=== PATIENT | female | born 1960 | race Caucasian/White ===

== ENCOUNTER 2024-05-26 03:35 | Inpatient (IN) | payer OTHER, SELFPAY ==
[2024-05-26] VITALS (16 sets, daily range): BP systolic 97–157; BP diastolic 46–105; BMI 35.6; BMI 34.3
--- NOTE | 2024-05-26 00:53 | ED.GENMED ---
History of Present Illness
General
Chief Complaint: Wound Check/Suture Removal
Source: patient
Exam Limitations: none
Time Seen by Provider: 05/26/24 00:44
History of Present Illness
History of Present Illness:
See MDM
Past History
Past History
ED Past Medical History: Hypercholesterolemia, IDDM and Hypothyroidism
ED Past Surgical History: Other
Social History
Tobacco: Smoker
Personal: Single
Living: with family
Employment: Employed
Phy Exam
Physical Exam
Physical Exam:
See MDM
Course
Orders/Labs/Results
Orders:
Orders
05/26/24 00:50
0.9% Sodium Chloride 1000 ml [Nss] 1,000 ml IV BOLUS
Morphine Sulfate 4 mg IV NOW STA
CR Foot - Left Min 3 Views Urgent
Comment:
Reason For Exam: 1st and 4th toe pain and swelling
05/26/24 00:57
Complete Blood Count/With Diff Urgent
Comprehensive Metabolic Panel Urgent
Lactic Acid Q4H
Comment: CANCEL 2nd LACTIC ACID IF 1st LACTIC ACID IS LESS THAN 2
PTT Urgent
Prothrombin Time Urgent
Blood Culture Urgent
JAMISON Source: Blood/Venous
Specimen Description:
05/26/24 01:37
Vancomycin [Vancocin] 2,000 mg 0.9% Sodium Chloride 500 ml [Nss] 500 ml IV NOW
05/26/24 01:38
Aztreonam [Azactam] 1,000 mg IV NOW STA
05/26/24 05:00
Lactic Acid Q4H
Comment: CANCEL 2nd LACTIC ACID IF 1st LACTIC ACID IS LESS THAN 2
Abnormal Lab Results
05/26/24
00:57
WBC 11.4 H 10^3/uL
(4.8-10.8)
Hgb 11.8 L g/dL
(12.0-16.0)
Hct 36.8 L %
(37.0-47.0)
MCH 26.6 L pg
(27.0-31.0)
MCHC 32.1 L g/dL
(33.0-37.0)
MPV 11.2 H fL
(7.4-10.4)
Absolute Neuts (auto) 8.8 H 10^3/uL
(1.4-6.5)
Absolute Monos (auto) 0.7 H 10^3/uL
(0.1-0.6)
Neutrophils % 77.8 H %
(42.2-75.2)
Lymphocytes % 15.2 L %
(20.5-51.1)
Potassium 5.2 H mmol/L
(3.5-5.1)
BUN 38 H mg/dl
(7-17)
Creatinine 1.3 H mg/dL
(0.6-1.0)
Glucose 144 H mg/dl
(70-99)
Lactic Acid 5.7 H* mmol/L
(0.7-2.0)
Total Bilirubin < 0.1 L mg/dl
(0.2-1.3)
05/26/24 00:57
05/26/24 00:57
Vital Signs
Initial and Last Documented VS:
Initial Vital Signs
Temp Resp
98.9 F 20
05/26/24 00:43 05/26/24 00:43
Last Documented Vital Signs
Temp Pulse Resp BP Pulse Ox
98.9 F 98 12 147/72 99
05/26/24 00:43 05/26/24 02:02 05/26/24 02:02 05/26/24 02:02 05/26/24 02:02
MDM/Problems Addressed
Differential Diagnosis Includes:
HPI and MDM Narrative:
This 63-year-old female presenting with worsening left foot pain and swelling. Patient states she has been dealing with wounds to her left great toe and left fourth toe for approximately 8 weeks. Symptoms have progressed and she is now noticing
redness and swelling of her foot. She has been unable to walk due to the pain. Patient states no one is doing anything about it. On exam, she has a gangrenous appearing left great toe and left fourth toe. There is mild erythema to the dorsum of
the foot. The foot is warm.
Given concern for gangrenous infection, will start antibiotics. Due to the penicillin allergy, will do vancomycin and aztreonam. Will ultimately admit
Physical exam
General: Uncomfortable
HEENT: protecting airway
Neck: appears supple
CV: No evidence of cyanosis
Resp: No accessory muscle use
Abd: Non-distended
Extremities: Erythema to dorsum of left foot. The foot is warm. Gangrenous skin changes to left great toe and left fourth toe. Foot is hypersensitive
Neuro: alert
Psych: Normal affect
Skin: Cellulitis to left foot
Problems Addressed including Acute and Chronic Conditions affecting care:
1. Left foot and toe infection
Acuity: acute
Prognosis: unstable
Details: Will obtain x-ray to rule out any evidence of osteomyelitis. Will start antibiotics and ultimately
Updates
Patient found to have elevated lactic acid. Will continue IV fluids.
Differential Diagnosis (but not limited to): Dry gangrene, cellulitis, osteomyelitis
Testing considered: ESR and CRP
Drug therapy (if applicable): OTC meds, please see d/c instruction regarding Rx drugs
Amount and/or Complexity of Data Reviewed
Clinical info obtained from: Patient
External data reviewed: N/A
Labs I independently reviewed (but not limited to): Elevated lactic acid
Radiology: X-ray independently reviewed: Possible osteomyelitis of great toe
Pulse Ox: not hypoxic
EKG independently reviewed: N/A
Architecture Analyst: N/A
Critical Care: N/A
Risk of Complication:
Social Determinants of health: Good social support
Discussed with other providers: Hospitalist
Escalation of Care includes Admit/Obs: Given the toe and foot infection, will start antibiotics and admit
Occasional wrong word or 'sound a like' substitutions may have occurred due to the inherent limitations of voice recognition software. Read the chart carefully and recognize, using context, where substitutions have occurred.
*Critical Care Note
Total Time (30-74mins, 75-104mins- exclusive of procedures): Not Applicable
ED Attending Note
-
Portions of this chart may have been created with voice recognition software.� Occasional wrong word or��sound alike� substitutions may have occurred due to the inherent limitations of voice recognition software.
Discharge Plan
Departure
Patient Disposition: Admit
Date of Disposition: 05/26/24
Time of Disposition: 02:20
Admit to: Med/Surg
Presentation/result/management discussed w/ accepting MD/DO: Hospitalist
Discharge Problem:
Wound of left foot
Prescriptions:
No Action
atorvastatin 80 MG tablet
80 mg PO QPM 0RF
acetaminophen 325 MG tablet
650 mg PO Q4HPRN PRN (Reason: HENDRICKS, mild pain, or temp >100.4F) 0RF
insulin glargine [Lantus U-100 Insulin] 1,000 UNITS/10 ML solution
30 units SC HS 0RF
sucralfate 1 GM/10 ML suspension
1 gm PO ACHS 0RF
clopidogrel 75 MG tablet
75 mg PO DAILY 0RF
aspirin 81 MG tablet,delayed release (DR/EC)
81 mg PO DAILY 0RF
pantoprazole 40 MG tablet,delayed release (DR/EC)
40 mg PO BID 0RF
metformin 1,000 MG tablet
1,000 mg PO BID@0800,1700 0RF
labetalol 100 MG tablet
50 mg PO BID 0RF
insulin aspart U-100 [Novolog FlexPen U-100 Insulin] 300 UNITS/3 ML insulin pen
10 units SC AC 0RF
ondansetron HCl (PF) 4 MG/2 ML solution
4 mg IV Q6HPRN PRN (Reason: NAUSEA/VOMITING) 0RF
Referrals:
Levar Subramanian MD [Family Provider] -
Interventions
Interventions:
*Risk Screen - Suicide Last Done: 05/26/24 00:43
*General Assessment Last Done: 05/26/24 00:43
*Neglect/Abuse Screening Last Done: 05/26/24 00:43
ED- Fall Risk Assessment Last Done: 05/26/24 00:43
ED-Skin Assessment Last Done: 05/26/24 00:43
Discharge Date and Time
Print Language: WELSH
[2024-05-26] MEDS: MORPHINE SULFATE 4 MG IV (01:06)
[2024-05-26] MEDS: NSS 1000 IV ×4 (01:07→20:35)
[2024-05-26 01:19] LABS: % Basophils 0.3 % (0-2); % Eosinophils 0.4 % (0-6); % Immature Granulocytes 0.3 % (0-0.5); % Lymphocytes 15.2 % (20.5-51.1); % Neutrophils 77.8 % (42.2-75.2); Absolute Eosinophils 0.1 10^3/uL (0-0.7); Absolute Lymphocytes 1.7 10^3/uL (1.2-3.4); Absolute Monocytes 0.7 10^3/uL (0.1-0.6); Absolute Neutrophils 8.8 10^3/uL (1.4-6.5); Hematocrit 36.8 % (37.0-47.0); Hemoglobin 11.8 g/dL (12.0-16.0); Mean Corp Hgb Conc. 32.1 g/dL (33.0-37.0); Mean Corpuscular Hgb 26.6 pg (27.0-31.0); Mean Corpuscular Volume 82.9 fL (81.0-99.0); Mean Platelet Volume 11.2 fL (7.4-10.4); Nucleated Red Blood Cells % 0 %; Platelet Count 368 10^3/uL (130-400); Red Blood Cell Count 4.44 10^6/uL (4.20-5.40); White Blood Cell Count 11.4 10^3/uL (4.8-10.8)
[2024-05-26 01:21] LABS: ALT (SGPT) 15 U/L (0-35); AST (SGOT) 20 U/L (14-36); Albumin 3.7 g/dl (3.5-5.0); Alkaline Phosphatase 80 U/L (38-126); Blood Urea Nitrogen 38 mg/dl (7-17); Calcium 8.9 mg/dl (8.4-10.2); Carbon Dioxide 23 mmol/L (22-30); Chloride 101 mmol/L (98-107); Estimated Creatinine Clearance 47 ml/min; Glucose 144 mg/dl (70-99); Potassium 5.2 mmol/L (3.5-5.1); Sodium 141 mmol/L (135-145); Total Bilirubin < 0.1 mg/dl (0.2-1.3); Total Protein 6.5 g/dl (6.3-8.2); eGFR 46.21
[2024-05-26 01:23] LABS: INR 0.98
[2024-05-26 01:24] LABS: APTT 32.6 Sec (23.4-35.0)
[2024-05-26 01:43] LABS: Lactic Acid 5.7 mmol/L (0.7-2.0)
[2024-05-26] MEDS: AZACTAM 1000 MG IV (01:56)
[2024-05-26] MEDS: VANCOCIN 540 MG IV (01:57)
[2024-05-26 05:43] LABS: Hemoglobin 10.6 g/dL (12.0-16.0); Mean Corp Hgb Conc. 32.1 g/dL (33.0-37.0); Mean Corpuscular Hgb 27.6 pg (27.0-31.0); Mean Corpuscular Volume 85.9 fL (81.0-99.0); Mean Platelet Volume 10.8 fL (7.4-10.4); Platelet Count 320 10^3/uL (130-400); Red Blood Cell Count 3.84 10^6/uL (4.20-5.40); Red Cell Dist. Width 13.8 % (11.5-14.5); White Blood Cell Count 10.4 10^3/uL (4.8-10.8)
[2024-05-26 06:23] LABS: Blood Urea Nitrogen 34 mg/dl (7-17); Calcium 8.3 mg/dl (8.4-10.2); Carbon Dioxide 25 mmol/L (22-30); Chloride 104 mmol/L (98-107); Estimated Creatinine Clearance 51 ml/min; Glucose 129 mg/dl (70-99); Potassium 5.1 mmol/L (3.5-5.1); Sodium 142 mmol/L (135-145); eGFR 50.86
--- NOTE | 2024-05-26 07:12 | HPS.HSE ---
Family Physician
-
Family Physician: Levar Subramanian
Chief Complaint
-
Left foot infection
History of Present Illness
This is a 60-year-old female with past medical history of insulin-dependent diabetes, hypertension, schizoaffective disorder, prior CVA who presents to the emergency department from group home with infection of the left great toe and fourth toe.
Patient reported that she has had discoloration of both these 2 areas for around 8 weeks. She had been managing with wound care at her nursing facility. However she was evaluated today by a physician there who recommended that she go to the
emergency department for further studies. Patient report that she has not been on any antibiotics. She denies any prior vascular studies. She does appear to have some peripheral neuropathy description. She also reports she felt some pulsatile
sensation in left leg. In addition to the 2 areas previously indicated the patient also reports some slight darkening of 4 left heel. She denies any prior foot infections. She denies any prior vascular studies or interventions. She has not had
any fevers or chills. She denies any nausea vomiting or diaphoresis. Glucose control has been well-managed without hyperglycemia or DKA.
In the emergency department patient was afebrile, blood pressure was 134/86, oxygen saturation was 94% on room air. CBC was mostly unremarkable with a white count of 11.4 hemoglobin of 11.8 and platelet of 368. Chemistries also essentially
unchanged from baseline with a BUN of 31 and creatinine of 1.3.
Medical History
Past Medical History
Past Medical History: Reports CVA, IDDM and Psychiatric
Past Surgical History: Reports Other
Social History
Tobacco: Non-smoker
Alcohol: None
Drug: None
Personal: Single
Living: Detention
Employment: Disabled
Family History
Family History: Not pertinent
Allergies / Home Medications
Allergies reflects when Allergies were last updated in [employer].
Home Medications with original date entered in [employer]
Allergy/Medication List:
Allergies
Allergy/AdvReac Type Severity Reaction Status Date / Time
Barbiturates Allergy Hives Verified 05/26/24 01:37
cefaclor [From Ceclor] Allergy Hives Verified 05/26/24 01:37
Penicillins Allergy Unknown Verified 05/26/24 01:37
Sulfa (Sulfonamide Allergy Hives Verified 05/26/24 01:37
Antibiotics)
Home Medications
acetaminophen 325 mg tablet 650 mg (2 x 325 mg) PO Q4HPRN PRN HENDRICKS, mild pain, or temp >100.4F 06/06/20
aspirin 81 mg tablet,delayed release 81 mg PO DAILY 06/06/20
atorvastatin 80 mg tablet 80 mg PO QPM 06/06/20
clopidogrel 75 mg tablet 75 mg PO DAILY 06/06/20
insulin aspart U-100 100 unit/mL (3 mL) subcutaneous pen (Novolog FlexPen U-100 Insulin aspart) 10 units SC AC 06/06/20
insulin glargine 100 unit/mL subcutaneous solution (Lantus U-100 Insulin) 30 units SC HS 06/06/20
labetalol 100 mg tablet 50 mg (1/2 x 100 mg) PO BID 06/06/20
metformin 1,000 mg tablet 1,000 mg PO BID@0800,1700 06/06/20
ondansetron HCl (PF) 4 mg/2 mL injection solution 4 mg (2 mL) IV Q6HPRN PRN NAUSEA/VOMITING 06/06/20
pantoprazole 40 mg tablet,delayed release 40 mg PO BID 06/06/20
sucralfate 100 mg/mL oral suspension 1 gm PO ACHS 06/06/20
Review of Systems
-
History Source: Patient
Constitutional: Reports No Symptoms
EENT: Reports No Symptoms
Respiratory: Reports No Symptoms
Cardiac: Reports No Symptoms
Abdomen/GI: Reports No Symptoms
: Reports No Symptoms
Musculoskeletal: Reports No Symptoms
Skin: Reports Rash
Neurological: Reports No Symptoms
Endocrine: Reports No Symptoms
Psych: Reports No Symptoms
Physical Exam
Vital Signs
Vital Signs
Temp Pulse Resp BP Pulse Ox
98.9 F 100 16 134/105 94
05/26/24 00:43 05/26/24 02:30 05/26/24 02:30 05/26/24 02:30 05/26/24 02:30
Physical Exam
General: No Apparent Distress
HEENT: NormoCephalic, Anicteric, Moist mucous membranes and Atraumatic
Respiratory: Clear
Cardiac: S1/S2 and Regular Rhythm
Breast: Deferred by me
GI: Soft, Non Tender, Non Distended and Normal Bowel Sounds
Rectal: Deferred by Provider
Genito-urinary: Deferred by me
Musculoskeletal: No Clubbing, No Cyanosis and Edema, Left Lower Extremity
Skin: Warm and Other (Currently has eschar without exudate in the left fourth toe and left great toe. There is surrounding erythema and minimal edema. Slight tenderness to palpation.)
Neuro: AO x 3
Hematologic/Lymphatic: No Lymphadenopathy
Psych: Calm
Laboratory Results
-
05/26/24 05:28
05/26/24 05:28
Laboratory Results
PT 13.0 Sec (11.4-14.6) 05/26/24 00:57
INR 0.98 05/26/24 00:57
APTT 32.6 Sec (23.4-35.0) 05/26/24 00:57
Lactic Acid Cancelled 05/26/24 05:00
Total Bilirubin < 0.1 mg/dl (0.2-1.3) L 05/26/24 00:57
AST 20 U/L (14-36) 05/26/24 00:57
ALT 15 U/L (0-35) 05/26/24 00:57
Alkaline Phosphatase 80 U/L (38-126) 05/26/24 00:57
Data Reviewed
-
Diagnostic Radiology: Image Personally Visualized and interpreted
Lab Data: Labs Reviewed by me
Old Records: Reviewed
Impression/Plan
-
IMPRESSION:
60-year-old female with history of insulin-dependent diabetes who presents to the emergency department with approximately 8 weeks of ongoing left great toe and fourth toe infection concerning for possible gangrene and vascular insufficiency versus
diabetic foot infection.
PLAN:
1. Toe Infection - Gangrene vs diabetic foot infection
- admit to med surg
- blood cultures
- check crp
- f/u on xray final read to determine if mri needed
- Continue vancomycin for non-exudative foot infection
- arterial doppler u/s for vascular evaluation, then possible vascular consult
- ID consultation
2. DM II
- Placed patient on slightly reduced insulin regimen compared to home with glargin, aspart tidac and sliding scale
- holding metformin
3. Hypothyroidism
- continue levothyroxine
DVT PPX - lovenox sq
Code Status - Full Code
[2024-05-26 07:24] LABS: Erythrocyte Sed Rate 74 mm/hour (0-20)
[2024-05-26] MEDS: TYLENOL 650 MG PO ×2 (07:36→23:35)
--- NOTE | 2024-05-26 07:55 | W.PN.HOSP.TC ---
Today's Communication/Plan
-
Appreciate vascular surgery consult. Infectious diseases consulted. Will further assess with a CTA or arteriogram. Possible CKD stage IIIa -we will further trend EGFR and creatinine to further assess. MRI of the foot ordered.
Assessment / Plan
Assessment / Plan
HPI: Patient is a 63-year-old woman with a past medical history of insulin-dependent diabetes, hypertension, schizoaffective disorder, and prior CVA who presented to the emergency department with worsening left foot pain and swelling. She came to
the emergency department from the halfway [facility]. The patient stated that she had been dealing with wounds to her left great toe and left fourth toe for approximately 8 weeks. She had been managing with wound care at her nursing
facility. However, she was evaluated the day of her presentation to the emergency department by a physician at the halfway who recommended that she go to the emergency department for further evaluation. The patient reported that she had not
been on any antibiotics. She denied any prior vascular studies. Symptoms had progressed and she was noticing redness and swelling of her foot. She was unable to walk due to the pain. The patient stated that no one is doing anything about it. On
exam she had a gangrenous appearing left great toe and left fourth toe. There was mild erythema to the dorsum of the foot and the foot was warm. She also was assessed to have peripheral neuropathy. She reported some pulsatile sensation felt in
the left leg. In addition to the 2 areas previously indicated the patient also reported some slight darkening of her left heel. Antibiotics were started immediately due to concern for gangrenous infection. Patient was given vancomycin and
aztreonam due to a penicillin allergy. In the emergency department the patient was afebrile, blood pressure was 134/86, oxygen saturation was 94% on room air. CBC was mostly unremarkable with a white blood cell count of 11.4, hemoglobin of 11.8,
and a platelet count of 368. The patient's chemistry were also unchanged from baseline with a BUN of 31 and a creatinine of 1.3.
Assessment/Plan:
-Dry gangrene of the first and fourth toe of the left foot:
Admitted to [facility]
blood cultures sent
CRP elevated at 74.7 on 05/26/2024
Foot x-ray showed no acute fracture or dislocation. No osseous destructive changes. Large calcaneal enthesophyte formation. Vascular calcifications. Mild soft tissue swelling about the foot, nonspecific.
Follow-up MRI of the foot ordered
Continue vancomycin for non-exudative foot infection
arterial doppler u/s for vascular evaluation
Appreciate vascular surgery consult- will further assess with a CTA or arteriogram
Appreciate infectious diseases consult
Wound care team consulted
Lactic acid trending downwards. Lactic acid was 5.7 on 05/26/2024 at 1AM �currently 2.1 on 05/26/2024 at 10:43AM
-Possible chronic kidney disease stage IIIa:
eGFR ranges between 46-50
Creatinine elevated at 1.2 on 05/26/2024
Will continue to monitor
-Type 2 diabetes mellitus:
Placed patient on slightly reduced insulin regimen compared to home with glargine, aspart tidac and moderate sliding scale
holding metformin
-Hypothyroidism:
continue levothyroxine
Anticipated Discharge: 24 - 48 hours
Subjective/Interval History
-
Date of Service: May 26, 2024
Met with patient at the bedside. She was seen laying in bed and uncomfortable with pain in her left foot. She particularly focused on the pain in her first and fourth digit. Patient experienced anxiety during blood draw as it was difficult for
staff to gain vascular access. Reassurance provided at the bedside.
Objective Data
-
Labs:
Laboratory Results
05/26/24 05/26/24
00:57 05:28
WBC 11.4 H 10.4
Hgb 11.8 L 10.6 L
Hct 36.8 L 33.0 L
Plt Count 368 320
PT 13.0
INR 0.98
APTT 32.6
Sodium 141 142
Potassium 5.2 H 5.1
Chloride 101 104
Carbon Dioxide 23 25
BUN 38 H 34 H
Creatinine 1.3 H 1.2 H
Glucose 144 H 129 H
Calcium 8.9 8.3 L
Total Bilirubin < 0.1 L
AST 20
ALT 15
Alkaline Phosphatase 80
Vital Signs:
Vital Signs
Temp Pulse Resp BP Pulse Ox
98.9 F 97 19 97/46 97
05/26/24 00:43 05/26/24 07:15 05/26/24 07:15 05/26/24 04:00 05/26/24 04:15
I&O
05/25/24 05/26/24 05/27/24
06:59 06:59 06:59
Intake Total 540 / 540
Output Total 100 / 100
Balance 440 / 440
Review of Systems
-
History Source: Patient
Constitutional: Reports Other (Left foot pain)
EENT: Reports No Symptoms Reported
Respiratory: Reports No Symptoms
Cardiac: Reports No Symptoms
Abdomen/GI: Reports No Symptoms
Breast: Reports No Symptoms
Genitourinary: Reports No Symptoms
Musculoskeletal: Reports Other (Left foot pain -particularly in the great toe and fourth toe)
Skin: Reports No Symptoms
Neuro: Reports No Symptoms
Endocrine: Reports No Symptoms
Psych: Reports Anxious
Physical Exam
-
General: Well Developed, Well Nourished and Pain (Left foot pain-particularly in the greater toe and fourth toe)
HEENT: Normocephalic, Atraumatic and Moist Mucous Membranes
Respiratory: Clear to Auscultation
Cardiac: Regular Rhythm and S1/S2
Breast: Deferred by me
GI: Soft, Nontender, Nondistended and Normal Bowel Sounds
Rectal: Deferred by Provider
Genito-urinary: Deferred by me
Musculoskeletal: No Clubbing and No Cyanosis
Skin: Warm, Dry and Other (Gangrenous skin lesions of the left great toe and fourth digit of her foot)
Neuro: Awake, Alert, Oriented and AO x 3
Psych: Anxious
--- NOTE | 2024-05-26 08:48 | PHA.VAN.IN ---
Assessment
- Assessment
Renal Function: Unknown baseline
Plan
- Plan
Initial / Loading Dose: 2000mg - 05/26 01:57
Maintenance Regimen: dosing by level
Monitoring: random 05/27 0600
Pharmacokinetics Vancomycin I
- -
Patient Age: 63
Patient Sex: Female
Vancomycin Day #: 1
Indication: Skin And Soft Tissue
Requesting Provider: Dr. Corona
Pertinent Antimicrobial Allergies:
cefaclor - hives
penicillins - unknown
sulfonamide antibiotics -hives
Height / Weight:
Height 5 ft 3 in
Actual Weight 91.1 kg
Pertinent Past Medical History: BMI ~36< DM
- Vital Signs / Lab Results
Temp Pulse Resp BP Pulse Ox
98.9 F 97 19 97/46 97
05/26/24 00:43 05/26/24 07:15 05/26/24 07:15 05/26/24 04:00 05/26/24 04:15
Lab Results - Hematology
05/26/24 05/26/24
00:57 05:28
WBC 11.4 H 10.4
Lab Results - Chemistry
05/26/24 05/26/24
00:57 05:28
BUN 38 H 34 H
Creatinine 1.3 H 1.2 H
Estimated Creat Clear 47 51
Albumin 3.7
05/26/24 05/26/24
00:57 05:00
Lactic Acid 5.7 H* Cancelled
[2024-05-26 08:53] LABS: Glucose - Point of Care 118 mg/dl (70-99)
[2024-05-26] MEDS: NOVOLOG FLEXPEN 7 UNITS SC ×3 (09:58→18:35)
[2024-05-26] MEDS: NOVOLOG FLEXPEN-MODERATE RESISTANCE SC (09:58)
[2024-05-26] MEDS: TRILEPTAL 300 MG PO ×2 (09:59→20:28)
[2024-05-26] MEDS: PROTONIX 40 MG PO ×2 (09:59→20:28)
[2024-05-26] MEDS: ASPIR LOW (ENTERIC COATED) 81 MG PO (09:59)
[2024-05-26] MEDS: RISPERDAL 0.5 MG PO ×2 (09:59→20:29)
--- NOTE | 2024-05-26 10:33 | CON.VAS ---
Addendum entered and electronically signed by Hardik Melara MD 05/26/24 12:28:
Seen and evaluated with JULY Easley. Agree with findings as noted below. 63-year-old female with schizoaffective disorder with left foot gangrenous and ischemic changes over the course of 8 weeks. Patient unclear how this develop. She notes that
she used to walk before she developed this. She denied any claudication prior. Denies any history of coronary disease or prior peripheral vascular interventions. On exam she is awake and alert. Head is normocephalic and atraumatic. Eyes are
anicteric. Neck is soft without jugular venous distention. Abdomen is soft. Groins left 1+ weak femoral pulse palpable at best. On the right side had real difficulty palpating a femoral pulse. We even laid her flat. Nonpalpable distally
bilaterally. Left foot with first and fourth toe dry gangrene. Varying degrees of ischemic changes to the other feet. There is rubor in the foot. No tim wet gangrene. No purulence.
Plan/ Likely has significant arterial sufficiency with difficult to palpate femoral pulses and distal pulses. Chronic limb threatening ischemia therefore. Discussed with her without intervention she runs a risk of limb loss. Discussed we need to
obtain better imaging. Prior to proceeding with any angiography, would favor CT angiogram given weak femoral pulses. Will obtain today CTA of the aorta runoff and then I discussed with her I can discuss revascularization strategies or plans if
feasible.
Original Note:
Consultation
Consultation Request
Performing Provider: Ketlon
Reason for Consultation: Nonhealing wounds left foot
Medical History
-
Chief Complaint: Left foot pain/wounds
History of Present Illness:
63 yo female presenting to the ER today from [place] for nonhealing left foot wounds. Pt is a poor historian. She states she has had the wounds for about 8 weeks but no one has done anything for them. 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
but has not seen him for 'a long time.' Denies history of PAD, CAD, vascular interventions, wound healing issues. 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 Pt
denies claudication symptoms, denies rest pain. States she 'only walks when she has to' but has not anytime recently d/t the left foot wounds. Pt is not sure if anything makes her foot feel better. She states 'no one has done anything to make it
better.' She states it doesn't hurt very much when no one is touching it. Her right foot is not painful though he cried when I checked pulses on that side but later said that was because it tickled.
Vascular consult for nonhealing left foot wounds/PAD eval. Pt seen at bedside in the ER this am.
Pt has tenderness to very light palpation of the left foot. Foot is pink with some swelling, dry gangrene to the 1st and 4th toes and a small dry necrotic ulcer to the lateral heel. Images below. Nonpalpable BL PTs, faintly palpable DP on the left
foot. + Doppler signals to the left DP and BL PT. Nonpalpable popliteal pulses, weakly palpable BL femoral pulses. Right foot skin intact.
Left foot
Past Medical History
Past Medical History: NIDDM, Seizures (?) and Psychiatric (schizoaffective )
Social History
Living: [facility]
Allergies / Home Medications
Allergy/AdvReac Type Severity Reaction Status Date / Time
Barbiturates Allergy Hives Verified 05/26/24 01:37
cefaclor [From [facility]] Allergy Hives Verified 05/26/24 01:37
Penicillins Allergy Unknown Verified 05/26/24 01:37
Sulfa (Sulfonamide Allergy Hives Verified 05/26/24 01:37
Antibiotics)
�Medication �Instructions �Recorded �Confirmed �Type
acetaminophen 325 mg tablet 650 mg (2 x 325 mg) PO Q4HPRN PRN 06/06/20 Rx
HENDRICKS, mild pain, or temp >100.4F
aspirin 81 mg tablet,delayed 81 mg PO DAILY 06/06/20 Rx
release
atorvastatin 80 mg tablet 80 mg PO QPM 06/06/20 Rx
clopidogrel 75 mg tablet 75 mg PO DAILY 06/06/20 Rx
insulin aspart U-100 100 unit/mL 10 units SC AC 06/06/20 Rx
(3 mL) subcutaneous pen (Novolog
FlexPen U-100 Insulin aspart)
insulin glargine 100 unit/mL 30 units SC HS 06/06/20 Rx
subcutaneous solution (Lantus
U-100 Insulin)
labetalol 100 mg tablet 50 mg (1/2 x 100 mg) PO BID 06/06/20 Rx
metformin 1,000 mg tablet 1,000 mg PO BID@0800,1700 06/06/20 Rx
ondansetron HCl (PF) 4 mg/2 mL 4 mg (2 mL) IV Q6HPRN PRN 06/06/20 Rx
injection solution NAUSEA/VOMITING
pantoprazole 40 mg tablet,delayed 40 mg PO BID 06/06/20 Rx
release
sucralfate 100 mg/mL oral 1 gm PO ACHS 06/06/20 Rx
suspension
Review of Systems
-
History Source: Patient
All other systems: Negative unless noted
Constitutional: Reports No Symptoms
EENT: Reports No Symptoms
Respiratory: Reports No Symptoms
Cardiac: Reports No Symptoms
Vascular: Denies Leg Pain / Claudication
Abdomen/GI: Reports No Symptoms
Musculoskeletal: Reports Edema and Other (foot pain)
Skin: Reports Other (left foot wounds)
Neurological: Reports No Symptoms
Endocrine: Reports No Symptoms
Physical Exam
Vital Signs
Temp Pulse Resp BP Pulse Ox
98.9 F 97 19 97/46 97
05/26/24 00:43 05/26/24 07:15 05/26/24 07:15 05/26/24 04:00 05/26/24 04:15
Lab Results
05/26/24 05:28
05/26/24 05:28
Physical Exam
General: No Apparent Distress
HEENT: Normocephalic and Atraumatic
Respiratory: Non Labored Respirations
Cardiac: Negative JVD
GI: Soft and Non Tender
Musculoskeletal: No Clubbing, No Cyanosis and Edema (left foot)
Skin: Warm, Dry and Other (See images above)
Neuro: Awake, Alert and Oriented
Psych: Calm
Pulses: Bilateral Femoral: +1 (weak), Left Dorsalis Pedis: Doppler, Right Dorsalis Pedis: +1 (weak) and Bilateral Posterior Tibial: Doppler
Assessment / Plan
-
63 yo female with unclear PMH presetning to ER for nonhealing left foot wounds with dry gangrene
Plan:
-CTA vs arteriogram, will d/w Dr Melara
-Abnormal creatinine, does not know baseline
Data Reviewed
-
Labs: Labs Reviewed by me
[2024-05-26] MEDS: MORPHINE SULFATE 1 MG IV ×2 (10:53→20:35)
[2024-05-26 11:09] LABS: Lactic Acid 2.1 mmol/L (0.7-2.0)
[2024-05-26 11:55] LABS: Glucose - Point of Care 200 mg/dl (70-99)
--- NOTE | 2024-05-26 13:53 | CON.ID ---
Consultation
-
Date/Time Consultation Requested: 05/26/2024 0402
Date/Time Consultation Performed: 05/26/2024 1400
Requesting Provider: Dr. Janette Walton
Performing Provider: Dr. Amy King
Reason for Consultation: Diabetic foot infection
Chief Complaint / Past History
Chief Complaint
Black toes
History of Present Illness
63 year old female from [facility] with hx DM, CVA who came to ED yesterday due to toe gangrene. She reports left first and 4th toes started to turn dark approximately 2 months ago. Toes are now black. Toes are painful. No fevers or chills. CTA no
significant LLE stenosis, extensive atherosclerotic plaques.
Past History
Additional Past Medical History:
DM
HTN
CVA
Hypothyroidism
Schizoaffective disorder
Lap rashid
[facility] resident
Allergy History:
Barbiturates Allergy (Verified 05/26/24 01:37)
Hives
cefaclor [From Ceclor] Allergy (Verified 05/26/24 01:37)
Hives
Penicillins Allergy (Verified 05/26/24 01:37)
Pt unaware she has PCN allergy
Sulfa (Sulfonamide Antibiotics) Allergy (Verified 05/26/24 01:37)
Hives
Medications Reviewed: Yes
Current Antibiotics:
Vancomycin
s/p aztreonam x 1
Social History
Tobacco: Non-Smoker
Alcohol: None
Drug: None
Living: [facility]
Family History
Family History: Not Pertinent
Review of Systems
Review of Systems
General: Negative Fever or Chills
HEENT: Negative Sinus Problems or Headache
Cardiovascular: Negative Chest Pain
Respiratory: Negative Dyspnea or Cough
Gasteroenterology: Negative Nausea, Vomiting or Diarrhea
Genital / Urological: Negative Dysuria or Flank Pain
Endocrine: Negative Weakness or Fatigue
Neurological: Negative Dizziness
All systems: All other systems were reviewed and were negative
Vital Signs
Temp Pulse Resp BP Pulse Ox
98.9 F 97 19 97/46 95
05/26/24 00:43 05/26/24 07:15 05/26/24 07:15 05/26/24 04:00 05/26/24 10:39
Physical Exam
Physical Exam
Constitutional: No Acute Distress and Obese
Eyes: No Conjunctival Hemorrhage and Sclera Anicteric
Cardiovascular: Regular Rate and S1/S2
Pulmonary: Clear
Gastrointestinal: Soft, Non Tender and Non Distended
Genito-Urinary: Negative CVA Tenderness
Extremities: Other (left foot 2+ edema, hyperemia, warm, gangrene hallux and 4th toe, ischemic wound lateral heel)
Neurological: Awake and Alert
Lab / Diagnostic Study Results
05/26/24 05:28
05/26/24 05:28
Abs Immat Gran (auto) 0.0 10^3/uL (0-0.05) 05/26/24 00:57
Absolute Neuts (auto) 8.8 10^3/uL (1.4-6.5) H 05/26/24 00:57
Absolute Lymphs (auto) 1.7 10^3/uL (1.2-3.4) 05/26/24 00:57
Absolute Monos (auto) 0.7 10^3/uL (0.1-0.6) H 05/26/24 00:57
Absolute Basos (auto) 0.0 10^3/uL (0-0.2) 05/26/24 00:57
Immature Gran % 0.3 % (0-0.5) 05/26/24 00:57
Neutrophils % 77.8 % (42.2-75.2) H 05/26/24 00:57
Lymphocytes % 15.2 % (20.5-51.1) L 05/26/24 00:57
Monocytes % 6.0 % (1.7-9.3) 05/26/24 00:57
Eosinophils % 0.4 % (0-6) 05/26/24 00:57
Basophils % 0.3 % (0-2) 05/26/24 00:57
ESR 74 mm/hour (0-20) H 05/26/24 05:28
PT 13.0 Sec (11.4-14.6) 05/26/24 00:57
INR 0.98 05/26/24 00:57
Lactic Acid 2.1 mmol/L (0.7-2.0) H 05/26/24 10:43
C-Reactive Protein 74.70 mg/L (0.0-10.00) H 05/26/24 05:28
Microbiology Results
Micro:
05/26/24 04:34 MRSA Screen - Pending
Nose
05/26/24 00:57 Blood Culture - Pending
Blood/Venous
05/26/24 Foot XRAY: No radiographic evidence for an acute osseous abnormality of the left foot.
05/26/24 CTA:
1. Heavily calcified, nonaneurysmal abdominal aorta. Celiac axis, SMA, and inferior mesenteric arteries are patent. Both renal arteries are patent with likely mild ostial narrowing secondary to calcified plaque.
2. Right leg: Mild calcified iliac arteries without significant stenosis. Mild mixed plaque within the common femoral artery without significant stenosis. Extensively diseased SFA with multifocal areas of narrowing identified proximally and
distally. Popliteal artery is heavily calcified but appears patent with patent trifurcation. The peroneal artery appears to occlude distally. Anterior tibial and posterior tibial arteries are heavily calcified which limits evaluation but appear
patent distally.
3. Left leg: Mild calcified plaque without significant stenosis within the iliac arteries. No significant stenosis identified within the common femoral artery. Extensive atherosclerotic plaque throughout the SFA with likely focal area of narrowing
identified proximally (image 160, series 501). There may also be an area of narrowing distally with several collateral vessels appreciated (image 219). Extensively calcified popliteal artery, limiting evaluation, but which appears patent.
Infrapopliteal vessels are heavily calcified, limiting evaluation. The distal aspects of the posterior tibial and dorsalis pedis arteries appear patent.
Assessment / Plan
# Dry gangrene of left 1st and 4th toes, ischemic wound on heel
- CTA no significant stenosis
- For Arteriography Wednesday.
- DC abx as gangrene is dry, not wet.
- Follow blood cx for possible embolic disease, although pt without systemic signs/sxs
- Follow for progression of gangrene.
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
DM
HTN
CVA
Hypothyroidism
Schizoaffective disorder
Lap rashid
SNF resident
[2024-05-26] MEDS: NOVOLOG FLEXPEN-MODERATE RESISTANCE 3 UNITS SC (14:08)
--- NOTE | 2024-05-26 15:25 | WOUNDNOTE ---
[facility] RN NOTE: Reviewed chart and met with patient and RN Raudel in ER. Patient agitated, calling out. Raudel preparing patient for angiogram. Patient agreed to have this RN take pictures of toes but declined any dressing to dry toes. Raudel made
aware that this advertising copywriter called for hospital bed for patient. Vascular following for chronic limb ischemia. Will follow peripherally.
--- NOTE | 2024-05-26 16:34 | W.PN.UPDATE ---
Addendum entered and electronically signed by Hardik Melara MD 05/26/24 17:18:
Discussed with patient CT scan findings. Discussed underwhelming inflow concerns. Discussed diffuse atherosclerosis. Discussed likely left SFA and popliteal areas of stenoses in tandem. Discussed limited visualization of below the knee vessels,
and possibility of small vessel disease not amenable to revascularization. Discussed my recommendation for left lower extremity arteriogram with possible angioplasty/stenting. Discussed procedure, anticipated outcomes, anticipated recovery.
Discussed risks of procedure including not limited to bleeding, arterial injury/worsened or acute limb ischemia, renal failure, need for staged surgical procedures, not reconstructable distal disease with amputation rest persistent. She understands
all wishes to proceed. Plan OR 05/29/2024.
Original Note:
Update Note
Progress Note Update
Plan for arteriogram Wednesday with Dr Melara. Pt agreeable.
[2024-05-26 17:58] LABS: Glucose - Point of Care 252 mg/dl (70-99)
[2024-05-26] MEDS: LIPITOR 40 MG PO (18:34)
[2024-05-26] MEDS: LOVENOX 40 MG SC (18:34)
[2024-05-26] MEDS: NOVOLOG FLEXPEN-MODERATE RESISTANCE 5 UNITS SC (18:35)
[2024-05-26] MEDS: DEPAKOTE (12 HR RELEASE) 125 MG PO (20:29)
[2024-05-26 21:28] LABS: Glucose - Point of Care 97 mg/dl (70-99)
--- NOTE | 2024-05-26 22:02 | W.PN.UPDATE ---
Update Note
Progress Note Update
BS is 97 tonight, will give half of lantus dose.
[2024-05-26] MEDS: LANTUS 0.075 UNITS SC (22:20)
--- NOTE | 2024-05-26 22:54 | PTCARENOTE ---
Patient arrived to unit from ED via stretcher. Pt. pulled over from stretcher to bed in room 321 on . Patient AAOx3 and able to make needs known. Patient yelling out frequently. Encouraged patient to use call villarreal. Oriented to unit. Call villarreal
within reach. Plan of care ongoing.
[2024-05-27 00:55] VITALS: BP 140/86
[2024-05-27] MEDS: SYNTHROID 50 MCG PO (05:29)
[2024-05-27] MEDS: NSS 1000 IV ×2 (06:18→18:35)
[2024-05-27 07:00] VITALS: BP 158/100
[2024-05-27] MEDS: MORPHINE SULFATE 1 MG IV ×2 (07:48→12:47)
--- NOTE | 2024-05-27 07:48 | PTCARENOTE ---
patient screaming/yelling c/o of left foot. c/o feeling cold. saturated in urine, gown, linens and diaper soaked. resistant with turning and requiring max assist x2, administered PRN Morphine, will continue to monitor.
--- NOTE | 2024-05-27 08:36 | W.PN.HOSP.TC ---
Addendum entered and electronically signed by Yo Walton MD 05/27/24 13:57:
Presenting with dry gangrene of first and fourth left foot in the setting of diabetes and PAD.
Additionally, she is a difficult blood draw
Xray:
Note calcification throughout arterial system.
Dry ggangrene
-ELLIOT's
-CTAngio on Wednesday
-Vascular Following
-Off Atb at this time
-F/u bcx
Original Note:
Today's Communication/Plan
-
We were unable to get labs today as the patient felt uncomfortable during lab draw. The patient is scheduled for an arteriogram of the lower limbs on Wednesday with Dr. Melara. We will continue to treat her pain and manage her until further evaluation
by vascular surgery.
Assessment / Plan
Assessment / Plan
Assessment/Plan:
-Dry gangrene of the first and fourth toe of the left foot:
Admitted to [facility]
blood cultures sent
CRP elevated at 74.7 on 05/26/2024
Foot x-ray showed no acute fracture or dislocation. No osseous destructive changes. Large calcaneal enthesophyte formation. Vascular calcifications. Mild soft tissue swelling about the foot, nonspecific.
Follow-up MRI of the foot ordered
Continue vancomycin for non-exudative foot infection
arterial doppler u/s for vascular evaluation
Appreciate vascular surgery consult- will further assess with a CTA or arteriogram
Appreciate infectious diseases consult
Wound care team consulted
Lactic acid trending downwards. Lactic acid was 5.7 on 05/26/2024 at 1AM �currently 2.1 on 05/26/2024 at 10:43AM
Patient is scheduled for an arteriogram with Dr. Melara on Wednesday
-Possible chronic kidney disease stage IIIa:
eGFR ranges between 46-50
Creatinine elevated at 1.2 on 05/26/2024
Will continue to monitor
-Type 2 diabetes mellitus:
Placed patient on slightly reduced insulin regimen compared to home with glargine, aspart tidac and moderate sliding scale
holding metformin
-Hypothyroidism:
continue levothyroxine
DVT prophylaxis: Enoxaparin subcu
FULL CODE STATUS
Anticipated Discharge: > 48 hours
Subjective/Interval History
-
Date of Service: May 27, 2024
Met with the patient at the bedside. She continues to feel foot pain but her pain medications help alleviate the extremes of it. She did not feel comfortable with allowing staff to draw blood for labs today.
Objective Data
-
Labs:
Laboratory Results
05/27/24
06:00
WBC Pending
Hgb Pending
Hct Pending
Plt Count Pending
Sodium Pending
Potassium Pending
Chloride Pending
Carbon Dioxide Pending
BUN Pending
Creatinine Pending
Glucose Pending
Calcium Pending
Total Bilirubin Pending
AST Pending
ALT Pending
Alkaline Phosphatase Pending
Vital Signs:
Vital Signs
Temp Pulse Resp BP Pulse Ox
98.8 F 98 20 158/100 99
05/27/24 00:45 05/27/24 07:00 05/27/24 07:00 05/27/24 07:00 05/27/24 07:00
I&O
05/26/24 05/27/24 05/28/24
06:59 06:59 06:59
Intake Total 540 / 540 1600 / 1600
Output Total 100 / 100
Balance 440 / 440 1600 / 1600
Review of Systems
-
History Source: Patient
All other systems: Reviewed and negative
Constitutional: Reports No Symptoms and Other (Left foot pain)
EENT: Reports No Symptoms Reported
Respiratory: Reports No Symptoms
Cardiac: Reports No Symptoms
Abdomen/GI: Reports No Symptoms
Breast: Reports No Symptoms
Genitourinary: Reports No Symptoms
Musculoskeletal: Reports Other (Left foot pain particularly in the great toe and the fourth toe)
Skin: Reports No Symptoms
Neuro: Reports No Symptoms
Endocrine: Reports No Symptoms
Psych: Reports Other (Calm)
Physical Exam
-
General: Well Developed, Well Nourished and Pain (Left foot pain)
HEENT: Normocephalic, Atraumatic and Moist Mucous Membranes
Respiratory: Clear to Auscultation
Cardiac: Regular Rhythm and S1/S2
Breast: Deferred by me
GI: Soft, Nontender, Nondistended and Normal Bowel Sounds
Musculoskeletal: No Clubbing, No Cyanosis and No Edema
Skin: Warm and Dry
Neuro: Awake, Alert, Oriented and AO x 3
Psych: Calm
[2024-05-27 09:00] LABS: Glucose - Point of Care 85 mg/dl (70-99)
[2024-05-27] MEDS: NOVOLOG FLEXPEN-MODERATE RESISTANCE SC (09:29)
[2024-05-27] MEDS: NOVOLOG FLEXPEN SC (09:30)
[2024-05-27] MEDS: TRILEPTAL 300 MG PO ×2 (09:35→19:54)
[2024-05-27] MEDS: ASPIR LOW (ENTERIC COATED) 81 MG PO (09:35)
[2024-05-27] MEDS: PROTONIX 40 MG PO ×2 (09:35→19:54)
[2024-05-27] MEDS: DEPAKOTE (12 HR RELEASE) 125 MG PO ×2 (09:36→19:54)
[2024-05-27] MEDS: RISPERDAL 0.5 MG PO ×2 (09:36→19:54)
[2024-05-27 12:21] LABS: Glucose - Point of Care 151 mg/dl (70-99)
[2024-05-27] MEDS: NOVOLOG FLEXPEN-MODERATE RESISTANCE 1 UNITS SC ×2 (12:48→18:39)
[2024-05-27] MEDS: NOVOLOG FLEXPEN 7 UNITS SC ×2 (12:48→18:38)
[2024-05-27 15:00] VITALS: BP 96/65
--- NOTE | 2024-05-27 15:01 | W.PN.ID1 ---
Date of Service
Date of Service: May 27, 2024
Today's Communication
Observe off abx.
Assessment / Plan
# Dry gangrene of left 1st and 4th toes, ischemic wound on heel
# Chronic ischemic left 1st and 4th toes (since 08/2023, per sister)
-blood cx negative
- CTA no significant stenosis
- For Arteriography Wednesday.
- Observe off abx
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
DM
HTN
CVA
Hypothyroidism
Schizoaffective disorder
Lap rashid
[facility] resident
Chief Complaint
-: Other (Toe gangrene)
Subjective / Review of Systems
Pt's sister at bedside.
She reports left foot issues chronic since August 2023 and progressively worse. This has been the worse she has ever seen of the toes.
Vital Signs / Physical Exam
Vital Signs
Vital Signs
Temp Pulse Resp BP Pulse Ox
98.8 F 98 20 158/100 99
05/27/24 00:45 05/27/24 07:00 05/27/24 07:00 05/27/24 07:00 05/27/24 07:00
Physical Exam
Constitutional: No Acute Distress and Comfortable
Gastrointestinal: Soft, Non Tender and Non Distended
Wound: Other (Left first toe stokes, 4th toe black, lateral heel ischemic wound. Minimal erythema dorsum of foot. )
Neurological: Awake and Alert
Objective Data
Lab Data
ESR 74 mm/hour (0-20) H 05/26/24 05:28
PT 13.0 Sec (11.4-14.6) 05/26/24 00:57
INR 0.98 05/26/24 00:57
APTT 32.6 Sec (23.4-35.0) 05/26/24 00:57
Estimated Creat Clear 51 ml/min 10/11/24 05:28
Lactic Acid 2.1 mmol/L (0.7-2.0) H 05/26/24 10:43
Total Bilirubin < 0.1 mg/dl (0.2-1.3) L 05/26/24 00:57
AST 20 U/L (14-36) 05/26/24 00:57
ALT 15 U/L (0-35) 05/26/24 00:57
Alkaline Phosphatase 80 U/L (38-126) 05/26/24 00:57
C-Reactive Protein 74.70 mg/L (0.0-10.00) H 05/26/24 05:28
Most recent labs reviewed.
Micro Results:
05/26/24 04:34 MRSA Screen - Final
Nose No Methicillin Resistant Staphylococcus aureus isolated.
05/26/24 00:57 Blood Culture - Preliminary
Blood/Venous No Growth in 24 hours- Final report to follow
05/26/24 Foot XRAY: No radiographic evidence for an acute osseous abnormality of the left foot.
05/26/24 CTA:
1. Heavily calcified, nonaneurysmal abdominal aorta. Celiac axis, SMA, and inferior mesenteric arteries are patent. Both renal arteries are patent with likely mild ostial narrowing secondary to calcified plaque.
2. Right leg: Mild calcified iliac arteries without significant stenosis. Mild mixed plaque within the common femoral artery without significant stenosis. Extensively diseased SFA with multifocal areas of narrowing identified proximally and
distally. Popliteal artery is heavily calcified but appears patent with patent trifurcation. The peroneal artery appears to occlude distally. Anterior tibial and posterior tibial arteries are heavily calcified which limits evaluation but appear
patent distally.
3. Left leg: Mild calcified plaque without significant stenosis within the iliac arteries. No significant stenosis identified within the common femoral artery. Extensive atherosclerotic plaque throughout the SFA with likely focal area of narrowing
identified proximally (image 160, series 501). There may also be an area of narrowing distally with several collateral vessels appreciated (image 219). Extensively calcified popliteal artery, limiting evaluation, but which appears patent.
Infrapopliteal vessels are heavily calcified, limiting evaluation. The distal aspects of the posterior tibial and dorsalis pedis arteries appear patent.
[2024-05-27] MEDS: NSS (PRESERVATIVE FREE) 0.25 ML IV (15:41)
[2024-05-27] MEDS: ATIVAN 0.5 MG IV (15:42)
--- NOTE | 2024-05-27 16:33 | PTCARENOTE ---
Not sure of how much pain patient has experienced today, as she can yell/scream at times without being touched or the slightest touch. at 12:15, patient screaming/yelling, using profanity, c/o left foot pain. notified Davey Perdomo as PRN Morphine
not due until 1347 I requested one time dose of Morphine and for frequency to be increased. he agreed (see new orders), one time dose of Morphine effective. Also, patient not allowing nursing staff to draw blood work. IV team placed midline for
blood draws and patient was pre-medicated with Ativan. sister at bedside, will continue to monitor.
[2024-05-27 16:47] LABS: Hematocrit 30.2 % (37.0-47.0); Mean Corp Hgb Conc. 33.1 g/dL (33.0-37.0); Mean Corpuscular Volume 81.6 fL (81.0-99.0); Mean Platelet Volume 10.5 fL (7.4-10.4); Platelet Count 307 10^3/uL (130-400); Red Cell Dist. Width 13.6 % (11.5-14.5); White Blood Cell Count 9.1 10^3/uL (4.8-10.8)
[2024-05-27 17:02] LABS: Vancomycin Random 6.1 ug/ml
[2024-05-27 17:18] LABS: Glucose - Point of Care 159 mg/dl (70-99)
[2024-05-27 17:18] LABS: ALT (SGPT) 13 U/L (0-35); AST (SGOT) 17 U/L (14-36); Albumin 2.9 g/dl (3.5-5.0); Alkaline Phosphatase 71 U/L (38-126); Blood Urea Nitrogen 19 mg/dl (7-17); Calcium 8.3 mg/dl (8.4-10.2); Carbon Dioxide 28 mmol/L (22-30); Chloride 101 mmol/L (98-107); Estimated Creatinine Clearance 70 ml/min; Glucose 206 mg/dl (70-99); Potassium 4.5 mmol/L (3.5-5.1); Sodium 137 mmol/L (135-145); Total Bilirubin < 0.1 mg/dl (0.2-1.3); Total Protein 5.5 g/dl (6.3-8.2); eGFR > 60.00
[2024-05-27] MEDS: LIPITOR 40 MG PO (18:39)
[2024-05-27] MEDS: LOVENOX SC (18:39)
--- NOTE | 2024-05-27 18:42 | PTCARENOTE ---
patient has refused am insulin, Lovenox and dressing to be applied to left foot, heels to be elevated on pillows, despite being informed of benefits and risks. will continue to encourage patient to allow nursing to administer/apply these
medications/treatments.
[2024-05-27 21:25] LABS: Glucose - Point of Care 118 mg/dl (70-99)
[2024-05-27] MEDS: LANTUS 0.15 UNITS SC (21:34)
[2024-05-27 23:26] VITALS: BP 121/68
[2024-05-28] MEDS: SYNTHROID 50 MCG PO (05:13)
[2024-05-28 07:00] VITALS: BP 138/78
--- NOTE | 2024-05-28 07:32 | W.PN.HOSP.TC ---
Addendum entered and electronically signed by Sandor Walton MD 05/28/24 16:15:
I saw and evaluated the patient. I reviewed the resident�s note and agree with findings and plan as documented in the resident�s note.
1. Left foot first and fourth toe dry gangrene, peripheral arterial disease -foot x-ray did not show any osteomyelitic changes. MRI of the foot is pending. Vascular surgery involved in care and patient underwent CTA lower extremities/arterial
Doppler showing diffuse PAD. Patient is planned to undergo lower extremity angioplasty tomorrow by vascular surgeon. ID is following and no signs of systemic infection, patient has been taken off antibiotics at this point.
2. Presumed CHRISTIAN - cr has normalized at this point, monitor.
Original Note:
Today's Communication/Plan
-
Added tramadol 25 mg p.o. every 6 hours as needed for ongoing foot pain. Patient is scheduled for a arteriogram with Dr. Melara on Wednesday.
Assessment / Plan
Assessment / Plan
Assessment/Plan:
-Dry gangrene of the first and fourth toe of the left foot:
Admitted to [facility]
blood cultures sent
CRP elevated at 74.7 on 05/26/2024
Foot x-ray showed no acute fracture or dislocation. No osseous destructive changes. Large calcaneal enthesophyte formation. Vascular calcifications. Mild soft tissue swelling about the foot, nonspecific.
Follow-up MRI of the foot ordered
Continue vancomycin for non-exudative foot infection
arterial doppler u/s for vascular evaluation -showed noncompressible arteries bilaterally, suggestive of medial calcinosis and arterial noncompliance, which made measuring ankle-brachial indices unreliable. Toe brachial indices were also not
obtainable due to the phasic great toe PPG waveforms. Heavily calcified plaque is seen throughout the arteries in each lower extremity. Patency of each SFA is difficult to ascertain on ultrasound due to the heavily calcified plaque with associated
posterior acoustic shadowing. The left popliteal artery is occluded along its length, with reconstitution of the posterior tibial and dorsalis pedis arteries.
Abdominal CT conducted shows a heavily calcified, nonaneurysmal abdominal aorta. On the right leg mild calcified iliac arteries without significant stenosis seen. On the right leg mixed plaque within the common femoral artery without significant
stenosis. On the right leg extensively diseased SFA with multifocal areas of narrowing identified proximally and distally. On the right leg popliteal artery is heavily calcified but appears patent with patent trifurcation - peroneal artery appears
to occlude distally. Left leg: Mild calcified plaque without significant stenosis within the iliac arteries. No significant stenosis identified within the common femoral artery. Extensive atherosclerotic plaque throughout the SFA with likely focal
area of narrowing identified proximally (image 160, series 501). There may also be an area of narrowing distally with several collateral vessels appreciated (image 219). Extensively calcified popliteal artery, limiting evaluation, but which appears
patent. Infrapopliteal vessels are heavily calcified, limiting evaluation. The distal aspects of the posterior tibial and dorsalis pedis arteries appear patent.
Appreciate infectious diseases consult -they recommend monitoring off of antibiotics for the time being
Wound care team consulted
Lactic acid trending downwards. Lactic acid was 5.7 on 05/26/2024 at 1AM �currently 2.1 on 05/26/2024 at 10:43AM
Patient is scheduled for an arteriogram with Dr. Melara on Wednesday
-Possible chronic kidney disease stage IIIa or CHRISTIAN:
Unknown baseline renal function
eGFR ranges between 46-50
Creatinine elevated at 1.2 on 05/26/2024
Recommend outpatient nephrology follow-up for further workup
-Type 2 diabetes mellitus:
Placed patient on slightly reduced insulin regimen compared to home with glargine, aspart tidac and moderate sliding scale
holding metformin
Hemoglobin A1c measured at 8.0 on 05/27/2024
-Hypothyroidism:
continue levothyroxine
DVT prophylaxis: Enoxaparin subcu
FULL CODE STATUS
Anticipated Discharge: > 48 hours
Subjective/Interval History
-
Date of Service: May 28, 2024
Met with the patient at the bedside. She continues to complain of pain in her left foot predominantly over her great toe and fourth toe. She calls out in pain for assistance. She asked for tramadol as she believes that it helped her pain in the
past.
Objective Data
-
Labs:
Labs
05/28/24 07:53
05/28/24 07:53
Vital Signs:
Vital Signs
Temp Pulse Resp BP Pulse Ox
98.5 F 100 18 121/68 99
05/27/24 23:26 05/27/24 23:26 05/27/24 23:26 05/27/24 23:26 05/27/24 23:26
I&O
05/27/24 05/28/24 05/29/24
06:59 06:59 06:59
Intake Total 1600 / 1600 1919
Balance 1600 / 1600 1919
Review of Systems
-
History Source: Patient
Constitutional: Reports No Symptoms
EENT: Reports No Symptoms Reported
Respiratory: Reports No Symptoms
Cardiac: Reports No Symptoms
Abdomen/GI: Reports No Symptoms
Breast: Reports No Symptoms
Genitourinary: Reports No Symptoms
Musculoskeletal: Reports Other (Left foot pain predominantly over her Great toe and fourth toe.)
Skin: Reports No Symptoms
Neuro: Reports No Symptoms
Endocrine: Reports No Symptoms
Hematologic / Lymphatic: Reports No Symptoms
Psych: Reports Anxious
Physical Exam
-
General: Well Developed, Well Nourished and Pain (Pain predominantly over her great toe and fourth toe of her left foot)
HEENT: Normocephalic, Atraumatic and Moist Mucous Membranes
Respiratory: Clear to Auscultation
Cardiac: Regular Rhythm and S1/S2
Breast: Deferred by me
GI: Soft, Nontender, Nondistended and Normal Bowel Sounds
Rectal: Deferred by Provider
Genito-urinary: Deferred by me
Musculoskeletal: No Clubbing, No Cyanosis and No Edema
Skin: Warm and Dry
Neuro: Awake, Alert, Oriented and AO x 3
Psych: Anxious (Screams out at times, easily redirectable with reassurance and encouragement)
[2024-05-28 08:06] LABS: Glucose - Point of Care 180 mg/dl (70-99)
[2024-05-28 08:06] LABS: Hematocrit 33.6 % (37.0-47.0); Hemoglobin 10.8 g/dL (12.0-16.0); Mean Corp Hgb Conc. 32.1 g/dL (33.0-37.0); Mean Corpuscular Hgb 26.1 pg (27.0-31.0); Mean Corpuscular Volume 81.2 fL (81.0-99.0); Mean Platelet Volume 10.9 fL (7.4-10.4); Platelet Count 310 10^3/uL (130-400); Red Blood Cell Count 4.14 10^6/uL (4.20-5.40); Red Cell Dist. Width 13.6 % (11.5-14.5); White Blood Cell Count 10.3 10^3/uL (4.8-10.8)
[2024-05-28] MEDS: ASPIR LOW (ENTERIC COATED) 81 MG PO (08:38)
[2024-05-28] MEDS: RISPERDAL 0.5 MG PO ×2 (08:38→20:02)
[2024-05-28] MEDS: PROTONIX 40 MG PO ×2 (08:38→20:01)
[2024-05-28] MEDS: TRILEPTAL 300 MG PO ×2 (08:38→20:07)
[2024-05-28] MEDS: DEPAKOTE (12 HR RELEASE) 125 MG PO ×2 (08:38→20:01)
[2024-05-28] MEDS: NOVOLOG FLEXPEN-MODERATE RESISTANCE 1 UNITS SC (08:39)
[2024-05-28] MEDS: NOVOLOG FLEXPEN 7 UNITS SC ×3 (08:39→16:56)
[2024-05-28 08:57] LABS: ALT (SGPT) 12 U/L (0-35); AST (SGOT) 22 U/L (14-36); Albumin 3.3 g/dl (3.5-5.0); Alkaline Phosphatase 75 U/L (38-126); Blood Urea Nitrogen 20 mg/dl (7-17); Calcium 8.7 mg/dl (8.4-10.2); Carbon Dioxide 27 mmol/L (22-30); Chloride 101 mmol/L (98-107); Estimated Creatinine Clearance 70 ml/min; Glucose 188 mg/dl (70-99); Potassium 4.8 mmol/L (3.5-5.1); Sodium 139 mmol/L (135-145); Total Bilirubin 0.2 mg/dl (0.2-1.3); eGFR > 60.00
[2024-05-28] MEDS: MORPHINE SULFATE 1 MG IV ×2 (09:25→20:02)
[2024-05-28 12:51] LABS: Glucose - Point of Care 250 mg/dl (70-99)
[2024-05-28] MEDS: NOVOLOG FLEXPEN-MODERATE RESISTANCE 5 UNITS SC (12:53)
[2024-05-28 15:00] VITALS: BP 139/78
--- NOTE | 2024-05-28 15:39 | CM ---
Attempted to see patient twice but she was sound asleep. CM called and spoke to Kat, patient's nurse who reports patient was total care. Patient is able to feed herself and could propel her w/c but she would not do so. She does have residual
right sided weakness from past stroke. Patient's sister Tessy keeps in touch with her at the SNF. Patient is LTC at [facility].
CM added Pharmacy for [facility].
PLAN: return to [facility] L[facility].
[2024-05-28] MEDS: ULTRAM 25 MG PO (16:47)
[2024-05-28 16:55] LABS: Glucose - Point of Care 205 mg/dl (70-99)
[2024-05-28] MEDS: NOVOLOG FLEXPEN-MODERATE RESISTANCE 3 UNITS SC (16:56)
[2024-05-28] MEDS: LOVENOX SC (17:01)
[2024-05-28] MEDS: LIPITOR 40 MG PO (17:01)
[2024-05-28 21:47] LABS: Glucose - Point of Care 173 mg/dl (70-99)
[2024-05-28] MEDS: LANTUS 0.15 UNITS SC (21:54)
[2024-05-28 23:26] VITALS: BP 116/54
[2024-05-29] VITALS (11 sets, daily range): BP systolic 94–138; BP diastolic 45–85
[2024-05-29] MEDS: MORPHINE SULFATE 1 MG IV ×2 (04:42→09:09)
[2024-05-29] MEDS: SYNTHROID 50 MCG PO (05:19)
[2024-05-29 06:07] LABS: Glucose - Point of Care 242 mg/dl (70-99)
--- NOTE | 2024-05-29 07:44 | W.PN.HOSP.TC ---
Addendum entered and electronically signed by Sandor Walton MD 05/29/24 16:52:
Discussed care plan with vascular surgeon, patient apparently have poor vasculature and likely will require above-knee amputation for better chance of healing the wound.
Will cancel podiatry consult for now.
Addendum entered and electronically signed by Sandor Walton MD 05/29/24 15:05:
I saw and evaluated the patient. I reviewed the resident�s note and agree with findings and plan as documented in the resident�s note.
I saw and evaluated the patient. I reviewed the resident�s note and agree with findings and plan as documented in the resident�s note.
1. Left foot first and fourth toe dry gangrene, peripheral arterial disease -foot x-ray did not show any osteomyelitic changes. MRI of the foot is pending. Vascular surgery involved in care and patient underwent CTA lower extremities/arterial
Doppler showing diffuse PAD. Patient is planned to undergo lower extremity angioplasty tomorrow by vascular surgeon. ID is following and no signs of systemic infection, patient has been taken off antibiotics at this point.
Podiatry consulted for evaluation for possible amputation
2. Presumed CHRISTIAN - cr has normalized at this point, monitor post LE angioplasty
3. Pulm nodule - 5mm pleural based, noted on CT, will need pulm nodule clinic/pulmo f/u at discharge
Original Note:
Today's Communication/Plan
-
Patient is scheduled for an arteriogram with Dr. Melara today. Will wait for further details following the arteriogram and vascular surgery's assessment. Appreciate infectious diseases consult.
Assessment / Plan
Assessment / Plan
Assessment/Plan:
-Dry gangrene of the first and fourth toe of the left foot:
Admitted to [facility]
blood cultures sent
CRP elevated at 74.7 on 05/26/2024
Foot x-ray showed no acute fracture or dislocation. No osseous destructive changes. Large calcaneal enthesophyte formation. Vascular calcifications. Mild soft tissue swelling about the foot, nonspecific.
Follow-up MRI of the foot ordered
Continue vancomycin for non-exudative foot infection
arterial doppler u/s for vascular evaluation -showed noncompressible arteries bilaterally, suggestive of medial calcinosis and arterial noncompliance, which made measuring ankle-brachial indices unreliable. Toe brachial indices were also not
obtainable due to the phasic great toe PPG waveforms. Heavily calcified plaque is seen throughout the arteries in each lower extremity. Patency of each SFA is difficult to ascertain on ultrasound due to the heavily calcified plaque with associated
posterior acoustic shadowing. The left popliteal artery is occluded along its length, with reconstitution of the posterior tibial and dorsalis pedis arteries.
Abdominal CT conducted shows a heavily calcified, nonaneurysmal abdominal aorta. On the right leg mild calcified iliac arteries without significant stenosis seen. On the right leg mixed plaque within the common femoral artery without significant
stenosis. On the right leg extensively diseased SFA with multifocal areas of narrowing identified proximally and distally. On the right leg popliteal artery is heavily calcified but appears patent with patent trifurcation - peroneal artery appears
to occlude distally. Left leg: Mild calcified plaque without significant stenosis within the iliac arteries. No significant stenosis identified within the common femoral artery. Extensive atherosclerotic plaque throughout the SFA with likely focal
area of narrowing identified proximally (image 160, series 501). There may also be an area of narrowing distally with several collateral vessels appreciated (image 219). Extensively calcified popliteal artery, limiting evaluation, but which appears
patent. Infrapopliteal vessels are heavily calcified, limiting evaluation. The distal aspects of the posterior tibial and dorsalis pedis arteries appear patent.
Appreciate infectious diseases consult -they recommend monitoring off of antibiotics for the time being
Wound care team consulted
Lactic acid trending downwards. Lactic acid was 5.7 on 05/26/2024 at 1AM �currently 2.1 on 05/26/2024 at 10:43AM
Patient is scheduled for an arteriogram with Dr. Melara today
-Possible chronic kidney disease stage IIIa or CHRISTIAN:
Unknown baseline renal function
eGFR ranges between 46-50
Creatinine elevated at 1.2 on 05/26/2024 -stable at 1 on 05/29/2024
Recommend outpatient nephrology follow-up for further workup
-Type 2 diabetes mellitus:
Placed patient on slightly reduced insulin regimen compared to home with glargine, aspart tidac and moderate sliding scale
holding metformin
Hemoglobin A1c measured at 8.0 on 05/27/2024
-Hypothyroidism:
continue levothyroxine
DVT prophylaxis: Enoxaparin subcu
FULL CODE STATUS
Anticipated Discharge: > 48 hours
Subjective/Interval History
-
Date of Service: May 29, 2024
Met with patient at the bedside. Patient was agitated during her blood draw today and cried out in fear. Reassurance provided at the bedside. The patient is scheduled to undergo an arteriogram at the OR with Dr. Melara today.
Objective Data
-
Labs:
Labs
05/29/24 09:39
05/29/24 09:39
Vital Signs:
Vital Signs
Temp Pulse Resp BP Pulse Ox
99.6 F 103 18 116/54 96
05/28/24 23:26 05/28/24 23:26 05/28/24 23:26 05/28/24 23:26 05/28/24 23:26
I&O
05/28/24 05/29/24 05/30/24
06:59 06:59 06:59
Intake Total 1919 240 / 240
Balance 1919 240 / 240
Review of Systems
-
History Source: Patient
Constitutional: Reports No Symptoms
EENT: Reports No Symptoms Reported
Respiratory: Reports No Symptoms
Cardiac: Reports No Symptoms
Abdomen/GI: Reports No Symptoms
Breast: Reports No Symptoms
Genitourinary: Reports No Symptoms
Musculoskeletal: Reports Other (Pain over her left great toe and fourth toe)
Skin: Reports No Symptoms
Neuro: Reports No Symptoms
Endocrine: Reports No Symptoms
Psych: Reports Anxious
Physical Exam
-
General: Well Developed, Well Nourished and Obese
HEENT: Normocephalic, Atraumatic and Moist Mucous Membranes
Respiratory: Clear to Auscultation
Cardiac: Regular Rhythm and S1/S2
Breast: Deferred by me
GI: Soft, Nontender and Nondistended
Rectal: Deferred by Provider
Genito-urinary: Deferred by me
Musculoskeletal: No Clubbing, No Cyanosis and No Edema
Skin: Warm, Dry and Other (Skin over her left great toe and fourth toe are black and present with dry gangrene)
Neuro: Awake, Alert, Oriented and AO x 3
Psych: Anxious
[2024-05-29] MEDS: DEPAKOTE (12 HR RELEASE) 125 MG PO ×2 (07:59→19:43)
[2024-05-29] MEDS: PROTONIX 40 MG PO ×2 (07:59→19:42)
[2024-05-29] MEDS: ASPIR LOW (ENTERIC COATED) 81 MG PO (07:59)
[2024-05-29] MEDS: RISPERDAL 0.5 MG PO ×2 (07:59→19:43)
[2024-05-29] MEDS: NOVOLOG FLEXPEN SC ×2 (08:20→12:37)
[2024-05-29] MEDS: TRILEPTAL 300 MG PO ×2 (09:09→19:43)
[2024-05-29 09:44] LABS: Glucose - Point of Care 195 mg/dl (70-99)
[2024-05-29] MEDS: NOVOLOG FLEXPEN-MODERATE RESISTANCE SC ×2 (09:45→17:27)
[2024-05-29 09:58] LABS: Hematocrit 33.6 % (37.0-47.0); Hemoglobin 10.8 g/dL (12.0-16.0); Mean Corp Hgb Conc. 32.1 g/dL (33.0-37.0); Mean Corpuscular Hgb 27.1 pg (27.0-31.0); Mean Corpuscular Volume 84.2 fL (81.0-99.0); Mean Platelet Volume 11.1 fL (7.4-10.4); Platelet Count 321 10^3/uL (130-400); Red Blood Cell Count 3.99 10^6/uL (4.20-5.40); Red Cell Dist. Width 13.5 % (11.5-14.5); White Blood Cell Count 10.9 10^3/uL (4.8-10.8)
[2024-05-29 10:53] LABS: Blood Urea Nitrogen 25 mg/dl (7-17); Calcium 8.4 mg/dl (8.4-10.2); Carbon Dioxide 27 mmol/L (22-30); Chloride 97 mmol/L (98-107); Estimated Creatinine Clearance 63 ml/min; Glucose 220 mg/dl (70-99); Potassium 4.7 mmol/L (3.5-5.1); Sodium 138 mmol/L (135-145); eGFR > 60.00
[2024-05-29 12:23] LABS: Glucose - Point of Care 182 mg/dl (70-99)
[2024-05-29] MEDS: NOVOLOG FLEXPEN-MODERATE RESISTANCE 1 UNITS SC (12:37)
--- NOTE | 2024-05-29 12:44 | WOUNDNOTE ---
L HEEL AND PLANTAR FOOT
--- NOTE | 2024-05-29 12:45 | WOUNDNOTE ---
L GREAT AND 4TH TOE
--- NOTE | 2024-05-29 12:52 | WOUNDNOTE ---
WON RN NOTE: Followed up today for wounds. L foot less red and swollen, intact gangrene great and 4th toe, skin warm and dry. Reviewed vascular note. L plantar lateral foot near heel with brown blake eschar, heel intact. R foot and heel intact.
Patient turned to R side, sacrum intact. On [place] air bed, patient able to move self in bed, nurse Jose R reports she keeps turning to R side. Patient still refusing dressing on L foot, too painful she reports. OR today for Arteriogram with
possible angioplasty and stenting. Will follow peripherally and assist as needed.
--- NOTE | 2024-05-29 13:25 | PTCARENOTE ---
Addendum entered by Tanya Tran RN 05/29/24 14:17:
Dr Melara also made aware of pt's temp 99.1 po. No further treatment ordered at this time. Will continue to monitor.
Original Note:
Pt's temperature is 99.[address] Doll made aware. No further treatment ordered at this time. Will continue to monitor.
--- NOTE | 2024-05-29 13:45 | PTCARENOTE ---
Pt turning herself on her right side without difficulty. No breakdown noted on her sacrum at this time.
--- NOTE | 2024-05-29 14:31 | W.SUR.PREOP ---
Pre-Operative Surgical Note
-
I have examined this patient prior to the performance of the scheduled procedure.
The patient's condition is unchanged from the time of the current History and
Physical and the patient is able to undergo the scheduled procedure.
Discussed with patient's Sister Rina via the phone my findings and recommendations. Discussed recommendation for left lower extremity arteriogram due to concern for limb threatening ischemia. Discussed potential of persistent limb threat and/or
loss of toes regardless of success of intervention. (At least first and fourth toe likely require amputation). Discussed potential scenarios/outcomes of angiography to be: #1 successful endovascular revascularization, #2 need for staged surgical
intervention, #3 nonreconstructable small vessel or distal disease. In that case would run persistent limb threat. Discussed also that she is bedbound/nonambulatory. Therefore discussed if needed something surgical, we have to consider risks and
benefits of surgical intervention versus primary amputation in that setting. Discussed risks of the procedure including not limited to bleeding, arterial injury/worsened or acute limb ischemia, renal failure. Patient cyst understands all and
wishes for us to proceed.
[2024-05-29 15:10] LABS: Glucose - Point of Care 196 mg/dl (70-99)
--- NOTE | 2024-05-29 15:53 | W.PN.ID1 ---
Date of Service
Date of Service: May 29, 2024
Today's Communication
Observing off abx.
Assessment / Plan
# Dry gangrene of left 1st and 4th toes, ischemic wound on heel
# Chronic ischemic left 1st and 4th toes (since 08/2023, per sister)
-blood cx negative
- CTA no significant stenosis
- For Arteriography today
- Observe off abx
- Can consult podiatry regarding toe amps evaluation
# Conditions INCIDENT ANALYST
DM
HTN
CVA
Hypothyroidism
Schizoaffective disorder
Lap rashid
SNF resident
Chief Complaint
-: Other (Toe gangrene)
Vital Signs / Physical Exam
Vital Signs
Vital Signs
Temp Pulse Resp BP Pulse Ox
99.1 F 94 18 114/47 98
05/29/24 13:07 05/29/24 13:07 05/29/24 13:07 05/29/24 13:07 05/29/24 13:07
Physical Exam
Constitutional: No Acute Distress and Obese
Gastrointestinal: Soft, Non Tender and Non Distended
Wound: Other (Reviewd today's wound photos of Left foot; entire 4th toe black, proximal third toe dusky. Hallux: dark perez )
Objective Data
Lab Data
Lab Results
05/29/24 09:39
05/29/24 09:39
ESR 74 mm/hour (0-20) H 05/26/24 05:28
PT 13.0 Sec (11.4-14.6) 05/26/24 00:57
INR 0.98 05/26/24 00:57
APTT 32.6 Sec (23.4-35.0) 05/26/24 00:57
Estimated Creat Clear 63 ml/min 05/29/24 09:39
Lactic Acid 2.1 mmol/L (0.7-2.0) H 05/26/24 10:43
Total Bilirubin 0.2 mg/dl (0.2-1.3) 05/28/24 07:53
AST 22 U/L (14-36) 05/28/24 07:53
ALT 12 U/L (0-35) 05/28/24 07:53
Alkaline Phosphatase 75 U/L (38-126) 05/28/24 07:53
C-Reactive Protein 74.70 mg/L (0.0-10.00) H 05/26/24 05:28
Most recent labs reviewed.
Micro Results:
05/26/24 00:57 Blood Culture - Preliminary
Blood/Venous No Growth in 72 hours- Final report to follow
05/26/24 04:34 MRSA Screen - Final
Nose No Methicillin Resistant Staphylococcus aureus isolated.
05/26/24 Foot XRAY: No radiographic evidence for an acute osseous abnormality of the left foot.
05/26/24 CTA:
1. Heavily calcified, nonaneurysmal abdominal aorta. Celiac axis, SMA, and inferior mesenteric arteries are patent. Both renal arteries are patent with likely mild ostial narrowing secondary to calcified plaque.
2. Right leg: Mild calcified iliac arteries without significant stenosis. Mild mixed plaque within the common femoral artery without significant stenosis. Extensively diseased SFA with multifocal areas of narrowing identified proximally and
distally. Popliteal artery is heavily calcified but appears patent with patent trifurcation. The peroneal artery appears to occlude distally. Anterior tibial and posterior tibial arteries are heavily calcified which limits evaluation but appear
patent distally.
3. Left leg: Mild calcified plaque without significant stenosis within the iliac arteries. No significant stenosis identified within the common femoral artery. Extensive atherosclerotic plaque throughout the SFA with likely focal area of narrowing
identified proximally (image 160, series 501). There may also be an area of narrowing distally with several collateral vessels appreciated (image 219). Extensively calcified popliteal artery, limiting evaluation, but which appears patent.
Infrapopliteal vessels are heavily calcified, limiting evaluation. The distal aspects of the posterior tibial and dorsalis pedis arteries appear patent.
Care Review
Plan reviewed with: Physician (Dr. Bernarda Walton)
--- NOTE | 2024-05-29 16:28 | W.SUR.POST ---
Surgical Immediate Post Op
Note
Pre Op Diagnosis: Peripheral arterial disease, nonhealing wound
Post Op Diagnosis: Arterial disease, nonhealing wound
Procedure Performed: Left lower extremity arteriogram, balloon angioplasty and shockwave to peroneal artery, and balloon angioplasty to popliteal artery
Primary Surgeon: Hardik Melara MD
Secondary Surgeons: N/A
Anesthesia: MAC
Estimated Blood Loss: 2 mL
Fluids: Anesthesia flowsheet
Drains/Shunts: N/A
Specimens/Cultures: N/A
Doppler/Duplex/Angio (Y/N): Y
Complications: None
Operative Findings: Diffuse and severe infrapopliteal occlusive disease
[2024-05-29 17:04] LABS: Glucose - Point of Care 186 mg/dl (70-99)
[2024-05-29] MEDS: NOVOLOG vial 2 UNITS SC (17:06)
[2024-05-29] MEDS: NOVOLOG FLEXPEN 7 UNITS SC (17:54)
[2024-05-29] MEDS: LIPITOR 40 MG PO (17:54)
[2024-05-29] MEDS: LOVENOX SC (17:54)
[2024-05-29] MEDS: NSS 500 IV (17:55)
--- NOTE | 2024-05-29 21:52 | PTCARENOTE ---
Pt has hourly vitals s/p angiograft. 21:45 vitals temp was 101.0. Pt screaming and refusing all medications. ORGAN GRINDER made aware of situation, PO tylenol refused, rectal tylenol considered but order obtained for IV acetaminophen. Will continue to
monitor, call villarreal in reach.
[2024-05-29 21:53] LABS: Glucose - Point of Care 195 mg/dl (70-99)
[2024-05-29] MEDS: LANTUS 0.15 UNITS SC (21:57)
[2024-05-29] MEDS: OFIRMEV 100 IV (22:17)
[2024-05-30 04:12] VITALS: BP 130/73
[2024-05-30] MEDS: SYNTHROID PO (05:07)
[2024-05-30 07:24] LABS: Blood Urea Nitrogen 27 mg/dl (7-17); Calcium 8.4 mg/dl (8.4-10.2); Carbon Dioxide 22 mmol/L (22-30); Chloride 103 mmol/L (98-107); Estimated Creatinine Clearance 63 ml/min; Glucose 189 mg/dl (70-99); Potassium 4.7 mmol/L (3.5-5.1); Sodium 139 mmol/L (135-145); eGFR > 60.00
[2024-05-30 07:25] LABS: Glucose - Point of Care 184 mg/dl (70-99)
--- NOTE | 2024-05-30 07:35 | W.PN.HOSP.TC ---
Today's Communication/Plan
-
Patient underwent arteriogram with Dr. Melara. At the OR the following procedures were conducted: Duplex assisted right common femoral artery cannulation, aortogram and pelvic angiogram, left lower extremity arteriogram, standard balloon angioplasty
of left peroneal artery, left shockwave intravascular lithotripsy angioplasty of the left peroneal artery with a 2.5 mm shockwave angioplasty balloon, left popliteal artery angioplasty with a 4 mm angioplasty balloon, and right femoral angiogram.
-Following these procedures vascular surgery concluded that there are likely not great options for the patient due to the small diminutive caliber of all of her tibial vessels and poor flow. Details of the operation are included on the operative
report signed by Dr. Melara on 05/30/2024. Vascular surgery will have a discussion with the patient regarding amputation and treatment plans.
Assessment / Plan
Assessment / Plan
Assessment/Plan:
-Dry gangrene of the first and fourth toe of the left foot:
Admitted to [facility]
blood cultures sent
CRP elevated at 74.7 on 05/26/2024
Foot x-ray showed no acute fracture or dislocation. No osseous destructive changes. Large calcaneal enthesophyte formation. Vascular calcifications. Mild soft tissue swelling about the foot, nonspecific.
Follow-up MRI of the foot ordered
Continue vancomycin for non-exudative foot infection
arterial doppler u/s for vascular evaluation -showed noncompressible arteries bilaterally, suggestive of medial calcinosis and arterial noncompliance, which made measuring ankle-brachial indices unreliable. Toe brachial indices were also not
obtainable due to the phasic great toe PPG waveforms. Heavily calcified plaque is seen throughout the arteries in each lower extremity. Patency of each SFA is difficult to ascertain on ultrasound due to the heavily calcified plaque with associated
posterior acoustic shadowing. The left popliteal artery is occluded along its length, with reconstitution of the posterior tibial and dorsalis pedis arteries.
Abdominal CT conducted shows a heavily calcified, nonaneurysmal abdominal aorta. On the right leg mild calcified iliac arteries without significant stenosis seen. On the right leg mixed plaque within the common femoral artery without significant
stenosis. On the right leg extensively diseased SFA with multifocal areas of narrowing identified proximally and distally. On the right leg popliteal artery is heavily calcified but appears patent with patent trifurcation - peroneal artery appears
to occlude distally. Left leg: Mild calcified plaque without significant stenosis within the iliac arteries. No significant stenosis identified within the common femoral artery. Extensive atherosclerotic plaque throughout the SFA with likely focal
area of narrowing identified proximally (image 160, series 501). There may also be an area of narrowing distally with several collateral vessels appreciated (image 219). Extensively calcified popliteal artery, limiting evaluation, but which appears
patent. Infrapopliteal vessels are heavily calcified, limiting evaluation. The distal aspects of the posterior tibial and dorsalis pedis arteries appear patent.
Appreciate infectious diseases consult -they recommend monitoring off of antibiotics for the time being
Wound care team consulted
Lactic acid trending downwards. Lactic acid was 5.7 on 05/26/2024 at 1AM �currently 2.1 on 05/26/2024 at 10:43AM
Patient underwent arteriogram with Dr. Melara. At the OR the following procedures were conducted: Duplex assisted right common femoral artery cannulation, aortogram and pelvic angiogram, left lower extremity arteriogram, standard balloon angioplasty
of left peroneal artery, left shockwave intravascular lithotripsy angioplasty of the left peroneal artery with a 2.5 mm shockwave angioplasty balloon, left popliteal artery angioplasty with a 4 mm angioplasty balloon, and right femoral angiogram.
-Following these procedures vascular surgery concluded that there are likely not great options for the patient due to the small diminutive caliber of all of her tibial vessels and poor flow. Details of the operation are included on the operative
report signed by Dr. Melara on 05/30/2024. Vascular surgery will have a discussion with the patient regarding amputation.
-Possible chronic kidney disease stage IIIa or CHRISTIAN:
Unknown baseline renal function
eGFR ranges between 46-50
Creatinine elevated at 1.2 on 05/26/2024 -stable at 1 on 05/29/2024
Recommend outpatient nephrology follow-up for further workup
-Type 2 diabetes mellitus:
Placed patient on slightly reduced insulin regimen compared to home with glargine, aspart tidac and moderate sliding scale
holding metformin
Hemoglobin A1c measured at 8.0 on 05/27/2024
Premeal insulin aspart increased to 9 units and insulin glargine increased to 18 units due to persistent elevated blood glucose in the range of 184-247
-Hypothyroidism:
continue levothyroxine
DVT prophylaxis: Enoxaparin subcu
FULL CODE STATUS
Anticipated Discharge: > 48 hours
Subjective/Interval History
-
Date of Service: May 30, 2024
Met with patient at the bedside. Her status remains unchanged from yesterday. She complains of breakthrough pain in her left foot which is being treated with pain medication. After administration of pain medication the patient relaxes and does
not call out. Patient stated that she feels sad and wishes she could go home.
Objective Data
-
Labs:
Labs
05/30/24 06:41
05/30/24 06:41
Vital Signs:
Vital Signs
Temp Pulse Resp BP Pulse Ox
98.8 F 95 19 130/73 96
05/30/24 04:12 05/30/24 04:12 05/30/24 04:12 05/30/24 04:12 05/30/24 04:12
I&O
05/29/24 05/30/24 05/31/24
06:59 06:59 06:59
Intake Total 240 / 240 790 / 790
Balance 240 / 240 790 / 790
Review of Systems
-
History Source: Patient
Constitutional: Reports Other (Left foot pain)
EENT: Reports No Symptoms Reported
Respiratory: Reports No Symptoms
Cardiac: Reports No Symptoms
Abdomen/GI: Reports No Symptoms
Breast: Reports No Symptoms
Genitourinary: Reports No Symptoms
Musculoskeletal: Reports Other (Left foot pain)
Skin: Reports No Symptoms
Neuro: Reports No Symptoms
Endocrine: Reports No Symptoms
Hematologic / Lymphatic: Reports No Symptoms
Physical Exam
-
General: Well Developed, Well Nourished and Pain (Left foot pain)
HEENT: Normocephalic and Atraumatic
Respiratory: Clear to Auscultation
Cardiac: Regular Rhythm
Breast: Deferred by me
GI: Soft, Nontender, Nondistended and Normal Bowel Sounds
Rectal: Deferred by Provider
Musculoskeletal: No Clubbing, No Cyanosis and No Edema
Skin: Warm, Dry and Other (Dry gangrene of the left great toe and fourth toe)
Neuro: Awake, Alert, Oriented and AO x 3
Psych: Anxious
[2024-05-30 07:41] VITALS: BP 121/73
[2024-05-30 08:01] LABS: INR 1.05; PT 13.6 Sec (11.4-14.6)
[2024-05-30 08:02] LABS: APTT 33.4 Sec (23.4-35.0)
[2024-05-30 08:18] LABS: Hematocrit 29.8 % (37.0-47.0); Hemoglobin 9.9 g/dL (12.0-16.0); Mean Corp Hgb Conc. 33.2 g/dL (33.0-37.0); Mean Corpuscular Hgb 26.4 pg (27.0-31.0); Mean Corpuscular Volume 79.5 fL (81.0-99.0); Platelet Count 256 10^3/uL (130-400); Red Blood Cell Count 3.75 10^6/uL (4.20-5.40); Red Cell Dist. Width 13.6 % (11.5-14.5); White Blood Cell Count 10.6 10^3/uL (4.8-10.8)
--- NOTE | 2024-05-30 08:58 | W.PN.VS ---
Today's Communication / Plan
-
Discussed with Dr. Melara/Dr. Min
Assessment/Plan
-
POD 1 Left lower extremity arteriogram, balloon angioplasty and shockwave to peroneal artery, and balloon angioplasty to popliteal artery
Plan:
-Groin site clean, dry, intact, may remove dressing tonight
-Dr. Melara spoke with patient's sister yesterday, she is to have discussion with the patient today regarding amputation. We will follow-up with the patient/family later today regarding possible amputation .
Subjective Data
-
Date of Service: May 30, 2024
Patient seen at bedside this morning. Patient overall doing well. No events overnight. No complaints at this time. Wounds are unchanged.
Objective Data
-
Vital Signs
Temp Pulse Resp BP Pulse Ox
98.9 F 97 18 121/73 97
05/30/24 07:41 05/30/24 07:41 05/30/24 07:41 05/30/24 07:41 05/30/24 07:41
Intake and Output
05/29/24 05/30/24 05/31/24
06:59 06:59 06:59
Intake Total 240 / 240 790 / 790
Balance 240 / 240 790 / 790
Intake:
Oral fluids 240 / 240 230 / 230
IV fluids (Total) 560 / 560
normal saline 60 / 60
IV piggybacks 0 / 0
Other:
How many times incontinent 1 3
SATURATED amount urine
Lab Results
05/30/24 06:41
05/30/24 06:41
Calcium 8.4 mg/dl (8.4-10.2) 05/30/24 06:41
Total Bilirubin 0.2 mg/dl (0.2-1.3) 05/28/24 07:53
Direct Bilirubin 0.0 mg/dl (0.0-0.4) 05/28/24 07:53
AST 22 U/L (14-36) 05/28/24 07:53
ALT 12 U/L (0-35) 05/28/24 07:53
Alkaline Phosphatase 75 U/L (38-126) 05/28/24 07:53
Total Protein 6.0 g/dl (6.3-8.2) L 05/28/24 07:53
Albumin 3.3 g/dl (3.5-5.0) L 05/28/24 07:53
Physical Exam
-
AAOx3
No tachypnea on room air
No tachycardia
Abdomen soft
Right groin site clean, dry, intact, soft
Wounds unchanged
Foot warm
[2024-05-30] MEDS: ASPIR LOW (ENTERIC COATED) 81 MG PO (09:12)
[2024-05-30] MEDS: RISPERDAL 0.5 MG PO ×2 (09:12→20:13)
[2024-05-30] MEDS: TRILEPTAL 300 MG PO ×2 (09:12→20:13)
[2024-05-30] MEDS: PROTONIX 40 MG PO ×2 (09:13→20:13)
[2024-05-30] MEDS: DEPAKOTE (12 HR RELEASE) 125 MG PO ×2 (09:13→20:13)
[2024-05-30] MEDS: NOVOLOG FLEXPEN-MODERATE RESISTANCE 1 UNITS SC ×2 (09:13→18:23)
[2024-05-30] MEDS: NOVOLOG FLEXPEN 7 UNITS SC ×2 (09:13→12:40)
[2024-05-30 11:28] LABS: Glucose - Point of Care 247 mg/dl (70-99)
[2024-05-30] MEDS: NOVOLOG FLEXPEN-MODERATE RESISTANCE 3 UNITS SC (12:40)
--- NOTE | 2024-05-30 13:08 | OR.RPT ---
Operative Report
Operative Report
PROCEDURE DATE: 05/29/2024
Preoperative diagnosis: Chronic limb threatening ischemia left lower extremity
Postoperative diagnosis: Same
Procedure:
1. Duplex assisted right common femoral artery cannulation.
2. Aortogram and pelvic angiogram.
3. Left lower extremity arteriogram.
4. Standard balloon angioplasty left peroneal artery (extensive angioplasty) with 2 mm and 2.5 mm angioplasty balloon.
5. Shockwave intravascular lithotripsy angioplasty left peroneal artery with 2.5 mm shockwave angioplasty balloon.
6. Left popliteal artery angioplasty with 4 mm angioplasty balloon.
7. Right femoral angiogram.
8. Supervision and interpretation.
Surgeon: Kelton
Poultry Pinner: None
Complications: None
Anesthesia: Local, sedation
Indications for procedure:
Chronic limb threatening ischemia left lower extremity with gangrene first and fourth toe and ischemic changes to the remainder of the foot. Risk/benefit/alternatives also discussed. Patient's POA understood all wished for us to proceed.
Description of procedure:
Patient was identified, brought to the operating room. Placed on the table in the supine position. After the adequate administration of anesthesia, the patient was prepped and draped in the standard surgical fashion. A standard preoperative
timeout was undertaken and everybody was in agreement with the plan.
The right common femoral artery was accessed with a micropuncture kit under direct duplex ultrasound guidance. A 5 Azeri sheath was then advanced over a 0.035 inch wire, and a ibarra's hook catheter was advanced into the abdominal aorta.
Aortogram and pelvic angiogram was obtained. Findings as follows:
Infrarenal aorta: Patent visualized distal infrarenal abdominal aorta. Somewhat small stature but no significant stenosis.
Right common iliac artery: Patent with no significant stenosis.
Right external iliac artery: Poorly visualized in this projection.
Left common iliac artery: Patent with no significant stenosis.
Left external iliac artery: Patent with no significant stenosis.
Using a floppy angled hydrophilic wire, the left common femoral artery was cannulated and the catheter was advanced. Left lower extremity arteriogram was obtained. Findings as follows:
Common femoral artery: Patent with no significant stenosis.
Profunda femoris artery: Patent with no significant stenosis.
Superficial femoral artery: Patent with some plaque near the origin but did not result in significant stenosis on oblique imaging. Diffuse eccentric calcification throughout the entirety of the SFA, lead polyp-like. No definitive or severe
stenosis noted.
Popliteal artery: Luminal irregularities with areas of moderate stenosis in the below the knee segment.
Anterior tibial artery: Patent proximally with a heavy shelf of plaque just beyond the origin. Beyond here there was diffuse areas of occlusions and then some reconstituted flow but diffusely very poor flow throughout its course and was a very
diminutive vessel. Did cross the ankle however to become the dorsalis pedis. The mid dorsalis pedis on the midfoot had a severe stenosis as well. All of these were very small diminutive arteries in size.
Tibial peroneal trunk: Patent with occlusion in its mid segment.
Peroneal artery: Occluded at the origin and then reconstituted immediately beyond the origin. Also a diminutive/small vessel. Focal areas of occlusion in the middle third. Small collaterals to reconstitute posterior tibial artery distally.
Posterior tibial artery: Occluded for several centimeters at its origin and beyond. Reconstituted intermittent flow in the mid section and then again distally. However it is very diminutive small vessel throughout.
At this point I felt that likely there was not great options here due to the small diminutive caliber of all her tibial vessels and poor flow. However, I felt that it may be worth an effort in terms of limb salvage. I therefore then selectively
cannulated the distal superficial femoral artery and then exchanged for a Storq wire and an up and over 5 Azeri sheath. The patient was given an appropriate dose of heparin. Next under roadmap assisted guidance I tried to cannulate the anterior
tibial artery but despite multiple attempts could not get past that shelf of plaque. In addition I tried to cannulate the posterior tibial artery but unable to do so. I was able to cannulate the peroneal and I guidewire access to the distal
peroneal artery. I then performed angioplasty with long segment 2 mm angioplasty balloon with overlapping inflations. Completion angiogram demonstrated good result with some improved flow but again this was a relatively small vessel. In addition
there was an area in the proximal peroneal artery just about 1 cm or 1/2 cm beyond the origin where there was recalcitrant stenosis. I tried with a 2.5 mm angioplasty balloon to iron out that area but it did not resolve and actually recoiled more
so. In addition at this point I had ballooned the popliteal artery behind and below the knee with a 4 mm angioplasty balloon. Completion angiogram demonstrated excellent result with that. At this point, I elected to use a shockwave lithotripsy
angioplasty balloon due to the severe plaque stenosis residually in the peroneal artery to try to get some enhance flow. After completing delivery of 320 J spanned out over repeated inflations at low atmospheres with deployment of the lithotripsy,
angiogram demonstrated improvement of that recalcitrant area of stenosis with better flow down the peroneal. However distally there was still very poor flow and potentially even worsen flow due to vasospasm or otherwise. At this point I felt that
there is really no other options here. This is all very distal small vessel disease with really not great options. Therefore I then withdrew my sheath to the left external iliac artery. Left femoral angiogram demonstrated good puncture in the
left common femoral artery. Therefore at this point the sheaths were withdrawn and manual pressure was applied to the puncture site. The patient was given protamine to reverse the heparin. Hemostasis was fully achieved. The patient tolerated the
procedure well.
--- NOTE | 2024-05-30 13:15 | W.PN.ID1 ---
Date of Service
Date of Service: May 30, 2024
Today's Communication
ID will sign off. Call prn.
Assessment / Plan
# Dry gangrene of left 1st and 4th toes, ischemic wound on heel
# Chronic ischemic left 1st and 4th toes (since 08/2023, per sister)
# PAD
- 05/29/24 s/p LLE endovascular procedure
- MRI foot no osteo
- Observe off abx
- Podiatry to eval for toe amputations.
ID will sign off.
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
DM
HTN
CVA
Hypothyroidism
Schizoaffective disorder
Lap rashid
SNF resident
Chief Complaint
-: Other (Toe gangrene)
Subjective / Review of Systems
Pt yelling in bed 'I don't want to get up!'
Vital Signs / Physical Exam
Vital Signs
Vital Signs
Temp Pulse Resp BP Pulse Ox
98.9 F 97 18 121/73 97
05/30/24 07:41 05/30/24 07:41 05/30/24 07:41 05/30/24 07:41 05/30/24 07:41
Physical Exam
Cardiovascular: Regular Rate and S1/S2
Pulmonary: Clear
Gastrointestinal: Soft and Non Tender
Wound: Other (Right first and 4th toes dry gangrene progressed)
Objective Data
Lab Data
Lab Results
05/30/24 06:41
05/30/24 06:41
ESR 74 mm/hour (0-20) H 05/26/24 05:28
PT 13.6 Sec (11.4-14.6) 05/30/24 07:39
INR 1.05 05/30/24 07:39
APTT 33.4 Sec (23.4-35.0) 05/30/24 07:39
Estimated Creat Clear 63 ml/min 05/30/24 06:41
Lactic Acid 2.1 mmol/L (0.7-2.0) H 05/26/24 10:43
Total Bilirubin 0.2 mg/dl (0.2-1.3) 05/28/24 07:53
AST 22 U/L (14-36) 05/28/24 07:53
ALT 12 U/L (0-35) 05/28/24 07:53
Alkaline Phosphatase 75 U/L (38-126) 05/28/24 07:53
C-Reactive Protein 74.70 mg/L (0.0-10.00) H 05/26/24 05:28
Most recent labs reviewed.
Micro Results:
05/26/24 00:57 Blood Culture - Preliminary
Blood/Venous No Growth in 4 days- Final report to follow
05/26/24 04:34 MRSA Screen - Final
Nose No Methicillin Resistant Staphylococcus aureus isolated.
05/26/24 Foot XRAY: No radiographic evidence for an acute osseous abnormality of the left foot.
05/29/24 MRI Left foot wo: No MRI evidence for acute osteomyelitis in the left forefoot. Suggestion of soft tissue necrosis around the tuft of the distal phalanx of the 4th toe. Suspected avascular necrosis in the 1st and 5th metatarsal heads.
Mild intermetatarsal bursitis in the 3rd interspace.
--- NOTE | 2024-05-30 14:21 | W.PN.UPDATE ---
Update Note
Progress Note Update
I saw and evaluated the patient. I reviewed the resident�s note and agree with findings and plan as documented in the resident�s note.
No reported acute issues overnight and patient resting comfortably in bed
1. Left foot first and fourth toe dry gangrene, peripheral arterial disease -foot x-ray did not show any osteomyelitic changes. MRI of the foot is pending. Vascular surgery involved in care and patient underwent CTA lower extremities/arterial
Doppler showing diffuse PAD. Patient is planned to undergo lower extremity angioplasty tomorrow by vascular surgeon. ID is following and no signs of systemic infection, patient has been taken off antibiotics at this point.
Vascular surgery post angiography recommending left AKA and planning to discuss this with POA
2. Presumed CHRISTIAN
- cr has normalized at this point, monitor post LE angioplasty
3. Pulm nodule
- 5mm pleural based, noted on CT, will need pulm nodule clinic/pulmo f/u at discharge
--- NOTE | 2024-05-30 15:02 | W.PN.UPDATE ---
Update Note
Progress Note Update
Spoke to patient's Sister Rina on the phone again today. We again reviewed findings of angiography that I discussed with her yesterday. Discussed with her my recommendation for amputation again. We discussed the level. I discussed based on
her nonambulatory status and to maximize wound healing would recommend left [id number] amputation. Procedure discussed. Anticipated recovery discussed. Risk/benefit/alternatives discussed. Patient's sister/POA understands all wishes for us
to proceed. Plan OR tomorrow.
[2024-05-30 15:41] VITALS: BP 126/81
--- NOTE | 2024-05-30 16:06 | PTCARENOTE ---
patient's mood waxes and wanes, one minute she's calm and cooperative, then the next minute she's yelling/screaming when changing her attends, but can yell/scream without care being done. c/o intermittent left foot pain, had few bites for lunch,
only, refused to have left foot dressed, elevated off bed with pillows despite being told benefits/risks. vss, will continue to monitor.
[2024-05-30 16:36] LABS: Glucose - Point of Care 171 mg/dl (70-99)
[2024-05-30] MEDS: LIPITOR 40 MG PO (17:39)
[2024-05-30] MEDS: LOVENOX 40 MG SC (17:40)
[2024-05-30] MEDS: NOVOLOG FLEXPEN 9 UNITS SC (18:24)
[2024-05-30] MEDS: MORPHINE SULFATE 1 MG IV (18:39)
--- NOTE | 2024-05-30 18:42 | PTCARENOTE ---
patient screaming loudly during changing attends. verbalized severe pain in left foot. stated, 'I'm going to scream all night, if I want to!'. Also, yelling, 'My heads not all the way flat!', HOB completely flat and informed patient of that.
administered PRN Morphine, will continue to monitor.
[2024-05-30 19:55] VITALS: BP 122/70
[2024-05-30] MEDS: TYLENOL 650 MG PO (20:22)
[2024-05-30 21:56] LABS: Glucose - Point of Care 191 mg/dl (70-99)
[2024-05-30] MEDS: LANTUS 0.18 UNITS SC (21:57)
[2024-05-30] MEDS: ROXICODONE 10 MG PO (21:57)
[2024-05-30 22:10] VITALS: BP 133/73
[2024-05-31] VITALS (16 sets, daily range): BP systolic 99–149; BP diastolic 52–90
[2024-05-31] MEDS: SYNTHROID 50 MCG PO (04:33)
[2024-05-31] MEDS: ROXICODONE 5 MG PO (04:35)
--- NOTE | 2024-05-31 05:49 | DOWNTIME ---
There was a [employer] Client Learning Technologist Downtime on 05/31/2024 from 0100 to 05/31/2024 at 0355. Downtime documentation of patient's care, including medication administrations, has been reconciled in the electronic record per guidelines. Refer to the
patient's paper chart under the miscellaneous tab to see printed paper medication records and downtime forms.
[2024-05-31] MEDS: PERIDEX 0.12% ORAL RINSE 15 ML PO (06:36)
[2024-05-31] MEDS: BACTROBAN 2% OINTMENT 1 APPLIC NASAL (06:36)
[2024-05-31 06:41] LABS: Glucose - Point of Care 115 mg/dl (70-99)
[2024-05-31 07:02] LABS: Hematocrit 33.5 % (37.0-47.0); Hemoglobin 10.9 g/dL (12.0-16.0); Mean Corp Hgb Conc. 32.5 g/dL (33.0-37.0); Mean Corpuscular Volume 82.9 fL (81.0-99.0); Mean Platelet Volume 11.5 fL (7.4-10.4); Platelet Count 299 10^3/uL (130-400); Red Blood Cell Count 4.04 10^6/uL (4.20-5.40); Red Cell Dist. Width 13.6 % (11.5-14.5); White Blood Cell Count 9.2 10^3/uL (4.8-10.8)
--- NOTE | 2024-05-31 07:23 | W.PN.HOSP.TC ---
Today's Communication/Plan
-
Patient's sister Rina has been in contact and discussing the treatment plan of the patient. Vascular surgery reviewed the findings of the angiography and discussed the recommendations for amputation. The patient's sister/POA understood and
wished for vascular surgery to proceed with amputation procedure. The patient is slated to undergo her procedure today in the OR.
Assessment / Plan
Assessment / Plan
Assessment/Plan:
-Dry gangrene of the first and fourth toe of the left foot:
Admitted to [facility]
blood cultures sent
CRP elevated at 74.7 on 05/26/2024
Foot x-ray showed no acute fracture or dislocation. No osseous destructive changes. Large calcaneal enthesophyte formation. Vascular calcifications. Mild soft tissue swelling about the foot, nonspecific.
Follow-up MRI of the foot ordered
Continue vancomycin for non-exudative foot infection
arterial doppler u/s for vascular evaluation -showed noncompressible arteries bilaterally, suggestive of medial calcinosis and arterial noncompliance, which made measuring ankle-brachial indices unreliable. Toe brachial indices were also not
obtainable due to the phasic great toe PPG waveforms. Heavily calcified plaque is seen throughout the arteries in each lower extremity. Patency of each SFA is difficult to ascertain on ultrasound due to the heavily calcified plaque with associated
posterior acoustic shadowing. The left popliteal artery is occluded along its length, with reconstitution of the posterior tibial and dorsalis pedis arteries.
Abdominal CT conducted shows a heavily calcified, nonaneurysmal abdominal aorta. On the right leg mild calcified iliac arteries without significant stenosis seen. On the right leg mixed plaque within the common femoral artery without significant
stenosis. On the right leg extensively diseased SFA with multifocal areas of narrowing identified proximally and distally. On the right leg popliteal artery is heavily calcified but appears patent with patent trifurcation - peroneal artery appears
to occlude distally. Left leg: Mild calcified plaque without significant stenosis within the iliac arteries. No significant stenosis identified within the common femoral artery. Extensive atherosclerotic plaque throughout the SFA with likely focal
area of narrowing identified proximally (image 160, series 501). There may also be an area of narrowing distally with several collateral vessels appreciated (image 219). Extensively calcified popliteal artery, limiting evaluation, but which appears
patent. Infrapopliteal vessels are heavily calcified, limiting evaluation. The distal aspects of the posterior tibial and dorsalis pedis arteries appear patent.
Appreciate infectious diseases consult -they recommend monitoring off of antibiotics for the time being
Wound care team consulted
Lactic acid trending downwards. Lactic acid was 5.7 on 05/26/2024 at 1AM �currently 2.1 on 05/26/2024 at 10:43AM
Patient underwent arteriogram with Dr. Melara. -Patient's sister Rina has been in contact and discussing the treatment plan of the patient. Vascular surgery reviewed the findings of the angiography and discussed the recommendations for
amputation. Based on the patient's nonambulatory status and to maximize wound healing vascular surgery recommends left [id number] amputation. The procedure was discussed and anticipated recovery duration was discussed as well. The patient's
sister/POA understood and wished for vascular surgery to proceed with amputation procedure. The patient is slated to undergo her procedure today in the OR.
-Possible chronic kidney disease stage IIIa or CHRISTIAN:
Unknown baseline renal function
eGFR ranges between 46-50
Creatinine elevated at 1.2 on 05/26/2024 -stable at 1 on 05/29/2024
Recommend outpatient nephrology follow-up for further workup
-Type 2 diabetes mellitus:
Placed patient on slightly reduced insulin regimen compared to home with glargine, aspart tidac and moderate sliding scale
holding metformin
Hemoglobin A1c measured at 8.0 on 05/27/2024
Premeal insulin aspart increased to 9 units and insulin glargine increased to 18 units due to persistent elevated blood glucose in the range of 184-247
-Hypothyroidism:
continue levothyroxine
DVT prophylaxis: Enoxaparin subcu
FULL CODE STATUS
Anticipated Discharge: > 48 hours
Subjective/Interval History
-
Date of Service: May 31, 2024
Met with the patient at the bedside. She is aware of her upcoming procedure in the operating room and understands that this will be the resolution of her ongoing foot pain. She stated that she is ready and made a joke to lift up her spirits.
Objective Data
-
Vital Signs:
Vital Signs
Temp Pulse Resp BP Pulse Ox
99.2 F 101 20 133/73 96
05/30/24 22:10 05/30/24 22:10 05/30/24 22:10 05/30/24 22:10 05/30/24 23:52
I&O
05/30/24 05/31/24 06/01/24
06:59 06:59 06:59
Intake Total 790 / 790 360 / 360
Balance 790 / 790 360 / 360
Review of Systems
-
History Source: Patient
Constitutional: Reports Other (Left foot pain)
EENT: Reports No Symptoms Reported
Respiratory: Reports No Symptoms
Cardiac: Reports No Symptoms
Abdomen/GI: Reports No Symptoms
Breast: Reports No Symptoms
Genitourinary: Reports No Symptoms
Musculoskeletal: Reports No Symptoms
Skin: Reports Other (Pain throughout the left foot)
Neuro: Reports No Symptoms
Endocrine: Reports No Symptoms
Hematologic / Lymphatic: Reports No Symptoms
Allergy / Immunology: Reports No Symptoms
[2024-05-31 07:28] LABS: Blood Urea Nitrogen 28 mg/dl (7-17); Calcium 8.7 mg/dl (8.4-10.2); Carbon Dioxide 23 mmol/L (22-30); Chloride 103 mmol/L (98-107); Estimated Creatinine Clearance 63 ml/min; Glucose 113 mg/dl (70-99); Potassium 4.6 mmol/L (3.5-5.1); Sodium 139 mmol/L (135-145); eGFR > 60.00
[2024-05-31] MEDS: NOVOLOG FLEXPEN SC ×2 (07:48→10:04)
[2024-05-31] MEDS: DEPAKOTE (12 HR RELEASE) 125 MG PO ×2 (07:50→20:32)
[2024-05-31] MEDS: TRILEPTAL 300 MG PO ×2 (07:50→20:32)
[2024-05-31] MEDS: ASPIR LOW (ENTERIC COATED) 81 MG PO (07:50)
[2024-05-31] MEDS: PROTONIX 40 MG PO ×2 (07:50→20:32)
[2024-05-31] MEDS: RISPERDAL 0.5 MG PO ×2 (07:50→20:32)
[2024-05-31] MEDS: ROXICODONE 10 MG PO (09:36)
[2024-05-31 11:16] LABS: Glucose - Point of Care 136 mg/dl (70-99)
[2024-05-31] MEDS: VANCOCIN 200 IV (12:00)
--- NOTE | 2024-05-31 12:01 | PTCARENOTE ---
Pt was brought to labor and delivery registered nurse recovery via bed transport. She was placed on monitor: HR 92/SR, BP 138/92, sats 95-98%RA, temporal temp 98.2. She screams with BP checks, legs both tender to couch, pale/cool skin, known anemia. Pulses present by doppler
bilaterally. Midline patent, Vanco 1 gm started infusing at 1200. She was seen by Dr Doll shortly after arrival.
--- NOTE | 2024-05-31 12:42 | W.SUR.PREOP ---
Pre-Operative Surgical Note
-
I have examined this patient prior to the performance of the scheduled procedure.
The patient's condition is unchanged from the time of the current History and
Physical and the patient is able to undergo the scheduled procedure.
Risks/benefits/alternatives discussed with sister/POA Tessy. She undertands all and wishes to proceed with L AKA.
--- NOTE | 2024-05-31 13:07 | PTCARENOTE ---
Pt moved to the [facility] lab at 1250. Vanco infusion completed.
[2024-05-31 14:27] LABS: Glucose - Point of Care 169 mg/dl (70-99)
--- NOTE | 2024-05-31 14:42 | W.SUR.POST ---
Surgical Immediate Post Op
Note
Pre Op Diagnosis: Left leg wound
Post Op Diagnosis: Left leg wound
Procedure Performed: left above knee amputation
Primary Surgeon: Hardik Melara MD
Regional Airline Pilot: DANIEL Walker
Anesthesia: GETA
Estimated Blood Loss: 15ml
Fluids: See anesthesia flowsheet
Drains/Shunts:N/A
Specimens/Cultures: Left leg
Doppler/Duplex/Angio (Y/N): N
Complications: None
Operative Findings: successful amputation
--- NOTE | 2024-05-31 14:45 | CM ---
Patient is s/p AKA this afternoon. patient will go back to LTC when medically stable.
Plan: Case management will continue to follow and assist with discharge planning. Back to [facility] when stable.
[2024-05-31 14:51] LABS: Glucose - Point of Care 183 mg/dl (70-99)
[2024-05-31] MEDS: NOVOLOG vial 1 UNITS SC (15:29)
[2024-05-31] MEDS: NEURONTIN 100 MG PO ×2 (16:37→22:29)
[2024-05-31] MEDS: TYLENOL 650 MG PO ×2 (16:37→20:31)
--- NOTE | 2024-05-31 16:51 | OR.RPT ---
Operative Report
Operative Report
PROCEDURE DATE: 05/31/2024
Preoperative diagnosis: Left foot gangrene
Postoperative diagnosis: Same
Procedure: Left above the knee amputation
Surgeon: Kelton
Disposal Operator: JULY Easley, required for all aspects of procedure including assistance with traction/countertraction, assistance with closure.
Complications: None
Anesthesia: General
Indications for procedure:
Left foot gangrene. Foot not salvageable. Nonambulatory patient. Discussed extensively with patient's POA risk/benefit/alternatives given these issues. We discussed left [id number] amputation. Patient's POA understood all wish to proceed.
Description of procedure:
Patient was identified brought to the operating room placed on the table in supine position. After the adequate administration of anesthesia she was prepped and draped in the standard surgical fashion. A standard preoperative timeout was
undertaken and everybody was in agreement the plan. Standard anterior-posterior fishmouth type incisions were made just above the knee and the right lower extremity. Incisions were carried through the skin subcutaneous tissue and then down through
the fascial layer. She had a significant burden of subcutaneous fatty tissue. We carried the incision through the fascial layer with the electrocautery circumferentially. Initially on the anterior aspect we carried it through the ligamentous
suprapatellar tissues down to the level of the femur. The muscles surrounding the femur were then sequentially divided with the electrocautery. (Prior to this the saphenous vein in the medial aspect of the incision was clipped and divided between
clips). Next, I identified the popliteal artery and vein in the medial posterior aspect of the surgical site. I carefully circumferentially dissected the artery ligated proximally with 2 heavy silk ties and distally with a heavy silk ties and then
divided in between. I tried to place a suture ligature, but the plaque burden was so severe in the artery that it did not allow this. Just to be sure I placed an additional heavy silk tie proximally. I then transected the artery between the ties.
I then ligated the vein proximally distally and in addition proximally placed a 2-0 silk suture ligature. I then divided the vein sharply. Now I completed circumferential dissection of the muscles and tendinous tissues around the femur with the
electrocautery. Lastly, the sciatic nerve was ligated high in the field with a silk tie and then divided and allowed to retract cephalad. Next, I elevated the periosteum off the femur. I then used an oscillating saw to transect the femur. The
leg specimen was then removed and sent off the field. Next, I used the oscillating saw to transect the femur slightly more proximally. The depth of the femur was fairly significant, and therefore I did not feel I needed to bevel the anterior
aspect as there is no sharp edge and no prominence, and there was a significantly abundant muscle and subcutaneous fatty overlying layers. Next the muscles surrounding the popliteal artery/vein bundle were approximated to bury the stumps of the
vessels by using a pfsodk-[id number] 2-0 silk suture to close the muscles over it. (Somewhat of an anterior myopexy). Next, I confirmed full hemostasis and irrigated and began closure. We closed using interrupted 0 Vicryl fascial layer sutures
followed by running 3-0 deep dermal layer. Finally, skin clips were applied. Next, dressings were applied. The patient tolerated the procedure well.
[2024-05-31] MEDS: LIPITOR 40 MG PO (17:23)
[2024-05-31] MEDS: DILAUDID 1 MG IV (17:30)
[2024-05-31] MEDS: NOVOLOG FLEXPEN 9 UNITS SC (17:31)
[2024-05-31] MEDS: LOVENOX 40 MG SC (17:31)
[2024-05-31 17:35] LABS: Glucose - Point of Care 204 mg/dl (70-99)
[2024-05-31] MEDS: NOVOLOG FLEXPEN-MODERATE RESISTANCE 3 UNITS SC (17:42)
[2024-05-31] MEDS: DILAUDID 0.5 MG IV (20:31)
[2024-05-31] MEDS: FLUSH (NSS) 2 FLUSH IV (20:33)
[2024-05-31 21:42] LABS: Glucose - Point of Care 205 mg/dl (70-99)
--- NOTE | 2024-05-31 21:42 | VATNOTE ---
4FR L MIDLINE REMOVED D/T GROSS LEAKING FROM INSERTION SITE AND INFILTRATION WELL. NEW PERIPHERAL IV SITE ESTABLISHED DOCUMENTED. PCN AWARE OF INTERVENTION AND OUTCOME.
[2024-05-31 21:56] LABS: Hemoglobin 9.9 g/dL (12.0-16.0); Mean Corpuscular Hgb 26.3 pg (27.0-31.0); Mean Corpuscular Volume 79.8 fL (81.0-99.0); Mean Platelet Volume 10.4 fL (7.4-10.4); Platelet Count 321 10^3/uL (130-400); Red Blood Cell Count 3.76 10^6/uL (4.20-5.40); Red Cell Dist. Width 13.7 % (11.5-14.5); White Blood Cell Count 13.5 10^3/uL (4.8-10.8)
[2024-05-31] MEDS: LANTUS 0.18 UNITS SC (22:30)
[2024-05-31 23:14] LABS: Blood Urea Nitrogen 28 mg/dl (7-17); Calcium 8.6 mg/dl (8.4-10.2); Carbon Dioxide 22 mmol/L (22-30); Chloride 102 mmol/L (98-107); Estimated Creatinine Clearance 63 ml/min; Glucose 197 mg/dl (70-99); Potassium 4.9 mmol/L (3.5-5.1); Sodium 135 mmol/L (135-145); eGFR > 60.00
[2024-06-01] VITALS (7 sets, daily range): BP systolic 126–184; BP diastolic 59–81; PULSE 101; O2SAT 100
[2024-06-01] MEDS: TYLENOL PO ×3 (01:19→12:37)
[2024-06-01] MEDS: SYNTHROID 50 MCG PO (05:58)
[2024-06-01] MEDS: DEPAKOTE (12 HR RELEASE) 125 MG PO ×2 (08:11→20:25)
[2024-06-01] MEDS: PROTONIX 40 MG PO ×2 (08:11→20:25)
[2024-06-01] MEDS: RISPERDAL 0.5 MG PO ×2 (08:11→20:25)
[2024-06-01] MEDS: TRILEPTAL 300 MG PO ×2 (08:11→20:25)
[2024-06-01] MEDS: NEURONTIN 100 MG PO ×3 (08:11→20:25)
[2024-06-01] MEDS: TYLENOL 650 MG PO ×3 (08:11→20:25)
[2024-06-01] MEDS: ASPIR LOW (ENTERIC COATED) 81 MG PO (08:11)
[2024-06-01 08:22] LABS: Hematocrit 28.7 % (37.0-47.0); Hemoglobin 9.4 g/dL (12.0-16.0); Mean Corp Hgb Conc. 32.8 g/dL (33.0-37.0); Mean Corpuscular Hgb 27.2 pg (27.0-31.0); Mean Corpuscular Volume 83.2 fL (81.0-99.0); Mean Platelet Volume 11.1 fL (7.4-10.4); Platelet Count 315 10^3/uL (130-400); Red Blood Cell Count 3.45 10^6/uL (4.20-5.40); Red Cell Dist. Width 13.4 % (11.5-14.5); White Blood Cell Count 12.9 10^3/uL (4.8-10.8)
[2024-06-01 08:58] LABS: Glucose - Point of Care 235 mg/dl (70-99)
[2024-06-01] MEDS: NOVOLOG FLEXPEN 9 UNITS SC ×3 (09:01→18:11)
[2024-06-01] MEDS: NOVOLOG FLEXPEN-MODERATE RESISTANCE 3 UNITS SC ×3 (09:01→18:11)
[2024-06-01 09:19] LABS: Blood Urea Nitrogen 27 mg/dl (7-17); Calcium 8.4 mg/dl (8.4-10.2); Carbon Dioxide 25 mmol/L (22-30); Chloride 100 mmol/L (98-107); Estimated Creatinine Clearance 63 ml/min; Glucose 278 mg/dl (70-99); Potassium 4.7 mmol/L (3.5-5.1); Sodium 135 mmol/L (135-145); eGFR > 60.00
--- NOTE | 2024-06-01 11:53 | W.PN.VS ---
Addendum entered and electronically signed by Hardik Melara MD 06/01/24 11:59:
Seen and examined with DELIVERY RN's. Agree with findings as noted below. No events overnight. Left above-knee amputation site clean dry and intact. Dressing is all clean. No blood staining. Plan/as discussed and noted below.
Original Note:
Today's Communication / Plan
-
Patient seen and examined at bedside with Dr. Hardik Melara, below plan reviewed with attending.
Assessment/Plan
-
POD 2 Left lower extremity arteriogram, balloon angioplasty and shockwave to peroneal artery, and balloon angioplasty to popliteal artery. POD #1 Left AKA
Plan:
- Continue pain management
- DC Min
- Vascular team will change dressing tomorrow
- Again asked nursing staff to obtain overhead trapeze
- PT/OT
Subjective Data
-
Date of Service: June 01, 2024
Patient seen and examined at bedside, offers no complaints. Reports adequate post operative pain management.
Objective Data
-
Vital Signs
Temp Pulse Resp BP Pulse Ox
98.5 F 107 18 155/59 98
06/01/24 07:36 06/01/24 07:36 06/01/24 07:36 06/01/24 07:36 06/01/24 07:36
Intake and Output
05/31/24 06/01/24 06/02/24
06:59 06:59 06:59
Intake Total 360 / 360 680 / 680
Output Total 500 / 500
Balance 360 / 360 180 / 180
Intake:
Oral fluids 360 / 360 480 / 480
IV piggybacks 200 / 200
Output:
Urine, Min 200 / 200
Urine, Voided 300 / 300
Other:
How many times incontinent 3 2
SATURATED amount urine
Lab Results
06/01/24 08:11
06/01/24 08:11
Calcium 8.4 mg/dl (8.4-10.2) 06/01/24 08:11
Total Bilirubin 0.2 mg/dl (0.2-1.3) 05/28/24 07:53
Direct Bilirubin 0.0 mg/dl (0.0-0.4) 05/28/24 07:53
AST 22 U/L (14-36) 05/28/24 07:53
ALT 12 U/L (0-35) 05/28/24 07:53
Alkaline Phosphatase 75 U/L (38-126) 05/28/24 07:53
Total Protein 6.0 g/dl (6.3-8.2) L 05/28/24 07:53
Albumin 3.3 g/dl (3.5-5.0) L 05/28/24 07:53
Physical Exam
-
AAOx3
No tachypnea on room air
No tachycardia
Abdomen soft
Left AKA site CDI
--- NOTE | 2024-06-01 12:58 | W.PN.HOSP.TC ---
Today's Communication/Plan
-
post op care per vasc sx
Assessment / Plan
Assessment / Plan
1. Left foot first and fourth toe dry gangrene, peripheral arterial disease
-foot x-ray did not show any osteomyelitic changes. MRI of the foot did not show osteomyelitis.
-Vascular surgery involved in care and patient underwent CTA lower extremities/arterial Doppler showing diffuse PAD.
-Patient is planned to undergo lower extremity angioplasty tomorrow by vascular surgeon.
-ID is following and no signs of systemic infection, patient has been taken off antibiotics at this point.
-s/p Left AKA on 05/31, no reported pain issues.
-Vasc sx following and help appreciated.
2. Presumed CHRISTIAN
- cr has normalized at this point, monitor post LE angioplasty
3. Pulm nodule
- 5mm pleural based, noted on CT, will need pulm nodule clinic/pulmo f/u at discharge
4. NIDDM
- A1c of 8
- maintain on ISS/premeal NovoLog/Lantus
Hypothyroidism
GERD
DVT PPX - Lovenox
Full code
Anticipated Discharge: 24 - 48 hours
Subjective/Interval History
-
Date of Service: June 01, 2024
no complains overnight
patient resting comfortable in bed
Objective Data
-
Labs:
Laboratory Results
06/01/24
08:11
WBC 12.9 H
Hgb 9.4 L
Hct 28.7 L
Plt Count 315
Sodium 135
Potassium 4.7
Chloride 100
Carbon Dioxide 25
BUN 27 H
Creatinine 1.0
Glucose 278 H
Calcium 8.4
Vital Signs:
Vital Signs
Temp Pulse Resp BP Pulse Ox
98.5 F 107 18 155/59 98
06/01/24 07:36 06/01/24 07:36 06/01/24 07:36 06/01/24 07:36 06/01/24 07:36
I&O
05/31/24 06/01/24 06/02/24
06:59 06:59 06:59
Intake Total 360 / 360 680 / 680
Output Total 500 / 500
Balance 360 / 360 180 / 180
Review of Systems
-
Unable to obtain full review of systems at this time due to: Other (somnolent)
Physical Exam
-
General: Comfortable
HEENT: Negative Oxygen
Musculoskeletal: Other (Left AKA)
[2024-06-01 13:56] LABS: Glucose - Point of Care 224 mg/dl (70-99)
[2024-06-01] MEDS: LIPITOR 40 MG PO (17:23)
[2024-06-01] MEDS: LOVENOX 40 MG SC (17:24)
[2024-06-01 18:11] LABS: Glucose - Point of Care 242 mg/dl (70-99)
[2024-06-01] MEDS: DILAUDID 1 MG IV (20:25)
[2024-06-01] MEDS: FLUSH (NSS) 2 FLUSH IV (20:26)
[2024-06-01 21:37] LABS: Glucose - Point of Care 118 mg/dl (70-99)
[2024-06-01] MEDS: LANTUS 0.18 UNITS SC (22:05)
[2024-06-02] MEDS: TYLENOL PO ×3 (00:15→12:49)
[2024-06-02] MEDS: SYNTHROID PO ×2 (06:06→06:27)
--- NOTE | 2024-06-02 07:16 | W.PN.HOSP.TC ---
Today's Communication/Plan
-
S/p left [id number] amputation on 05/31 with no reported pain issues. The patient has been cleared for discharge from a vascular surgery perspective. Patient had an episode of diarrhea. If diarrhea persists we will consider checking C.
difficile due to antibiotic exposure early in hospital course. If patient remains medically stable we will begin to move forward with discharge planning
Assessment / Plan
Assessment / Plan
Assessment/Plan:
-Dry gangrene of the first and fourth toe of the left foot:
Admitted to [facility]
blood cultures sent
CRP elevated at 74.7 on 05/26/2024
Foot x-ray showed no acute fracture or dislocation. No osseous destructive changes. Large calcaneal enthesophyte formation. Vascular calcifications. Mild soft tissue swelling about the foot, nonspecific.
Follow-up MRI of the foot ordered
Continue vancomycin for non-exudative foot infection
arterial doppler u/s for vascular evaluation -showed noncompressible arteries bilaterally, suggestive of medial calcinosis and arterial noncompliance, which made measuring ankle-brachial indices unreliable. Toe brachial indices were also not
obtainable due to the phasic great toe PPG waveforms. Heavily calcified plaque is seen throughout the arteries in each lower extremity. Patency of each SFA is difficult to ascertain on ultrasound due to the heavily calcified plaque with associated
posterior acoustic shadowing. The left popliteal artery is occluded along its length, with reconstitution of the posterior tibial and dorsalis pedis arteries.
Abdominal CT conducted shows a heavily calcified, nonaneurysmal abdominal aorta. On the right leg mild calcified iliac arteries without significant stenosis seen. On the right leg mixed plaque within the common femoral artery without significant
stenosis. On the right leg extensively diseased SFA with multifocal areas of narrowing identified proximally and distally. On the right leg popliteal artery is heavily calcified but appears patent with patent trifurcation - peroneal artery appears
to occlude distally. Left leg: Mild calcified plaque without significant stenosis within the iliac arteries. No significant stenosis identified within the common femoral artery. Extensive atherosclerotic plaque throughout the SFA with likely focal
area of narrowing identified proximally (image 160, series 501). There may also be an area of narrowing distally with several collateral vessels appreciated (image 219). Extensively calcified popliteal artery, limiting evaluation, but which appears
patent. Infrapopliteal vessels are heavily calcified, limiting evaluation. The distal aspects of the posterior tibial and dorsalis pedis arteries appear patent.
Appreciate infectious diseases consult -they recommend monitoring off of antibiotics for the time being
Wound care team consulted
Lactic acid trending downwards. Lactic acid was 5.7 on 05/26/2024 at 1AM �currently 2.1 on 05/26/2024 at 10:43AM
S/p left [id number] amputation on 05/31 with no reported pain issues
Vascular surgery continues to follow and the recommendations are appreciated. -The patient has been cleared for discharge from a vascular surgery perspective
-Presumed CHRISTIAN:
Unknown baseline renal function
eGFR ranges between 46-50
Creatinine elevated at 1.2 on 05/26/2024 -stable at 1 on 05/29/2024
Recommend outpatient nephrology follow-up for further workup
Continue to monitor creatinine following amputation procedure
-Pulmonary nodule:
There is a 5 mm pleural-based pulmonary nodule noted on CT exam. It is recommended that the patient follow-up with pulmonology in the outpatient setting for monitoring of the pulmonary nodule
-Type 2 diabetes mellitus:
Placed patient on slightly reduced insulin regimen compared to home with glargine, aspart tidac and moderate sliding scale
holding metformin
Hemoglobin A1c measured at 8.0 on 05/27/2024
Premeal insulin aspart increased to 9 units and insulin glargine increased to 18 units due to persistent elevated blood glucose in the range of 184-247
-Hypothyroidism:
continue levothyroxine
-GERD:
Pantoprazole sodium 40 mg p.o. twice daily
-Diarrhea:
Patient had an episode of diarrhea on the morning of 06/02/2024
No associated abdominal pain nausea vomiting or fever
If symptoms persist we will consider checking C. difficile due to antibiotic exposure early in the hospital course
DVT prophylaxis: Enoxaparin subcu
FULL CODE STATUS
Anticipated Discharge: > 48 hours
Subjective/Interval History
-
Date of Service: June 02, 2024
Met with patient at the bedside. She was resting in bed and not complaining of any pain. Has no complaints about her amputation wound and believes that it is healing well.
Objective Data
-
Labs:
Labs
06/02/24 09:32
06/02/24 09:32
Vital Signs:
Vital Signs
Temp Pulse Resp BP Pulse Ox
97.8 F 73 16 126/64 97
06/01/24 23:30 06/01/24 23:30 06/01/24 23:30 06/01/24 23:30 06/01/24 23:30
I&O
06/01/24 06/02/24 06/03/24
06:59 06:59 06:59
Intake Total 680 / 680 480 / 480
Output Total 500 / 500 550 / 550
Balance 180 / 180 -70 / -70
Review of Systems
-
History Source: Patient
All other systems: Reviewed and negative
Constitutional: Reports No Symptoms
EENT: Reports No Symptoms Reported
Respiratory: Reports No Symptoms
Cardiac: Reports No Symptoms
Abdomen/GI: Reports No Symptoms
Breast: Reports No Symptoms
Genitourinary: Reports No Symptoms
Musculoskeletal: Reports No Symptoms
Skin: Reports No Symptoms
Neuro: Reports No Symptoms
Endocrine: Reports No Symptoms
Hematologic / Lymphatic: Reports No Symptoms
Allergy / Immunology: Reports No Symptoms
Psych: Reports Depressed
Physical Exam
-
General: Well Developed, Well Nourished, No Apparent Distress and Comfortable
HEENT: Normocephalic, Atraumatic and Moist Mucous Membranes
Respiratory: Clear to Auscultation
Cardiac: Regular Rhythm and S1/S2
Breast: Deferred by me
GI: Soft, Nontender, Nondistended and Normal Bowel Sounds
Rectal: Deferred by Provider
Genito-urinary: Deferred by me
Musculoskeletal: No Clubbing, No Cyanosis, No Edema and Other (S/p [id number]-[id number] amputation of the left lower limb)
Skin: Warm, Dry and Other (Left limb amputation site appears to be healing well with no obvious irritation or infection.)
Neuro: Awake, Alert, Oriented and AO x 3
Psych: Calm
[2024-06-02 07:24] VITALS: BP 157/86
[2024-06-02 08:47] LABS: Glucose - Point of Care 234 mg/dl (70-99)
[2024-06-02] MEDS: NOVOLOG FLEXPEN 9 UNITS SC ×3 (08:48→17:17)
[2024-06-02] MEDS: NOVOLOG FLEXPEN-MODERATE RESISTANCE 3 UNITS SC (08:48)
[2024-06-02] MEDS: PROTONIX 40 MG PO ×2 (08:49→21:41)
[2024-06-02] MEDS: RISPERDAL 0.5 MG PO ×2 (08:49→21:41)
[2024-06-02] MEDS: DEPAKOTE (12 HR RELEASE) 125 MG PO ×2 (08:49→21:41)
[2024-06-02] MEDS: TYLENOL 650 MG PO ×3 (08:49→21:42)
[2024-06-02] MEDS: NEURONTIN 100 MG PO ×3 (08:49→21:43)
[2024-06-02] MEDS: TRILEPTAL 300 MG PO ×2 (08:49→21:43)
[2024-06-02] MEDS: ASPIR LOW (ENTERIC COATED) 81 MG PO (08:49)
[2024-06-02 09:40] LABS: Hematocrit 31.4 % (37.0-47.0); Hemoglobin 10.7 g/dL (12.0-16.0); Mean Corp Hgb Conc. 34.1 g/dL (33.0-37.0); Mean Corpuscular Volume 79.1 fL (81.0-99.0); Mean Platelet Volume 10.9 fL (7.4-10.4); Platelet Count 367 10^3/uL (130-400); Red Blood Cell Count 3.97 10^6/uL (4.20-5.40); Red Cell Dist. Width 13.7 % (11.5-14.5); White Blood Cell Count 11.9 10^3/uL (4.8-10.8)
--- NOTE | 2024-06-02 10:23 | PTCARENOTE ---
pt wakes to name states pain in left leg. pain med given as ordered. left leg dressing intact. pt inc of liquid blake stool.
--- NOTE | 2024-06-02 11:02 | W.PN.VS ---
Today's Communication / Plan
-
See below.
Assessment/Plan
-
POD 3 Left lower extremity arteriogram, balloon angioplasty and shockwave to peroneal artery, and balloon angioplasty to popliteal artery. POD #2 Left AKA
Plan:
- Continue pain management
- Can consider leaving stable sites open to air, however per nursing reports patient is experience copious amounts of loose stool which is currently being contained with adult diapers, can cover staple sites with gauze or ABD pad and secure with
paper tape to decrease risk of exposure to surgical incision to loose stools. Change dressing daily or if soiled. If stools continue to be adequate continued or decrease in amount can leave staple sites open to air.
- PT/OT
-Vascular surgical follow-up placed in discharge instructions
Subjective Data
-
Date of Service: June 02, 2024
Patient seen and examined at bedside, with minimal complaints. In no apparent distress. Reviewed patient's status with bedside nurse dad who informed me that she is experiencing copious amounts of loose stool.
Objective Data
-
Vital Signs
Temp Pulse Resp BP Pulse Ox
98.2 F 96 17 157/86 97
06/02/24 07:24 06/02/24 07:24 06/02/24 07:24 06/02/24 07:24 06/02/24 07:24
Intake and Output
06/01/24 06/02/24 06/03/24
06:59 06:59 06:59
Intake Total 680 / 680 480 / 480
Output Total 500 / 500 550 / 550
Balance 180 / 180 -70 / -70
Intake:
Oral fluids 480 / 480 480 / 480
IV piggybacks 200 / 200
Output:
Urine, Min 200 / 200 550 / 550
Urine, Voided 300 / 300
Other:
How many times incontinent 1
MODERATE amount urine
How many times incontinent 2 1
SATURATED amount urine
Lab Results
06/02/24 09:32
Calcium 8.4 mg/dl (8.4-10.2) 06/01/24 08:11
Total Bilirubin 0.2 mg/dl (0.2-1.3) 05/28/24 07:53
Direct Bilirubin 0.0 mg/dl (0.0-0.4) 05/28/24 07:53
AST 22 U/L (14-36) 05/28/24 07:53
ALT 12 U/L (0-35) 05/28/24 07:53
Alkaline Phosphatase 75 U/L (38-126) 05/28/24 07:53
Total Protein 6.0 g/dl (6.3-8.2) L 05/28/24 07:53
Albumin 3.3 g/dl (3.5-5.0) L 05/28/24 07:53
Physical Exam
-
No apparent distress
No tachypnea on room air
No tachycardia
Abdomen soft
Left AKA site CDI, dressing removed, staple sites CDI and well-approximated, dressing replaced with gauze pad to cover gloria, patient did not tolerate Edgard wrap
[2024-06-02 11:13] LABS: ALT (SGPT) 16 U/L (0-35); AST (SGOT) 26 U/L (14-36); Albumin 3.3 g/dl (3.5-5.0); Alkaline Phosphatase 98 U/L (38-126); Blood Urea Nitrogen 26 mg/dl (7-17); Calcium 8.5 mg/dl (8.4-10.2); Carbon Dioxide 24 mmol/L (22-30); Chloride 99 mmol/L (98-107); Estimated Creatinine Clearance 63 ml/min; Glucose 234 mg/dl (70-99); Potassium 4.4 mmol/L (3.5-5.1); Sodium 137 mmol/L (135-145); Total Bilirubin 0.3 mg/dl (0.2-1.3); Total Protein 6.2 g/dl (6.3-8.2); eGFR > 60.00
[2024-06-02 12:40] LABS: Glucose - Point of Care 166 mg/dl (70-99)
[2024-06-02] MEDS: NOVOLOG FLEXPEN-MODERATE RESISTANCE 1 UNITS SC (12:51)
--- NOTE | 2024-06-02 13:41 | CM ---
Reviewed chart, patient s/p day 2. Therapy is indicating SNF, will call [facility] to determine if they can have her do a SNF stay prior to returning back to [facility]. Will also discuss with family if there are alternative options for SNF that they
want to consider.
Plan: Case management will continue to follow and assist with discharge planning. LTC versus SNF
--- NOTE | 2024-06-02 14:36 | W.PN.UPDATE ---
Update Note
Progress Note Update
I saw and evaluated the patient. I reviewed the resident�s note and agree with findings and plan as documented in the resident�s note.
1. Left foot first and fourth toe dry gangrene, peripheral arterial disease
-foot x-ray did not show any osteomyelitic changes. MRI of the foot did not show osteomyelitis.
-Vascular surgery involved in care and patient underwent CTA lower extremities/arterial Doppler showing diffuse PAD.
-Patient is planned to undergo lower extremity angioplasty tomorrow by vascular surgeon.
-ID is following and no signs of systemic infection, patient has been taken off antibiotics at this point.
-s/p Left AKA on 05/31, no reported pain issues.
-Vasc sx cleared for discharge
2. Diarrhea
-no associated abd pain/n/v/f
-if persists will consider checking cdiff with abx exposure early in the hospital course
3. Presumed CHRISTIAN
- cr has normalized at this point, monitor post LE angioplasty
4. Pulm nodule
- 5mm pleural based, noted on CT, will need pulm nodule clinic/pulmo f/u at discharge
5. NIDDM
- A1c of 8
- maintain on ISS/premeal NovoLog/Lantus
Hypothyroidism
GERD
DVT PPX - Lovenox
Full code
[2024-06-02 15:22] VITALS: BP 98/62
--- NOTE | 2024-06-02 16:37 | W.DCSUMMARY ---
Documented by User: Davey Perdomo MD, Resident 06/02/24 16:54
Discharge Summary
Discharge Data
Date of Admission: 05/26/24
Date of Discharge: 06/02/24
-
Pending Results: No
Hospital Course
Discharging Physician : Sandor Walton
Disposition : assisted facility
Primary care physician : Levar Subramanian
Principal Discharge diagnosis : Dry gangrene of the first and fourth toe of the left foot
Chronic Discharge diagnosis : Insulin-dependent diabetes, hypertension, schizoaffective disorder, and prior CVA
Hospital Course : Patient is a 63-year-old woman with a past medical history of insulin-dependent diabetes, hypertension, schizoaffective disorder, and prior CVA who presented to the emergency department with worsening left foot pain and swelling.
She [facility] the [facility] department from [facility]. The patient stated that she had been dealing with wounds to her left great toe and left fourth toe for approximately 8 weeks. She had been managing with wound care at her
nursing facility. However, she was evaluated the day of her presentation to the emergency department by a physician at the correction who recommended that she go to the emergency department for further evaluation. The patient reported that she
had not been on any antibiotics. She denied any prior vascular studies. Symptoms had progressed and she was noticing redness and swelling of her foot. She was unable to walk due to the pain. The patient stated that no one is doing anything about
it. On exam she had a gangrenous appearing left great toe and left fourth toe. There was mild erythema to the dorsum of the foot and the foot was warm. She also was assessed to have peripheral neuropathy. She reported some pulsatile sensation
felt in the left leg. In addition to the 2 areas previously indicated the patient also reported some slight darkening of her left heel. Antibiotics were started immediately due to concern for gangrenous infection. Patient was given vancomycin and
aztreonam due to a penicillin allergy. In the emergency department the patient was afebrile, blood pressure was 134/86, oxygen saturation was 94% on room air. CBC was mostly unremarkable with a white blood cell count of 11.4, hemoglobin of 11.8,
and a platelet count of 368. The patient's chemistry were also unchanged from baseline with a BUN of 31 and a creatinine of 1.3. The patient was admitted to [facility] for assessment and treatment of dry gangrene of her left foot.
Vascular surgery was consulted and an arteriogram was scheduled. The arteriogram unfortunately discovered that the foot was not salvageable. The patient was nonambulatory status prior to admission. Vascular surgery discussed extensively the
risks, benefits, and alternatives of treatment with the patient's POA. After extensive discussion about the risks and benefits it was decided that it would be best for the patient to undergo an [id number] amputation. The patient underwent the
above the knee amputation and tolerated the procedure well. Following the amputation the patient's acute pain has improved. The surgical dressing is intact and the wound is healing without any obvious irritation or infection. The patient has been
advised to keep the surgical wound dressing clean and to change the dressing when soiled. The patient was cleared for discharge from a vascular surgery perspective and is considered appropriate for follow-up in the outpatient setting. The patient
believes she is ready to go home and would like to be discharged.
The patient has reached maximal benefit from this hospital stay and is appropriate for discharge at the present time. There are no barriers that would impede the patient from being safely discharged at the present time. The patient has been
recommended to follow-up with vascular surgery at the end of the month. The patient has been recommended to follow-up with her primary care provider in the outpatient setting 1 to 2 weeks after being discharged from the hospital.
Important imaging findings :
-Left foot x-ray obtained on 05/26/2024:
No radiographic evidence for an acute osseous abnormality of the left foot.
-Ultrasound of peripheral arteries of the lower extremity with ankle-brachial index conducted on 05/26/2024:
1. Noncompressible arteries bilaterally, suggestive of medial calcinosis and/or arterial noncompliance, which makes measured ankle-brachial indices unreliable. Toe brachial indices were also not obtainable due to aphasic great toe PPG waveforms.
2. Abnormal common femoral waveforms on each side, suggestive of aortoiliac inflow disease.
3. Heavily calcified plaque is seen throughout the arteries of each lower extremity. Patency of each SFA is difficult to ascertain on ultrasound due to heavily calcified plaque with associated posterior acoustic shadowing.
4. Left popliteal artery is occluded along its length, with reconstitution of the posterior tibial and dorsalis pedis arteries.
-Abdominal CT conducted on 05/26/2024:
Vascular:
1. Heavily calcified, nonaneurysmal abdominal aorta. Celiac axis, SMA, and inferior mesenteric arteries are patent. Both renal arteries are patent with likely mild ostial narrowing secondary to calcified plaque.
2. Right leg: Mild calcified iliac arteries without significant stenosis. Mild mixed plaque within the common femoral artery without significant stenosis. Extensively diseased SFA with multifocal areas of narrowing identified proximally and
distally. Popliteal artery is heavily calcified but appears patent with patent trifurcation. The peroneal artery appears to occlude distally. Anterior tibial and posterior tibial arteries are heavily calcified which limits evaluation but appear
patent distally.
3. Left leg: Mild calcified plaque without significant stenosis within the iliac arteries. No significant stenosis identified within the common femoral artery. Extensive atherosclerotic plaque throughout the SFA with likely focal area of narrowing
identified proximally (image 160, series 501). There may also be an area of narrowing distally with several collateral vessels appreciated (image 219). Extensively calcified popliteal artery, limiting evaluation, but which appears patent.
Infrapopliteal vessels are heavily calcified, limiting evaluation. The distal aspects of the posterior tibial and dorsalis pedis arteries appear patent.
Other:
1. Severe hepatic steatosis.
2. 5 mm subpleural nodule within the lingula.
3. Multifocal renal cortical scarring bilaterally. No hydronephrosis.
Lower extremity MRI conducted on 05/29/2024:
There appears to be soft tissue necrosis around the tuft of the distal phalanx of the fourth toe. There is no MRI evidence for low T1 bone marrow signal abnormality in the forefoot to suggest acute osteomyelitis.
There are tiny first metatarsophalangeal joint osteophytes. The tibial sesamoid bone plantar to the first metatarsal head is bipartite. There are thin curvilinear bands of low T1 and hyperintense T2 signal in the subchondral bone of the first and
fifth metatarsal heads surrounding regions of fat signal intensity suggesting avascular necrosis. There is no evidence for articular surface collapse. There is mild intermetatarsal bursitis in the third interspace between the third and fourth
metatarsal heads.
There is mild diffusely increased T1 and T2/STIR signal throughout the muscles of the left foot consistent with acute on chronic denervation muscle atrophy. There is no MRI evidence for loculated fluid collection to suggest an abscess. There is a
mild amount of edema throughout the dorsal subcutaneous fat of the forefoot suggesting cellulitis.
The flexor and extensor tendons appear intact without evidence for tear or rupture. There is no evidence for septic tenosynovitis.
Procedure findings :
-Aortogram and arteriogram obtained on 05/30/[address] Melara:
Infrarenal aorta: Patent visualized distal infrarenal abdominal aorta. Somewhat small stature but no significant stenosis.
Right common iliac artery: Patent with no significant stenosis.Right external iliac artery:
Poorly visualized in this projection.
Left common iliac artery: Patent with no significant stenosis.
Left external iliac artery: Patent with no significant stenosis.
Using a floppy angled hydrophilic wire, the left common femoral artery was cannulated and the catheter was advanced. Left lower extremity arteriogram was obtained. Findings as follows:
Common femoral artery: Patent with no significant stenosis.
Profunda femoris artery: Patent with no significant stenosis.
Superficial femoral artery: Patent with some plaque near the origin but did not result in significant stenosis on oblique imaging. Diffuse eccentric calcification throughout the entirety of the SFA, lead polyp-like. No definitive or severe
stenosis noted.
Popliteal artery: Luminal irregularities with areas of moderate stenosis in the below the knee segment.
Anterior tibial artery: Patent proximally with a heavy shelf of plaque just beyond the origin. Beyond here there was diffuse areas of occlusions and then some reconstituted flow but diffusely very poor flow throughout its course and was a very
diminutive vessel. Did cross the ankle however to become the dorsalis pedis. The mid dorsalis pedis on the midfoot had a severe stenosis as well. All of these were very small diminutive arteries in size.
Tibial peroneal trunk: Patent with occlusion in its mid segment.
Peroneal artery: Occluded at the origin and then reconstituted immediately beyond the origin. Also a diminutive/small vessel. Focal areas of occlusion in the middle third. Small collaterals to reconstitute posterior tibial artery distally.
Posterior tibial artery: Occluded for several centimeters at its origin and beyond. Reconstituted intermittent flow in the mid section and then again distally. However it is very diminutive small vessel throughout.
Discharge Plan
-
Patient Disposition: [facility]/SNF
Discharge Diagnosis/Procedures: Dry gangrene of the first and fourth toe of the left foot
Condition: Good
Diet: Diabetic, Carb Controlled
Activity: With assistance, As tolerated and With Walker
Driving Restrictions: No driving
Bathing Restrictions: OK to Shower
Stand Alone Forms: DC Instr - Vascular OR
Referrals:
Levar Subramanian MD [Family Provider] - in one to two weeks
Maylin El CRNP [Specified Professional Personl] - 06/15/24 8:45 am (Vascular surgery follow-up)
Prescriptions:
New
aspirin 81 mg Tablet,Delayed Release (Dr/Ec)
81 mg PO DAILY Qty: 0 0RF
pantoprazole 40 mg Tablet,Delayed Release (Dr/Ec)
40 mg PO BID Qty: 0 0RF
Rx Instructions:
Take one tablet by mouth twice daily
levothyroxine 50 mcg Tablet
50 mcg PO DAILY @ 0600 Qty: 30 0RF
gabapentin 100 mg Capsule
100 mg PO TID Qty: 0 0RF
loperamide 2 mg tablet
2 mg PO Q4H PRN (Reason: loose stool) Qty: 30 0RF
Rx Instructions:
Take 1 tablet every 4 hours as needed
oxycodone 10 mg Tablet
10 mg PO Q4HPRN PRN (Reason: moderate pain) Qty: 10 0RF
Continued
atorvastatin 40 mg Tablet
40 mg PO HS
acetaminophen [Tylenol] 325 mg Tablet
650 mg PO Q6H PRN (Reason: mild/mod pain, temp 100.4)
insulin glargine [Lantus U-100 Insulin] 100 unit/mL solution
20 unit SC HS
ammonium lactate 12 % Lotion
1 applic TOPICAL QPM
polyethylene glycol 3350 [Miralax] 17 gram Powder In Packet
17 g PO DAILY PRN (Reason: if no BM)
dextrose [Glucose Gel] 40 % Gel
15 g PO Q10M PRN (Reason: BS<60)
Rx Instructions:
entire package per dose
oxcarbazepine 300 mg tablet
300 mg PO BID
melatonin 3 mg Tablet
3 mg PO HS PRN (Reason: sleeplessness)
tramadol 50 mg tablet
50 mg PO Q6H PRN (Reason: moderate pain)
magnesium hydroxide [Milk of Magnesia] 400 mg/5 mL Suspension
30 ml PO DAILY PRN (Reason: constipation)
calcium carbonate 500 mg calcium (1,250 mg) Tablet
500 mg PO BID
levothyroxine 50 mcg tablet
50 mcg PO DAILY
bisacodyl 10 mg Suppository
10 mg UT DAILY PRN (Reason: constipation not rel by MOM)
pantoprazole 40 mg tablet,delayed release (DR/EC)
40 mg PO Q12
metformin 1,000 mg tablet
1,000 mg PO BID
divalproex 125 mg tablet,delayed release (DR/EC)
125 mg PO BID
sodium phosphates 19-7 gram/118 mL Enema
118 ml UT DAILY PRN (Reason: if no result after bisacodyl supp)
insulin lispro 100 unit/mL solution
10 unit SC AC
insulin lispro 100 unit/mL solution
0 sliding scale dose SC AC
Rx Instructions:
BS 0-199-no insulin, 200-250-3 units, 251-300-6 units, 301-350-9 units, 351-400-12 units. BS >400 contact provider
Glucagon Emergency Kit (human) 1 mg Recon Soln
1 mg IM Q20M PRN (Reason: BS<60 unresponsive)
risperidone 0.5 mg tablet
0.5 mg PO BID
cholecalciferol (vitamin D3) 125 mcg (5,000 unit) Tablet
125 mcg PO DAILY
Discharge Orders:
Discharge Patient (As Directed); Ordered 06/06/24
Ordered By: Alfredo East
Discharge Date and Time
Discharge Date/Time: 06/06/24 18:20
Print Language: LUXEMBOURGER

Documented by User: Alfredo East MD, Resident 06/06/24 17:39
Discharge Summary
Discharge Data
Date of Admission: 05/26/24
Date of Discharge: 06/06/24
Hospital Course
Discharging Physician : Alfredo East MD: Toro Burgos MD
Disposition : assisted facility ([facility])
Primary care physician : Levar Subramanian
Principal Discharge diagnosis : Dry gangrene of the first and fourth toe of the left foot
Chronic Discharge diagnosis : Insulin-dependent diabetes, hypertension, schizoaffective disorder, and prior CVA
Hospital Course : Patient is a 63-year-old woman with a past medical history of insulin-dependent diabetes, hypertension, schizoaffective disorder, and prior CVA who presented to the emergency department with worsening left foot pain and swelling.
She came to the emergency department from the [facility]. The patient stated that she had been dealing with wounds to her left great toe and left fourth toe for approximately 8 weeks. She had been managing with wound care at her
nursing facility. However, she was evaluated the day of her presentation to the emergency department by a physician at the correction who recommended that she go to the emergency department for further evaluation. The patient reported that she
had not been on any antibiotics. She denied any prior vascular studies. Symptoms had progressed and she was noticing redness and swelling of her foot. She was unable to walk due to the pain. The patient stated that no one is doing anything about
it. On exam she had a gangrenous appearing left great toe and left fourth toe. There was mild erythema to the dorsum of the foot and the foot was warm. She also was assessed to have peripheral neuropathy. She reported some pulsatile sensation
felt in the left leg. In addition to the 2 areas previously indicated the patient also reported some slight darkening of her left heel. Antibiotics were started immediately due to concern for gangrenous infection. Patient was given vancomycin and
aztreonam due to a penicillin allergy. In the emergency department the patient was afebrile, blood pressure was 134/86, oxygen saturation was 94% on room air. CBC was mostly unremarkable with a white blood cell count of 11.4, hemoglobin of 11.8,
and a platelet count of 368. The patient's chemistry were also unchanged from baseline with a BUN of 31 and a creatinine of 1.3. The patient was admitted to [facility] for assessment and treatment of dry gangrene of her left foot.
Vascular surgery was consulted and an arteriogram was scheduled. The arteriogram unfortunately discovered that the foot was not salvageable. The patient was nonambulatory status prior to admission. Vascular surgery discussed extensively the
risks, benefits, and alternatives of treatment with the patient's POA. After extensive discussion about the risks and benefits it was decided that it would be best for the patient to undergo an [id number] amputation. The patient underwent the
above the knee amputation and tolerated the procedure well. Following the amputation the patient's acute pain has improved. The surgical dressing is intact and the wound is healing without any obvious irritation or infection. The patient has been
advised to keep the surgical wound dressing clean and to change the dressing when soiled. The patient was cleared for discharge from a vascular surgery perspective and is considered appropriate for follow-up in the outpatient setting. The patient
believes she is ready to go home and would like to be discharged.
The patient has reached maximal benefit from this hospital stay and is appropriate for discharge at the present time. There are no barriers that would impede the patient from being safely discharged at the present time. The patient has been
recommended to follow-up with vascular surgery at the end of the month. The patient has been recommended to follow-up with her primary care provider , and pulmonary clinic in the outpatient setting 1 to 2 weeks after being discharged from the
hospital.
Important imaging findings :
LLE MRI 05/29/2024:
1. No MRI evidence for acute osteomyelitis in the left forefoot.
2. Suggestion of soft tissue necrosis around the tuft of the distal phalanx of the 4th toe.
3. Suspected avascular necrosis in the 1st and 5th metatarsal heads.
4. Mild intermetatarsal bursitis in the 3rd interspace.
5. Mild acute on chronic muscle denervation secondary to diabetes mellitus.
Abdominal CT 05/26/2024:
Vascular:
1. Heavily calcified, nonaneurysmal abdominal aorta. Celiac axis, SMA, and inferior mesenteric arteries are patent. Both renal arteries are patent with likely mild ostial narrowing secondary to calcified plaque.
2. Right leg: Mild calcified iliac arteries without significant stenosis. Mild mixed plaque within the common femoral artery without significant stenosis. Extensively diseased SFA with multifocal areas of narrowing identified proximally and
distally. Popliteal artery is heavily calcified but appears patent with patent trifurcation. The peroneal artery appears to occlude distally. Anterior tibial and posterior tibial arteries are heavily calcified which limits evaluation but appear
patent distally.
3. Left leg: Mild calcified plaque without significant stenosis within the iliac arteries. No significant stenosis identified within the common femoral artery. Extensive atherosclerotic plaque throughout the SFA with likely focal area of narrowing
identified proximally (image 160, series 501). There may also be an area of narrowing distally with several collateral vessels appreciated (image 219). Extensively calcified popliteal artery, limiting evaluation, but which appears patent.
Infrapopliteal vessels are heavily calcified, limiting evaluation. The distal aspects of the posterior tibial and dorsalis pedis arteries appear patent.
Other:
1. Severe hepatic steatosis.
2. 5 mm subpleural nodule within the lingula.
3. Multifocal renal cortical scarring bilaterally. No hydronephrosis.
Bilateral lower extremity arterial ultrasound examination 05/26/2024:
1. Noncompressible arteries bilaterally, suggestive of medial calcinosis and/or arterial noncompliance, which makes measured ankle-brachial indices unreliable. Toe brachial indices were also not obtainable due to aphasic great toe PPG waveforms.
2. Abnormal common femoral waveforms on each side, suggestive of aortoiliac inflow disease.
3. Heavily calcified plaque is seen throughout the arteries of each lower extremity. Patency of each SFA is difficult to ascertain on ultrasound due to heavily calcified plaque with associated posterior acoustic shadowing.
4. Left popliteal artery is occluded along its length, with reconstitution of the posterior tibial and dorsalis pedis arteries.
-Left foot x-ray obtained on 05/26/2024:
No radiographic evidence for an acute osseous abnormality of the left foot.
Discharge Plan
-
Patient Disposition: [facility]
Discharge Diagnosis/Procedures: Dry gangrene of the first and fourth toe of the left foot
Condition: Good
Diet: Diabetic, Carb Controlled
Activity: With assistance, As tolerated and With Walker
Driving Restrictions: No driving
Bathing Restrictions: OK to Shower
Stand Alone Forms: DC Instr - Vascular OR
Referrals:
Levar Subramanian MD [Family Provider] - in one to two weeks
Maylin El CRNP [Specified Professional Personl] - 06/15/24 8:45 am (Vascular surgery follow-up)
Prescriptions:
New
aspirin 81 mg Tablet,Delayed Release (Dr/Ec)
81 mg PO DAILY Qty: 0 0RF
pantoprazole 40 mg Tablet,Delayed Release (Dr/Ec)
40 mg PO BID Qty: 0 0RF
Rx Instructions:
Take one tablet by mouth twice daily
levothyroxine 50 mcg Tablet
50 mcg PO DAILY @ 0600 Qty: 30 0RF
gabapentin 100 mg Capsule
100 mg PO TID Qty: 0 0RF
loperamide 2 mg tablet
2 mg PO Q4H PRN (Reason: loose stool) Qty: 30 0RF
Rx Instructions:
Take 1 tablet every 4 hours as needed
oxycodone 10 mg Tablet
10 mg PO Q4HPRN PRN (Reason: moderate pain) Qty: 10 0RF
Continued
atorvastatin 40 mg Tablet
40 mg PO HS
acetaminophen [Tylenol] 325 mg Tablet
650 mg PO Q6H PRN (Reason: mild/mod pain, temp 100.4)
insulin glargine [Lantus U-100 Insulin] 100 unit/mL solution
20 unit SC HS
ammonium lactate 12 % Lotion
1 applic TOPICAL QPM
polyethylene glycol 3350 [Miralax] 17 gram Powder In Packet
17 g PO DAILY PRN (Reason: if no BM)
dextrose [Glucose Gel] 40 % Gel
15 g PO Q10M PRN (Reason: BS<60)
Rx Instructions:
entire package per dose
oxcarbazepine 300 mg tablet
300 mg PO BID
melatonin 3 mg Tablet
3 mg PO HS PRN (Reason: sleeplessness)
tramadol 50 mg tablet
50 mg PO Q6H PRN (Reason: moderate pain)
magnesium hydroxide [Milk of Magnesia] 400 mg/5 mL Suspension
30 ml PO DAILY PRN (Reason: constipation)
calcium carbonate 500 mg calcium (1,250 mg) Tablet
500 mg PO BID
levothyroxine 50 mcg tablet
50 mcg PO DAILY
bisacodyl 10 mg Suppository
10 mg UT DAILY PRN (Reason: constipation not rel by MOM)
pantoprazole 40 mg tablet,delayed release (/EC)
40 mg PO Q12
metformin 1,000 mg tablet
1,000 mg PO BID
divalproex 125 mg tablet,delayed release (DR/EC)
125 mg PO BID
sodium phosphates 19-7 gram/118 mL Enema
118 ml UT DAILY PRN (Reason: if no result after bisacodyl supp)
insulin lispro 100 unit/mL solution
10 unit SC AC
insulin lispro 100 unit/mL solution
0 sliding scale dose SC AC
Rx Instructions:
BS 0-199-no insulin, 200-250-3 units, 251-300-6 units, 301-350-9 units, 351-400-12 units. BS >400 contact provider
Glucagon Emergency Kit (human) 1 mg Recon Soln
1 mg IM Q20M PRN (Reason: BS<60 unresponsive)
risperidone 0.5 mg tablet
0.5 mg PO BID
cholecalciferol (vitamin D3) 125 mcg (5,000 unit) Tablet
125 mcg PO DAILY
Discharge Orders:
Discharge Patient (As Directed); Ordered 06/06/24
Ordered By: Alfredo East
Discharge Date and Time
Discharge Date/Time: 06/06/24 18:20
Print Language: LUXEMBOURGER

Documented by User: Toro Burgos MD 06/06/24 22:54
Discharge Summary
Discharge Data
Date of Admission: 05/26/24
Date of Discharge: 06/06/24
Discharge Plan
-
Patient Disposition: [facility]
Discharge Diagnosis/Procedures: Dry gangrene of the first and fourth toe of the left foot
Condition: Good
Diet: Diabetic, Carb Controlled
Activity: With assistance, As tolerated and With Walker
Driving Restrictions: No driving
Bathing Restrictions: OK to Shower
Stand Alone Forms: DC Instr - Vascular OR
Referrals:
Levar Subramanian MD [Family Provider] - in one to two weeks
Maylin El CRNP [Specified Professional Personl] - 06/15/24 8:45 am (Vascular surgery follow-up)
Prescriptions:
New
aspirin 81 mg Tablet,Delayed Release (Dr/Ec)
81 mg PO DAILY Qty: 0 0RF
pantoprazole 40 mg Tablet,Delayed Release (Dr/Ec)
40 mg PO BID Qty: 0 0RF
Rx Instructions:
Take one tablet by mouth twice daily
levothyroxine 50 mcg Tablet
50 mcg PO DAILY @ 0600 Qty: 30 0RF
gabapentin 100 mg Capsule
100 mg PO TID Qty: 0 0RF
loperamide 2 mg tablet
2 mg PO Q4H PRN (Reason: loose stool) Qty: 30 0RF
Rx Instructions:
Take 1 tablet every 4 hours as needed
oxycodone 10 mg Tablet
10 mg PO Q4HPRN PRN (Reason: moderate pain) Qty: 10 0RF
Continued
atorvastatin 40 mg Tablet
40 mg PO HS
acetaminophen [Tylenol] 325 mg Tablet
650 mg PO Q6H PRN (Reason: mild/mod pain, temp 100.4)
insulin glargine [Lantus U-100 Insulin] 100 unit/mL solution
20 unit SC HS
ammonium lactate 12 % Lotion
1 applic TOPICAL QPM
polyethylene glycol 3350 [Miralax] 17 gram Powder In Packet
17 g PO DAILY PRN (Reason: if no BM)
dextrose [Glucose Gel] 40 % Gel
15 g PO Q10M PRN (Reason: BS<60)
Rx Instructions:
entire package per dose
oxcarbazepine 300 mg tablet
300 mg PO BID
melatonin 3 mg Tablet
3 mg PO HS PRN (Reason: sleeplessness)
tramadol 50 mg tablet
50 mg PO Q6H PRN (Reason: moderate pain)
magnesium hydroxide [Milk of Magnesia] 400 mg/5 mL Suspension
30 ml PO DAILY PRN (Reason: constipation)
calcium carbonate 500 mg calcium (1,250 mg) Tablet
500 mg PO BID
levothyroxine 50 mcg tablet
50 mcg PO DAILY
bisacodyl 10 mg Suppository
10 mg UT DAILY PRN (Reason: constipation not rel by MOM)
pantoprazole 40 mg tablet,delayed release (DR/EC)
40 mg PO Q12
metformin 1,000 mg tablet
1,000 mg PO BID
divalproex 125 mg tablet,delayed release (DR/EC)
125 mg PO BID
sodium phosphates 19-7 gram/118 mL Enema
118 ml UT DAILY PRN (Reason: if no result after bisacodyl supp)
insulin lispro 100 unit/mL solution
10 unit SC AC
insulin lispro 100 unit/mL solution
0 sliding scale dose SC AC
Rx Instructions:
BS 0-199-no insulin, 200-250-3 units, 251-300-6 units, 301-350-9 units, 351-400-12 units. BS >400 contact provider
Glucagon Emergency Kit (human) 1 mg Recon Soln
1 mg IM Q20M PRN (Reason: BS<60 unresponsive)
risperidone 0.5 mg tablet
0.5 mg PO BID
cholecalciferol (vitamin D3) 125 mcg (5,000 unit) Tablet
125 mcg PO DAILY
Discharge Orders:
Discharge Patient (As Directed); Ordered 06/06/24
Ordered By: Alfredo Jerardo Arinze
Discharge Date and Time
Discharge Date/Time: 06/06/24 18:20
Print Language: LUXEMBOURGER
[2024-06-02 16:48] LABS: Glucose - Point of Care 112 mg/dl (70-99)
[2024-06-02] MEDS: LIPITOR 40 MG PO (17:16)
[2024-06-02] MEDS: LOVENOX 40 MG SC (17:17)
[2024-06-02] MEDS: NOVOLOG FLEXPEN-MODERATE RESISTANCE SC (17:18)
[2024-06-02] MEDS: DILAUDID 1 MG IV (18:27)
[2024-06-02] MEDS: LANTUS 0.18 UNITS SC (21:50)
[2024-06-02 21:52] LABS: Glucose - Point of Care 192 mg/dl (70-99)
[2024-06-02 23:50] VITALS: BP 100/70
[2024-06-03] MEDS: TYLENOL PO ×3 (00:05→13:44)
[2024-06-03] MEDS: SYNTHROID PO (06:31)
[2024-06-03] MEDS: DILAUDID 0.5 MG IV (06:35)
[2024-06-03] MEDS: FLUSH (NSS) 2 FLUSH IV (06:36)
[2024-06-03 07:00] VITALS: BP 138/63
[2024-06-03 08:30] LABS: Glucose - Point of Care 212 mg/dl (70-99)
[2024-06-03] MEDS: NOVOLOG FLEXPEN 9 UNITS SC ×3 (09:27→17:31)
[2024-06-03] MEDS: NOVOLOG FLEXPEN-MODERATE RESISTANCE 3 UNITS SC (09:28)
[2024-06-03] MEDS: PROTONIX 40 MG PO ×2 (09:29→19:56)
[2024-06-03] MEDS: TRILEPTAL 300 MG PO ×2 (09:29→19:56)
[2024-06-03] MEDS: ASPIR LOW (ENTERIC COATED) 81 MG PO (09:29)
[2024-06-03] MEDS: RISPERDAL 0.5 MG PO ×2 (09:29→19:58)
[2024-06-03] MEDS: DEPAKOTE (12 HR RELEASE) 125 MG PO ×2 (09:29→19:58)
[2024-06-03] MEDS: NEURONTIN 100 MG PO ×3 (09:30→21:28)
[2024-06-03] MEDS: TYLENOL 650 MG PO ×3 (09:30→19:59)
[2024-06-03 11:41] LABS: Glucose - Point of Care 192 mg/dl (70-99)
--- NOTE | 2024-06-03 13:29 | W.PN.HOSP.TC ---
Today's Communication/Plan
-
d/c planning for SNF
Assessment / Plan
Assessment / Plan
1. Left foot first and fourth toe dry gangrene, peripheral arterial disease
-foot x-ray did not show any osteomyelitic changes. MRI of the foot did not show osteomyelitis.
-Vascular surgery involved in care and patient underwent CTA lower extremities/arterial Doppler showing diffuse PAD.
-Patient is planned to undergo lower extremity angioplasty tomorrow by vascular surgeon.
-ID is following and no signs of systemic infection, patient has been taken off antibiotics at this point.
-s/p Left AKA on 05/31, no reported pain issues.
-Vasc sx cleared for discharge
-Adjust pain medication to include oral oxycodone.
2. Diarrhea
-no associated abd pain/n/v/f
-if persists will consider checking c-diff with abx exposure early in the hospital course
3. Presumed CHRISTIAN
- cr has normalized at this point, monitor post LE angioplasty
4. Pulmonary nodule
- 5mm pleural based, noted on CT, will need pulm nodule clinic/pulmo f/u at discharge
5. NIDDM
- A1c of 8
- maintain on ISS/premeal NovoLog/Lantus
Hypothyroidism
GERD
DVT PPX - Lovenox
Full code
More than 30 minutes spent in discharge including
Final examination of the patient
Summarizing hospital stay
Instructions for continuing care to all relevant caregivers
Preparation of discharge records, prescriptions, and referral forms
Total time spent (in minutes): 37 mins
Anticipated Discharge: Today
Subjective/Interval History
-
Date of Service: June 03, 2024
no issues overnight
complaining of some pain at the amputation site
Objective Data
-
Vital Signs:
Vital Signs
Temp Pulse Resp BP Pulse Ox
98.5 F 94 15 138/63 96
06/03/24 07:00 06/03/24 07:00 06/03/24 07:00 06/03/24 07:00 06/03/24 07:00
I&O
06/02/24 06/03/24 06/04/24
06:59 06:59 06:59
Intake Total 480 / 480 610 / 610
Output Total 550 / 550
Balance -70 / -70 610 / 610
Review of Systems
-
Respiratory: Reports No Symptoms
Cardiac: Reports No Symptoms
Abdomen/GI: Reports No Symptoms
Physical Exam
-
General: No Apparent Distress and Comfortable
HEENT: Negative Oxygen
Respiratory: Clear to Auscultation
Cardiac: Regular Rhythm and S1/S2; Negative Murmur or Rub
GI: Soft, Nontender, Nondistended and Normal Bowel Sounds
Musculoskeletal: No Edema
Neuro: Awake, Alert, Oriented, No Motor Deficits and Nonfocal/Grossly Intact
Psych: Calm
[2024-06-03] MEDS: NOVOLOG FLEXPEN-MODERATE RESISTANCE 1 UNITS SC (13:42)
[2024-06-03 15:00] VITALS: BP 132/67
[2024-06-03 16:25] LABS: Glucose - Point of Care 132 mg/dl (70-99)
[2024-06-03] MEDS: NOVOLOG FLEXPEN-MODERATE RESISTANCE SC (16:40)
[2024-06-03] MEDS: LIPITOR 40 MG PO (17:29)
[2024-06-03] MEDS: LOVENOX 40 MG SC (17:31)
[2024-06-03 21:38] LABS: Glucose - Point of Care 143 mg/dl (70-99)
[2024-06-03] MEDS: LANTUS 0.18 UNITS SC (21:48)
[2024-06-03 23:35] VITALS: BP 155/70
[2024-06-04] MEDS: TYLENOL PO ×2 (01:00→05:07)
[2024-06-04] MEDS: SYNTHROID PO (05:07)
[2024-06-04 06:41] VITALS: BMI 30.8
[2024-06-04 07:30] VITALS: BP 111/69
[2024-06-04 08:22] LABS: Glucose - Point of Care 158 mg/dl (70-99)
[2024-06-04] MEDS: PROTONIX 40 MG PO (08:43)
[2024-06-04] MEDS: RISPERDAL 0.5 MG PO (08:44)
[2024-06-04] MEDS: DEPAKOTE (12 HR RELEASE) 125 MG PO (08:44)
[2024-06-04] MEDS: TRILEPTAL 300 MG PO (08:44)
[2024-06-04] MEDS: NEURONTIN 100 MG PO ×2 (08:44→16:44)
[2024-06-04] MEDS: ASPIR LOW (ENTERIC COATED) 81 MG PO (08:44)
[2024-06-04] MEDS: TYLENOL 650 MG PO ×4 (08:44→19:34)
[2024-06-04] MEDS: NOVOLOG FLEXPEN-MODERATE RESISTANCE 1 UNITS SC (10:36)
[2024-06-04] MEDS: NOVOLOG FLEXPEN 9 UNITS SC ×2 (10:36→12:23)
[2024-06-04 12:12] LABS: Glucose - Point of Care 259 mg/dl (70-99)
[2024-06-04] MEDS: NOVOLOG FLEXPEN-MODERATE RESISTANCE 5 UNITS SC (12:22)
--- NOTE | 2024-06-04 13:25 | W.PN.HOSP.TC ---
Today's Communication/Plan
-
d/c planning for SNF rehab
Assessment / Plan
Assessment / Plan
1. Left foot first and fourth toe dry gangrene
peripheral arterial disease
s/p Left AKA 05/31
-foot x-ray did not show any osteomyelitic changes. MRI of the foot did not show osteomyelitis.
-Vascular surgery involved in care and patient underwent CTA lower extremities/arterial Doppler showing diffuse PAD.
-Patient is planned to undergo lower extremity angioplasty tomorrow by vascular surgeon.
-ID is following and no signs of systemic infection, patient has been taken off antibiotics at this point.
-s/p Left AKA on 05/31, no reported pain issues.
-Vasc sx cleared for discharge
-Adjust pain medication to include oral oxycodone.
2. Diarrhea
-Cdiff neg
-no associated abd pain/n/v/f
-prn Imodium ordered.
3. Presumed CHRISTIAN
- cr has normalized at this point, monitor post LE angioplasty
4. Pulmonary nodule
- 5mm pleural based, noted on CT, will need pulm nodule clinic/pulmo f/u at discharge
5. NIDDM
- A1c of 8
- maintain on ISS/premeal NovoLog/Lantus
Hypothyroidism
GERD
DVT PPX - Lovenox
Full code
Anticipated Discharge: Within 24 hours
Subjective/Interval History
-
Date of Service: June 04, 2024
Complaining some left amputation site discomfort
No new issues overnight
Objective Data
-
Vital Signs:
Vital Signs
Temp Pulse Resp BP Pulse Ox
97.7 F 91 16 111/69 95
06/04/24 07:30 06/04/24 07:30 06/04/24 07:30 06/04/24 07:30 06/04/24 07:30
I&O
06/03/24 06/04/24 06/05/24
06:59 06:59 06:59
Intake Total 610 / 610 1560 / 1560
Balance 610 / 610 1560 / 1560
Review of Systems
-
Respiratory: Reports No Symptoms
Cardiac: Reports No Symptoms
Abdomen/GI: Reports No Symptoms
Physical Exam
-
General: No Apparent Distress and Comfortable
HEENT: Negative Oxygen
Respiratory: Clear to Auscultation
Cardiac: Regular Rhythm and S1/S2; Negative Murmur or Rub
GI: Soft, Nontender and Nondistended
Musculoskeletal: Other (Left AKA amputation site - clean incision with gloria in place)
Neuro: Awake, Alert, Oriented, No Motor Deficits and Nonfocal/Grossly Intact
Psych: Calm
[2024-06-04 15:45] VITALS: BP 135/66
[2024-06-04] MEDS: LIPITOR 40 MG PO (16:43)
[2024-06-04] MEDS: LOVENOX 40 MG SC (16:44)
[2024-06-04 17:04] LABS: Glucose - Point of Care 57 mg/dl (70-99)
[2024-06-04 17:21] LABS: Glucose - Point of Care 72 mg/dl (70-99)
[2024-06-04] MEDS: NOVOLOG FLEXPEN-MODERATE RESISTANCE SC (17:25)
[2024-06-04] MEDS: NOVOLOG FLEXPEN SC (18:04)
[2024-06-04] MEDS: IMODIUM 2 MG PO (18:06)
[2024-06-04] MEDS: ROXICODONE 5 MG PO (18:07)
[2024-06-04 21:58] LABS: Glucose - Point of Care 250 mg/dl (70-99)
--- NOTE | 2024-06-04 22:00 | PTCARENOTE ---
Pt refused all medications. This RN educated pt of the importance of taking medications appropriately, pt screamed 'no'. This RN was able to administer lantus without a problem. ASSISTANT BOYS TRACK COACH made aware, no orders made. Will continue to monitor, call villarreal in
reach.
[2024-06-04] MEDS: LANTUS 0.18 UNITS SC (22:06)
[2024-06-04] MEDS: RISPERDAL PO (22:20)
[2024-06-04] MEDS: DEPAKOTE (12 HR RELEASE) PO (22:20)
[2024-06-04] MEDS: TRILEPTAL PO (22:20)
[2024-06-04] MEDS: PROTONIX PO (22:20)
[2024-06-04] MEDS: NEURONTIN PO (22:21)
[2024-06-04 23:30] VITALS: BP 128/53
[2024-06-05] MEDS: TYLENOL PO (00:16)
[2024-06-05] MEDS: ROXICODONE 5 MG PO ×2 (01:53→07:41)
[2024-06-05] MEDS: TYLENOL 650 MG PO ×5 (03:47→21:44)
[2024-06-05] MEDS: SYNTHROID PO (05:52)
[2024-06-05 07:00] VITALS: BP 143/68
[2024-06-05] MEDS: NEURONTIN 100 MG PO ×3 (07:37→21:58)
[2024-06-05] MEDS: DEPAKOTE (12 HR RELEASE) 125 MG PO ×2 (07:37→21:41)
[2024-06-05] MEDS: RISPERDAL 0.5 MG PO ×2 (07:37→21:42)
[2024-06-05] MEDS: ASPIR LOW (ENTERIC COATED) 81 MG PO (07:37)
[2024-06-05] MEDS: PROTONIX 40 MG PO ×2 (07:37→21:41)
[2024-06-05] MEDS: TRILEPTAL 300 MG PO ×2 (07:40→21:46)
[2024-06-05 07:55] LABS: Hematocrit 29.3 % (37.0-47.0); Hemoglobin 9.7 g/dL (12.0-16.0); Mean Corp Hgb Conc. 33.1 g/dL (33.0-37.0); Mean Corpuscular Hgb 26.8 pg (27.0-31.0); Mean Corpuscular Volume 80.9 fL (81.0-99.0); Mean Platelet Volume 10.8 fL (7.4-10.4); Platelet Count 375 10^3/uL (130-400); Red Blood Cell Count 3.62 10^6/uL (4.20-5.40); Red Cell Dist. Width 13.6 % (11.5-14.5); White Blood Cell Count 7.5 10^3/uL (4.8-10.8)
[2024-06-05 08:05] LABS: Blood Urea Nitrogen 43 mg/dl (7-17); Calcium 8.7 mg/dl (8.4-10.2); Carbon Dioxide 24 mmol/L (22-30); Chloride 102 mmol/L (98-107); Estimated Creatinine Clearance 59 ml/min; Glucose 149 mg/dl (70-99); Potassium 4.4 mmol/L (3.5-5.1); Sodium 138 mmol/L (135-145); eGFR > 60.00
[2024-06-05 08:20] LABS: Glucose - Point of Care 202 mg/dl (70-99)
[2024-06-05 08:28] VITALS: BMI 31.3
[2024-06-05] MEDS: NOVOLOG FLEXPEN 9 UNITS SC ×3 (09:15→17:29)
[2024-06-05] MEDS: NOVOLOG FLEXPEN-MODERATE RESISTANCE 3 UNITS SC (09:15)
[2024-06-05 10:16] VITALS: BP 122/53; PULSE 72; O2SAT 99
[2024-06-05 10:18] VITALS: BP 122/53; PULSE 75; O2SAT 99
--- NOTE | 2024-06-05 10:46 | W.PN.HOSP.TC ---
Addendum entered and electronically signed by Toro Burgos MD 06/05/24 23:14:
Attending Addendum-
I saw and evaluated the patient. I reviewed the resident�s note and agree with findings and plan as documented in the resident�s note. Sub: Patient complains of phantom pain. Appears comfortable. Very weak. Full 12 point ROS reviewed and negative
except as documented Exam: Vitals reviewed in chart GEN-NAD heart RRR lungs clear abd soft LE Left AKA incision CDI gloria in place
Plan:
1. Left foot first and fourth toe dry gangrene/Left Critical Limb ischemia
-s/p Left AKA 05/31 POD # 5
-foot x-ray did not show any osteomyelitic changes. MRI of the foot did not show osteomyelitis.
-Vascular surgery involved in care and patient underwent CTA lower extremities/arterial Doppler showing diffuse PAD.
-no signs of systemic infection, DC abx
-Vasc sx cleared for discharge
-pain not well controlled
- add IV Dilaudid
- cont prn oxy
- wound care
2. Diarrhea
-Cdiff neg
-cont Imodium ordered.
3. CHRISTIAN
- resolved
- repeat BMP in am
4. Pulmonary nodule
- 5mm pleural based, noted on CT, will need pulm nodule clinic/pulmo f/u at discharge
5. NIDDM
- A1c of 8
- maintain on ISS/premeal NovoLog/Lantus
- cont current decreased lantus/novolog
6. Hypothyroidism
- cont levothyroxine
7. GERD
- cont PPI
8. Schizoaffective D/O
- uncontrolled
- cont Trileptal Depakote Risperdal
- psych c/s
DVT PPX - Lovenox
Full code
Dispo DC to [facility] vs LTC based on insurance in am if able
Time spent coordinating care, review of plan of care with resident, personally reviewed records in EMR, med rec, consults, notes, labs, radiology, d/w nursing and CM � 59 mins
Original Note:
Today's Communication/Plan
-
Pain control
SNF placement for rehab
Assessment / Plan
Assessment / Plan
#Left foot first and fourth toe dry gangrene
#Peripheral arterial disease
foot x-ray did not show any osteomyelitic changes. MRI of the foot did not show osteomyelitis.
Vascular surgery involved in care and patient underwent CTA lower extremities/arterial Doppler showing diffuse PAD.
Vascular workup was completed and it was determined that patient required a left [id number]-[id number] amputation
s/p Left AKA 05/31, postop day 5
Healing well but patient reports having pain 'from her amputation site up to her clavicle'
Unsure if pain is true or if symptoms are supratentorial as patient has schizoaffective disorder and reduced mentation/emotional immaturity
Patient is cleared for discharge from vascular surgery standpoint
ID is following and no signs of systemic infection, patient has been taken off antibiotics at this point.
Pain medications were adjusted to include oral oxycodone 10 for moderate pain and Dilaudid 1 mg IV every 4 hours for severe pain
Case management for disposition planning to SNF for rehab
#Schizoaffective disorder
Past medical history of schizoaffective disorder currently on 3 medications, divalproex, oxcarbazepine and risperidone
Patient's affect seems off, unsure of her baseline
Psychiatry consulted to evaluate for any medication dosage adjustments
#Diarrhea
Cdiff neg
no associated abd pain/n/v/f
prn Imodium
Patient reports 1 episode of diarrhea, seems to be improving
#CHRISTIAN
Creatinine is normalized
Monitor, as patient is post lower extremity angioplasty
#Pulmonary nodule
5mm pleural based, noted on CT,
Pulmonary follow-up at discharge
#NIDDM
A1c of 8
maintain on ISS/premeal NovoLog/Lantus
Glucose 149 on check this morning, within acceptable limits
DVT PPX - Lovenox
Diet: 1800-calorie diabetic diet
Full code
Anticipated Discharge: Within 24 hours
Subjective/Interval History
-
Date of Service: June 05, 2024
Patient refusing medications overnight
Nurse reports patient is uncooperative
Objective Data
-
Labs:
Laboratory Results
06/05/24
07:24
WBC 7.5
Hgb 9.7 L
Hct 29.3 L
Plt Count 375
Sodium 138
Potassium 4.4
Chloride 102
Carbon Dioxide 24
BUN 43 H
Creatinine 1.0
Glucose 149 H
Calcium 8.7
Vital Signs:
Vital Signs
Temp Pulse Resp BP Pulse Ox
98.3 F 76 16 143/68 94
06/05/24 07:00 06/05/24 07:00 06/05/24 07:00 06/05/24 07:00 06/05/24 07:30
I&O
06/04/24 06/05/24 06/06/24
06:59 06:59 06:59
Intake Total 1560 / 1560 720 / 720
Balance 1560 / 1560 720 / 720
Review of Systems
-
History Source: Patient
Respiratory: Reports No Symptoms
Cardiac: Reports No Symptoms
Abdomen/GI: Reports Abdominal Pain
Musculoskeletal: Reports Other (Reports diffuse pain from her amputation site up to base of clavicles)
Physical Exam
-
General: Appears Chronically Ill and Obese
Respiratory: Clear to Auscultation
Cardiac: Regular Rhythm and S1/S2
Musculoskeletal: No Edema and Other (Left qilzd-[id number] amputation site healing well, no erythema or discharge)
Skin: Warm and Dry
Data Reviewed
-
CT Scan: Report Reviewed by me and Discussed with Physician
Ultrasound: Report Reviewed by me and Discussed with Physician
MRI: Report Reviewed by me and Discussed with Physician
Labs: Labs Reviewed by me and Discussed with Physician
[2024-06-05 12:08] LABS: Glucose - Point of Care 142 mg/dl (70-99)
[2024-06-05] MEDS: NOVOLOG FLEXPEN-MODERATE RESISTANCE SC ×2 (12:09→17:24)
[2024-06-05 15:08] VITALS: BP 118/57
[2024-06-05] MEDS: ROXICODONE 10 MG PO ×2 (15:34→21:42)
[2024-06-05 17:12] LABS: Glucose - Point of Care 90 mg/dl (70-99)
--- NOTE | 2024-06-05 17:22 | CM ---
Placed a call to John in admissions at [facility]. ([phone]) who confirmed that patient can be accepted back.
NPIs for skilled if auth is obtained is, [id number] and for attending at facility is, [id number]
Will initiate auth in the morning as insurance was closed at time of call today.
Plan: Case management will continue to follow and assist with discharge planning. Back to [facility] either short term rehab or back to LTC depending on insurance.
[2024-06-05] MEDS: LOVENOX 40 MG SC (17:27)
[2024-06-05] MEDS: DILAUDID 1 MG IV ×2 (17:27→21:42)
[2024-06-05] MEDS: LIPITOR 40 MG PO (17:28)
[2024-06-05] MEDS: LANTUS 0.18 UNITS SC (21:46)
[2024-06-05 22:00] LABS: Glucose - Point of Care 93 mg/dl (70-99)
[2024-06-05 23:36] VITALS: BP 109/54
[2024-06-06] MEDS: TYLENOL PO (01:10)
[2024-06-06] MEDS: TYLENOL 650 MG PO ×3 (05:32→14:01)
[2024-06-06] MEDS: DILAUDID 1 MG IV ×3 (05:33→16:42)
[2024-06-06] MEDS: SYNTHROID 50 MCG PO (05:33)
[2024-06-06 06:00] VITALS: BMI 31.4
[2024-06-06 07:36] LABS: Hematocrit 32.3 % (37.0-47.0); Hemoglobin 10.6 g/dL (12.0-16.0); Mean Corp Hgb Conc. 32.8 g/dL (33.0-37.0); Mean Corpuscular Hgb 27.1 pg (27.0-31.0); Mean Corpuscular Volume 82.6 fL (81.0-99.0); Mean Platelet Volume 11.1 fL (7.4-10.4); Platelet Count 434 10^3/uL (130-400); Red Blood Cell Count 3.91 10^6/uL (4.20-5.40); Red Cell Dist. Width 13.8 % (11.5-14.5); White Blood Cell Count 10.4 10^3/uL (4.8-10.8)
[2024-06-06 07:42] VITALS: BP 130/58
[2024-06-06 07:54] LABS: Glucose - Point of Care 159 mg/dl (70-99)
[2024-06-06 08:13] LABS: Blood Urea Nitrogen 44 mg/dl (7-17); Calcium 8.9 mg/dl (8.4-10.2); Carbon Dioxide 21 mmol/L (22-30); Chloride 105 mmol/L (98-107); Estimated Creatinine Clearance 50 ml/min; Glucose 144 mg/dl (70-99); Potassium 4.3 mmol/L (3.5-5.1); Sodium 139 mmol/L (135-145); eGFR 50.86
[2024-06-06] MEDS: TRILEPTAL 300 MG PO (08:56)
[2024-06-06] MEDS: PROTONIX 40 MG PO (08:56)
[2024-06-06] MEDS: NEURONTIN 100 MG PO ×2 (08:56→16:29)
[2024-06-06] MEDS: DEPAKOTE (12 HR RELEASE) 125 MG PO (08:57)
[2024-06-06] MEDS: ASPIR LOW (ENTERIC COATED) 81 MG PO (08:57)
[2024-06-06] MEDS: RISPERDAL 0.5 MG PO (08:57)
--- NOTE | 2024-06-06 09:43 | CM ---
Addendum entered by DUNIA William 06/06/24 10:04:
# For report [phone]
Will complete medical necessity and transfer sheet for [facility].
Original Note:
Placed a call to [facility] and spoke with a retail wireless sales representative named, Asiya, who stated that information should be faxed to [phone]
Patient's Policy # is [id number].
Will await referral.
Plan: Case management will continue to follow and assist with discharge planning. [facility].
[2024-06-06] MEDS: NOVOLOG FLEXPEN 9 UNITS SC ×2 (10:23→14:01)
[2024-06-06] MEDS: NOVOLOG FLEXPEN-MODERATE RESISTANCE 1 UNITS SC (10:24)
--- NOTE | 2024-06-06 10:39 | W.PN.HOSP.TC ---
Addendum entered and electronically signed by Toro Burgos MD 06/06/24 22:57:
Attending Addendum-
I saw and evaluated the patient. I reviewed the resident�s note and agree with findings and plan as documented in the resident�s note. Sub: 'i feel ok. you sending me back to those crazies at [facility]?' Full 12 point ROS reviewed and negative
except as documented Exam: Vitals reviewed in chart GEN-NAD heart RRR lungs clear abd soft LE Left AKA incision CDI gloria in place
Plan:
1. Left foot first and fourth toe dry gangrene/Left LE Critical Limb ischemia
- s/p Left AKA 05/31 POD # 6
- no osteo
- difuse PAD
- no signs of systemic infection
- Vasc sx cleared for discharge
- pain well controlled
- cont prn oxy
- wound care
2. Diarrhea
-Cdiff neg
-cont Imodium ordered.
3. CHRISTIAN
- resolved
- repeat BMP as OP
4. Pulmonary nodule
- 5mm pleural based, noted on CT, will need pulm nodule clinic/pulmo f/u at discharge
5. NIDDM
- A1c of 8
- maintain on ISS/premeal NovoLog/Lantus
- cont current decreased lantus/novolog
6. Hypothyroidism
- cont levothyroxine
7. GERD
- cont PPI
8. Schizoaffective D/O
- back to baseline
- cont Trileptal Depakote Risperdal
- psych c/s appreciated
DVT PPX - Lovenox
Full code
Dispo DC to [facility] today
Time spent coordinating care, DC planning, review of DC plan of care with resident, transition of care, review of records, med rec/scripts sent electronically, consults, notes, d/w consultants, nursing, family, and CM� 35 mins
Original Note:
Today's Communication/Plan
-
Pain management
Continue Imodium
Monitor creatinine
Dispo planning to SNF
Assessment / Plan
Assessment / Plan
Impression: 63-year-old female with history of schizoaffective disorder, prior CVA who presented to ED 05/26/2024 from group home with infection of left great toe and fourth toe.
Assessment/plan:
# Left foot first and fourth toe dry gangrene/Left Critical Limb ischemia
-S/p left AKA 05/31/2022 for, POD #5.
-MRI of foot and foot x-ray negative for osteomyelitis.
-Diffuse PAD on CTA/arterial Doppler of bilateral LEs.
-Phantom pain controlled on Dilaudid and oxycodone.
-No signs of systemic infection, antibiotics discontinued.
-Maintain gloria and change dressings daily.
-PT/OT.
-CM for disposition planning to SNF/rehab
#Presumed schizoaffective disorder
-No clear history of schizoaffective disorder per psychiatry.
-Continue home medications (divalproex, oxcarbazepine and risperidone).
-Psych recommendations appreciated.
#Acute diarrhea
-Cdiff neg.
-Continue Imodium.
#CHRISTIAN
-Creatinine 1.2, patient is post lower extremity angioplasty vs acute dehydration.
-Encouraged to improve oral intake and fluid intake.
#Pulmonary nodule
- 5mm pleural based, noted on CT, will need pulm nodule clinic/pulmo f/u at discharge
#NIDDM
- A1c of 8
- maintain on ISS/premeal NovoLog/Lantus
- cont current decreased lantus/novolog
#Hypothyroidism
- cont levothyroxine
#GERD
- cont PPI
DVT PPX - Lovenox
Full code
Anticipated Discharge: Today
Subjective/Interval History
-
Date of Service: June 06, 2024
Patient seen and examined lying comfortably in bed in no acute distress.She stated that she is feeling better today with moderate phantom pain at the AKA site.She denies chest pain, shortness of breath, chills, abdominal pain, and headaches.
Objective Data
-
Labs:
Laboratory Results
06/06/24
06:56
WBC 10.4
Hgb 10.6 L
Hct 32.3 L
Plt Count 434 H
Sodium 139
Potassium 4.3
Chloride 105
Carbon Dioxide 21 L
BUN 44 H
Creatinine 1.2 H
Glucose 144 H
Calcium 8.9
Vital Signs:
Vital Signs
Temp Pulse Resp BP Pulse Ox
98.4 F 88 17 130/58 97
06/06/24 07:42 06/06/24 07:42 06/06/24 07:42 06/06/24 07:42 06/06/24 07:42
I&O
06/05/24 06/06/24 06/07/24
06:59 06:59 06:59
Intake Total 720 / 720 360 / 360
Balance 720 / 720 360 / 360
Review of Systems
-
History Source: Patient
Constitutional: Reports No Symptoms; Denies Fever or Chills
Respiratory: Reports No Symptoms
Cardiac: Reports No Symptoms
Abdomen/GI: Reports Diarrhea; Denies Abdominal Pain, Nausea, Vomiting, Bloody Stools or Black Stools
Genitourinary: Reports No Symptoms
Musculoskeletal: Reports Other (Moderate phantom pain from AKA site)
Skin: Denies Itching or Rash
Physical Exam
-
General: Appears Chronically Ill and Obese
Respiratory: Clear to Auscultation
Cardiac: Regular Rhythm and S1/S2
GI: Soft, Nontender and Other (Obese abdomen)
Musculoskeletal: No Edema and Other (Left eszns-mfo-ipbo amputation site healing well, no erythema or discharge)
Skin: Warm and Dry
Neuro: Awake, Oriented and AO x 3
Psych: Agitated (Intermittently) and Other
Data Reviewed
-
CT Scan: Report Reviewed by me and Discussed with Physician
Ultrasound: Report Reviewed by me and Discussed with Physician
MRI: Report Reviewed by me and Discussed with Physician
Labs: Labs Reviewed by me and Discussed with Physician
Old Records: Reviewed
[2024-06-06 12:26] LABS: Glucose - Point of Care 179 mg/dl (70-99)
[2024-06-06 13:59] LABS: Glucose - Point of Care 110 mg/dl (70-99)
[2024-06-06] MEDS: IMODIUM 2 MG PO (14:01)
[2024-06-06] MEDS: NOVOLOG FLEXPEN-MODERATE RESISTANCE SC (14:02)
--- NOTE | 2024-06-06 14:15 | CS.PSYCHR ---
Consult Summary - Psychiatry
-
Pt is 63 yo female with noted history of Schizoaffective d/o, prior CVA, disabled, who presented to ED 05/26/24 from longterm with infection of the left great toe and fourth toe. Pt has been maintained on existing psychotropic med regimen
during her stay. Psychiatry asked to see pt preparing for discharge to [facility], reportedly mental state seems 'off.' Pt noted refusing medications the night of 06/04, but has complied with taking them since then. Pt underwent above the knee
amputation of left leg on 05/31/24. No complications noted; pt noted c/o some pain at surgical site, managed with prn opioids. Upon approach, pt lying in bed, resting in no acute distress. Pt is slow to answer, withdrawn, but speech is coherent.
Affect is dysphoric, but pt denies any significant depression, denies SI. No overt signs of psychosis, no apparent agitation.
Psych Hx: reported dx of Schizoaffective d/o, although this is not noted in previous records from 2010, 2019 or 2021, unclear what symptoms this is based on other than depression
SH: resided with mother in the past and worked in [employer]. Resides in [facility] LTC, is total care per record
MSE: lying in bed, calm, withdrawn, slowed, makes eye contact and gives limited answers. Speech coherent. No signs of psychosis. Affect/mood dysphoric/ appropriate to situation. Denies SI.
Imp/Rec: Unspecified mood d/o, with mild depression. No clear history of Schizoaffective d/o; overall appears stable to return to SNF
Would continue existing psychotropic medications without changes. Psychiatry will sign off
[2024-06-06 15:31] VITALS: BP 112/67
[2024-06-06 16:49] LABS: Glucose - Point of Care 113 mg/dl (70-99)
[2024-06-06] MEDS: LOVENOX 40 MG SC (17:07)
[2024-06-06] MEDS: LIPITOR 40 MG PO (17:07)
--- NOTE | 2024-06-08 14:38 | CM ---
Received a call from John at [facility] in [place] who stated that he still has not as of yet received auth and when he called the insurance company denied that request for auth had been sent.
Placed a call to [facility], and spoke to a jewelry sales representative named, Paula, who confirmed receipt of fax for auth but stated that there were parts that did not come through. She stated that a new request has to be sent to [phone].
Placed a call to John at [facility], who emailed patient's latest PT/OT. Faxed that over with H&P, demographic information and NPIs for facility.
Pending auth for initial fax that was created-[id number].
Will update John as soon as update has been received.
Plan: Case management will continue to follow and assist with discharge planning-patient at LTC at [facility]. Will continue attempts to get skilled time.
--- NOTE | 2024-06-09 09:41 | CM ---
Addendum entered by Radha Serna 06/09/24 09:57:
Clinicals faxed and fax verification sheet received.
Sreekanth from [facility] updated via .
Original Note:
TC to [address] [phone]
no request for skilled rehab could be found despite multiple requests.
Dena from [address] initiated a new pending auth- Auth#[id number]
clinicals to be faxed to [phone].
== END 2024-06-06 18:20 | DRG 240 ==
LOC: 3 WEST ACU 03:35
PROVIDERS: Hospitalist; Nurse Practitioner; Nurse Practitioner Acute Care; Student in an Organized Health Care Education/Training Program; ADMITTING PHYSICIAN Internal Medicine; ATTENDING PHYSICIAN Family Medicine; CONSULT PHYSICIAN Internal Medicine Infectious Disease; CONSULT PHYSICIAN Surgery Vascular Surgery; EMERGENCY PHYSICIAN Student in an Organized Health Care Education/Training Program; FAMILY PHYSICIAN Internal Medicine; OTHER PHYSICIAN Psychiatry & Neurology Psychiatry
PROC: 047U3ZZ Dilation of Left Peroneal Artery, Percutaneous Approach (ICD-10-PCS; 2024-05-29)
PROC: 047N3ZZ Dilation of Left Popliteal Artery, Percutaneous Approach (ICD-10-PCS; 2024-05-29)
PROC: 04FU3ZZ Fragmentation of Left Peroneal Artery, Percutaneous Approach (ICD-10-PCS; 2024-05-29)
PROC: 0Y6D0Z3 Detachment at Left Upper Leg, Low, Open Approach (ICD-10-PCS; 2024-05-31)
DX: E11.52 Type 2 diabetes mellitus with diabetic peripheral angiopathy with gangrene (principal); I70.262 Atherosclerosis of native arteries of extremities with gangrene, left leg; N17.9 Acute kidney failure, unspecified; F25.9 Schizoaffective disorder, unspecified; E03.9 Hypothyroidism, unspecified; N18.31 Chronic kidney disease, stage 3a; E11.22 Type 2 diabetes mellitus with diabetic chronic kidney disease; I12.9 Hypertensive chronic kidney disease with stage 1 through stage 4 chronic kidney disease, or unspecified chronic kidney disease; E11.42 Type 2 diabetes mellitus with diabetic polyneuropathy; R19.7 Diarrhea, unspecified; E78.00 Pure hypercholesterolemia, unspecified; F17.200 Nicotine dependence, unspecified, uncomplicated; F32.A Depression, unspecified; K76.0 Fatty (change of) liver, not elsewhere classified; R91.1 Solitary pulmonary nodule; F39 Unspecified mood [affective] disorder; Z88.2 Allergy status to sulfonamides; Z88.1 Allergy status to other antibiotic agents; Z88.0 Allergy status to penicillin; Z86.73 Personal history of transient ischemic attack (TIA), and cerebral infarction without residual deficits; Z79.890 Hormone replacement therapy; Z79.82 Long term (current) use of aspirin; Z79.4 Long term (current) use of insulin; Z79.84 Long term (current) use of oral hypoglycemic drugs; Z79.02 Long term (current) use of antithrombotics/antiplatelets
CPT/HCPCS: 88307; 88311; 27880; 73630; 73718; 75625; 75635; 75716; 80048; 80053; 80076; 80202; 82962; 83036; 83605; 85025; 85027; 85610; 85652; 85730; 86140; 86850; 86900; 86901; 87040; 87070; 87324; 87449; 93005; 93922; 93925; 96361; 96365; 96366; 96375; 97163; 97167; 97530; 97535; 99284; C1725; C1769; C1887; C1894; C9772; Q9967

== ENCOUNTER 2024-07-04 00:41 | Inpatient (IN) | payer OTHER, SELFPAY ==
[2024-07-03 21:30] VITALS: BP 119/86
[2024-07-03 21:36] VITALS: BP 119/86
[2024-07-03 21:59] LABS: % Basophils 0.2 % (0-2); % Eosinophils 0.7 % (0-6); % Immature Granulocytes 0.6 % (0-0.5); % Lymphocytes 12.6 % (20.5-51.1); % Monocytes 6.8 % (1.7-9.3); % Neutrophils 79.1 % (42.2-75.2); Absolute Eosinophils 0.1 10^3/uL (0-0.7); Absolute Immature Granulocytes 0.1 10^3/uL (0-0.05); Absolute Lymphocytes 1.5 10^3/uL (1.2-3.4); Absolute Monocytes 0.8 10^3/uL (0.1-0.6); Absolute Neutrophils 9.7 10^3/uL (1.4-6.5); Hematocrit 31.9 % (37.0-47.0); Hemoglobin 9.7 g/dL (12.0-16.0); Mean Corp Hgb Conc. 30.4 g/dL (33.0-37.0); Mean Corpuscular Hgb 26.1 pg (27.0-31.0); Mean Platelet Volume 10.9 fL (7.4-10.4); Nucleated Red Blood Cells % 0 %; Platelet Count 349 10^3/uL (130-400); Red Blood Cell Count 3.71 10^6/uL (4.20-5.40); Red Cell Dist. Width 14.8 % (11.5-14.5); White Blood Cell Count 12.3 10^3/uL (4.8-10.8)
[2024-07-03 22:00] VITALS: BP 105/34
[2024-07-03 22:14] LABS: ALT (SGPT) 19 U/L (0-35); AST (SGOT) 29 U/L (14-36); Albumin 2.8 g/dl (3.5-5.0); Alkaline Phosphatase 122 U/L (38-126); Blood Urea Nitrogen 30 mg/dl (7-17); Calcium 8.1 mg/dl (8.4-10.2); Carbon Dioxide 27 mmol/L (22-30); Chloride 100 mmol/L (98-107); Glucose 110 mg/dl (70-99); Potassium 5.2 mmol/L (3.5-5.1); Sodium 137 mmol/L (135-145); Total Bilirubin 0.2 mg/dl (0.2-1.3); Total Protein 5.7 g/dl (6.3-8.2); eGFR > 60.00
--- NOTE | 2024-07-03 22:37 | ED.GENMED ---
History of Present Illness
General
Chief Complaint: Skin Problem
Source: patient and family (Sister)
Exam Limitations: dementia
Time Seen by Provider: 07/03/24 22:06
History of Present Illness
History of Present Illness:
This is a 63 year old female that is brought in by ambulance with c/o wound on the right ankle. Sister states that she was here about 4-5 weeks ago and had the left AKA. States that they were told by vascular that if she has any ulcers or open wound
that she would need to come in due to her diabetes and her vascular issues. States that she was told that they just noticed tonight this open would on the right ankle. Denies any fever, chills, chest pain, SOB, abd pain, nausea, vomiting, diarrhea,
headache, dizziness. Patient is incont of urine.
Past History
Past History
ED Past Medical History: CVA (Right sided weakness), Hypercholesterolemia, IDDM, Hypothyroidism, Psychiatric (Schizo) and Other (PNA, IBS, Dementia)
ED Past Surgical History: Orthopedic (Left AKA) and Other
Social History
Tobacco: Former smoker
Alcohol: None
Personal: Single
Living: penitentiary ([facility])
Review of Systems
Review of Systems
Other source history: family
All Other Systems: ROS reviewed and negative except as documented in HPI and ROS
Constitutional: Reports no symptoms; Denies fever or chills
EENT: Reports no symptoms
Respiratory: Reports no symptoms; Denies cough or trouble breathing
Cardiac: Reports no symptoms; Denies chest pain
ABD/GI: Reports no symptoms; Denies abdominal pain, nausea, vomiting or diarrhea
: Reports no symptoms; Denies dysuria, frequency or urgency
Musculoskeletal: Reports no symptoms
Skin: Reports other (Open wound on the right ankle)
Neurological: Reports no symptoms; Denies dizzy or headache
Psychiatric: Reports no symptoms
Phy Exam
General Physical Exam
General Presentation: no apparent distress
General age: appears older than age
General Skin: warm, dry and pale
General Habitus: debilitated
General Mental: usual mental status
General Hydration: appears well hydrated
ENT Exam
ENT Exam: TM's normal, pharynx normal and neck supple
Eye Exam
Eye Exam: EOMI
Cardiovascular Exam
Cardiovascular Exam: regular rate/rhythm and no edema
Pulmonary Exam
Pulmonary Exam: lungs clear, no respiratory distress, no rales, chest non tender, no crackles, no rhonchi, no wheezing and no cough
Gastrointestinal Exam
Gastrointestinal Exam: normal bowel sounds, non tender, soft, no organomegaly, no pulsatile mass, non distended and other (Obese)
Musculoskeletal Exam
Musculoskeletal Exam: AKA (left) and other (Right sided weakness)
Skin Exam
Skin Exam: warm/dry, no rash, no petechia, pallor and other (Open wound on the right lateral ankle about quarter size, Necrotic center with redness around wound. )
Psychiatric Exam
Psychiatric Exam: normal mood/affect
Course
Orders/Labs/Results
Orders:
Orders
07/03/24 21:51
Complete Blood Count/With Diff Urgent
Comprehensive Metabolic Panel Urgent
07/03/24 22:37
Ankle, Right 2 view CR [CR Ankle - Right 2 Views] Urgent
Comment:
Reason For Exam: Open wound
07/03/24 22:45
Lactic Acid Urgent
Wound Culture [Wound/Abscess/Other Culture] Urgent
JAMISON Source: Ankle
Specimen Description: Right
Date Specimen was Collected: 07/03/24
Time Specimen was Collected: 22:41
07/03/24 22:56
Aztreonam [Azactam] 2,000 mg IV NOW STA
07/03/24 22:57
Vancomycin [Vancocin] 2,000 mg 0.9% Sodium Chloride 500 ml [Nss] 500 ml IV NOW
07/03/24 23:05
0.9% Sodium Chloride 1000 ml [Nss] 1,000 ml IV BOLUS
07/03/24 23:26
Sterile Water [Sterile Water For Injection] 10 ml .ROUTE .STK-MED ONE
07/04/24 00:06
Admit/Transfer Patient As Directed
Co-Sign Provider:
Level of Care: Inpatient admission
Assign to:: IMU- Intermediate Care
Physician / Group: Giovani
Diagnosis: R Ankle Ulcer, PAD, Sepsis
Reason for Hospitalization: R Ankle Ulcer, PAD, Sepsis
Expected length of stay greater than two midnights?: Yes
ELOS- Estimated Length of Stay in days: 3
I certify the patient meets the requirements for IP care: Yes
07/04/24 00:07
PRN Pain Medication Management As Directed
May give lesser potent ordered pain med per pt: Yes
preference::
Protocol:: Medication orders for pain may be administered in a
manner that supports deferring to patient preference
when the pt is:
- Requesting an ordered lesser potent pain medication.
Least to most potent pain medications are defined
as: acetaminophen < NSAID < tramadol < opioids
(morphine, oxycodone, hydromorphone).
- Requesting a lesser dose of the same medication IF
ORDERED.
- Requesting a less intrusive route of administration
if both routes are prescribed by the provider (PO <
IV).
07/04/24 00:15
Code Status As Directed
Resuscitation Status: Do not resuscitate
Reached after discussion with pt or family/Healthcare POA: Yes
DNR Bracelet Application ONCE
07/04/24 01:21
0.9% Sodium Chloride 1000 ml [Nss] 1,000 ml IV 100 mls/hr
Acetaminophen [Tylenol] 650 mg PO Q4HPRN PRN
Dextrose 50%-Water [Dextrose 50% Syringe] 12.5 grams IV [id number] PRN
Glucagon [GlucaGen] 1 mg IM PRN PRN
Oxycodone [Roxicodone] 10 mg PO Q4HPRN PRN
Pantoprazole [Protonix] 40 mg PO Q12H
Polyethylene Glycol Powder [Miralax] 17 grams PO DAILYPRN PRN
07/04/24 01:21
Consult Notification Routine
Specialty to Notify: Vascular Surgery
Vascular Surgery Consult Routine
Consulting Provider: Juan Carlos Min III
Was physician already notified: No
Reason for consult: PAD / R Ankle Wound
WOUND/OSTOMY CONSULT Routine
Reason for Consult: R Ankle Wound
Valproic Acid Level [Depakane] Routine
Activity As Directed
Activity Level: Out of Bed- Chair
With Assistance
Bedside Glucose Monitoring As Directed
Frequency: AC&HS
Additional Instructions:: Change to q6h if pt on TPN, tube feeding or not eating
Bladder Scan As Directed
Follow Bladder Retention/Intermittent Cath Algorithm?: Yes
PRN if no void in __ hours: 6
Frequency: Per Retention Algorithm
If Bladder Scan Result >: 400
then:: Straight cath
I/O [Intake/ Output] As Directed
Frequency: Per unit guidelines
Straight Cath As Directed
Frequency: Per Retention Algorithm
Additional Instructions: straight cath as needed per acute urinary retention algorithm for 24 hrs
Additional Instructions: for bladder scan greater than 400 mL
Vital Signs As Directed
Frequency: Per unit guidelines
Oxygen Therapy [O2 Therapy] [RESP] Routine
Titrate/Wean O2 to maintain O2 sat greater than (%): 94
Ot Eval And Treat Routine
DX Deep Vein Thrombosis Video Routine
07/04/24 02:00
VANCOMYCIN Pharmacy to Dose [VANCOCIN Pharmacy to Dose] 1 each Pharmacy To Prepare [Call Pharmacy To Prepare] 0 ml IV PER PROTOCOL
07/04/24 Breakfast
2000 calorie (17 carb) Diabetic
Basic Metabolic Panel IN AM
Complete Blood Count/No Diff IN AM
Glycohemoglobin (HgbA1c) IN AM
Lactic Acid IN AM
07/04/24 07:30
Insulin Aspart Corrective Low [Novolog Flexpen-Low Resistance] See Protocol SC AC
07/04/24 08:00
Aspirin Low Dose EC [Aspir Low (Enteric Coated)] 81 mg PO DAILY
Divalproex Delayed Rel. 12 Hr [Depakote (12 Hr Release)] 125 mg PO BID
Gabapentin [Neurontin] 100 mg PO TID
Heparin 5,000 units SC Q12
Levothyroxine [Synthroid] 50 mcg PO DAILY
Oxcarbazepine [Trileptal] 300 mg PO BID
Risperidone [Risperdal] 0.5 mg PO BID
Thiamine HCl [Vitamin B1] 100 mg PO DAILY
07/04/24 22:00
Atorvastatin [Lipitor] 40 mg PO HS
insulin glargine [Lantus U-100 Insulin] 12 unit SC HS
Abnormal Lab Results
07/03/24
21:51
WBC 12.3 H 10^3/uL
(4.8-10.8)
RBC 3.71 L 10^6/uL
(4.20-5.40)
Hgb 9.7 L g/dL
(12.0-16.0)
Hct 31.9 L %
(37.0-47.0)
MCH 26.1 L pg
(27.0-31.0)
MCHC 30.4 L g/dL
(33.0-37.0)
RDW 14.8 H %
(11.5-14.5)
MPV 10.9 H fL
(7.4-10.4)
Abs Immat Gran (auto) 0.1 H 10^3/uL
(0-0.05)
Absolute Neuts (auto) 9.7 H 10^3/uL
(1.4-6.5)
Absolute Monos (auto) 0.8 H 10^3/uL
(0.1-0.6)
Immature Gran % 0.6 H %
(0-0.5)
Neutrophils % 79.1 H %
(42.2-75.2)
Lymphocytes % 12.6 L %
(20.5-51.1)
Potassium 5.2 H mmol/L
(3.5-5.1)
BUN 30 H mg/dl
(7-17)
Glucose 110 H mg/dl
(70-99)
Calcium 8.1 L mg/dl
(8.4-10.2)
Total Protein 5.7 L g/dl
(6.3-8.2)
Albumin 2.8 L g/dl
(3.5-5.0)
07/03/24 21:51
07/03/24 21:51
Leukocytosis, H/H slightly low. Hyperkalemia, Dehydration. Hyperglycemia. Hypocalcemia, Total protein slightly low. Albumin low. Lactic acid 1.6
Vital Signs
Initial and Last Documented VS:
Initial Vital Signs
Temp Pulse Resp BP Pulse Ox
98.2 F 86 13 119/86 95
07/03/24 21:30 07/03/24 21:30 07/03/24 21:30 07/03/24 21:30 07/03/24 21:30
Last Documented Vital Signs
Temp Pulse Resp BP Pulse Ox
98.2 F 80 13 123/55 94
07/03/24 21:30 07/04/24 01:00 07/04/24 01:00 07/04/24 01:00 07/04/24 01:00
MDM/Problems Addressed
Differential Diagnosis Includes:
OPen wound, PVD, Diabetic
MDM/Problems Addressed:
This is a 63 year old female that comes in with c/o open wound on the right ankle. Patient just had a AKA on the left and her sister states that she was told that with any wound on the right leg she needs to come to the hospital as this will not
heal.
Will get labs, and admit.
Chronic conditions affecting care: DM and PVD
Acute Exacerbation and/or Progression of Chronic Illness: DM and PVD
*Pulse Oximetry
Patient hypoxic: no
*EKG
Interpreted by ED Provider?: NA
Rate: EKG- N/A
*Licensed Professional Counselor Interpretation
Rate: normal
Heart Rate: 82
Rhythm: sinus
*Critical Care Note
Total Time (30-74mins, 75-104mins- exclusive of procedures): Not Applicable
ED Attending Note
-
Portions of this chart may have been created with voice recognition software.� Occasional wrong word or��sound alike� substitutions may have occurred due to the inherent limitations of voice recognition software.
Discharge Plan
Departure
Patient Disposition: Admit
Date of Disposition: 07/03/24
Time of Disposition: 22:57
Admit to: IMU
Presentation/result/management discussed w/ accepting MD/DO: Hospitalist
Patient with high blood pressure during this ER visit?: No
Condition: Good
Covid-19: Not Applicable
Discharge Problem:
Open wound of right ankle
Interventions
Interventions:
*Risk Screen - Suicide Last Done: 07/03/24 21:40
*General Assessment Last Done: 07/03/24 21:40
*Neglect/Abuse Screening Last Done: 07/03/24 21:40
ED- Fall Risk Assessment Last Done: 07/04/24 01:29
*ED COVID-19 Vaccine History Last Done: 07/03/24 21:40
*Nursing Disposition Last Done: 07/04/24 01:29
ED-Skin Assessment Last Done: 07/03/24 21:45
Discharge Date and Time
Discharge Date/Time: 07/04/24 01:30
[2024-07-03 23:00] VITALS: BP 71/46
[2024-07-03 23:03] VITALS: BP 77/47
[2024-07-03 23:05] LABS: Lactic Acid 1.6 mmol/L (0.7-2.0)
[2024-07-03] MEDS: NSS 1000 IV (23:06)
[2024-07-03] MEDS: AZACTAM 2000 MG IV (23:28)
[2024-07-03 23:30] VITALS: BP 89/55
[2024-07-03] MEDS: VANCOCIN 540 MG IV (23:33)
[2024-07-04] VITALS (49 sets, daily range): BP systolic 80–167; BP diastolic 26–117; BMI 31.2
--- NOTE | 2024-07-04 00:20 | HPS.HSE ---
Family Physician
-
Family Physician: Michelle Mascorro,
Chief Complaint
-
R Ankle Wound
History of Present Illness
Patient is a 63y F with PMH significant for HTN, DM-II and PAD s/p recent L AKA who presents to ED complaining of wound on the R ankle. History obtained from patient and sister at the bedside. Patient was recently admitted at from 05/26 -
06/06 for dry gangrene of the L foot / toes. Evaluation during that visit revealed extensive vascular disease without clear targets for re-vascularization. As such, patient underwent L AKA on 05/31/24. She was ultimately discharged to SNF.
Patient states that she has noted pain in the R ankle 'all weekend'. This evening nursing staff noted a wound over the lateral R ankle with black center and surrounding redness. Patient was transported to the ED for further evaluation and
treatment.
In the ED, patient was noted to be hypotensive with pressures in the 70s systolic.
She complained of pain all along her right side - which is chronic / typical. She did complain of tenderness at the ulcer and pain in the R ankle.
Medical History
Past Medical History
Past Medical History: Reports Other
Additional Past Medical History:
ASCVD / PAD
Hypertension
DM-II
Schizoaffective Disorder
Hypothyroidism
GERD
Past Surgical History: Reports Other
Additional Past Surgical History:
L AKA (05/31/24)
LLE Angio (without stent)
Lap Gisela
Social History
Tobacco: Former Smoker
Alcohol: None
Drug: None
Living: Care Home
Family History
Family History: Not pertinent
Allergies / Home Medications
Allergies reflects when Allergies were last updated in [facility].
Home Medications with original date entered in [facility]
Allergy/Medication List:
Allergies
Allergy/AdvReac Type Severity Reaction Status Date / Time
Barbiturates Allergy Hives Verified 05/26/24 01:37
cefaclor [From [facility]] Allergy Hives Verified 05/26/24 01:37
Penicillins Allergy Unknown Verified 05/26/24 01:37
Sulfa (Sulfonamide Allergy Hives Verified 05/26/24 01:37
Antibiotics)
Home Medications
acetaminophen 325 mg tablet (Tylenol) 650 mg PO Q6HPRN PRN mild/mod pain, temp>100.4 05/29/24
ammonium lactate 12 % lotion 1 applic topical QPM b/l feet 05/29/24
atorvastatin 40 mg tablet 40 mg PO HS High Cholesterol 05/29/24
bisacodyl 10 mg rectal suppository 10 mg SC DAILYPRN PRN constipation not rel by MOM 05/29/24
calcium carbonate 500 mg PO BID Supplement 05/29/24
cholecalciferol (vitamin D3) 125 mcg (5,000 unit) tablet 125 mcg PO DAILY Supplement 05/29/24
divalproex 125 mg tablet,delayed release 125 mg PO BID behavior management 05/29/24
insulin glargine 100 unit/mL subcutaneous solution (Lantus U-100 Insulin) 20 unit SC HS Diabetes 05/29/24
insulin lispro 100 unit/mL subcutaneous solution 0 sliding scale dose SC ACHS Diabetes 05/29/24
insulin lispro 100 unit/mL subcutaneous solution 10 unit SC MEALS Diabetes 05/29/24
levothyroxine 50 mcg tablet 50 mcg PO DAILY Thyroid 05/29/24
magnesium hydroxide 400 mg/5 mL oral suspension (Milk of Magnesia) 30 ml PO DAILYPRN PRN constipation 05/29/24
melatonin 3 mg tablet 3 mg PO HS sleeplessness 05/29/24
metformin 1,000 mg tablet 1,000 mg PO BID Diabetes 05/29/24
oxcarbazepine 300 mg tablet 300 mg PO BID mental health 05/29/24
pantoprazole 40 mg tablet,delayed release 40 mg PO Q12H reflux 05/29/24
polyethylene glycol 3350 17 gram oral powder packet (Miralax) 17 g PO DAILYPRN PRN if no BM 05/29/24
risperidone 0.5 mg tablet 0.5 mg PO BID Depression 05/29/24
sodium phosphates 19 gram-7 gram/118 mL enema 118 ml SC DAILYPRN PRN if no result after bisacodyl supp 05/29/24
aspirin 81 mg tablet,delayed release 81 mg PO DAILY Stroke #0 tabs 06/06/24
gabapentin 100 mg capsule 100 mg PO TID Pain #0 caps 06/06/24
oxycodone 10 mg tablet 10 mg PO Q4HPRN PRN moderate pain #10 tabs 06/06/24
cyanocobalamin (vitamin B-12) 1,000 mcg tablet,extended release 1,000 mcg PO DAILY 07/03/24
loperamide 2 mg tablet 2 mg PO Q4HPRN PRN loose stool 07/03/24
pyridoxine (vitamin B6) 1.5 mg PO DAILY 07/03/24
therapeutic multivitamin 1 tab PO DAILY 07/03/24
thiamine HCl (vitamin B1) 100 mg tablet 100 mg PO DAILY 07/03/24
Review of Systems
-
History Source: Patient and Family
A 12 point ROS was completed and negative except as noted: Yes
Constitutional: Reports Fatigue; Denies Fever or Chills
Respiratory: Denies Cough or Trouble Breathing
Cardiac: Denies Chest Pain or Palpitations
Abdomen/GI: Denies Abdominal Pain, Nausea, Vomiting or Diarrhea
: Denies Dysuria or Flank Pain
Musculoskeletal: Reports Joint Pain
Neurological: Denies Dizzy or Headache
Psych: Reports Depression; Denies Anxiety
Physical Exam
Vital Signs
Vital Signs
Temp Pulse Resp BP Pulse Ox
98.2 F 77 17 77/47 96
07/03/24 21:30 07/03/24 23:15 07/03/24 23:15 07/03/24 23:03 07/03/24 23:15
Physical Exam
General: Other (Pale 63y F in no acute distress. )
HEENT: Moist mucous membranes and PERRLA
Respiratory: Other (Decreased at bases - otherwise clear.)
Cardiac: S1/S2 and Regular Rhythm; No Murmur
GI: Non Tender, Non Distended, Normal Bowel Sounds and Other (Obese.)
Musculoskeletal: Other (L AKA site with steristrips in place - no bleeding or discharge. No surrounding redness / induration. R ankle with quarter sized superficial ulcer over the lateral malleolus - black center with surrounding erythema.)
Neuro: Awake and Alert
Laboratory Results
-
07/03/24 21:51
07/03/24 21:51
Laboratory Results
Lactic Acid 1.6 mmol/L (0.7-2.0) 07/03/24 22:45
Total Bilirubin 0.2 mg/dl (0.2-1.3) 07/03/24 21:51
AST 29 U/L (14-36) 07/03/24 21:51
ALT 19 U/L (0-35) 07/03/24 21:51
Alkaline Phosphatase 122 U/L (38-126) 07/03/24 21:51
Impression/Plan
-
A/P: Patient is a 63y F with PMH significant for hypertension, DM-II and ASCVD s/p recent AKA who presents to ED complaining of R ankle pain / wound.
Right Ankle Wound
ASCVD / PAD
- Admit for further evaluation and treatment.
- Suspect that this too is vascular in origin.
- Recent CT Angio showed significant R-sided disease as well (extensive SFA stenoses, distal peroneal occlusion).
- Continue IV Vanco for now (many abx allergies).
- Vascular Surgery evaluation in the AM for additional recommendations.
- Wound Care eval for local care recommendations.
- Continue current CV med regimen including ASA, statin, etc.
Hypotension
- ? sepsis secondary to wound / infection.
- ? med effect.
- IVFs in the ED with positive effect thus far.
- Continue volume support. Follow for continued improvement / stability.
- +/- pressor support if needed to maintain perfusion.
- Holding parameters for BP / sedating meds.
DM-II
- Stable. Continue basal : bolus insulin regimen.
- Follow glucose and cover with SSI as needed.
Anemia of Chronic Disease
- Stable. Hgb is at / near recent baseline.
- Follow for any changes.
- No evidence of bleeding from prior surgical site, etc.
Hypothyroidism
- Stable. Continue T4 supplementation.
Mood Disorder
- Unspecified mood disorder with depression per Psych eval.
- Continue current psychotropic medications.
- Monitor for excess sedation / hypotension as noted above and adjust regimen if needed.
s/p AKA (05/31/24)
- Appears to be healing well. Vane all removed and steri-strips in place.
- Continue local care. Monitor for any bleeding, redness, etc.
DVT Prophylaxis: Subcut Heparin
Code Status: DNR per patient with sister present at the bedside.
Note: Please contact sister with updates / questions / etc after patient encounters. Tessy Ramirez
--- NOTE | 2024-07-04 02:00 | PTCARENOTE ---
received report from ED, transferred pt from stretcher to bed and pt was screaming out in pain, c/o 10/10 R leg pain that only hurts when touched, AOx3, agitated and uncooperative with staff, NSR on the monitor, + radials, weak R pedal pulse, +1
anasarca, lungs diminished throughout SATs 95%, pt does not remember last BM, BSx4 round obese, incontinent of bowel and urine, saturated attends changed and PW in place, L AKA, R outer ankle wound dressing changed, MASB in groin areas, 20 LAC NS
100ml/hr, call villarreal within reach pt able to make needs known, otherwise refer to documentation
[2024-07-04] MEDS: TYLENOL 650 MG PO ×2 (04:35→20:30)
[2024-07-04] MEDS: NSS 1000 IV ×3 (04:35→20:32)
[2024-07-04 05:06] LABS: Hematocrit 31.5 % (37.0-47.0); Hemoglobin 9.5 g/dL (12.0-16.0); Mean Corp Hgb Conc. 30.2 g/dL (33.0-37.0); Mean Corpuscular Volume 86.3 fL (81.0-99.0); Mean Platelet Volume 11.2 fL (7.4-10.4); Platelet Count 316 10^3/uL (130-400); Red Blood Cell Count 3.65 10^6/uL (4.20-5.40); Red Cell Dist. Width 14.8 % (11.5-14.5)
[2024-07-04 05:22] LABS: Depakane < 10.0 ug/ml (50.0-120.0)
[2024-07-04 05:28] LABS: Blood Urea Nitrogen 27 mg/dl (7-17); Calcium 7.8 mg/dl (8.4-10.2); Carbon Dioxide 24 mmol/L (22-30); Chloride 105 mmol/L (98-107); Estimated Creatinine Clearance 75 ml/min; Glucose 122 mg/dl (70-99); Potassium 4.8 mmol/L (3.5-5.1); Sodium 139 mmol/L (135-145); eGFR > 60.00
[2024-07-04] MEDS: SYNTHROID 50 MCG PO (07:20)
[2024-07-04] MEDS: VITAMIN B1 100 MG PO (07:20)
[2024-07-04] MEDS: ROXICODONE 10 MG PO ×3 (07:20→21:05)
[2024-07-04] MEDS: ASPIR LOW (ENTERIC COATED) 81 MG PO (07:20)
[2024-07-04] MEDS: ZOFRAN 4 MG IV (07:20)
[2024-07-04] MEDS: DEPAKOTE (12 HR RELEASE) 125 MG PO ×2 (07:21→20:02)
[2024-07-04] MEDS: TRILEPTAL 300 MG PO ×2 (07:21→20:02)
[2024-07-04] MEDS: HEPARIN 5000 UNITS SC ×2 (07:21→20:01)
[2024-07-04] MEDS: RISPERDAL 0.5 MG PO ×2 (07:21→20:06)
[2024-07-04] MEDS: NEURONTIN 100 MG PO ×3 (07:21→21:05)
[2024-07-04 07:40] LABS: Glucose - Point of Care 133 mg/dl (70-99)
--- NOTE | 2024-07-04 08:32 | PHA.VAN.IN ---
Assessment
- Assessment
Renal Function: Appears similar to baseline
AUC Dosing Plan
- Dosing Variables
Dosing Weight (kg): 82
Dosing CrCl (ml/min): 75
Vd coefficient (L/kg): 0.6 - 0.7
- Empiric Dosing
Initial / Loading Dose: 2000mg - 07/03 23:33
Maintenance Regimen: Vanc 750mg Q12H starting at 1800
Estimated AUC (mcg*h/mL): 405 - 473
Estimated Peak (mcg*h/mL): 23.7 - 27.7
Estimated Trough (mcg/ml): 11.4 - 13.3
Estimated Half Life (H): 10.4
- Monitoring
No levels ordered at this time: consider levels in next few days
Pharmacokinetics Vancomycin I
- -
Patient Age: 63
Patient Sex: Female
Vancomycin Day #: 1
Indication: Skin And Soft Tissue
Requesting Provider: Dr. Matute
Pertinent Antimicrobial Allergies:
penicillins - unknown
sulfonamide antibiotics - hives
cefaclor - hives
Height / Weight:
Height 5 ft 4 in
Actual Weight 82.4 kg
Pertinent Past Medical History: BMI ~31, DM II, L AKA, PAD
- Vital Signs / Lab Results
Temp Pulse Resp BP Pulse Ox
97.8 F 83 16 118/68 97
07/04/24 07:46 07/04/24 06:15 07/04/24 06:15 07/04/24 06:00 07/04/24 06:15
Lab Results - Hematology
07/03/24 07/04/24
21:51 04:44
WBC 12.3 H 11.0 H
Lab Results - Chemistry
07/03/24 07/04/24
21:51 04:44
BUN 30 H 27 H
Creatinine 0.9 0.8
Estimated Creat Clear 75
Albumin 2.8 L
07/03/24 07/04/24
22:45 06:00
Lactic Acid 1.6 Cancelled
[2024-07-04 08:38] LABS: Glycohemoglobin (HgbA1c) 6.3 % (4.0-5.6)
--- NOTE | 2024-07-04 08:47 | PTCARENOTE ---
Addendum entered by Jenifer Lira RN 07/04/24 09:16:
systolic 80's. hospitalist updated by tiger text. orders pending
Original Note:
report received. assessments per work list. patient screaming frequently, oriented but uncooperative at times. able to make needs known by either yelling and screaming or frequently ringing call light. medicated with roxicodone per prn order.
updated with plan of care, npo order. left stump incision with steri strips in place, slight drainage. black areas at lateral end of incision. right ankle dressing in place. vascular team in to assess. patient for possible vascular procedure today
--- NOTE | 2024-07-04 09:00 | CON.VAS ---
Addendum entered and electronically signed by Juan Carlos Min III, MD 07/04/24 11:47:
This patient was seen and examined with DANIEL Walker. I agree with the history and physical exam as well as the assessment and plan. I have the following additions:
Patient is known to the vascular surgery service after left wyusk-mzm-[id number] amputation recently
Now returns with likely pressure ulcer over the right lateral ankle/malleolus
Has known underlying peripheral arterial occlusive disease
Chronic limb threatening ischemia of the right lower extremity manifested by tissue loss
Recommending arteriogram with possible endovascular intervention
Technical aspects of this procedure were discussed with her sister in detail via telephone. The benefits and rationale for this approach were discussed with her in detail. Operative risks were discussed with her including but not limited to
bleeding, arterial access site injury, contrast nephropathy, distal embolization, inability to successfully complete endovascular intervention, the need for additional surgery and limb loss.
Her sister expressed a clear understanding of our conversation and agrees to proceed with surgery as detailed above. We will do the arteriogram today..
Signed:
Juan Carlos Min III, MD
[facility]
[phone] (dttj)
Original Note:
Consultation
Consultation Request
Performing Provider: Pako
Reason for Consultation: Right heel wound
Medical History
-
Chief Complaint: R Heel wound/pain
History of Present Illness:
63 yo female presenting to the ER last night from [place] for nonhealing right foot wound. Pt is a poor historian. PT was here last month for left foot nonhealing wounds. She underwent a RLE arteriogram and left AKA at that time with Dr Melara. She admits
to following with a internal controls consultant in the past but has not seen him for 'a long time.' Pt admits to DM but 'doesn't really follow it', she is unaware of any kidney issues in the past and does not see a treasury consultant. Pt denies claudication symptoms,
denies rest pain. Pt has not walked in a few months. She has been bedbound since her AKA last month.
Vascular consult for nonhealing right foot wounds. Pt seen at bedside in the ICU this am.
Pt right leg slight contracted out to right side. Dry gangrene to the right malleolar ulcer (pressure related d/t positioning). Foot is pink with mild swelling. Left stump with scant drainage, quarter sized eshar. Images below. Nonpalpable pulses.
Pt screams when attempting to straighten right leg.
Right ankle
Left Stump
Past Medical History
Past Medical History: NIDDM, Seizures (?) and Psychiatric (schizoaffective)
Past Surgical History: Other (Left AKA)
Social History
Living: Group Home
Family History
Family History: Reviewed & Not Pertinent
Allergies / Home Medications
Allergy/AdvReac Type Severity Reaction Status Date / Time
Barbiturates Allergy Hives Verified 05/26/24 01:37
cefaclor [From Ceclor] Allergy Hives Verified 05/26/24 01:37
Penicillins Allergy Unknown Verified 05/26/24 01:37
Sulfa (Sulfonamide Allergy Hives Verified 05/26/24 01:37
Antibiotics)
�Medication �Instructions �Recorded �Confirmed �Type
acetaminophen 325 mg tablet 650 mg PO Q6HPRN PRN mild/mod 05/29/24 07/03/24 History
(Tylenol) pain, temp>100.4
ammonium lactate 12 % lotion 1 applic topical QPM b/l feet 05/29/24 07/03/24 History
atorvastatin 40 mg tablet 40 mg PO HS High Cholesterol 05/29/24 07/03/24 History
bisacodyl 10 mg rectal suppository 10 mg MN DAILYPRN PRN constipation 05/29/24 07/03/24 History
not rel by MOM
calcium carbonate 500 mg PO BID Supplement 05/29/24 07/03/24 History
cholecalciferol (vitamin D3) 125 125 mcg PO DAILY Supplement 05/29/24 07/03/24 History
mcg (5,000 unit) tablet
divalproex 125 mg tablet,delayed 125 mg PO BID behavior management 05/29/24 07/03/24 History
release
insulin glargine 100 unit/mL 20 unit SC HS Diabetes 05/29/24 07/03/24 History
subcutaneous solution (Lantus
U-100 Insulin)
insulin lispro 100 unit/mL 0 sliding scale dose SC ACHS 05/29/24 07/03/24 History
subcutaneous solution Diabetes
insulin lispro 100 unit/mL 10 unit SC MEALS Diabetes 05/29/24 07/03/24 History
subcutaneous solution
levothyroxine 50 mcg tablet 50 mcg PO DAILY Thyroid 05/29/24 07/03/24 History
magnesium hydroxide 400 mg/5 mL 30 ml PO DAILYPRN PRN constipation 05/29/24 07/03/24 History
oral suspension (Milk of Magnesia)
melatonin 3 mg tablet 3 mg PO HS sleeplessness 05/29/24 07/03/24 History
metformin 1,000 mg tablet 1,000 mg PO BID Diabetes 05/29/24 07/03/24 History
oxcarbazepine 300 mg tablet 300 mg PO BID mental health 05/29/24 07/03/24 History
pantoprazole 40 mg tablet,delayed 40 mg PO Q12H reflux 05/29/24 07/03/24 History
release
polyethylene glycol 3350 17 gram 17 g PO DAILYPRN PRN if no BM 05/29/24 07/03/24 History
oral powder packet (Miralax)
risperidone 0.5 mg tablet 0.5 mg PO BID Depression 05/29/24 07/03/24 History
sodium phosphates 19 gram-7 118 ml MN DAILYPRN PRN if no 05/29/24 07/03/24 History
gram/118 mL enema result after bisacodyl supp
aspirin 81 mg tablet,delayed 81 mg PO DAILY Stroke #0 tabs 06/06/24 07/03/24 Rx
release
gabapentin 100 mg capsule 100 mg PO TID Pain #0 caps 06/06/24 07/03/24 Rx
oxycodone 10 mg tablet 10 mg PO Q4HPRN PRN moderate pain 06/06/24 07/03/24 Rx
#10 tabs
cyanocobalamin (vitamin B-12) 1,000 mcg PO DAILY 07/03/24 07/03/24 History
1,000 mcg tablet,extended release
loperamide 2 mg tablet 2 mg PO Q4HPRN PRN loose stool 07/03/24 07/03/24 History
pyridoxine (vitamin B6) 1.5 mg PO DAILY 07/03/24 07/03/24 History
therapeutic multivitamin 1 tab PO DAILY 07/03/24 07/03/24 History
thiamine HCl (vitamin B1) 100 mg 100 mg PO DAILY 07/03/24 07/03/24 History
tablet
Review of Systems
-
History Source: Patient
All other systems: Negative unless noted
Constitutional: Reports No Symptoms
EENT: Reports No Symptoms
Respiratory: Reports No Symptoms
Cardiac: Reports No Symptoms
Vascular: Denies Leg Pain / Claudication
Abdomen/GI: Reports No Symptoms
: Reports No Symptoms
Musculoskeletal: Reports No Symptoms
Skin: Reports Other (Right malleolar ulcer)
Neurological: Reports No Symptoms
Endocrine: Reports No Symptoms
Physical Exam
Vital Signs
Temp Pulse Resp BP Pulse Ox
97.8 F 83 16 118/68 97
07/04/24 07:46 07/04/24 06:15 07/04/24 06:15 07/04/24 06:00 07/04/24 06:15
Lab Results
07/04/24 04:44
07/04/24 04:44
Physical Exam
General: No Apparent Distress
HEENT: Normocephalic and Atraumatic
Respiratory: Non Labored Respirations
Cardiac: Negative JVD
GI: Soft and Non Tender
Musculoskeletal: No Clubbing, No Cyanosis and Edema (mild)
Skin: Other (See images)
Neuro: Awake and Alert
Psych: Calm
Assessment / Plan
-
63 yo female with right ankle dry gangrene wound, pain. Left stump with quarter-sized eschar, scant drainage.
Plan:
-Spoke with POA/Sister about treatment plan via phone. Planning for RLE arteriogram, poss IVL/BLOCK LAYER/Stent, possible debridement of left stump site today.
-NPO
Data Reviewed
-
Labs: Labs Reviewed by me
--- NOTE | 2024-07-04 09:34 | W.PN.UPDATE ---
Update Note
Progress Note Update
Non-billable note:
Shock, presumed septic - SBP remains soft in low 80s despite IVF boluses, starting on small dose Byron for pressor support, will titrate SBP > 100, may need to be adjusted if clinical concern of limb threatening arrthymia arises. Not providing
levo/dopamine with ongoing burst of SVT
SVT - have NSR on tele, short burst of SVT in between, K wnl, check mg/phos, cant do BB with low BP, will get cardio involved if issues persists
Right ankle eschar/left AKA site black eschar - knonw PVD and vasv sx evaluating. on IV vancomycin at this point. will adjust abx based on clinical course. will consider adding gram neg coverage.
[2024-07-04] MEDS: NEO-SYNEPHRINE 250 IV (09:50)
--- NOTE | 2024-07-04 11:29 | PTCARENOTE ---
reassessed. neosynephrine per work list. midline inserted by VAT RN. report and transfer of care to vascular team
[2024-07-04 11:36] LABS: Glucose - Point of Care 131 mg/dl (70-99)
[2024-07-04 12:06] LABS: Magnesium 1.3 mg/dl (1.6-2.3)
--- NOTE | 2024-07-04 13:52 | CM ---
CM following re: discharge planning.
Reviewed pt's chart, met with pt, spoke to accounting director at [facility].
Pt is a 63 year old female admitted with primary dx of R Ankle Wound
Per [facility] accounting director, pt is a alf care resident, on Medicaid 15 day bed hold, requires total care. Patient is able to feed herself and could propel her w/c but she would not do so. She does have residual right sided
weakness from past stroke. Patient's sister Rina keeps in touch with her at the SNF.
D/C plan: return back to [facility] for a alf care.
CM will follow with discharge plan updates as hospitalization progresses.
--- NOTE | 2024-07-04 15:56 | OR.RPT ---
Operative Report
Operative Report
Date of Operation: 07/04/2024
Pre Op Diagnosis:
1.) chronic limb threatening ischemia of the right lower extremity manifested by right lateral ankle wound
2.) recent left above-knee amputation with poorly healing wound
Post Op Diagnosis:
1.) chronic limb threatening ischemia of the right lower extremity manifested by right lateral ankle wound
2.) recent left above-knee amputation with poorly healing wound
Procedure:
1.) Intravascular lithotripsy to right peroneal artery stenosis (2.5 mm x 80 mm E8 shockwave balloon)
2.) Balloon angioplasty of distal peroneal artery and posterior ankle branch (2 mm x 80 mm angioplasty balloon)
3.) Balloon angioplasty of distal right anterior tibial artery and dorsalis pedis artery (2 mm x 20 mm; 2 mm x 80 mm angioplasty balloons)
4.) Intravascular lithotripsy to right popliteal artery and distal superficial femoral artery (6 mm x 80 mm E8 shockwave balloon)
5.) Diagnostic aortobiiliac arteriogram
6.) Diagnostic right lower extremity arteriogram
7.) Sharp excisional debridement of left above-knee amputation wound including skin and subcutaneous tissue (wound dimensions 3.5 cm x 2 cm)
Surgeon: Juan Carlos Min III, MD
Motor Vehicles Inspector: David Boyd MD PhD, PGY2
Anesthesia: Sedation with local
Fluoroscopy:
69.4 min
178 mGy
37.95 Gy.cm2
Complications: None
Estimated Blood Loss: Less than 20 cc
History and Indications for Procedure: 63-year-old female with recent left riinv-gwh-yrdw amputation. She developed a pressure ulcer over the lateral aspect of her right ankle and has known underlying peripheral arterial occlusive disease. She was
taken to the operating room for arteriogram and possible revascularization.
Procedure in Detail: Andrews Back was correctly identified and placed supine on the operating table. After adequate induction of anesthesia the bilateral groins as well as the left above-knee amputation were prepped and draped in the usual
sterile fashion. A timeout was performed with the nursing and anesthesia staff confirming the patient's identity as well as the nature and laterality of the procedure.
The left common femoral artery was identified under ultrasound guidance. The artery was patent. The superior and inferior aspects of the femoral head were identified with radiographic guidance and marked at the skin level. The proposed puncture site
was infiltrated with local anesthesia. Under ultrasound guidance we accessed the left common femoral artery with a micropuncture needle and upsized to a 5 Fr sheath over a [employer] wire. The wire and a Shepherds hook flush catheter were advanced into
the distal abdominal aorta and a diagnostic aorto-biiliac arteriogram was performed:
AORTO-ILIAC ARTERIOGRAM:
Aorta: Patent with no stenosis identified
Right common iliac artery: Patent with no stenosis identified
Right external iliac artery: Patent with no stenosis identified
Left common iliac artery: Patent with no stenosis identified
Left external iliac artery: Patent with no stenosis identified
Under roadmap guidance using a Glidewire and the Shepherds hook catheter we selected the right common iliac artery and then the external iliac artery. A catheter was tracked up and over the aortic bifurcation and placed in the distal external iliac
artery. A diagnostic right lower extremity arteriogram was then performed which demonstrated the following:
RIGHT LOWER EXTREMITY:
Common femoral artery: Patent with no stenosis identified
Profunda femoral artery: Patent with no stenosis identified
Superficial femoral artery: Patent. Diffusely calcified throughout the entire length. Areas of moderate to high-grade stenosis seen at the distal aspect
Popliteal artery: Patent. Diffusely calcified throughout. Areas of moderate to high-grade stenosis seen above the knee and behind the knee.
Anterior tibial artery: Patent. Focal high-grade stenosis identified at the distal anterior tibial artery/dorsalis pedis artery transition at the ankle
Tibioperoneal trunk: Patent, heavily calcified
Peroneal artery: Patent but segmentally occluded
Posterior tibial artery: Occluded with no meaningful distal reconstitution identified
ENDOVASCULAR INTERVENTION: Systemic heparin was administered. Selected the superficial femoral artery with the Quickcross and Glidewire. Exchanged out for a 6 Fr 70 cm sheath over a [employer] wire and positioned the radiopaque tip in the superficial
femoral artery. Selected the peroneal artery under roadmap guidance with Quickcross catheter and [address] ST 0.014. The peroneal artery occlusion was crossed with a 0.[address] 0.014 wire. The wire and catheter were advanced into the
distal peroneal artery and subtraction angio confirmed proper position in the true lumen. The artery was predilated with a 2.5 mm angioplasty balloon. Due to the heavily calcified nature of the arterial disease and in an effort to modify the
calcium to achieve maximum luminal gain with endovascular intervention I elected to proceed with intravascular lithotripsy. A 2.5 mm x 80 mm Shockwave balloon was placed across the stenosis under roadmap guidance. Alternating rounds of lithotripsy
pulse delivery at sub-nominal pressure and angioplasty at nominal pressure was performed across the stenosis. In between rounds of pulse delivery and angioplasty the balloon was deflated and repositioned under roadmap guidance. All 400 pulses were
delivered across the peroneal artery. Subsequent arteriogram demonstrated a significantly improved result but there was residual high-grade stenosis at the very distal peroneal artery extending into a posterior branch towards the heel. Under
roadmap guidance I then positioned a 2 mm x 80 mm angioplasty balloon across the distal peroneal artery extending into this posterior branch. The balloon was inflated to nominal pressure and held in place for a prolonged 3-minute inflation.
Subsequent arteriogram demonstrated an excellent technical result with a widely patent peroneal artery and patent anterior and posterior branches at the ankle, that supplied flow to the lateral ankle.
We then focused our attention on the calcified SFA/popliteal artery disease. Due to the heavily calcified nature of the arterial disease and in an effort to modify the calcium to achieve maximum luminal gain with endovascular intervention I elected
to proceed with intravascular lithotripsy. A 6 mm x 80 mm E8 shockwave balloon was placed across the SFA/popliteal artery stenosis under roadmap guidance. Alternating rounds of lithotripsy pulse delivery at sub-nominal pressure and angioplasty at
nominal pressure was performed across the stenosis. In between rounds of pulse delivery and angioplasty the balloon was deflated and repositioned under roadmap guidance. All 400 pulses were delivered across the SFA/popliteal artery disease.
Subsequent arteriogram demonstrated an excellent technical result with a widely patent superficial femoral artery and popliteal artery and no residual stenosis identified.
Sluggish flow was seen through the anterior tibial artery and it appeared that the distal anterior tibial artery/proximal dorsalis pedis artery was flow-limiting. Under roadmap guidance I selected the anterior tibial artery with the 0.[address]
wire. Using the 0.[address] wire was navigated through the anterior tibial artery and crossed the high-grade stenosis distally. The wire was advanced into the dorsalis pedis artery in the midfoot. I was able to track a 2 mm x 20
mm coronary balloon across the distal stenosis and positioned this under roadmap guidance. The stenosis was treated with the 2 mm balloon. Subsequent to this I then brought into position a 2 mm x 80 mm angioplasty balloon and treated the entire
dorsalis pedis and distal anterior tibial artery. Subsequent arteriogram demonstrated an improved result with inline flow through the anterior tibial artery and into the dorsalis pedis artery. There appeared to be delayed outflow due to severe
small vessel disease in the foot. 200 mcg of nitroglycerin was administered through a quick cross catheter in the distal anterior tibial artery into the foot to counteract any spasm that may have been present as a contributing factor.
Satisfied with this result we concluded the procedure. The sheath tip was pulled back into the left external iliac artery. Protamine was administered.
We then focused our attention on debridement of the left above-knee amputation stump.
Using a scalpel, scissors and forceps, sharp excisional debridement was performed on the left bxsbj-rfk-tijk amputation wound. Necrotic eschar, skin and subcutaneous tissue was sharply debrided from the wound. No purulence was identified.
Debridement of the ischemic tissue continued to healthier appearing and bleeding skin and subcutaneous tissue. The wound dimensions debrided were 3.5 cm x 2 cm. The wound was then irrigated with saline. Hemostasis was achieved. The wound was
packed with saline moistened gauze. Sterile dressings were applied.
The sheath was then removed from the left femoral access. Direct manual pressure was held over the puncture site. Hemostasis was achieved. A sterile dressing was applied.
The patient tolerated the procedure well and was taken to the recovery area in stable condition.
Attestation: I was present and responsible for the entire procedure.
Signed:
Juan Carlos Min III, MD
[facility]
[phone] (cell)
[2024-07-04 16:11] LABS: Glucose - Point of Care 133 mg/dl (70-99)
[2024-07-04] MEDS: DILAUDID 0.5 MG IV ×2 (16:18→22:50)
[2024-07-04] MEDS: NOVOLOG FLEXPEN-LOW RESISTANCE SC (16:29)
[2024-07-04] MEDS: NEURONTIN PO (16:29)
[2024-07-04] MEDS: PLAVIX 300 MG PO (16:52)
[2024-07-04] MEDS: MAGNESIUM SULFATE 50 IV (16:52)
[2024-07-04] MEDS: VANCOCIN 150 IV (17:11)
--- NOTE | 2024-07-04 17:15 | W.IMMPOSTOP ---
Surgical Immed Post Op Note
-
Primary Surgeon: Dr. Juan Carlos Min III, MD
Assisting Surgeon: David Boyd MD, PhD (PGY-2)
Pre-op Diagnosis: Critical limb threatening ischemia of right lower extremity with non healing wounds, prior LLE AKA
Post-op Diagnosis: Critical limb threatening ischemia of right lower extremity with non healing wounds, prior LLE AKA
Procedure Performed: Diagnostic arteriogram, balloon angioplasty and intravascular lithotripsy of right SFA and popliteal artery, balloon angioplasty and intravascular lithotripsy of right peroneal artery, balloon angioplasty of right anterior
tibial artery, incision and debridement of LLE AKA stump (3.5x2cm)
Anesthesia Type: Sedation
Specimen / Cultures: None
Estimated Blood Loss: Minimal
Complications: None
Operative Findings: The patient was brought to the OR and placed in the supine position. The patient was prepped and draped in usual sterile fashion. Fluoroscopy was used to identify the inferior and superior borders of the left femoral head.
Ultrasound guidance was used to identify the L LEASE ADMINISTRATION SUPERVISOR. Micropuncture kit was used to access the L LEASE ADMINISTRATION SUPERVISOR. This was upsized to a 5-fr sheath over a Karisma Kidzson wire. A ibarra's hook catheter was advanced into the abdominal aorta over a guidewire. Diagnostic
arteriogram was performed and showed no significant aorto-iliac disease. A quickcross catheter was used to access the contralateral femoral system. Diagnostic arteriogram of the RLE showed occlusive disease in the SFA and popliteal artery segments.
Distally, there was single vessel run off through the AT, with occluded peroneal and PT arteries. There was retrograde filling of the peroneal artery. A glidewire was used to access the right peroneal artery and a sheath was advanced over wire. Drug
coated balloon angioplasty was performed of the peroneal artery. Then intravascular lithotripsy was performed of the peroneal artery. We pulled back into the SFA and popliteal artery and performed a balloon angioplasty and intravascular lithotripsy
of this site as well. Then the right AT artery was accessed with a glidewire and catheter. The distal right AT artery showed distal obstructive disease, so we performed a balloon angioplasty of the right AT artery. Nitroglycerin injections were
performed at the AT and peroneal arteries. At the completion of the case, the SFA and popliteal artery segments appeared more patent with good flow. Distally, the AT and peroneal arteries appeared more patent with good flow, however there continues
to be evidence of distal microvascular disease in the foot. Wires and sheaths were removed and the patient had doppler signals at her right DP and PT sites. The left AKA stump was then evaluated and sharp excision of a 3.5x2cm wound was performed.
The fascial layer below the wound was intact. This site was irrigated and packed with 4x4 gauze, abd pad, and tape. Manual pressure was held for hemostasis at the puncture site and the patient was transferred to the PACU in stable condition.
--- NOTE | 2024-07-04 17:22 | PTCARENOTE ---
patient received back from PACU. dressing to left groin and stump dry and intact, yelling in pain, medicated with oxycodone as per order. neosynephrine titration per work list. patient shivering upon arrival from pacu, scattered mottling of skin
over thighs and trunk, hands. warm blankets applied
--- NOTE | 2024-07-04 19:45 | PTCARENOTE ---
received report from RN, dual RN bedside med rec, pt AAOx3, MUE's wiggles toes on R foot, pt denies pain, vascular checks per worklist, NSR on the monitor, + radials, + R pedal, +2 anasarca, lungs diminished throughout SATs 95% on RA, BSx4
hyperactive round obese, PW collecting yellow output, L AKA dressing dry and intact, L groin site dressing dry and intact, R outer ankle dressing dry and intact, prophylactic foams on elbows and sacrum, R midline, 20 LAC, JESUS 30mcg/9ml, NS 100ml,
sister @ bedside, pt able to make needs known, call villarreal within reach otherwise refer to documentation
[2024-07-04] MEDS: PROTONIX 40 MG PO (20:06)
[2024-07-04] MEDS: LIPITOR 40 MG PO (21:06)
[2024-07-04] MEDS: LANTUS 0.12 UNITS SC (21:06)
[2024-07-04 21:12] LABS: Glucose - Point of Care 127 mg/dl (70-99)
[2024-07-05] VITALS (44 sets, daily range): BP systolic 79–138; BP diastolic 29–103; PULSE 77; O2SAT 99; BMI 32.3
[2024-07-05] MEDS: ROXICODONE 10 MG PO ×3 (04:40→17:42)
[2024-07-05 05:01] LABS: Hematocrit 27.5 % (37.0-47.0); Hemoglobin 8.4 g/dL (12.0-16.0); Mean Corp Hgb Conc. 30.5 g/dL (33.0-37.0); Mean Corpuscular Hgb 26.8 pg (27.0-31.0); Mean Corpuscular Volume 87.9 fL (81.0-99.0); Mean Platelet Volume 11.3 fL (7.4-10.4); Platelet Count 356 10^3/uL (130-400); Red Blood Cell Count 3.13 10^6/uL (4.20-5.40); Red Cell Dist. Width 14.7 % (11.5-14.5); White Blood Cell Count 8.4 10^3/uL (4.8-10.8)
[2024-07-05] MEDS: VANCOCIN 150 IV (05:03)
[2024-07-05 05:25] LABS: Blood Urea Nitrogen 18 mg/dl (7-17); Calcium 7.7 mg/dl (8.4-10.2); Carbon Dioxide 24 mmol/L (22-30); Chloride 108 mmol/L (98-107); Estimated Creatinine Clearance 87 ml/min; Glucose 72 mg/dl (70-99); Magnesium 1.7 mg/dl (1.6-2.3); Potassium 4.5 mmol/L (3.5-5.1); Sodium 141 mmol/L (135-145); eGFR > 60.00
[2024-07-05] MEDS: NSS 1000 IV ×2 (06:12→16:22)
[2024-07-05 08:05] LABS: Glucose - Point of Care 76 mg/dl (70-99)
[2024-07-05] MEDS: NOVOLOG FLEXPEN-LOW RESISTANCE SC ×3 (08:06→17:13)
--- NOTE | 2024-07-05 08:19 | W.PN.VS ---
Today's Communication / Plan
-
See below.
Assessment/Plan
-
Assessment: 63-year-old female with left AKA and right foot heel wound, POD #1 Intravascular lithotripsy, and balloon angioplasty to right peroneal artery stenosis, balloon angioplasty of distal right anterior tibial artery and dorsalis pedis
artery, Intravascular lithotripsy to right popliteal artery and distal superficial femoral artery, Diagnostic right lower extremity arteriogram, sharp excisional debridement of left above-knee amputation wound including skin and subcutaneous tissue
(wound dimensions 3.5 cm x 2 cm)
Plan:
Patient with extensive peripheral arterial disease recommend continuing DAPT therapy of Plavix 75 mg p.o. daily with aspirin 81 mg p.o. daily
Patient should have heel offloaded at all times, patient should be in Prevalon boot at all times, this should be continued in the outpatient setting upon discharge at her [facility] facility
Follow-up appointment placed in discharge instructions
Left groin Tegaderm can be removed later this afternoon and left open to air
Daily wet-to-dry dressing change or as needed if soiled to left AKA site
We will sign off, please call with questions or concerns
Subjective Data
-
Date of Service: July 05, 2024
Patient seen and examined at bedside, oriented to self. Appears comfortable at rest, does indicate by means of loudly yelling noises that any movement of left stump or right lower extremity in any fashion causes discomfort, this appears to be her
baseline per previous reports and interactions.
Objective Data
-
Vital Signs
Temp Pulse Resp BP Pulse Ox
97.9 F 67 6 96/46 99
07/05/24 07:40 07/05/24 05:30 07/05/24 05:30 07/05/24 05:25 07/05/24 05:30
Intake and Output
07/04/24 07/05/24 07/06/24
06:59 06:59 06:59
Intake Total 620 / 720 3086 / 3086
Output Total 250 / 250 1550 / 1550
Balance 370 / 470 1536 / 1536
Intake:
Oral fluids 120 / 120 600 / 600
IV fluids (Total) 500 / 600 2135 / 213
Nss 1,000 ml @ 100 mls/hr IV . 500 / 600 2000 / 1999
Q10H [facility] Rx#:[id number]
neosynephrine 136 / 136
IV piggybacks 350 / 350
Output:
Urine, Voided 250 / 250 1550 / 1550
Other:
How many times incontinent 1
MODERATE amount urine
How many times incontinent 1 1
SATURATED amount urine
Lab Results
07/05/24 04:38
07/05/24 04:38
Calcium 7.7 mg/dl (8.4-10.2) L 07/05/24 04:38
Magnesium 1.7 mg/dl (1.6-2.3) 07/05/24 04:38
Total Bilirubin 0.2 mg/dl (0.2-1.3) 07/03/24 21:51
AST 29 U/L (14-36) 07/03/24 21:51
ALT 19 U/L (0-35) 07/03/24 21:51
Alkaline Phosphatase 122 U/L (38-126) 07/03/24 21:51
Total Protein 5.7 g/dl (6.3-8.2) L 07/03/24 21:51
Albumin 2.8 g/dl (3.5-5.0) L 07/03/24 21:51
Physical Exam
-
No apparent distress, resting in bed comfortably
No tachycardia
No dyspnea on room air
ABD flat, nondistended, nontender
Left groin puncture site CDI, no evidence of hematoma or edema, all surrounding compartments soft. Left AKA site dressing changed, evidence of good granulation tissue, no erythema or edema.
Right foot wounds stable and unchanged, Prevalon off loading heel boot in place, right DP/PT Doppler signal
--- NOTE | 2024-07-05 08:52 | PHA.VAN.FU ---
Vancomycin Assessment / Plan
- Assessment
Renal Function: Stable
WBC's are: WNL
In the past 24 hrs, patient has been: Afebrile
- Dosing Plan
Continue: Vanc 750mg Q12H
- Monitoring Plan
No level(s) ordered at this time: consider levels in next few days
- Follow Up
Pharmacy will continue to follow.
Vancomycin Follow UP
- -
Patient Age: 63
Patient Sex: Female
Vancomycin Day #: 2
Indication: Skin And Soft Tissue
Requesting Provider: Dr. Matute
Pertinent Antimicrobial Allergies:
penicillins - unknown
sulfonamide antibiotics - hives
cefaclor - hives
Height / Weight:
Height 5 ft 4 in
Actual Weight 85.3 kg
Pertinent Past Medical History: BMI ~31, DM II, L AKA, PAD
- Vital Signs / Lab Results
Temp Pulse Resp BP Pulse Ox
97.9 F 67 6 96/46 99
07/05/24 07:40 07/05/24 05:30 07/05/24 05:30 07/05/24 05:25 07/05/24 05:30
Lab Results - Hematology
07/03/24 07/04/24 07/05/24
21:51 04:44 04:38
WBC 12.3 H 11.0 H 8.4
Lab Results - Chemistry
07/03/24 07/04/24 07/05/24
21:51 04:44 04:38
BUN 30 H 27 H 18 H
Creatinine 0.9 0.8 0.7
Estimated Creat Clear 75 87
Albumin 2.8 L
07/03/24 07/04/24
22:45 06:00
Lactic Acid 1.6 Cancelled
Microbiology Results
07/04/24 07:31 MRSA Screen - Final
Nose No Methicillin Resistant Staphylococcus aureus isolated.
07/03/24 22:45 Gram Stain - Preliminary
Ankle - Right
--- NOTE | 2024-07-05 09:00 | PTCARENOTE ---
Rec'd pt at 0730 awake resting in bed. Vascular surgery in and wound care done to Incision along L AKA stump as documented. Intially pt opened her eyes to name but did not interact then with wound care screamed/yelled out and then began conversing.
Pt in general seems to go between appropriately conversing or not talking or interacting. Speech is somewhat slow but clear and direct when talking. Admitted initally to 9/10 R lower leg pain that eased somewhat with repositioning. Did scream out
with the wound care to the L stump but then did not c/o pain there. Skin is pale wm and dry although hands intermittently can get cool and cyanotic. Does have sl hand tremors. Rec'd pt on 2l nc with sats of 98%. BS are slightly decreased throughout.
Denies shortness of breath. Monitor SR. VS as documented. Rec'd pt with IV JESUS infusing at 50 mcg via R arm Midline along with NSS at 100 ml/hr. Site wnl. Capped int intact L arm. + pulses. R PT and DP pulse with the doppler. +1 generalized
anasarca. Abd is round and soft with + BS. Purewick in place and pt voiding yellow urine. Repositioned. Skin and mouth care given. Plan of care reviewed with pt and call villarreal in reach.
--- NOTE | 2024-07-05 09:15 | PTCARENOTE ---
R heel lower leg kept in prevalon boot and elevated. Initally silicone border foam dressing intact. Wound RN in and redressed wound using Betadine swab and silicone border foam over R lateral ankle necrotic area- area with black eschar. See
documentation. VS as documented. Byron weaned at 1000 to 30 mcg. Pts sats have been 98%- changed over to RA with sats of 97-98%.
[2024-07-05] MEDS: NEURONTIN 100 MG PO ×3 (09:25→19:39)
[2024-07-05] MEDS: HEPARIN 5000 UNITS SC ×2 (09:25→19:39)
[2024-07-05] MEDS: ASPIR LOW (ENTERIC COATED) 81 MG PO (09:25)
[2024-07-05] MEDS: SYNTHROID 50 MCG PO (09:25)
[2024-07-05] MEDS: TRILEPTAL 300 MG PO ×2 (09:25→19:39)
[2024-07-05] MEDS: VITAMIN B1 100 MG PO (09:25)
[2024-07-05] MEDS: RISPERDAL 0.5 MG PO ×2 (09:25→19:40)
[2024-07-05] MEDS: DEPAKOTE (12 HR RELEASE) 125 MG PO ×2 (09:25→19:39)
[2024-07-05] MEDS: PROTONIX 40 MG PO ×2 (09:25→19:39)
[2024-07-05] MEDS: PLAVIX 75 MG PO (09:25)
[2024-07-05] MEDS: NEO-SYNEPHRINE 250 IV (09:44)
--- NOTE | 2024-07-05 10:15 | WOUNDNOTE ---
LEFT AKA STUMP
--- NOTE | 2024-07-05 10:17 | WOUNDNOTE ---
RIGHT LATERAL ANKLE
--- NOTE | 2024-07-05 10:20 | WOUNDNOTE ---
[facility] RN note: Patient admitted with wound to R ankle and L AKA surgical site necrotic.
See H&P for complete history.
PMH: Stroke, smoker, IDDM, psyche, PAD, L AKA.
Wound Location and type/assessment: Patient admitted with: L AKA stump necrotic along suture line and R lateral ankle eschar. Patient had Angioplasty yesterday along with I&D of L AKA site. Vascular changed dressing this am, confirmed with MIRANDA Gonzalez
can assess under dressing. R ankle dry brown eschar, edges starting to separate, no drainage. Suspect unstageable PI mixed with PAD. + palpable pedal pulse and skin warm and dry. Patient tends to turn foot to R side and has been bed bound recently.
Heel is intact, using TruVue light offloading heel boot. Nurse Aquino informed this travel writer that Santyl was ordered for R ankle. Will clarify with MIRANDA Gonzalez, applied Betadine and dry dressing today. Sacrum with sacral silicone foam for protection per
nurse. She will assess under foam next turn and notify wound care if needed.
Appetite: Fair.
Pressure redistribution devices in place: On Air mattress, nurse aware to keep on air mattress if transferred.
Plan: Dressing changed on R lateral ankle, Santyl to start tomorrow with adaptic and dry dressing, confirmed with MIRANDA Gonzalez and nurse Kenia aware. Continue offloading heel boot and L AKA dressing per vascular.
Updated care plan and will follow as needed.
Note to case management of equipment requested for discharge: Air mattress
Recommend follow up with vascular.
--- NOTE | 2024-07-05 10:35 | PTCARENOTE ---
Despite repositioning pt c/o / buttock pain and being uncomfortable. Medicated with Roxicodone 10 mg po. No other changes
--- NOTE | 2024-07-05 11:52 | PTCARENOTE ---
Pt sleeping soundly post Roxicodone but with sleeping BP 79/55 on the Byron at 10 mcg- Increased back to 30 mcg. Prior to falling asleep PT/OT in to see pt and pt refused therapy.
[2024-07-05 12:28] LABS: Glucose - Point of Care 64 mg/dl (70-99)
[2024-07-05] MEDS: DEXTROSE 50% SYRINGE 12.5 GRAMS IV (12:46)
--- NOTE | 2024-07-05 12:51 | CM ---
CM following re: discharge planning.
Reviewed pt's chart, met with pt.
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 Patient is able to feed herself and could propel her w/c but she would not do so. She does have residual right sided weakness from past stroke. Patient's sister
Rina keeps in touch with her at the SNF.
D/C plan: return back to [facility] for a intermediate project manager care.
CM will follow with discharge plan updates as hospitalization progresses.
--- NOTE | 2024-07-05 13:15 | PTCARENOTE ---
Pt reassessed. Dozing at intervals but awakens easily. At times converses and at other times does not. Changed position of BP cuff from L forearm to L upper arm as Bp readings inconsistent. On the L upper arm BP's improved and will try to rewean the
Byron since currently BP is 135/70. BS pre lunch was 64-- pt only took two small sips of apple juice then refused to drink the rest after 20 minutes. At 1246 given 12.5 gms D50 with BS recheck in 15 min of 131- pt agreeable to eat lunch and lunch
ordered. Repositioned. No other changes
[2024-07-05 13:22] LABS: Glucose - Point of Care 131 mg/dl (70-99)
--- NOTE | 2024-07-05 15:15 | PTCARENOTE ---
Dozing currently. BP's have been better since cuff is on her L upper arm. Currently 114/65 and Byron turned off. Overall good appetite for lunch and glucose recheck was 144. Tends to call out if she needs something although will also use the call villarreal
but overall has been cooperative. Is sore if R leg is touched but is able to rest when left alone
[2024-07-05 15:22] LABS: Glucose - Point of Care 144 mg/dl (70-99)
--- NOTE | 2024-07-05 15:50 | W.PN.HOSP.TC ---
Today's Communication/Plan
-
change abx to ancef
continue wound care
monitor BP off pressors
Assessment / Plan
Assessment / Plan
Right Ankle Wound
Left AKA site eschar
ASCVD / PAD
- Recent CT Angio showed significant R-sided disease as well (extensive SFA stenoses, distal peroneal occlusion).
- Vascular Surgery evaluated patient underwent angioplasty of RLE and left AKA site debridement
- Wound Care to be continued
- Superficial wound culture growing gram-negative bacilli, change vancomycin to ancef for now
- Continue current CV med regimen including ASA, statin, etc.
Hypotension
- ? sepsis secondary to wound / infection.
- Required phenylephrine support, takne off in afternoon today, continue monitor.
- IVFs in the ED with positive effect thus far.
DM-II
Episode of hypoglycemia
- Hypoglycemia episode due to poor oral intake
- Stable. Continue basal : bolus insulin regimen.
- Follow glucose and cover with SSI as needed.
Anemia of Chronic Disease
- Stable. Hgb is at / near recent baseline.
- Follow for any changes.
- No evidence of bleeding from prior surgical site, etc.
Hypothyroidism
- Stable. Continue T4 supplementation.
Mood Disorder
- Unspecified mood disorder with depression per Psych eval.
- Continue current psychotropic medications.
- Monitor for excess sedation / hypotension as noted above and adjust regimen if needed.
DVT Prophylaxis: Subcut Heparin
Code Status: DNR per patient with sister present at the bedside.
Anticipated Discharge: > 48 hours
Subjective/Interval History
-
Date of Service: July 05, 2024
resting comfortably in bed
post op from sx in morning
Objective Data
-
Labs:
Laboratory Results
07/05/24
04:38
WBC 8.4
Hgb 8.4 L
Hct 27.5 L
Plt Count 356
Sodium 141
Potassium 4.5
Chloride 108 H
Carbon Dioxide 24
BUN 18 H
Creatinine 0.7
Glucose 72
Calcium 7.7 L
Vital Signs:
Vital Signs
Temp Pulse Resp BP Pulse Ox
98.1 F 74 14 130/74 98
07/05/24 15:00 07/05/24 13:30 07/05/24 13:30 07/05/24 13:30 07/05/24 13:00
I&O
07/04/24 07/05/24 07/06/24
06:59 06:59 06:59
Intake Total 620 / 720 3086 / 3201 1651 / 1651
Output Total 250 / 250 1550 / 1550 200 / 200
Balance 370 / 470 1536 / 1651 1451 / 1451
Review of Systems
-
Unable to obtain full review of systems at this time due to: Acuity
Physical Exam
-
General: Appears Chronically Ill and Obese
Respiratory: Clear to Auscultation
Cardiac: Regular Rhythm and S1/S2
GI: Soft, Nontender, Nondistended and Other (Obese abdomen)
Musculoskeletal: No Edema and Other (Left fklgb-dew-icey amputation - eschar, right ankle eschar)
Neuro: No Motor Deficits
Psych: Calm
[2024-07-05] MEDS: ANCEF 10 IV (16:51)
--- NOTE | 2024-07-05 17:15 | PTCARENOTE ---
Repositioned for dinner. No changes in assessment. Byron gtt remains off follow up Blood sugar was 114. Call villarreal in reach. Fed dinner. Overall good appetite
[2024-07-05 17:25] LABS: Glucose - Point of Care 114 mg/dl (70-99)
--- NOTE | 2024-07-05 17:45 | PTCARENOTE ---
Pt calm at times then at other times starts sceaming out if she needs something as well as using her call villarreal. Currently wanted the TV moved and could not comprehend that it was mounted to the wall and could not be moved. Then she wanted Ham but
not the lunchmeat but couldn't tell me who or what HAM was. Did c/o 04/25 bilateral leg pain. Medicated with Roxicodone 10 mg po. Much support and reassurance given. Pt for transfer to IMU.
--- NOTE | 2024-07-05 18:20 | PTCARENOTE ---
More restful post Roxicodone
--- NOTE | 2024-07-05 18:45 | PTCARENOTE ---
Pt resting post Roxicodone. Report called to IMU and will transfer pt via bed. Per wound care-pt is to stay on an air bed or have an air overlay
[2024-07-05] MEDS: LIPITOR 40 MG PO (19:38)
[2024-07-05 21:55] LABS: Glucose - Point of Care 130 mg/dl (70-99)
[2024-07-05] MEDS: LANTUS 0.12 UNITS SC (21:57)
[2024-07-06] VITALS (10 sets, daily range): BP systolic 100–156; BP diastolic 53–91; PULSE 84–100; O2SAT 99–100; BMI 32.3
[2024-07-06] MEDS: ANCEF 10 IV ×3 (00:04→17:31)
[2024-07-06 04:29] LABS: Hematocrit 26.2 % (37.0-47.0); Hemoglobin 7.9 g/dL (12.0-16.0); Mean Corp Hgb Conc. 30.2 g/dL (33.0-37.0); Mean Corpuscular Hgb 26.2 pg (27.0-31.0); Mean Platelet Volume 11.1 fL (7.4-10.4); Platelet Count 291 10^3/uL (130-400); Red Blood Cell Count 3.01 10^6/uL (4.20-5.40); Red Cell Dist. Width 14.8 % (11.5-14.5); White Blood Cell Count 6.4 10^3/uL (4.8-10.8)
[2024-07-06 04:56] LABS: Blood Urea Nitrogen 15 mg/dl (7-17); Calcium 7.6 mg/dl (8.4-10.2); Carbon Dioxide 23 mmol/L (22-30); Chloride 109 mmol/L (98-107); Estimated Creatinine Clearance 101 ml/min; Glucose 144 mg/dl (70-99); Potassium 4.2 mmol/L (3.5-5.1); Sodium 140 mmol/L (135-145); eGFR > 60.00
[2024-07-06] MEDS: ROXICODONE 10 MG PO ×3 (05:35→18:37)
[2024-07-06] MEDS: SANTYL OINTMENT 1 APPLIC TOPICAL (06:02)
--- NOTE | 2024-07-06 06:07 | PTCARENOTE ---
No acute events overnight. Patient yells at times. PRN roxicodone given for RLE pain. Wound care completed as ordered.
[2024-07-06 08:21] LABS: Glucose - Point of Care 92 mg/dl (70-99)
--- NOTE | 2024-07-06 08:53 | PTCARENOTE ---
Patient received from shift stacker. Patient resting comfortably in bed. AAO, VSS. No events noted over night. Patient with continued complaints of B/L leg pain, see OCT. Right foot remains in boot. Left leg amputation. No test scheduled for
today at this time. Call villarreal in reach.
[2024-07-06] MEDS: NOVOLOG FLEXPEN-LOW RESISTANCE SC ×2 (09:10→11:53)
[2024-07-06] MEDS: DEPAKOTE (12 HR RELEASE) 125 MG PO ×2 (09:31→19:26)
[2024-07-06] MEDS: NEURONTIN 100 MG PO ×3 (09:31→19:26)
[2024-07-06] MEDS: SYNTHROID 50 MCG PO (09:31)
[2024-07-06] MEDS: VITAMIN B1 100 MG PO (09:31)
[2024-07-06] MEDS: PROTONIX 40 MG PO ×2 (09:31→19:26)
[2024-07-06] MEDS: TRILEPTAL 300 MG PO ×2 (09:31→19:26)
[2024-07-06] MEDS: ASPIR LOW (ENTERIC COATED) 81 MG PO (09:31)
[2024-07-06] MEDS: PLAVIX 75 MG PO (09:31)
[2024-07-06] MEDS: RISPERDAL 0.5 MG PO ×2 (09:32→19:26)
[2024-07-06] MEDS: HEPARIN 5000 UNITS SC ×2 (09:32→19:27)
--- NOTE | 2024-07-06 10:11 | PN.CDI ---
CDI
- -
CDI:
Physician Documentation Request
Admit Date: 07/04/24 00:41
Dear Doctor Anton,
Please review the following and provide your response in the progress notes.
Clinical Indicators:
- 07/04 IV Magnesium sulfate given
- Lab results as follows:
Laboratory Tests
07/04/24 07/05/24
04:44 04:38
Magnesium 1.3 L 1.7
Please provide a diagnosis for the above lab values that were monitored and treatment rendered:
Hypomagnesemia
Clinically insignificant abnormal lab value
Other (please specify)
Use of terms such as suspected, likely, concern for, or probable (associated with a specific diagnosis that is being evaluated, monitored, or treated as if it exists) are acceptable and can be coded in the inpatient setting, when documented at the
time of discharge.
Thank you,
Gracie Coleman RN
CDI Specialist
Please use your independent medical judgment in providing your response.
[2024-07-06 11:55] LABS: Glucose - Point of Care 147 mg/dl (70-99)
[2024-07-06] MEDS: TYLENOL 650 MG PO ×2 (12:28→19:26)
--- NOTE | 2024-07-06 14:26 | W.PN.HOSP.TC ---
Addendum entered and electronically signed by Sandor Walton MD 07/07/24 08:27:
Add on to diagnosis list:
Hypomagnesemia - PRN replacement
Original Note:
Today's Communication/Plan
-
Continue antibiotic
Transfer MedSurg
Continue wound care
f/u hbg level
Assessment / Plan
Assessment / Plan
Right Ankle Wound
Left AKA site eschar
ASCVD / PAD
- Recent CT Angio showed significant R-sided disease as well (extensive SFA stenoses, distal peroneal occlusion).
- Vascular Surgery evaluated patient underwent angioplasty of RLE and left AKA site debridement
- Wound Care to be continued
- Superficial wound culture growing Klebsiella pneumonia, sensitive to Ancef continue at this point.
- Continue current CV med regimen including ASA, statin, etc.
Postoperative blood loss anemia
Anemia of chronic disease
- Hemoglobin has drifted down to 7.9, continue monitoring
- Will require blood transfusion if hemoglobin less than 7
Hypotension - Resolved
- ? sepsis secondary to wound / infection.
- Required phenylephrine support, takne off in afternoon today, continue monitor.
- IVFs in the ED with positive effect thus far.
DM-II
Episode of hypoglycemia
- Hypoglycemia episode due to poor oral intake
- Stable. Continue basal : bolus insulin regimen.
- Follow glucose and cover with SSI as needed.
Hypothyroidism
- Stable. Continue T4 supplementation.
Mood Disorder
- Unspecified mood disorder with depression per Psych eval.
- Continue current psychotropic medications.
- Monitor for excess sedation / hypotension as noted above and adjust regimen if needed.
DVT Prophylaxis: Subcut Heparin
Code Status: DNR per patient with sister present at the bedside.
Anticipated Discharge: 24 - 48 hours
Subjective/Interval History
-
Date of Service: July 06, 2024
Subjective feeling better
Having some pain in right lower extremity
Afebrile overnight
Objective Data
-
Labs:
Laboratory Results
07/06/24
04:10
WBC 6.4
Hgb 7.9 L
Hct 26.2 L
Plt Count 291
Sodium 140
Potassium 4.2
Chloride 109 H
Carbon Dioxide 23
BUN 15
Creatinine 0.6
Glucose 144 H
Calcium 7.6 L
Vital Signs:
Vital Signs
Temp Pulse Resp BP Pulse Ox
98.6 F 71 11 153/58 100
07/06/24 11:22 07/06/24 06:00 07/06/24 06:00 07/06/24 06:00 07/06/24 05:00
I&O
07/05/24 07/06/24 07/07/24
06:59 06:59 06:59
Intake Total 3086 / 3201 2251 / 2251
Output Total 1550 / 1550 1900 / 1900
Balance 1536 / 1651 351 / 351
Review of Systems
-
Respiratory: Reports No Symptoms
Cardiac: Reports No Symptoms
Abdomen/GI: Reports No Symptoms
Physical Exam
-
General: Appears Chronically Ill and Obese
Respiratory: Clear to Auscultation
Cardiac: Regular Rhythm and S1/S2; Negative Murmur
GI: Soft, Nontender, Nondistended and Other (Obese abdomen)
Musculoskeletal: No Edema and Other (Left qncdn-bpx-hawd amputation - eschar, right ankle eschar)
Neuro: No Motor Deficits
Psych: Calm
[2024-07-06 16:45] LABS: Glucose - Point of Care 156 mg/dl (70-99)
[2024-07-06] MEDS: NOVOLOG FLEXPEN-LOW RESISTANCE 1 UNITS SC (18:05)
[2024-07-06] MEDS: LIPITOR 40 MG PO (19:26)
--- NOTE | 2024-07-06 20:00 | PTCARENOTE ---
pt arrived to unit via stretcher, admission and assessment complete. Pt agitated, screaming, tearful, and inconsolable. RN reached out to COAL CAGER to update on pt emotional condition. RN and PCT helped pt to get comfortable in bed and oriented to unit.
VSS. Care ongoing.
[2024-07-06] MEDS: LANTUS 0.12 UNITS SC (21:49)
[2024-07-06 22:33] LABS: Glucose - Point of Care 204 mg/dl (70-99)
[2024-07-07 00:09] VITALS: BP 160/75
[2024-07-07] MEDS: ANCEF 10 IV ×2 (00:32→08:02)
[2024-07-07 06:00] LABS: Hematocrit 27.2 % (37.0-47.0); Hemoglobin 8.1 g/dL (12.0-16.0); Mean Corp Hgb Conc. 29.8 g/dL (33.0-37.0); Mean Corpuscular Volume 87.2 fL (81.0-99.0); Mean Platelet Volume 11.1 fL (7.4-10.4); Platelet Count 314 10^3/uL (130-400); Red Blood Cell Count 3.12 10^6/uL (4.20-5.40); Red Cell Dist. Width 14.7 % (11.5-14.5); White Blood Cell Count 6.3 10^3/uL (4.8-10.8)
[2024-07-07 06:50] LABS: Blood Urea Nitrogen 19 mg/dl (7-17); Calcium 7.7 mg/dl (8.4-10.2); Carbon Dioxide 25 mmol/L (22-30); Chloride 106 mmol/L (98-107); Estimated Creatinine Clearance 87 ml/min; Glucose 174 mg/dl (70-99); Potassium 4.4 mmol/L (3.5-5.1); Sodium 138 mmol/L (135-145); eGFR > 60.00
[2024-07-07 07:15] VITALS: BP 140/72
[2024-07-07 07:49] LABS: Glucose - Point of Care 178 mg/dl (70-99)
[2024-07-07] MEDS: TRILEPTAL 300 MG PO (08:01)
[2024-07-07] MEDS: SYNTHROID 50 MCG PO (08:01)
[2024-07-07] MEDS: ASPIR LOW (ENTERIC COATED) 81 MG PO (08:01)
[2024-07-07] MEDS: RISPERDAL 0.5 MG PO (08:01)
[2024-07-07] MEDS: DEPAKOTE (12 HR RELEASE) 125 MG PO (08:01)
[2024-07-07] MEDS: PLAVIX 75 MG PO (08:01)
[2024-07-07] MEDS: PROTONIX 40 MG PO (08:01)
[2024-07-07] MEDS: VITAMIN B1 100 MG PO (08:01)
[2024-07-07] MEDS: NEURONTIN 100 MG PO ×2 (08:01→16:28)
[2024-07-07] MEDS: HEPARIN 5000 UNITS SC (08:02)
[2024-07-07] MEDS: SANTYL OINTMENT 1 APPLIC TOPICAL (08:02)
[2024-07-07] MEDS: NOVOLOG FLEXPEN-LOW RESISTANCE 1 UNITS SC ×2 (08:32→12:45)
[2024-07-07 12:42] LABS: Glucose - Point of Care 165 mg/dl (70-99)
[2024-07-07] MEDS: ROXICODONE 10 MG PO (12:45)
--- NOTE | 2024-07-07 12:49 | W.PN.HOSP.TC ---
Today's Communication/Plan
-
d/c planning back to facility
Assessment / Plan
Assessment / Plan
Right Ankle Wound
Left AKA site eschar
ASCVD / PAD
- Recent CT Angio showed significant R-sided disease as well (extensive SFA stenoses, distal peroneal occlusion).
- Vascular Surgery evaluated patient underwent angioplasty of RLE and left AKA site debridement
- Wound Care to be continued
- Superficial wound culture growing Klebsiella pneumonia, sensitive to Ancef continue at this point.
- Vascular surgery recommended dual antiplatelet with aspirin/Plavix at discharge
- Right foot to be maintained on offloading shoe/Prevalon boot all the time
- Left AKA site wound care to be continued with wet-to-dry dressing
Postoperative blood loss anemia
Anemia of chronic disease
- Hemoglobin has drifted down to 7.9, continue monitoring
- Will require blood transfusion if hemoglobin less than 7
Hypotension - Resolved
- ? sepsis secondary to wound / infection.
- Required phenylephrine support, takne off in afternoon today, continue monitor.
- IVFs in the ED with positive effect thus far.
DM-II
Episode of hypoglycemia
- Hypoglycemia episode due to poor oral intake
- Stable. Continue basal : bolus insulin regimen.
- Follow glucose and cover with SSI as needed.
Hypothyroidism
- Stable. Continue T4 supplementation.
Mood Disorder
- Unspecified mood disorder with depression per Psych eval.
- Continue current psychotropic medications.
- Monitor for excess sedation / hypotension as noted above and adjust regimen if needed.
DVT Prophylaxis: Subcut Heparin
Code Status: DNR per patient with sister present at the bedside.
Anticipated Discharge: Today
Subjective/Interval History
-
Date of Service: July 07, 2024
Patient denies of having any issues
no new problems
Objective Data
-
Labs:
Laboratory Results
07/07/24
05:48
WBC 6.3
Hgb 8.1 L
Hct 27.2 L
Plt Count 314
Sodium 138
Potassium 4.4
Chloride 106
Carbon Dioxide 25
BUN 19 H
Creatinine 0.7
Glucose 174 H
Calcium 7.7 L
Vital Signs:
Vital Signs
Temp Pulse Resp BP Pulse Ox
97.5 F 66 18 140/72 99
07/07/24 07:15 07/07/24 07:15 07/07/24 07:15 07/07/24 07:15 07/07/24 12:30
I&O
07/06/24 07/07/24 07/08/24
06:59 06:59 06:59
Intake Total 2251 / 2251 480 / 480
Output Total 1900 / 1900 250 / 250
Balance 351 / 351 230 / 230
Review of Systems
-
Respiratory: Reports No Symptoms
Cardiac: Reports No Symptoms
Abdomen/GI: Reports No Symptoms
Physical Exam
-
General: Appears Chronically Ill and Obese
Respiratory: Clear to Auscultation
Cardiac: Regular Rhythm and S1/S2; Negative Murmur
GI: Soft, Nontender, Nondistended and Other (Obese abdomen)
Musculoskeletal: No Edema and Other (Left cjgqh-jol-datl amputation - eschar, right ankle eschar)
Neuro: No Motor Deficits
Psych: Calm
[2024-07-07 15:15] VITALS: BP 162/79
--- NOTE | 2024-07-07 16:08 | CM ---
Rose is ready for discharge back to [facility] today. CM called [facility] for contact information for report and fax.
Rose is on the [facility] (ask for [facility] to give report).
Call placed to Rose's sister, Tessy, to make her aware of discharge; Tessy was agreeable and will contact [facility].
Report: [phone]
[2024-07-07] MEDS: AFLURIA (36 mos+) 2024-2025 FORMULA 0.5 ML IM (16:25)
[2024-07-07] MEDS: ANCEF IV (16:28)
--- NOTE | 2024-07-07 16:56 | W.DCSUMMARY ---
Discharge Summary
Discharge Data
Date of Admission: 07/04/24
Date of Discharge: 07/07/24
-
Pending Results: No
Hospital Course
Discharging Physician : Dr Sandor Walton
Disposition : SNF
Primary care physician : Dr Michelle Mascorro
Principal Discharge diagnosis :
Right ankle wound
Left above-knee amputation site eschar
Postoperative blood loss related anemia
Hypotension requiring vasopressor support
Chronic Discharge diagnosis :
Peripheral vascular disease
Type 2 diabetes
Hypothyroidism
Mood disorder
Hospital Course :
Patient is a 63-year-old female with a past medical history was sent to ER after noted to having new right lateral malleolar wound. Patient with history of peripheral vascular disease and have undergone revascularization and left above-knee
amputation last month. Left AKA site was also noted to having black eschar on the exam. Ankle x-ray was showing tibial lucency from an old injury likely. Patient was minimally hypotensive and despite provided IV fluid blood pressure did not
improve. Patient required small dose of vasopressor support. Vascular surgery was involved in care and patient was started on empiric antibiotics. Patient was taken to the OR again and underwent an right lower extremity angioplasty and left
amputation site debridement. Postoperative patient was monitored in hospital. Superficial wound culture collected from left amputation site wound was growing Klebsiella pneumonia and was sensitive to cephalosporin. Post clearance by vascular
surgery patient was discharged back to detention facility with a short course of oral Keflex therapy. Patient continued to have wound care in facility. Unfortunately patient at high risk of further nonhealing of wound and related
complications.
Important imaging findings :
None
Procedure findings :
None
Discharge Plan
-
Patient Disposition: Fdc/SNF
Discharge Diagnosis/Procedures: S/p Right sfa/pop/right anterior tibial/right peritoneal artery balloon angioplasty, Debridement for left AKA site
Condition: Fair
Diet: Diabetic, Carb Controlled
Activity: As tolerated
Driving Restrictions: No driving
Activity Restrictions/Additional Instructions:
Wound Care Instructions
left AKA: wet to dry dressing daily&prn, abd. secure with paper tape
Right ankle: clean with soap and water, Santyl archana thick, adaptic and dry dressing change daily
Prevalon boot to right foot at all times
Increase protein in diet
Follow up with Vascular as scheduled
Stand Alone Forms: DC Instr - Vascular OR
Referrals:
Ranjana Flores PA-C [Specified Professional Personl] - 07/18/24 9:30 am
Michelle Mascorro DO [Family Provider] - in one week
Prescriptions:
New
clopidogrel 75 mg Tablet
75 mg PO DAILY Qty: 30 2RF
Insulin Glargine Lantus [Lantus] 12 UNITS
Subcutaneous Insulin Syringe [Syringe-Insulin] 0 UNIT
As Directed mls/hr SC HS
Ordered By: Sandor Walton MD
Last Taken: 07/06/24 21:49 0.12 mls
cephalexin 750 mg capsule
750 mg PO Q8H 5 Days Qty: 15 0RF
Rx Instructions:
Last dose 07/12 Evening
Continued
atorvastatin 40 mg Tablet
40 mg PO HS
acetaminophen [Tylenol] 325 mg Tablet
650 mg PO Q6HPRN MDD 3000 mg PRN (Reason: mild/mod pain, temp>100.4)
ammonium lactate 12 % Lotion
1 applic TOPICAL QPM
polyethylene glycol 3350 [Miralax] 17 gram Powder In Packet
17 g PO DAILYPRN PRN (Reason: if no BM)
oxcarbazepine 300 mg tablet
300 mg PO BID
melatonin 3 mg Tablet
3 mg PO HS
magnesium hydroxide [Milk of Magnesia] 400 mg/5 mL Suspension
30 ml PO DAILYPRN PRN (Reason: constipation)
calcium carbonate 500 mg calcium (1,250 mg) Tablet
500 mg PO BID
levothyroxine 50 mcg tablet
50 mcg PO DAILY
bisacodyl 10 mg Suppository
10 mg VA DAILYPRN PRN (Reason: constipation not rel by MOM)
pantoprazole 40 mg tablet,delayed release (DR/EC)
40 mg PO Q12H
metformin 1,000 mg tablet
1,000 mg PO BID
divalproex 125 mg tablet,delayed release (DR/EC)
125 mg PO BID
sodium phosphates 19-7 gram/118 mL Enema
118 ml VA DAILYPRN PRN (Reason: if no result after bisacodyl supp)
insulin lispro 100 unit/mL solution
0 sliding scale dose SC ACHS
Rx Instructions:
BS 200-250=3 units, 251-300=6 units, 301-350=9 units, 351-400=12 units
risperidone 0.5 mg tablet
0.5 mg PO BID
cholecalciferol (vitamin D3) 125 mcg (5,000 unit) Tablet
125 mcg PO DAILY
aspirin 81 mg Tablet,Delayed Release (Dr/Ec)
81 mg PO DAILY Qty: 0 0RF
gabapentin 100 mg Capsule
100 mg PO TID Qty: 0 0RF
oxycodone 10 mg Tablet
10 mg PO Q4HPRN PRN (Reason: moderate pain) Qty: 10 0RF
cyanocobalamin (vitamin B-12) 1,000 mcg Tablet Extended Release
1,000 mcg PO DAILY
thiamine HCl (vitamin B1) 100 mg Tablet
100 mg PO DAILY
therapeutic multivitamin Tablet
1 tab PO DAILY
pyridoxine (vitamin B6) tablet
1.5 mg PO DAILY
loperamide 2 mg tablet
2 mg PO Q4HPRN MDD 8 mg PRN (Reason: loose stool)
Discontinued
insulin glargine [Lantus U-100 Insulin] 100 unit/mL solution
20 unit SC HS
insulin lispro 100 unit/mL solution
10 unit SC MEALS
Discharge Orders:
Discharge Patient (As Directed); Ordered 07/07/24
Ordered By: Sandor Walton
Discharge Date and Time
Print Language: SOU[place] KORE[place]
[2024-07-07 17:00] LABS: Glucose - Point of Care 135 mg/dl (70-99)
[2024-07-07] MEDS: NOVOLOG FLEXPEN-LOW RESISTANCE SC (17:02)
== END 2024-07-07 18:01 | DRG 853 ==
LOC: 3 WEST ACU 00:41
PROVIDERS: Clinical Nurse Specialist Family Health; ADMITTING PHYSICIAN Hospitalist; ATTENDING PHYSICIAN Hospitalist; EMERGENCY PHYSICIAN Emergency Medicine; FAMILY PHYSICIAN Internal Medicine; OTHER PHYSICIAN Surgery Vascular Surgery
PROC: B41C1ZZ Fluoroscopy of Pelvic Arteries using Low Osmolar Contrast (ICD-10-PCS; 2024-07-04)
PROC: 0JBM0ZZ Excision of Left Upper Leg Subcutaneous Tissue and Fascia, Open Approach (ICD-10-PCS; 2024-07-04)
PROC: 04FK3ZZ Fragmentation of Right Femoral Artery, Percutaneous Approach (ICD-10-PCS; 2024-07-04)
PROC: B41F1ZZ Fluoroscopy of Right Lower Extremity Arteries using Low Osmolar Contrast (ICD-10-PCS; 2024-07-04)
PROC: 047T3ZZ Dilation of Right Peroneal Artery, Percutaneous Approach (ICD-10-PCS; 2024-07-04)
PROC: 04FT3ZZ Fragmentation of Right Peroneal Artery, Percutaneous Approach (ICD-10-PCS; 2024-07-04)
PROC: 04FM3ZZ Fragmentation of Right Popliteal Artery, Percutaneous Approach (ICD-10-PCS; 2024-07-04)
PROC: 047P3ZZ Dilation of Right Anterior Tibial Artery, Percutaneous Approach (ICD-10-PCS; 2024-07-04)
PROC: B4101ZZ Fluoroscopy of Abdominal Aorta using Low Osmolar Contrast (ICD-10-PCS; 2024-07-04)
PROC: 3E02340 Introduction of Influenza Vaccine into Muscle, Percutaneous Approach (ICD-10-PCS; 2024-07-07)
DX: A41.59 Other Gram-negative sepsis (principal); R65.21 Severe sepsis with septic shock; F03.93 Unspecified dementia, unspecified severity, with mood disturbance; I69.351 Hemiplegia and hemiparesis following cerebral infarction affecting right dominant side; I47.10 Supraventricular tachycardia, unspecified; L97.319 Non-pressure chronic ulcer of right ankle with unspecified severity; D62 Acute posthemorrhagic anemia; E11.51 Type 2 diabetes mellitus with diabetic peripheral angiopathy without gangrene; I70.233 Atherosclerosis of native arteries of right leg with ulceration of ankle; D63.8 Anemia in other chronic diseases classified elsewhere; F32.9 Major depressive disorder, single episode, unspecified; I10 Essential (primary) hypertension; I25.10 Atherosclerotic heart disease of native coronary artery without angina pectoris; F25.9 Schizoaffective disorder, unspecified; B96.1 Klebsiella pneumoniae [K. pneumoniae] as the cause of diseases classified elsewhere; K21.9 Gastro-esophageal reflux disease without esophagitis; E03.9 Hypothyroidism, unspecified; E11.649 Type 2 diabetes mellitus with hypoglycemia without coma; E78.00 Pure hypercholesterolemia, unspecified; E83.42 Hypomagnesemia; T87.54 Necrosis of amputation stump, left lower extremity; Y83.5 Amputation of limb(s) as the cause of abnormal reaction of the patient, or of later complication, without mention of misadventure at the time of the procedure; Y92.9 Unspecified place or not applicable; Z66 Do not resuscitate; Z60.2 Problems related to living alone; Z89.612 Acquired absence of left leg above knee; Z87.891 Personal history of nicotine dependence; Z79.4 Long term (current) use of insulin; Z88.1 Allergy status to other antibiotic agents; Z88.0 Allergy status to penicillin; Z88.2 Allergy status to sulfonamides; Z88.8 Allergy status to other drugs, medicaments and biological substances; Z79.890 Hormone replacement therapy; Z79.84 Long term (current) use of oral hypoglycemic drugs; Z79.82 Long term (current) use of aspirin; Z74.01 Bed confinement status; Z23 Encounter for immunization
CPT/HCPCS: 11042; 73600; 75625; 75716; 80048; 80053; 80164; 82962; 83036; 83605; 83735; 85025; 85027; 87070; 87077; 87147; 87186; 87205; 96365; 96366; 96375; 97163; 97167; 97530; 99285; C1725; C1769; C1894; C9764; C9772

== ENCOUNTER 2024-08-30 16:16 | Inpatient (IN) | payer OTHER, SELFPAY ==
[2024-08-30] VITALS (14 sets, daily range): BP systolic 109–167; BP diastolic 61–85; BMI 30.3; BMI 30.7
[2024-08-30 13:33] LABS: % Basophils 0.5 % (0-2); % Eosinophils 0.8 % (0-6); % Immature Granulocytes 0.3 % (0-0.5); % Lymphocytes 24.3 % (20.5-51.1); % Monocytes 5.4 % (1.7-9.3); % Neutrophils 68.7 % (42.2-75.2); Absolute Eosinophils 0.1 10^3/uL (0-0.7); Absolute Lymphocytes 1.9 10^3/uL (1.2-3.4); Absolute Monocytes 0.4 10^3/uL (0.1-0.6); Absolute Neutrophils 5.5 10^3/uL (1.4-6.5); Hematocrit 37.7 % (37.0-47.0); Hemoglobin 11.6 g/dL (12.0-16.0); Mean Corp Hgb Conc. 30.8 g/dL (33.0-37.0); Mean Corpuscular Hgb 25.8 pg (27.0-31.0); Mean Corpuscular Volume 83.8 fL (81.0-99.0); Mean Platelet Volume 10.9 fL (7.4-10.4); Nucleated Red Blood Cells % 0 %; Platelet Count 280 10^3/uL (130-400); Red Cell Dist. Width 16.8 % (11.5-14.5); White Blood Cell Count 7.9 10^3/uL (4.8-10.8)
--- NOTE | 2024-08-30 13:34 | CON.VAS ---
Consultation
Consultation Request
Date/Time Consultation Performed: 08/30/2024 1330
Requesting Provider: Akbar Ordaz MD
Performing Provider: Amy Gonzalez NP-C for Hardik Melara MD
Reason for Consultation: Left lower extremity AKA surgical wound with purulent drainage
Medical History
-
Chief Complaint: Left AKA surgical incision dehiscence
History of Present Illness:
This is a 63-year-old female significant past medical history of stroke, GERD, hypertension, hypothyroidism, diabetes, and schizoaffective disorder who reports to [facility] from her nursing facility with reports of increased malodorous and
purulent drainage from left AKA surgical site. Patient is well-known to our practice, and list of past vascular surgical interventions are below. She is a poor historian and HPI is contributed by chart review. She was last hospitalized from
07/04/24-07/07/[address] [facility] and underwent endovascular mention to right lower extremity for chronic right malleolus wound and left AKA debridement for nonhealing surgical site. She then followed up in our office as scheduled on
07/18/2024 with Ranjana Choudhary PA-C, at that time she was ordered a CT with IV dye of left lower extremity and arterial ultrasound with ELLIOT/TBI for right lower extremity and provided with a close interval follow-up appointment. However,
following this appointment patient's care home facility continued to cancel any additional appointments and did not bring patient in for ordered testing. There are multiple documented attempts at contacting care home facility, [facility], by our office staff including our office machine servicer. Once they were finally able to reach nursing facility staff they were told that all appointments and ordered studies have been canceled due to patient no longer having insurance,
and that the care home facility would be providing wound care. There is documentation in our outpatient charting system [facility] that as of 08/28/2024 per care home facility patient still was uninsured but that wound was recently debrided and
demonstrated ' pink healthy tissue.' Patient cannot further elaborate on whether or not she had a debridement done to left AKA site or if she has been receiving wound care at the care home facility. She denies nausea, vomiting, fever, chills,
chest pain, palpitations, cough, shortness of breath, and/or abdominal pain. Her only complaint is pain at left lower extremity AKA site.
Past vascular surgical history:
05/30/2024- Duplex assisted right common femoral artery cannulation. Aortogram and pelvic angiogram. Left lower extremity arteriogram. Standard balloon angioplasty left peroneal artery (extensive angioplasty) with 2 mm and 2.5 mm angioplasty
balloon. Shockwave intravascular lithotripsy angioplasty left peroneal artery with 2.5 mm shockwave angioplasty balloon. Left popliteal artery angioplasty with 4 mm angioplasty balloon. Right femoral angiogram. - Hardik Melara MD
05/31/2024- Left above the knee amputation- Hardik Melara MD
07/04/2024- Intravascular lithotripsy to right peroneal artery stenosis (2.5 mm x 80 mm E8 shockwave balloon). Balloon angioplasty of distal peroneal artery and posterior ankle branch (2 mm x 80 mm angioplasty balloon). Balloon angioplasty of distal
right anterior tibial artery and dorsalis pedis artery (2 mm x 20 mm; 2 mm x 80 mm angioplasty balloons). Intravascular lithotripsy to right popliteal artery and distal superficial femoral artery (6 mm x 80 mm E8 shockwave balloon). Diagnostic
aortobiiliac arteriogram. Diagnostic right lower extremity arteriogram. Sharp excisional debridement of left above-knee amputation wound including skin and subcutaneous tissue (wound dimensions 3.5 cm x 2 cm)- Juan Carlos Min III, MD
RLE wound
Left AKA site
Past Medical History
Past Medical History: CVA (right hemiplegia 10/03/2022), GERD, HTN, Hypothyroidism, NIDDM, Psychiatric (Schizoaffective) and Other (Seizures, HLD, Iron deficiency anemia, Hypomagnesemia, Class I obesity)
Past Surgical History: Cholecystectomy
Social History
Tobacco: Former Smoker
Alcohol: None
Drug: None
Living: Half-Way ([facility])
Employment: Disabled
Family History
Family History: Reviewed & Not Pertinent
Allergies / Home Medications
Allergy/AdvReac Type Severity Reaction Status Date / Time
Barbiturates Allergy Hives Verified 08/30/24 13:01
cefaclor [From Ceclor] Allergy Hives Verified 08/30/24 13:01
Penicillins Allergy Unknown Verified 08/30/24 13:01
Sulfa (Sulfonamide Allergy Hives Verified 08/30/24 13:01
Antibiotics)
�Medication �Instructions �Recorded �Confirmed �Type
acetaminophen 325 mg tablet 650 mg PO Q6HPRN PRN mild/mod 05/29/24 07/03/24 History
(Tylenol) pain, temp>100.4
ammonium lactate 12 % lotion 1 applic topical QPM b/l feet 05/29/24 07/03/24 History
atorvastatin 40 mg tablet 40 mg PO HS High Cholesterol 05/29/24 07/03/24 History
bisacodyl 10 mg rectal suppository 10 mg SD DAILYPRN PRN constipation 05/29/24 07/03/24 History
not rel by MOM
calcium carbonate 500 mg PO BID Supplement 05/29/24 07/03/24 History
cholecalciferol (vitamin D3) 125 125 mcg PO DAILY Supplement 05/29/24 07/03/24 History
mcg (5,000 unit) tablet
divalproex 125 mg tablet,delayed 125 mg PO BID behavior management 05/29/24 07/03/24 History
release
insulin lispro 100 unit/mL 0 sliding scale dose SC ACHS 05/29/24 07/03/24 History
subcutaneous solution Diabetes
levothyroxine 50 mcg tablet 50 mcg PO DAILY Thyroid 05/29/24 07/03/24 History
magnesium hydroxide 400 mg/5 mL 30 ml PO DAILYPRN PRN constipation 05/29/24 07/03/24 History
oral suspension (Milk of Magnesia)
melatonin 3 mg tablet 3 mg PO HS sleeplessness 05/29/24 07/03/24 History
metformin 1,000 mg tablet 1,000 mg PO BID Diabetes 05/29/24 07/03/24 History
oxcarbazepine 300 mg tablet 300 mg PO BID mental health 05/29/24 07/03/24 History
pantoprazole 40 mg tablet,delayed 40 mg PO Q12H reflux 05/29/24 07/03/24 History
release
polyethylene glycol 3350 17 gram 17 g PO DAILYPRN PRN if no BM 05/29/24 07/03/24 History
oral powder packet (Miralax)
risperidone 0.5 mg tablet 0.5 mg PO BID Depression 05/29/24 07/03/24 History
sodium phosphates 19 gram-7 118 ml SD DAILYPRN PRN if no 05/29/24 07/03/24 History
gram/118 mL enema result after bisacodyl supp
aspirin 81 mg tablet,delayed 81 mg PO DAILY Stroke #0 tabs 06/06/24 07/03/24 Rx
release
gabapentin 100 mg capsule 100 mg PO TID Pain #0 caps 06/06/24 07/03/24 Rx
oxycodone 10 mg tablet 10 mg PO Q4HPRN PRN moderate pain 06/06/24 07/03/24 Rx
#10 tabs
cyanocobalamin (vitamin B-12) 1,000 mcg PO DAILY Supplement 07/03/24 07/03/24 History
1,000 mcg tablet,extended release
loperamide 2 mg tablet 2 mg PO Q4HPRN PRN loose stool 07/03/24 07/03/24 History
pyridoxine (vitamin B6) 1.5 mg PO DAILY Supplement 07/03/24 07/03/24 History
therapeutic multivitamin 1 tab PO DAILY Supplement 07/03/24 07/03/24 History
thiamine HCl (vitamin B1) 100 mg 100 mg PO DAILY Supplement 07/03/24 07/03/24 History
tablet
Insulin Glargine Lantus As Directed mls/hr SC HS 07/07/24 Rx
[Lantus] 12 units
cephalexin 750 mg capsule 750 mg PO Q8H 5 days #15 caps 07/07/24 Rx
clopidogrel 75 mg tablet 75 mg PO DAILY #30 tabs 07/07/24 Rx
Review of Systems
-
History Source: Patient (full review of systems challenging as patient is a poor historian)
Constitutional: Reports No Symptoms
EENT: Reports No Symptoms
Respiratory: Reports No Symptoms
Cardiac: Reports No Symptoms
Abdomen/GI: Reports No Symptoms
: Reports No Symptoms
Musculoskeletal: Reports No Symptoms
Skin: Reports Other (left AKA site pain)
Neurological: Reports No Symptoms
Endocrine: Reports No Symptoms
Physical Exam
Vital Signs
Temp Pulse Resp BP Pulse Ox
99.1 F 74 14 119/62 97
08/30/24 12:59 08/30/24 13:00 08/30/24 13:00 08/30/24 13:00 08/30/24 13:00
Lab Results
08/30/24 13:07
Physical Exam
General: No Apparent Distress
HEENT: Normocephalic, Anicteric and Atraumatic
Respiratory: Non Labored Respirations
Cardiac: Negative JVD
GI: Soft, Non Tender and Non Distended
Musculoskeletal: Edema (generalized lower extremity +1 edema )
Skin: Other (Left lower extremity AKA surgical incision with dehiscence at lateral end with purulent drainage, tenderness with palpation. Chronic right malleolus wound. Patient refused pulse exam at this time.)
Neuro: Awake
Assessment / Plan
-
Assessment: 63-year-old female with significant peripheral arterial disease, status post left AKA with continued nonhealing surgical site
Plan:
Will obtain CTA angio with runoff to assess inflow aortoiliac disease possibly contributing to poor wound healing, tentatively placed on OR schedule for tomorrow 08/31/2024 for incision and drainage and washout of left AKA site possible wound VAC
placement
N.p.o. after midnight
Agree with initiation of antibiotics and consultation to infectious disease
I performed this shared service with the attending. I evaluated the patient [id number] and have entered clinical documentation as shown in the encounter note. I performed the following component(s):�history and physical exam. Note that medical
decision making is not final until attested by vascular attending.
[2024-08-30 13:46] LABS: Lactic Acid 4.6 mmol/L (0.7-2.0)
--- NOTE | 2024-08-30 13:46 | ED.GENMED ---
History of Present Illness
General
Chief Complaint: Wound Check/Suture Removal
Source: records
Time Seen by Provider: 08/30/24 12:45
History of Present Illness
History of Present Illness:
63-year-old female sent in for drainage and malodorous drainage from the left stump. Time course unknown. Patient without acute medical complaints.
Past History
Past History
ED Past Medical History: CVA (Right sided weakness), Hypercholesterolemia, IDDM, Hypothyroidism, Psychiatric (Schizo) and Other (PNA, IBS, Dementia)
ED Past Surgical History: Orthopedic (Left AKA) and Other
Social History
Tobacco: Former smoker
Alcohol: None
Personal: Single
Living: jail ([facility])
Employment: Employed
Phy Exam
Physical Exam
Physical Exam:
GENERAL: Alert. Will answer simple questions. Chronically ill-appearing
EYE: Orbits normal.
NECK: Supple, no significant adenopathy.
ENT: Pharynx without erythema
CARDIAC: Regular rate and rhythm without any obvious murmurs.
LUNGS: Clear breath sounds,normal
ABDOMEN: Soft, without focal tenderness or distention
NEUROLOGICAL: Alert. Weakness to the right arm
SKIN: Warm and dry
MUSCULOSKELETAL: Left AKA with large open wound with purulent malodorous drainage. Right lower leg with reasonable the skin color and capillary refill. Contracture right arm
PSYCH: Normal and appropriate interaction.
Course
Orders/Labs/Results
Orders:
Orders
08/30/24 13:07
Complete Blood Count/With Diff Urgent
Lactic Acid Urgent
Blood Culture Urgent
JAMISON Source: Blood/Venous
Specimen Description:
Date Specimen was Collected: 08/30/24
Time Specimen was Collected: 13:05
Wound Culture [Wound/Abscess/Other Culture] Urgent
JAMISON Source: Leg
Specimen Description: Left
Date Specimen was Collected: 08/30/24
Time Specimen was Collected: 13:05
Comment: Left Stump/Surgical Site
08/30/24 13:09
Blood Culture Urgent
JAMISON Source: Blood/Venous
Specimen Description:
08/30/24 13:29
CT Abd Aorta Angio W/ Run Off Urgent
Comment:
Reason For Exam: LLE AKA wound, r/o inflow arterial disease
08/30/24 13:54
IV Insert/Care/Rem.- Treatment PRN
0.9% Sodium Chloride 1000 ml [Nss] 1,600 ml IV NOW STA
08/30/24 14:04
Piperacillin/Tazo 3.375 Gram [Zosyn] 3.375 gram in 50 ml IV NOW
08/30/24 14:10
Vancomycin [Vancocin] 2,000 mg 0.9% Sodium Chloride 500 ml [Nss] 500 ml IV NOW
08/30/24 14:28
Add On- LAB Urgent
Tests Added?: mag
08/30/24 14:38
Acetaminophen [Tylenol] 650 mg PO Q6HPRN PRN
HYDROmorphone [Dilaudid] 1 mg IV Q4HPRN PRN
Oxycodone/Acetaminophen [Percocet 5/325] 1 tablet PO Q4HPRN PRN
08/30/24 14:39
Admit/Transfer Patient As Directed
Co-Sign Provider:
Level of Care: Inpatient admission
Assign to:: Telemetry
Physician / Group: krish dawkins
Diagnosis: LLE residual Limb infection, r ankle woun, sacral wound
Reason for Telemetry: Arrhythmia
Date to Stop Telemetry: 09/02/24
Time to Stop Telemetry: 11:00
Reason for Hospitalization: LLE residual Limb infection, r ankle woun, sacral wound
Expected length of stay greater than two midnights?: Yes
ELOS- Estimated Length of Stay in days: 5
I certify the patient meets the requirements for IP care: Yes
08/30/24 14:40
Code Status As Directed
Resuscitation Status: Full Code
08/30/24 14:45
PRN Pain Medication Management As Directed
May give lesser potent ordered pain med per pt: Yes
preference::
Protocol:: Medication orders for pain may be administered in a
manner that supports deferring to patient preference
when the pt is:
- Requesting an ordered lesser potent pain medication.
Least to most potent pain medications are defined
as: acetaminophen < NSAID < tramadol < opioids
(morphine, oxycodone, hydromorphone).
- Requesting a lesser dose of the same medication IF
ORDERED.
- Requesting a less intrusive route of administration
if both routes are prescribed by the provider (PO <
IV).
08/30/24 Dinner
1800 calorie (15 carb) Diabetic
At Your Request: Full Participation
Does patient need a safe tray?: No
08/30/24 15:10
Comprehensive Metabolic Panel Urgent
08/30/24 17:52
0.9% Sodium Chloride 1000 ml [Nss] 1,000 ml IV 60 mls/hr
Dextrose 50%-Water [Dextrose 50% Syringe] 12.5 grams IV [id number] PRN
Glucagon [GlucaGen] 1 mg IM PRN PRN
Insulin Aspart Corrective Low [Novolog Flexpen-Low Resistance] See Protocol SC AC
Ondansetron Injectable [Zofran] 4 mg IV Q6HPRN PRN
08/30/24 17:52
Consult Vascular Surgery [Vascular Surgery Consult] Routine
Consulting Provider: Hardik Melara
Was physician already notified: Yes
Reason for consult: left AKA open residual limb with malodorous purulent drainage
Activity As Directed
Activity Level: With Assistance
Comment: pt bedbound
Bedside Glucose Monitoring As Directed
Frequency: AC&HS
Additional Instructions:: Change to q6h if pt on TPN, tube feeding or not eating
Intake/ Output As Directed
Frequency: Per unit guidelines
Vital Signs As Directed
Frequency: Per unit guidelines
DX Deep Vein Thrombosis Video Routine
08/30/24 18:00
MetroNIDAZOLE 500 MG/100 ML [Flagyl 500 mg] 100 ml IV Q8H
08/30/24 20:00
Heparin 5,000 units SC Q12
Piperacillin/Tazo 3.375 Gram [Zosyn] 3.375 gram in 50 ml IV Q6H
08/31/24 Breakfast
NPO
Allow oral meds: Yes
Allow clear liquids: No
NPO with Ice Chips: No
08/31/24 07:43
Complete Blood Count/With Diff IN AM
Comprehensive Metabolic Panel IN AM
Glycohemoglobin (HgbA1c) IN AM
09/01/24 05:34
Comprehensive Metabolic Panel IN AM
09/02/24 07:02
Comprehensive Metabolic Panel IN AM
09/02/24 07:03
Complete Blood Count/With Diff IN AM
09/02/24 11:00
DC Protocol for Telemetry ONCE
09/03/24 05:01
Complete Blood Count/With Diff IN AM
Comprehensive Metabolic Panel IN AM
09/04/24 06:11
Complete Blood Count/With Diff IN AM
Comprehensive Metabolic Panel IN AM
Abnormal Lab Results
08/30/24 08/30/24
13:07 15:10
Hgb 11.6 L g/dL
(12.0-16.0)
MCH 25.8 L pg
(27.0-31.0)
MCHC 30.8 L g/dL
(33.0-37.0)
RDW 16.8 H %
(11.5-14.5)
MPV 10.9 H fL
(7.4-10.4)
Carbon Dioxide 21 L mmol/L
(22-30)
BUN 30 H mg/dl
(7-17)
Glucose 104 H mg/dl
(70-99)
Lactic Acid 4.6 H* mmol/L
(0.7-2.0)
Calcium 7.7 L mg/dl
(8.4-10.2)
Total Bilirubin 0.1 L mg/dl
(0.2-1.3)
Total Protein 5.6 L g/dl
(6.3-8.2)
Albumin 3.0 L g/dl
(3.5-5.0)
08/30/24 13:07
08/30/24 15:10
Vital Signs
Initial and Last Documented VS:
Initial Vital Signs
BP
150/65
08/30/24 12:36
Last Documented Vital Signs
Temp Pulse Resp BP Pulse Ox
98.4 F 95 18 121/74 98
09/04/24 07:05 09/04/24 07:05 09/04/24 07:05 09/04/24 07:05 09/04/24 07:05
MDM/Problems Addressed
Differential Diagnosis Includes:
Purulent drainage from the left AKA stump. Infection. Lactic acid elevated. Fluids antibiotics. Discussed possible penicillin allergy with pharmacy. Reasonable to give Zosyn. Admit to hospitalist. Also referred to vascular surgery
*Pulse Oximetry
Patient hypoxic: no
*Critical Care Note
Total Time (30-74mins, 75-104mins- exclusive of procedures): Not Applicable
Data Reviewed
Review of Other/Old Records Reveals: Labs, Records, Radiology Studies, Operative Reports, Testing and Discharge Summary
Update Note
Update Note:
Reviewed with vascular surgery who evaluated the patient. Also reviewed allergies with pharmacy. Patient only had a rash from penicillin in the past. Feel Zosyn is reasonable.
ED Attending Note
-
Portions of this chart may have been created with voice recognition software.� Occasional wrong word or��sound alike� substitutions may have occurred due to the inherent limitations of voice recognition software.
Discharge Plan
Departure
Patient Disposition: Admit
Date of Disposition: 08/30/24
Time of Disposition: 13:56
Presentation/result/management discussed w/ accepting MD/DO: Hospitalist
Discharge Problem:
Left AKA stump infection, Possible sepsis
Interventions
Interventions:
*General Assessment Last Done: 08/30/24 13:02
*Neglect/Abuse Screening Last Done: 08/30/24 12:36
ED- Fall Risk Assessment Last Done: 08/30/24 12:36
*Nursing Disposition Last Done: 08/30/24 17:51
ED-Skin Assessment Last Done: 08/30/24 13:03
Discharge Date and Time
Discharge Date/Time: 08/30/24 17:52
--- NOTE | 2024-08-30 14:00 | HPS.HSE ---
Addendum entered and electronically signed by DANIEL Osborn 08/30/24 16:02:
DIET:
1800 ADA diet tonight 08/30/2024
N.p.o. after midnight for washout left residual limb in a.m. 08/31/[address] Melara
Original Note:
Family Physician
-
Family Physician: Michelle Mascorro,
Chief Complaint
-
Left leg residual limb malodorous purulent drainage with pain x 2 days
History of Present Illness
63-year-old female from [facility] with malodorous white purulent drainage from left AKA residual limb. She had history of left residual limb amputation site eschar with debridement 07/04/2024 culture grew Klebsiella pneumonaie
sensitive to cephalosporin due to a course oral Keflex(surgery did require vasopressor support. Patient is yelling and shouting while IV attempts. She reports she has been having left residual limb pain for the past couple days along with Right
ankle pain at the site of her acute on chronic open malleolus wound. Nurse reports she has a stage II sacral ulcer when rolled onto his side. She denies headache, fever, chills, chest pain, palpitations, cough, shortness of breath, abdominal pain,
nausea, vomiting, diarrhea, urinary symptoms.
She has past medical history PAD, left AKA May 2024, residual limb eschar requiring debridement June 2024, right malleoli are wound that underwent right lower extremity angioplasty June 2024, right open malleolus wound, sacral stage II
wound, DM2, diabetic retinopathy hypothyroidism, mood disorder, GERD, iron deficiency anemia, chronic bedbound status, CVA with right hemiparesis 10/03/2022, hypothyroidism, hypomagnesemia, class I obesity multifactorial.
Medical History
Past Medical History
Past Medical History: Reports Other
Additional Past Medical History:
PAD
History of left residual limb amputation site eschar with debridement 07/14/2024 culture grew Klebsiella pneumonaie sensitive to cephalosporin due to a course oral Keflex(surgery did require vasopressor support
Right malleolar wound 07/04/2024
CVA with right hemiplegia 10/03/2022
Hypertension
HLD
DM-II
Diabetic retinopathy
Schizoaffective Disorder/mood disorder
Hypothyroidism
GERD
Iron deficiency anemia
Hypomagnesemia
Class I obesity
Bedbound versus wheelchair patient denies getting out of bed even with Casey
Past Surgical History: Reports Other
Additional Past Surgical History:
L AKA (05/31/24)
LLE Angio (without stent)
Lap Gisela
History of left residual limb amputation site eschar with debridement 07/14/2024 culture grew Klebsiella pneumonaie sensitive to cephalosporin due to a course oral Keflex(surgery did require vasopressor support
Right malleolar wound
07/04/2024 right SFA/pop/right anterior tibial/right peritoneal artery balloon angioplasty
Social History
Tobacco: Former Smoker
Alcohol: None
Drug: None
Living: Prison ([facility])
Employment: Disabled
Family History
Family History: Other (Patient reports 1 older brother 1 younger sister Rina unsure of health)
Allergies / Home Medications
Allergies reflects when Allergies were last updated in [employer]
Home Medications with original date entered in [employer].
Allergy/Medication List:
Allergies
Allergy/AdvReac Type Severity Reaction Status Date / Time
Barbiturates Allergy Hives Verified 08/30/24 13:01
cefaclor [From Ceclor] Allergy Hives Verified 08/30/24 13:01
Penicillins Allergy Rash Verified 08/30/24 14:03
Sulfa (Sulfonamide Allergy Hives Verified 08/30/24 13:01
Antibiotics)
peanut AdvReac Unknown Pharmacy Verified 08/30/24 14:20
to Review
Home Medications
acetaminophen 325 mg tablet (Tylenol) 650 mg PO Q6HPRN PRN mild/mod pain, temp>100.4 05/29/24
ammonium lactate 12 % lotion 1 applic topical QPM b/l feet 05/29/24
atorvastatin 40 mg tablet 40 mg PO HS High Cholesterol 05/29/24
bisacodyl 10 mg rectal suppository 10 mg NV DAILYPRN PRN constipation not rel by MOM 05/29/24
calcium carbonate 500 mg PO BID Supplement 05/29/24
cholecalciferol (vitamin D3) 125 mcg (5,000 unit) tablet 125 mcg PO DAILY Supplement 05/29/24
divalproex 125 mg tablet,delayed release 125 mg PO BID behavior management 05/29/24
insulin lispro 100 unit/mL subcutaneous solution 0 sliding scale dose SC ACHS Diabetes 05/29/24
levothyroxine 50 mcg tablet 50 mcg PO DAILY Thyroid 05/29/24
magnesium hydroxide 400 mg/5 mL oral suspension (Milk of Magnesia) 30 ml PO DAILYPRN PRN constipation 05/29/24
melatonin 3 mg tablet 3 mg PO HS sleeplessness 05/29/24
metformin 1,000 mg tablet 1,000 mg PO BID Diabetes 05/29/24
oxcarbazepine 300 mg tablet 300 mg PO BID mental health 05/29/24
pantoprazole 40 mg tablet,delayed release 40 mg PO Q12H reflux 05/29/24
polyethylene glycol 3350 17 gram oral powder packet (Miralax) 17 g PO DAILYPRN PRN if no BM 05/29/24
risperidone 0.5 mg tablet 0.5 mg PO BID Depression 05/29/24
sodium phosphates 19 gram-7 gram/118 mL enema 118 ml NV DAILYPRN PRN if no result after bisacodyl supp 05/29/24
aspirin 81 mg tablet,delayed release 81 mg PO DAILY Stroke #0 tabs 06/06/24
gabapentin 100 mg capsule 100 mg PO TID Pain #0 caps 06/06/24
oxycodone 10 mg tablet 10 mg PO Q4HPRN PRN moderate pain #10 tabs 06/06/24
cyanocobalamin (vitamin B-12) 1,000 mcg tablet,extended release 1,000 mcg PO DAILY Supplement 07/03/24
loperamide 2 mg tablet 2 mg PO Q4HPRN PRN loose stool 07/03/24
pyridoxine (vitamin B6) 1.5 mg PO DAILY Supplement 07/03/24
therapeutic multivitamin 1 tab PO DAILY Supplement 07/03/24
thiamine HCl (vitamin B1) 100 mg tablet 100 mg PO DAILY Supplement 07/03/24
Insulin Glargine Lantus [Lantus] 12 units As Directed mls/hr SC HS 07/07/24
clopidogrel 75 mg tablet 75 mg PO DAILY #30 tabs 07/07/24
Santyl 250 units topical DAILY 08/30/24
Review of Systems
-
History Source: Patient, Prison (Record) and Other (Nursing report)
Constitutional: Denies Fever or Chills
EENT: Denies Tearing or Runny Nose
Respiratory: Denies Cough or Trouble Breathing
Cardiac: Denies Chest Pain, Palpitations or Syncope
Abdomen/GI: Denies Abdominal Pain, Nausea, Vomiting, Diarrhea, Constipated or Bloody Stools
: Denies Dysuria, Frequency, Flank Pain, Incontinence, Difficulty Voiding or Urgency
Musculoskeletal: Reports Joint Pain (Left residual limb malodorous purulent white cloudy drainage, right acute on chronic malleolar stage II wound, stage II sacral wound)
Skin: Denies Itching or Rash
Neurological: Denies Dizzy, Headache or Weakness
Endocrine: Reports No Symptoms
Hematologic/Lymphatic: Reports No Symptoms
Psych: Reports Anxiety (When IV attempts or left leg is moved)
Physical Exam
Vital Signs
Vital Signs
Temp Pulse Resp BP Pulse Ox
99.1 F 74 14 119/62 97
08/30/24 12:59 08/30/24 13:00 08/30/24 13:00 08/30/24 13:00 08/30/24 13:00
Physical Exam
General: Conversant, Pain and Obese; No Fever or Chills
HEENT: NormoCephalic, Anicteric, PERRLA, [place] Conjunctivae and No Ptosis
Respiratory: Clear; No Wheezes, Rales or Rhonchi
Cardiac: S1/S2 and Regular Rhythm; No Murmur, Rub, Gallop or Peripheral Edema (Right lower extremity)
GI: Soft, Non Tender, Non Distended, Normal Bowel Sounds and No Hepatosplenomegaly
Rectal: Deferred by Provider
Genito-urinary: Deferred by me
Musculoskeletal: No Clubbing, No Cyanosis, Edema, Left Lower Extremity (Left residual limb malodorous purulent white cloudy drainage, right acute on chronic malleolar stage II wound, stage II sacral wound) and Other (Right malleolus acute on chronic
open ulceration stage II); No Edema, Left Upper Extremity or Edema, Right Upper Extremity
Skin: Warm, Dry and Ulcers (Left residual limb malodorous purulent white cloudy drainage, right acute on chronic malleolar stage II wound, stage II sacral wound); No Rash
Neuro: Awake, Alert, Oriented (To name, place of living, address some of history able to tell review of systems however screams in pain with IV attempts), Cranial Nerves Intact and No Sensory Deficits; No Slurred Speech, Facial Droop, Tremors or
Sedated
Psych: Anxious
Laboratory Results
-
08/30/24 13:07
Laboratory Results
Lactic Acid 4.6 mmol/L (0.7-2.0) H* 08/30/24 13:07
Total Bilirubin Cancelled 08/30/24 13:07
AST Cancelled 08/30/24 13:07
ALT Cancelled 08/30/24 13:07
Alkaline Phosphatase Cancelled 08/30/24 13:07
Data Reviewed
-
Lab Data: Labs Reviewed by me
Impression/Plan
-
Impression/plan:
Admit to TELE
#Malodorous wound/drainage LEFT residual limb
#PAD
#Infected left AKA residual limb
#History of left residual limb amputation site eschar with debridement 07/04/2024 culture grew Klebsiella pneumonaie sensitive to cephalosporin due to a course oral Keflex(surgery did require vasopressor support
WBC 7.9, no shift, 99.1, HR 71, 119/62
Lactic acid 4.6 will trend
-Consult Vascular�seen at bedside
-CT abdomen with aorto angio with runoff per vascular
-Consult ID due to multiple drug allergies
-Wound culture
-Blood cultures x 2
-IV vancomycin, IV Zosyn, IV Flagyl (patient has tolerated Keflex on previous admission 07/04/2024)
-Tylenol, Percocet moderate, IV Dilaudid severe pain, bowel regimen
-Continue Plavix 75 mg daily, statin 40 mg at bedtime, aspirin 81 mg daily
-Follow CBC, CMP
#Acute on chronic open right malleolar wound
07/04/2024 right SFA/pop/right anterior tibial/right peritoneal artery balloon angioplasty
-Was applying saline wash with Santyl ointment in a.m.
-Consult wound care also vascular to follow
#Stage II sacral decub due to bedbound status
-Consult wound care
-Continue vitamin B6, B1, B12
#DM-II
#Diabetic retinopathy
-Accu-Cheks with exercise, check HgbA1c
-Continue Lantus 12 units at bedtime
-Hold metformin 1000 mg twice daily
#Schizoaffective Disorder/mood disorder
-Continue Tegretol 300 mg p.o. twice daily, divalproex 125 mg p.o. twice daily
-Continue risperidone 0.5 mg twice daily
#CVA with Right hemiplegia 10/03/2022
#Bedbound versus wheelchair patient denies getting out of bed even with Casey
-Continue Plavix 75 mg daily, statin 40 mg at bedtime, aspirin 81 mg daily
#HLD
-Continue statin 40 mg at bedtime
#Hypothyroidism
-Continue levothyroxine 50 mcg p.o. daily
#GERD
-Continue Protonix 40 mg twice daily
#Iron deficiency anemia
Hgb 11.6, MCV 83.8
#Hypomagnesemia
-Check mag level
#Class I obesity multifactorial bedbound, immobility
-Affects all aspects of care
-Continue 1800 ADA low-fat diet
Insomnia
-Continue melatonin 3 mg at bedtime
DVT prophylaxis
-Subcu heparin
Full code per retirement record [facility] patient emergency contact is her younger sister Tessy Ramirez [phone]
[2024-08-30] MEDS: NSS 1600 ML IV (14:24)
[2024-08-30] MEDS: ZOSYN 50 IV ×2 (14:25→19:17)
[2024-08-30] MEDS: VANCOCIN 540 MG IV (14:28)
--- NOTE | 2024-08-30 14:42 | CON.ID ---
Consultation
-
Date/Time Consultation Requested: August 30, 2024
Date/Time Consultation Performed: August 30, 2024
Requesting Provider: Katie Jones
Performing Provider: Dr. Amy King
Reason for Consultation: AKA stump infection
Chief Complaint / Past History
Chief Complaint
Stump drainage
History of Present Illness
63 year old female from [facility] with hx schizoaffective disorder, DM, PAD s/p left AKA (05/31/24) with clean margin, right ankle wound s/p debridement and RLE endovascular intervention (07/04/24) who presented to ED today with foul smelling discharge
from left stump. After Left aka she had nonhealing necrotic wound on incision debrided in OR 07/04/24 (no purulence identified). Stump wound persisted. Today, left stump wound reportedly drained copious malodorous pus. She was sent to ED. Pt denies
fevers or chills. + stump pain.
Past History
Additional Past Medical History:
DM
HTN
CVA with right hemiparesis
Hypothyroidism
Schizoaffective disorder
PAD
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
Right ankle wound s/p RLE endovascular procedure 07/04/24.
Lap rashid
[facility] resident
Allergy History:
Barbiturates Allergy (Verified 08/30/24 13:01)
Hives
cefaclor [From Ceclor] Allergy (Verified 08/30/24 13:01)
Hives
Penicillins Allergy (Verified 08/30/24 14:03)
Rash
Sulfa (Sulfonamide Antibiotics) Allergy (Verified 08/30/24 13:01)
Hives
peanut Adverse Reaction (Unknown, Verified 08/30/24 14:20)
Pharmacy to Review
Medications Reviewed: Yes
Current Antibiotics:
Vancomycin
Zosyn
Social History
Tobacco: Former Smoker
Alcohol: None
Drug: None
Living: Prison
Family History
Family History: Not Pertinent
Review of Systems
Review of Systems
General: Negative Fever, Chills or Change in Appetite
HEENT: Negative Stiff Neck or Headache
Cardiovascular: Negative Chest Pain
Respiratory: Negative Dyspnea or Cough
Gasteroenterology: Negative Nausea, Vomiting or Diarrhea
Genital / Urological: Negative Dysuria or Flank Pain
Endocrine: Negative Weakness
Vital Signs
Temp Pulse Resp BP Pulse Ox
99.1 F 74 14 119/62 97
08/30/24 12:59 08/30/24 13:00 08/30/24 13:00 08/30/24 13:00 08/30/24 13:00
Physical Exam
Physical Exam
Constitutional: No Acute Distress
Eyes: No Conjunctival Hemorrhage and Sclera Anicteric
Cardiovascular: Regular Rate and S1/S2
Pulmonary: Clear
Gastrointestinal: Soft, Non Tender, Non Distended and Normal Bowel Sounds
Extremities: Negative Edema
Wound: Other (Left AKA stump + large deep cavernous wounds with unhealthy tissue -wet greyish blake)
Neurological: Awake and Alert
Lab / Diagnostic Study Results
08/30/24 13:07
Abs Immat Gran (auto) 0.0 10^3/uL (0-0.05) 08/30/24 13:07
Absolute Neuts (auto) 5.5 10^3/uL (1.4-6.5) 08/30/24 13:07
Absolute Lymphs (auto) 1.9 10^3/uL (1.2-3.4) 08/30/24 13:07
Absolute Monos (auto) 0.4 10^3/uL (0.1-0.6) 08/30/24 13:07
Absolute Basos (auto) 0.0 10^3/uL (0-0.2) 08/30/24 13:07
Immature Gran % 0.3 % (0-0.5) 08/30/24 13:07
Neutrophils % 68.7 % (42.2-75.2) 08/30/24 13:07
Lymphocytes % 24.3 % (20.5-51.1) 08/30/24 13:07
Monocytes % 5.4 % (1.7-9.3) 08/30/24 13:07
Eosinophils % 0.8 % (0-6) 08/30/24 13:07
Basophils % 0.5 % (0-2) 08/30/24 13:07
Lactic Acid 4.6 mmol/L (0.7-2.0) H* 08/30/24 13:07
Microbiology Results
Micro:
08/30/24 13:07 Blood Culture - Pending
Blood/Venous
08/30/24 13:09 Blood Culture - Pending
Blood/Venous
08/30/24 13:07 Wound Culture - Pending
Leg - Left Gram Stain - Pending
Assessment / Plan
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
# PAD
- Vascular following. For CTA
- Agree with Vancomycin and Zosyn for now pending cx data.
#Conditions prior to admission
DM
HTN
CVA with right hemiparesis
Hypothyroidism
Schizoaffective disorder
PAD
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
Right ankle wound s/p RLE endovascular procedure 07/04/24.
Lap rashid
SNF resident
--- NOTE | 2024-08-30 15:26 | W.PN.UPDATE ---
Update Note
Progress Note Update
This is an addendum to the H&P written by Katie Jones on 08/30/2024.� Patient seen and examined independently with [facility].
63-year-old female past medical history of left AKA, PAD, right ankle wound status post angioplasty of RLE, anemia of chronic disease, type 2 diabetes, hypothyroidism, prior CVA, schizoaffective disorder presenting with drainage and malodorous
drainage from the left stump.
Patient underwent left AKA in May.� In June she was admitted again for black eschar of the AKA.� Patient also had a new right lateral malleoli are wound and underwent right lower extremity angioplasty as well as debridement of the left AKA.�
Superficial wound culture from the left amputation site grew Klebsiella.� She completed antibiotic course with Keflex.
Concern for reinfection of the left AKA stump.� There is a deep open pocket with purulent drainage draining out and erythema around the stump site.
Vital signs normal labs unremarkable.� Lactic acid 4.6.
Wound culture, blood cultures sent.� Vancomycin/Zosyn given in ER however patient does apparently have a penicillin allergy and gets a rash.� Switch antibiotics to vancomycin/cefepime and Flagyl.� Continue IV fluids.
Vascular surgery consulted who recommended CT abdomen aorta angio with runoff pending.� She would likely require washout.� Keep n.p.o. for now.� ID consulted.� Wound care consulted.
[2024-08-30 15:49] LABS: ALT (SGPT) 14 U/L (0-35); AST (SGOT) 22 U/L (14-36); Alkaline Phosphatase 78 U/L (38-126); Blood Urea Nitrogen 30 mg/dl (7-17); Calcium 7.7 mg/dl (8.4-10.2); Carbon Dioxide 21 mmol/L (22-30); Chloride 104 mmol/L (98-107); Estimated Creatinine Clearance 84 ml/min; Glucose 104 mg/dl (70-99); Potassium 4.5 mmol/L (3.5-5.1); Sodium 138 mmol/L (135-145); Total Bilirubin 0.1 mg/dl (0.2-1.3); Total Protein 5.6 g/dl (6.3-8.2); eGFR > 60.00
[2024-08-30] MEDS: HEPARIN 5000 UNITS SC (19:16)
[2024-08-30] MEDS: NSS 1000 IV (19:16)
[2024-08-30] MEDS: FLAGYL 500 MG 100 IV (19:17)
[2024-08-30 19:35] LABS: Glucose - Point of Care 102 mg/dl (70-99)
--- NOTE | 2024-08-30 19:38 | PHA.VAN.IN ---
Assessment
- Assessment
Renal Function: Appears similar to baseline (07/04/24 SCR = 0.8)
Concomitant Antimicrobials: CEFEPIME, FLAGYL
- Previous Dosing Experience
Previous Regimen: 750MG IV Q12H
Date of Regimen: 07/04/24
Provided Trough of: 11.4 PREDICTED
Provided AUC of: 405 PREDICTED
Patient's SCR is: Similar to previous dosing experience (07/04/24 SCR = 0.8)
Patient's weight is: Similar to previous dosing experience (07/04/24 WT = 82 KG)
AUC Dosing Plan
- Dosing Variables
Dosing Weight (kg): 81.1
Dosing CrCl (ml/min): 85
Vd coefficient (L/kg): 0.6
- Empiric Dosing
Initial / Loading Dose: 2GM
Maintenance Regimen: 750MG IV Q12H
Estimated AUC (mcg*h/mL): 427
Estimated Peak (mcg*h/mL): 26
Estimated Trough (mcg/ml): 11.4
Estimated Half Life (H): 9.2
Pharmacokinetics Vancomycin I
- -
Patient Age: 63
Patient Sex: Female
Vancomycin Day #: 1
Indication: Bone And Joint ([L] AKA STUMP WOUND )
Requesting Provider: OSMAR
Pertinent Antimicrobial Allergies:
Allergies
Penicillins Allergy (Verified 08/30/24 14:03)
Rash
per [facility] records
Sulfa (Sulfonamide Antibiotics) Allergy (Verified 08/30/24 13:01)
Hives
cefaclor [From Ceclor] Allergy (Verified 08/30/24 13:01)
Hives
Height / Weight:
Height 5 ft 4 in
Actual Weight 81.1 kg
Pertinent Past Medical History: [L] AKA 07/09 D/T [facility]
- Vital Signs / Lab Results
Temp Pulse Resp BP Pulse Ox
97.5 F 89 22 167/85 99
08/30/24 18:02 08/30/24 18:02 08/30/24 18:02 08/30/24 18:02 08/30/24 18:02
Lab Results - Hematology
08/30/24
13:07
WBC 7.9
Lab Results - Chemistry
08/30/24 08/30/24 08/30/24
13:07 14:04 14:37
BUN Cancelled Cancelled Cancelled
Creatinine Cancelled Cancelled Cancelled
Estimated Creat Clear Cancelled Cancelled Cancelled
Albumin Cancelled Cancelled Cancelled
08/30/24
15:10
BUN 30 H
Creatinine 0.7
Estimated Creat Clear 84
Albumin 3.0 L
08/30/24
13:07
Lactic Acid 4.6 H*
Microbiology Results
08/30/24 13:07 Gram Stain - Preliminary
Leg - Left
[2024-08-30] MEDS: NOVOLOG FLEXPEN-LOW RESISTANCE SC (19:43)
[2024-08-30] MEDS: DILAUDID 1 MG IV (20:57)
[2024-08-30] MEDS: MAXIPIME 2000 MG IV (20:57)
[2024-08-30] MEDS: STERILE WATER FOR INJECTION 10 ML IV (20:57)
[2024-08-30 22:04] LABS: Glucose - Point of Care 93 mg/dl (70-99)
[2024-08-31] VITALS (12 sets, daily range): BP systolic 77–153; BP diastolic 47–101; BMI 30.7
[2024-08-31] MEDS: FLAGYL 500 MG 100 IV (02:13)
[2024-08-31] MEDS: ZOSYN 50 IV ×4 (02:13→21:09)
[2024-08-31] MEDS: DILAUDID 1 MG IV ×2 (03:41→13:24)
[2024-08-31] MEDS: STERILE WATER FOR INJECTION 10 ML IV (03:42)
[2024-08-31] MEDS: MAXIPIME 2000 MG IV (03:42)
[2024-08-31] MEDS: VANCOCIN 150 IV (05:12)
[2024-08-31 06:10] LABS: Glucose - Point of Care 174 mg/dl (70-99)
[2024-08-31 08:10] LABS: % Basophils 0.7 % (0-2); % Eosinophils 1.4 % (0-6); % Immature Granulocytes 0.7 % (0-0.5); % Lymphocytes 29.4 % (20.5-51.1); % Monocytes 5.9 % (1.7-9.3); % Neutrophils 61.9 % (42.2-75.2); Absolute Eosinophils 0.1 10^3/uL (0-0.7); Absolute Lymphocytes 1.7 10^3/uL (1.2-3.4); Absolute Monocytes 0.3 10^3/uL (0.1-0.6); Absolute Neutrophils 3.5 10^3/uL (1.4-6.5); Hemoglobin 12.1 g/dL (12.0-16.0); Mean Corp Hgb Conc. 31.8 g/dL (33.0-37.0); Mean Corpuscular Hgb 26.2 pg (27.0-31.0); Mean Corpuscular Volume 82.3 fL (81.0-99.0); Mean Platelet Volume 11.3 fL (7.4-10.4); Nucleated Red Blood Cells % 0 %; Platelet Count 230 10^3/uL (130-400); Red Blood Cell Count 4.62 10^6/uL (4.20-5.40); Red Cell Dist. Width 16.6 % (11.5-14.5); White Blood Cell Count 5.7 10^3/uL (4.8-10.8)
[2024-08-31 08:27] LABS: ALT (SGPT) 13 U/L (0-35); AST (SGOT) 32 U/L (14-36); Albumin 3.2 g/dl (3.5-5.0); Alkaline Phosphatase 78 U/L (38-126); Blood Urea Nitrogen 25 mg/dl (7-17); Calcium 7.7 mg/dl (8.4-10.2); Carbon Dioxide 23 mmol/L (22-30); Chloride 104 mmol/L (98-107); Estimated Creatinine Clearance 85 ml/min; Glucose 95 mg/dl (70-99); Potassium 5.1 mmol/L (3.5-5.1); Sodium 137 mmol/L (135-145); Total Bilirubin 0.5 mg/dl (0.2-1.3); eGFR > 60.00
[2024-08-31 08:47] LABS: Lactic Acid 1.1 mmol/L (0.7-2.0)
--- NOTE | 2024-08-31 09:24 | W.PN.HOSP.TC ---
Today's Communication/Plan
-
see outlined plan
Assessment / Plan
Assessment / Plan
Assessment:
Severe Sepsis - POA (tachycardia, tachypnea, lactic acidosis)
Left AKA stump infection/osteomyelitis with critical limb ischemia
History of left residual limb amputation site eschar with debridement 07/04/2024
- s/p sepsis protocol IVF with improving lactic acidosis
- CT: Status post left lower extremity above the knee amputation. At the approximate level of the adductor canal, there is lack of intraluminal contrast opacification of the LEFT popliteal artery, consistent with occlusion/thrombus.
- d/w Vascular service and no intervention planned for popliteal artery in setting of AKA
- for OR today for I&D, washout, possible wound Vac; with operative cultures to be obtained
- continue Vanco/Zosyn, day 2 per ID - requires intensive monitoring of Vanco levels
- continue pain control
History of PAD with recent right SFA/pop/right anterior tibial/right peritoneal artery balloon angioplasty 07/04/24
Acute on chronic open right malleolar wound, likely arterial
- await results of US for ELLIOT/TBI
- continue ASA/Statin/Plavix (ok with Vascular)
- wound care evaluation
- Vascular following
Stage II sacral decub due to bedbound status
- consult wound care
- continue vitamin B6, B1, B12
DM-II
Diabetic retinopathy
- Accu-Cheks with exercise
- follow HgbA1c
- resume Lantus 12 units at bedtime + SSI
- Hold metformin 1000 mg twice daily
Schizoaffective Disorder/mood disorder
- continue Tegretol 300 mg p.o. twice daily, divalproex 125 mg p.o. twice daily
- continue risperidone 0.5 mg twice daily
CVA with Right hemiplegia 10/03/2022
Bedbound versus wheelchair patient denies getting out of bed even with Casey
- continue ASA/Statin/Plavix
HLD
- continue statin 40 mg at bedtime
Hypothyroidism
- continue levothyroxine 50 mcg p.o. daily
GERD
- continue Protonix 40 mg twice daily
Iron deficiency anemia
- Hgb 11.6, MCV 83.8
Hypomagnesemia
- check mag level
Class I obesity multifactorial bedbound, immobility
- Affects all aspects of care
- Continue 1800 ADA low-fat diet
Insomnia
- Continue melatonin 3 mg at bedtime
DVT prophylaxis: SC Heparin
Code: Full
Contact: younger sister Tessy Ramirez [phone]
Anticipated Discharge: > 48 hours
Subjective/Interval History
-
Date of Service: August 31, 2024
no new complaints
Objective Data
-
Labs:
Laboratory Results
08/31/24
07:43
WBC 5.7
Hgb 12.1
Hct 38.0
Plt Count 230
Sodium 137
Potassium 5.1
Chloride 104
Carbon Dioxide 23
BUN 25 H
Creatinine 0.7
Glucose 95
Calcium 7.7 L
Total Bilirubin 0.5
AST 32
ALT 13
Alkaline Phosphatase 78
Vital Signs:
Vital Signs
Temp Pulse Resp BP Pulse Ox
98.0 F 69 20 124/56 96
08/31/24 07:25 08/31/24 07:25 08/31/24 07:25 08/31/24 07:25 08/31/24 07:25
I&O
08/30/24 08/31/24 09/01/24
06:59 06:59 06:59
Output Total 450 / 450
Balance -450 / -450
Physical Exam
-
General: No Apparent Distress
HEENT: Normocephalic and Atraumatic
Respiratory: Negative Wheezes
Cardiac: Regular Rhythm and S1/S2
GI: Soft and Nontender
Genito-urinary: No Costovertebral Tender
Musculoskeletal: Other (left stump gauze with purulence strikethrough)
Neuro: AO x 3
Psych: Calm
Data Reviewed
-
Total Time Spent with Patient (in minutes): 51
Labs: Labs Reviewed by me
--- NOTE | 2024-08-31 09:30 | WOUNDNOTE ---
[facility] RN note: Patient admitted with L residual wound infection. Patient admitted from [facility] rehab. Patient for wash out in the OR today.
See H&P for complete history.
PMH: L AKA 05/2024, L AKA debridement 07/04/24, RLE angioplasty 06/2024, DM, mood disorder, anemia, CVA with brendan paresis 2022, obesity, former smoker.
Wound Location and type/assessment: Patient admitted with: full thickness L AKA stump wound to subcutaneous layer or deeper, pink with yellow slough, large amount of purulent ss drainage with local erythema. Sacral/coccyx deep dermal stage 2
pressure injury. R lateral ankle full thickness wound to muscle, pink with white fibrin and some red rash like skin around it. R foot warm. Vascular following and will be managing L AKA wound.
Appetite: NPO for surgery today.
Pressure redistribution devices in place: Advanta with Accumax. Patient cannot turn self in bed. She is bed bound.
Plan: L AKA wound dressing changed. Sacral shaped silicone border foam applied to sacrum. Dressing changed R ankle. Waffle air overlay and patient turned with help from RN Desiree Costello. TruVue lite boot reapplied LLE. Discussed with LESLIE Siddiqui.
Will confirm orders with hospitalist or vascular.
Care plan to be updated and will follow as needed.
Note to case management of equipment requested for discharge: air mattress if not already in place at SNF/rehab.
Recommend follow up at wound care center upon discharge.
--- NOTE | 2024-08-31 09:30 | WOUNDNOTE ---
[facility] RN note: Patient admitted with L residual wound infection. Patient admitted from [facility]. Patient for wash out in the OR today.
See H&P for complete history.
PMH: L AKA 05/2024, L AKA debridement 07/04/24, RLE angioplasty 06/2024, DM, mood disorder, anemia, CVA with brendan paresis 2022, obesity, former smoker.
Wound Location and type/assessment: Patient admitted with: full thickness L AKA stump wound to subcutaneous layer or deeper, pink with yellow slough, large amount of purulent ss drainage with local erythema. Sacral/coccyx deep dermal stage 2
pressure injury. R lateral ankle full thickness wound to muscle, pink with white fibrin and some red rash like skin around it. R foot warm. Vascular following and will be managing L AKA wound.
Appetite: NPO for surgery today.
Pressure redistribution devices in place: Advanta with Accumax. Patient cannot turn self in bed. She is bed bound.
Plan: L AKA wound dressing changed. Sacral shaped silicone border foam applied to sacrum. Dressing changed R ankle. Patient tends to yell during turning and wound care. Waffle air overlay and patient turned with help from RN Student Jasmine. Roberts
lite boot reapplied LLE. Discussed with LESLIE Siddiqui.
Will confirm orders with hospitalist or vascular.
Care plan to be updated and will follow as needed.
Note to case management of equipment requested for discharge: air mattress if not already in place at SNF/rehab.
Recommend follow up at wound care center upon discharge.
--- NOTE | 2024-08-31 09:30 | WOUNDNOTE ---
BACK (UPPER L SIDE)
[2024-08-31] MEDS: NOVOLOG FLEXPEN-LOW RESISTANCE SC ×3 (09:32→18:02)
[2024-08-31] MEDS: HEPARIN 5000 UNITS SC ×2 (10:00→21:08)
--- NOTE | 2024-08-31 10:04 | W.PN.ID1 ---
Date of Service
Date of Service: August 31, 2024
Today's Communication
Continue Vancomycin and Zosyn.
Assessment / Plan
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
# PAD
- Vascular following.
- Continue Vancomycin and Zosyn for now pending cx data.
#Conditions prior to admission
DM
HTN
CVA with right hemiparesis
Hypothyroidism
Schizoaffective disorder
PAD
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
Right ankle wound s/p RLE endovascular procedure 07/04/24.
Lap rashid
SNF resident
Chief Complaint
-: Other (stump infection)
Subjective / Review of Systems
+ stump pain
Vital Signs / Physical Exam
Vital Signs
Vital Signs
Temp Pulse Resp BP Pulse Ox
98.0 F 69 20 124/56 96
08/31/24 07:25 08/31/24 07:25 08/31/24 07:25 08/31/24 07:25 08/31/24 07:25
Physical Exam
Constitutional: No Acute Distress
Cardiovascular: Regular Rate and S1/S2
Pulmonary: Clear
Gastrointestinal: Soft and Non Tender
Wound: Other (left stump gauze with purulence strikethrough)
Objective Data
Lab Data
Lab Results
08/31/24 07:43
08/31/24 07:43
Estimated Creat Clear 85 ml/min 08/31/24 07:43
Lactic Acid 1.1 mmol/L (0.7-2.0) 08/31/24 08:26
Total Bilirubin 0.5 mg/dl (0.2-1.3) 08/31/24 07:43
AST 32 U/L (14-36) 08/31/24 07:43
ALT 13 U/L (0-35) 08/31/24 07:43
Alkaline Phosphatase 78 U/L (38-126) 08/31/24 07:43
Most recent labs reviewed.
Micro Results:
08/30/24 22:09 MRSA Screen - Pending
Nose
08/30/24 13:07 Wound Culture - Pending
Leg - Left Gram Stain - Preliminary
08/30/24 13:07 Blood Culture - Pending
Blood/Venous
08/30/24 13:09 Blood Culture - Pending
Blood/Venous
08/30/24 CT a/p: At the approximate level of the adductor canal, there is lack of intraluminal contrast opacification of the LEFT popliteal artery, consistent with occlusion/thrombus.
[2024-08-31] MEDS: TRILEPTAL 300 MG PO ×2 (10:37→21:08)
[2024-08-31] MEDS: DEPAKOTE (12 HR RELEASE) 125 MG PO ×2 (10:37→21:08)
[2024-08-31] MEDS: PROTONIX 40 MG PO ×2 (10:37→21:08)
[2024-08-31] MEDS: RISPERDAL 0.5 MG PO ×2 (10:37→21:08)
[2024-08-31 10:47] LABS: Glycohemoglobin (HgbA1c) 5.5 % (4.0-5.6)
--- NOTE | 2024-08-31 10:52 | PHA.VAN.FU ---
Vancomycin Assessment / Plan
- Assessment
Renal Function: Stable
WBC's are: WNL
In the past 24 hrs, patient has been: Afebrile
Concomitant Antimicrobials: piperacillin/tazobactam
- Dosing Plan
Adjust Regimen to: Vanc 1000mg Q12H starting at 1800
New Regimen Predicts: AUC (488), Peak (29.7), Trough (13)
- Monitoring Plan
No level(s) ordered at this time: consider levels in next few days
- Follow Up
Pharmacy will continue to follow.
Vancomycin Follow UP
- -
Patient Age: 63
Patient Sex: Female
Vancomycin Day #: 2
Indication: Bone And Joint
Requesting Provider: Eric Jones/ Dr. King
Pertinent Antimicrobial Allergies:
Penicillins - Rash
per [facility] records
Sulfa (Sulfonamide Antibiotics) - Hives
cefaclor - Hives
Height / Weight:
Height 5 ft 4 in
Actual Weight 81.1 kg
Pertinent Past Medical History: L. AKA, DM, PAD
- Vital Signs / Lab Results
Temp Pulse Resp BP Pulse Ox
98.0 F 69 20 124/56 96
08/31/24 07:25 08/31/24 07:25 08/31/24 07:25 08/31/24 07:25 08/31/24 07:25
Lab Results - Hematology
08/30/24 08/31/24
13:07 07:43
WBC 7.9 5.7
Lab Results - Chemistry
08/30/24 08/30/24 08/30/24
13:07 14:04 14:37
BUN Cancelled Cancelled Cancelled
Creatinine Cancelled Cancelled Cancelled
Estimated Creat Clear Cancelled Cancelled Cancelled
Albumin Cancelled Cancelled Cancelled
08/30/24 08/31/24
15:10 07:43
BUN 30 H 25 H
Creatinine 0.7 0.7
Estimated Creat Clear 84 85
Albumin 3.0 L 3.2 L
08/30/24 08/31/24
13:07 08:26
Lactic Acid 4.6 H* 1.1
Microbiology Results
08/30/24 13:07 Gram Stain - Preliminary
Leg - Left
[2024-08-31 11:43] LABS: Glucose - Point of Care 100 mg/dl (70-99)
[2024-08-31] MEDS: ASPIR LOW (ENTERIC COATED) 81 MG PO (11:49)
[2024-08-31] MEDS: NSS 1000 IV ×2 (12:02→21:09)
--- NOTE | 2024-08-31 13:50 | W.PN.UPDATE ---
Update Note
Progress Note Update
Discussed findings and recommendations with patient's sister/POA Tessy James over the phone at phone number listed in chart. Discussed plan for left krqif-gzy-nwgs amputation site washout (discussed possible need for debridement and necrotic
tissue including bone). Discussed likelihood of leaving wound open, possibility of wound VAC. Discussed results of imaging studies. Procedure/risk/benefits all discussed. She understands all wishes for us to proceed as planned.
--- NOTE | 2024-08-31 14:38 | W.SUR.PREOP ---
Pre-Operative Surgical Note
-
I have examined this patient prior to the performance of the scheduled procedure.
The patient's condition is unchanged from the time of the current History and
Physical and the patient is able to undergo the scheduled procedure.
--- NOTE | 2024-08-31 15:58 | OR.RPT ---
Addendum entered and electronically signed by Hardik Melara MD 08/31/24 16:05:
Note dimensions of wound VAC were as follows: 11.5 cm (length along the prior suture line) x 3.5 cm width x 3.0 cm depth.
Original Note:
Operative Report
Operative Report
PROCEDURE DATE: 08/31/2024
Preoperative diagnosis: Dehiscence, concern for infection left wrpsx-qob-mbxw amputation stump.
Postoperative diagnosis: Dehiscence left sdrry-hgw-bvok amputation stump.
Procedure: Incision and drainage left sofor-kfc-upwf amputation stump. Washout left blpka-egc-khaf amputation stump with pulse lavage irrigation.
Surgeon: Kelton
Bilingual Account Manager: JULY Gonzalez, required process for procedure including assistance with traction/countertraction, pulse lavage irrigation.
Complications: None
Anesthesia: General
Indications for procedure:
Patient with dehiscence of left asnjk-zah-xdqo amputation stump incision line. 2 areas of dehiscence noted and suspected undermining in between those 2 areas. Some serous drainage noted. Concern for possible infection but certainly for dehiscence
and nonhealing. Discussed with patient's POA recommended washout, risk/benefit/alternatives. She understood all wished for us to proceed.
Description of procedure:
Patient was identified brought to the operating room placed on the table in supine position. After the adequate administration of anesthesia she was prepped and draped in the standard surgical fashion. A standard preoperative timeout was
undertaken and everybody was in agreement the plan. The more central portion of the prior suture line along the amputation stump closure was dehisced with an island of skin between 2 open areas. I gently inserted my finger and probed laterally and
medially and noted that for the majority of the closure the suture line, the subcutaneous tissues had not closed (the skin was not stuck down). Therefore I then used a 15 blade to reincised the island of skin between the 2 opening/dehiscence sites,
as well as extending incision laterally and medially along the prior suture line where the skin was completely undermined. Once I opened this, the deeper tissues were all red and with excellent granulation tissue. Healthy pink/red tissue was noted
throughout. There was no exposed bone or deeper tissues. Granulation tissue covered all the deeper structures. Good bleeding was noted as well. There was no evidence of purulence. No evidence of necrosis. No evidence of infection. I sharply
debrided the skin edges where the island of skin tissue had been. Then we pulse lavaged irrigated 1 L of saline solution through the entire bed. Hemostasis was achieved with the electrocautery at the skin edges. The wound was very clean now. And
therefore a wound VAC was applied. The patient tolerated procedure well.
[2024-08-31 16:35] LABS: Glucose - Point of Care 125 mg/dl (70-99)
[2024-08-31] MEDS: DILAUDID 0.5 MG IV (16:45)
--- NOTE | 2024-08-31 16:55 | WOUNDNOTE ---
[facility] RN note: Amy Gonzalez, Vascular METER ENGINEER lokesh texted this investigative writer that next vac dressing change due Wednesday for L AKA wound and that patient doesn't need to stay till Wednesday. Lokesh texted CM Cassandra Aaron re: patient will need a wound vac for L AKA
wound at SNF/rehab. Wound measurements: 11.5x3.5x3cm. Black foam, vac setting 125mmhg continuous, change q 48-72 hours. Await response.
[2024-08-31] MEDS: NEURONTIN 100 MG PO ×2 (18:02→21:17)
[2024-08-31] MEDS: VANCOCIN 200 IV (18:02)
[2024-08-31] MEDS: LIPITOR 40 MG PO (21:17)
[2024-08-31 21:22] LABS: Glucose - Point of Care 185 mg/dl (70-99)
[2024-08-31] MEDS: LANTUS 0.12 UNITS SC (22:29)
[2024-09-01] MEDS: ZOSYN 50 IV ×4 (02:32→22:02)
[2024-09-01 03:15] VITALS: BP 105/49
--- NOTE | 2024-09-01 04:34 | PTCARENOTE ---
patient transferred down to room 2121 at 19:30 from 4th floor, patient needs a private room due to yelling. upon assessment she is AAOX3, report recieved from Artur NELSON. wound vac in place, no concerns, she has a stage 2 on her sacrum and stage 3
on her right outer ankle. she has no pain, her VSS, she was placed on a monitor with call villarreal in reach. patient is on a static overlay.
[2024-09-01] MEDS: VANCOCIN 200 IV ×2 (06:06→16:53)
[2024-09-01] MEDS: SYNTHROID 50 MCG PO (06:06)
[2024-09-01 06:39] LABS: INR 1.02; PT 13.9 Sec (11.4-14.6)
[2024-09-01 06:40] LABS: APTT 31.7 Sec (23.4-35.0); Hematocrit 29.4 % (37.0-47.0); Hemoglobin 9.5 g/dL (12.0-16.0); Mean Corp Hgb Conc. 32.3 g/dL (33.0-37.0); Mean Corpuscular Hgb 26.8 pg (27.0-31.0); Mean Corpuscular Volume 82.8 fL (81.0-99.0); Mean Platelet Volume 11.6 fL (7.4-10.4); Platelet Count 235 10^3/uL (130-400); Red Blood Cell Count 3.55 10^6/uL (4.20-5.40); Red Cell Dist. Width 16.3 % (11.5-14.5); White Blood Cell Count 8.3 10^3/uL (4.8-10.8)
[2024-09-01 06:54] LABS: ALT (SGPT) 13 U/L (0-35); AST (SGOT) 20 U/L (14-36); Albumin 2.8 g/dl (3.5-5.0); Alkaline Phosphatase 87 U/L (38-126); Blood Urea Nitrogen 19 mg/dl (7-17); Calcium 7.4 mg/dl (8.4-10.2); Carbon Dioxide 23 mmol/L (22-30); Chloride 102 mmol/L (98-107); Estimated Creatinine Clearance 85 ml/min; Glucose 172 mg/dl (70-99); Magnesium 0.9 mg/dl (1.6-2.3); Sodium 136 mmol/L (135-145); Total Bilirubin 0.1 mg/dl (0.2-1.3); Total Protein 5.3 g/dl (6.3-8.2); eGFR > 60.00
[2024-09-01 07:19] VITALS: BP 137/70
--- NOTE | 2024-09-01 08:04 | PHA.VAN.FU ---
Vancomycin Assessment / Plan
- Assessment
Renal Function: Stable
WBC's are: WNL
In the past 24 hrs, patient has been: Afebrile
Concomitant Antimicrobials: piperacillin/tazobactam
- Dosing Plan
Continue: Vanc 1000mg Q12H
- Monitoring Plan
No level(s) ordered at this time: consider levels in next few days
- Follow Up
Pharmacy will continue to follow.
Vancomycin Follow UP
- -
Patient Age: 63
Patient Sex: Female
Vancomycin Day #: 3
Indication: Bone And Joint
Requesting Provider: Eric Jones/ Dr. King
Pertinent Antimicrobial Allergies:
Penicillins - Rash
per [facility] records
Sulfa (Sulfonamide Antibiotics) - Hives
cefaclor - Hives
Height / Weight:
Height 5 ft 4 in
Actual Weight 81.1 kg
Pertinent Past Medical History: L. AKA, DM, PAD
- Vital Signs / Lab Results
Temp Pulse Resp BP Pulse Ox
97.6 F 77 17 137/70 93
09/01/24 07:19 09/01/24 07:19 09/01/24 07:19 09/01/24 07:19 09/01/24 07:19
Lab Results - Hematology
08/30/24 08/31/24 09/01/24
13:07 07:43 05:34
WBC 7.9 5.7 8.3
Lab Results - Chemistry
08/30/24 08/30/24 08/30/24
13:07 14:04 14:37
BUN Cancelled Cancelled Cancelled
Creatinine Cancelled Cancelled Cancelled
Estimated Creat Clear Cancelled Cancelled Cancelled
Albumin Cancelled Cancelled Cancelled
08/30/24 08/31/24 09/01/24
15:10 07:43 05:34
BUN 30 H 25 H 19 H
Creatinine 0.7 0.7 0.7
Estimated Creat Clear 84 85 85
Albumin 3.0 L 3.2 L 2.8 L
08/30/24 08/31/24
13:07 08:26
Lactic Acid 4.6 H* 1.1
Microbiology Results
08/30/24 13:07 Wound Culture - Preliminary
Leg - Left Gram negative bacilli
Gram Stain - Preliminary
08/30/24 13:07 Blood Culture - Preliminary
Blood/Venous No Growth in 24 hours- Final report to follow
08/30/24 13:09 Blood Culture - Preliminary
Blood/Venous No Growth in 24 hours- Final report to follow
[2024-09-01] MEDS: PROTONIX 40 MG PO ×2 (08:23→22:00)
[2024-09-01] MEDS: DEPAKOTE (12 HR RELEASE) 125 MG PO ×2 (08:23→22:00)
[2024-09-01] MEDS: MAGNESIUM OXIDE 500 MG PO (08:23)
[2024-09-01] MEDS: RISPERDAL 0.5 MG PO ×2 (08:23→22:01)
[2024-09-01] MEDS: TRILEPTAL 300 MG PO ×2 (08:23→22:01)
[2024-09-01] MEDS: HEPARIN 5000 UNITS SC ×2 (08:23→22:00)
[2024-09-01] MEDS: PLAVIX 75 MG PO (08:24)
[2024-09-01] MEDS: ASPIR LOW (ENTERIC COATED) 81 MG PO (08:24)
[2024-09-01] MEDS: NEURONTIN 100 MG PO ×3 (08:24→22:02)
[2024-09-01 08:43] LABS: Glucose - Point of Care 187 mg/dl (70-99)
[2024-09-01] MEDS: NOVOLOG FLEXPEN-LOW RESISTANCE 1 UNITS SC ×3 (09:05→16:51)
[2024-09-01] MEDS: MAGNESIUM SULFATE 100 IV (09:06)
--- NOTE | 2024-09-01 09:17 | CM ---
Addendum entered by Radha Serna 09/01/24 12:25:
Spoke with patients nurse at [facility], patient is completed care, set up foe meals
Aware patient will need an air mattress and will return with a Wound vac.
Addendum entered by Radha Serna 09/01/24 11:47:
TC to John, cannot do wound vac over the weekend. Would need to hold until Wednesday.
John updated.
Original Note:
TC to John Frances, liaison for [facility]
John is aware patient will need a wound vac on return and will update nursing.
Wound care information, [facility]
John also aware patient will need an air mattress.
Plan: back to [facility] when stable
[facility]
Report# [phone]
[2024-09-01 11:32] VITALS: BP 118/48
--- NOTE | 2024-09-01 11:53 | W.PN.HOSP.TC ---
Today's Communication/Plan
-
repeat Hb 2pm, type/screen, anemia add on labs
continue Abx per ID
replace Mag
Assessment / Plan
Assessment / Plan
Assessment:
Severe Sepsis - POA (tachycardia, tachypnea, lactic acidosis)
Left AKA stump infection/osteomyelitis with critical limb ischemia
History of left residual limb amputation site eschar with debridement 07/04/2024
- s/p sepsis protocol IVF with improving lactic acidosis
- CT: Status post left lower extremity above the knee amputation. At the approximate level of the adductor canal, there is lack of intraluminal contrast opacification of the LEFT popliteal artery, consistent with occlusion/thrombus.
- d/w Vascular service and no intervention planned for popliteal artery in setting of AKA
- s/p OR 08/31 for washout but reported healthy, viable, noninfected tissue. No operative cultures obtained. Wound VAC in place. Follow Vascular recs.
- continue Vanco/Zosyn, day 3 per ID pending superficial cultures - requires intensive monitoring of Vanco levels
- continue pain control
History of PAD with recent right SFA/pop/right anterior tibial/right peritoneal artery balloon angioplasty 07/04/24
Acute on chronic open right malleolar wound, likely arterial
- Arterial US: Right lower extremity ankle-brachial index not obtainable secondary noncompressibility of the vessels. Toe pressure is unobtainable. Monophasic waveforms throughout lower extremity artery suggestive of inflow aorto/iliac artery
disease. Heavily calcified vessels are noted, however there are no infrainguinal arterial velocity elevations to suggest any significant infrainguinal stenoses.
- continue ASA/Statin/Plavix
- wound care following
- Vascular following
Stage II sacral decub due to bedbound status
- continue wound care
- continue vitamin B6, B1, B12
DM-II
Diabetic retinopathy
- Accu-Cheks with exercise
- A1c 5.5%
- continue Lantus 12 units at bedtime + SSI
- Hold metformin 1000 mg twice daily
Schizoaffective Disorder/mood disorder
- continue Tegretol 300 mg p.o. twice daily, divalproex 125 mg p.o. twice daily
- continue risperidone 0.5 mg twice daily
CVA with Right hemiplegia 10/03/2022
Bedbound versus wheelchair patient denies getting out of bed even with Casey
- continue ASA/Statin/Plavix
HLD
- continue statin 40 mg at bedtime
Hypothyroidism
- continue levothyroxine 50 mcg p.o. daily
GERD
- continue Protonix 40 mg twice daily
acute anemia on chronic Iron deficiency anemia
- suspect related to operative blood loss; repeat Hb 2pm today
Hypomagnesemia
- 0.9 today, replete via IV. start oral daily replacement
Class I obesity multifactorial bedbound, immobility
- Affects all aspects of care
- Continue 1800 ADA low-fat diet
Insomnia
- Continue melatonin 3 mg at bedtime
DVT prophylaxis: SC Heparin
Code: Full
Contact: younger sister Tessy Ramirez [phone]
Anticipated Discharge: > 48 hours
Subjective/Interval History
-
Date of Service: September 01, 2024
resting comfortably, no complaints
Objective Data
-
Labs:
Laboratory Results
09/01/24
05:34
WBC 8.3
Hgb 9.5 L D
Hct 29.4 L
Plt Count 235
PT 13.9
INR 1.02
APTT 31.7
Sodium 136
Potassium 4.0
Chloride 102
Carbon Dioxide 23
BUN 19 H
Creatinine 0.7
Glucose 172 H
Calcium 7.4 L
Total Bilirubin 0.1 L
AST 20
ALT 13
Alkaline Phosphatase 87
Vital Signs:
Vital Signs
Temp Pulse Resp BP Pulse Ox
97.5 F 64 17 118/48 99
09/01/24 11:32 09/01/24 11:32 09/01/24 11:32 09/01/24 11:32 09/01/24 11:32
I&O
08/31/24 09/01/24 09/02/24
06:59 06:59 06:59
Intake Total 530 / 530 150 / 150
Output Total 450 / 450 1750 / 1750
Balance -450 / -450 -1220 / -1220 150 / 150
Physical Exam
-
General: No Apparent Distress
HEENT: Normocephalic and Atraumatic
Respiratory: Negative Wheezes
Cardiac: Regular Rhythm and S1/S2
GI: Soft
Musculoskeletal: Other (L AKA with wound vac in place)
Neuro: AO x 3
Hematologic / Lymphatic: No Lymphadenopathy
Psych: Calm
Data Reviewed
-
Total Time Spent with Patient (in minutes): 43
Labs: Labs Reviewed by me
--- NOTE | 2024-09-01 11:56 | W.PN.ID1 ---
Date of Service
Date of Service: September 01, 2024
Today's Communication
Continue Vancomycin and Zosyn for now pending final cx data. Eventual po abx.
Plan to treat with abx for 10-14 days for SSTI
Assessment / Plan
# Left AKA stump dehiscence, wound infection
# PAD
- 08/31 s/p OR I+D. Per vascular, deep tissue healthy, no bone exposed, no abscess.
- Wound vac in place
- Wound swab cx: polymicrobial organisms
- Continue Vancomycin and Zosyn for now pending final cx data. Eventual po abx.
- Plan to treat with abx for 10-14 days for SSTI
#Conditions prior to admission
DM
HTN
CVA with right hemiparesis
Hypothyroidism
Schizoaffective disorder
PAD
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
Right ankle wound s/p RLE endovascular procedure 07/04/24.
Lap rashid
SNF resident
Chief Complaint
-: Other (stump infection)
Subjective / Review of Systems
Feels OK
Vital Signs / Physical Exam
Vital Signs
Vital Signs
Temp Pulse Resp BP Pulse Ox
97.5 F 64 17 118/48 99
09/01/24 11:32 09/01/24 11:32 09/01/24 11:32 09/01/24 11:32 09/01/24 11:32
Physical Exam
Constitutional: No Acute Distress and Comfortable
Cardiovascular: Regular Rate and S1/S2
Pulmonary: Clear
Gastrointestinal: Soft, Non Tender and Non Distended
Wound: Other (LLE stump with wound vac)
Objective Data
Lab Data
Lab Results
09/01/24 05:34
09/01/24 05:34
PT 13.9 Sec (11.4-14.6) 09/01/24 05:34
INR 1.02 09/01/24 05:34
APTT 31.7 Sec (23.4-35.0) 09/01/24 05:34
Estimated Creat Clear 85 ml/min 09/01/24 05:34
Lactic Acid 1.1 mmol/L (0.7-2.0) 08/31/24 08:26
Total Bilirubin 0.1 mg/dl (0.2-1.3) L 09/01/24 05:34
AST 20 U/L (14-36) 09/01/24 05:34
ALT 13 U/L (0-35) 09/01/24 05:34
Alkaline Phosphatase 87 U/L (38-126) 09/01/24 05:34
Most recent labs reviewed.
Micro Results:
08/30/24 13:07 Blood Culture - Preliminary
Blood/Venous No Growth in 24 hours- Final report to follow
08/30/24 13:07 Wound Culture - Preliminary
Leg - Left Klebsiella pneumoniae
Staphylococcus aureus
Streptococcus agalactiae
Streptococcus pyogenes
Gram Stain - Preliminary
08/30/24 22:09 MRSA Screen - Final
Nose No Methicillin Resistant Staphylococcus aureus isolated.
08/30/24 13:09 Blood Culture - Preliminary
Blood/Venous No Growth in 24 hours- Final report to follow
08/30/24 CT a/p: At the approximate level of the adductor canal, there is lack of intraluminal contrast opacification of the LEFT popliteal artery, consistent with occlusion/thrombus.
Care Review
Plan reviewed with: Physician (Dr. Angelica Mariscal)
--- NOTE | 2024-09-01 12:01 | W.PN.VS ---
Today's Communication / Plan
-
Subjective/objective data, physical exam, and plan reviewed with on-call attending Dr. Min.
Assessment/Plan
-
Assessment: 60-year-old female POD #1 Incision and drainage left ygfrf-njc-rjyj amputation stump. Washout left bdlsg-kup-dbpf amputation stump with pulse lavage irrigation.
Plan:
Continue wound VAC therapy, next change Wednesday09/04/24, wound care following
Anemia, suspect hemodilution component as EBL from surgery was low, agree with repeat hemoglobin
Outpatient follow-up placed in discharge instructions
We will sign off please call questions or concerns
Subjective Data
-
Date of Service: September 01, 2024
Patient seen and examined at bedside, reports mild soreness at left AKA site otherwise offers no complaints.
Objective Data
-
Vital Signs
Temp Pulse Resp BP Pulse Ox
97.5 F 64 17 118/48 99
09/01/24 11:32 09/01/24 11:32 09/01/24 11:32 09/01/24 11:32 09/01/24 11:32
Intake and Output
08/31/24 09/01/24 09/02/24
06:59 06:59 06:59
Intake Total 530 / 530 150 / 150
Output Total 450 / 450 1750 / 1750
Balance -450 / -450 -1220 / -1220 150 / 150
Intake:
Oral fluids 480 / 480
IV fluids (Total) 50 / 50
NSS 50 / 50
IV piggybacks 150 / 150
Output:
Urine, Voided 450 / 450 1750 / 1750
Lab Results
09/01/24 05:34
Calcium 7.4 mg/dl (8.4-10.2) L 09/01/24 05:34
Magnesium 0.9 mg/dl (1.6-2.3) L* 09/01/24 05:34
Total Bilirubin 0.1 mg/dl (0.2-1.3) L 09/01/24 05:34
AST 20 U/L (14-36) 09/01/24 05:34
ALT 13 U/L (0-35) 09/01/24 05:34
Alkaline Phosphatase 87 U/L (38-126) 09/01/24 05:34
Total Protein 5.3 g/dl (6.3-8.2) L 09/01/24 05:34
Albumin 2.8 g/dl (3.5-5.0) L 09/01/24 05:34
Physical Exam
-
No apparent distress, resting in bed comfortably
No tachycardia
No dyspnea on room air
Abdomen rotund, nondistended, nontender
Left AKA site CDI, wound VAC holding suction, no evidence of edema
--- NOTE | 2024-09-01 12:27 | WOUNDNOTE ---
WOC RN note: CAROLINE Aaron is aware patient needs a L AKA wound vac and recommend an air mattress if not already in place at SNF/rehab.
[2024-09-01 12:38] LABS: Iron 23 ug/dl (37-170)
[2024-09-01 12:44] LABS: Percent Saturation 11 % (20-50); Total Iron Binding Capacity 202 ug/dl (265-497)
[2024-09-01 13:23] LABS: Glucose - Point of Care 167 mg/dl (70-99)
[2024-09-01] MEDS: LOTRIMIN 1% CREAM 1 APPLIC TOPICAL (13:24)
[2024-09-01] MEDS: SANTYL OINTMENT 1 APPLIC TOPICAL (13:25)
[2024-09-01 14:59] LABS: Ferritin 31.6 ng/ml (11.1-264.0)
[2024-09-01 15:31] LABS: Folate 3.2 ng/ml (2.76-20); Vitamin B12 961 pg/ml (239-931)
[2024-09-01 16:00] VITALS: BP 110/74
[2024-09-01 16:02] LABS: Hematocrit 34.9 % (37.0-47.0); Hemoglobin 11.2 g/dL (12.0-16.0)
[2024-09-01 16:28] LABS: Magnesium 2.4 mg/dl (1.6-2.3)
[2024-09-01 16:38] LABS: Glucose - Point of Care 174 mg/dl (70-99)
[2024-09-01] MEDS: DILAUDID 1 MG IV (16:52)
[2024-09-01] MEDS: GLUCOPHAGE 1000 MG PO (16:52)
--- NOTE | 2024-09-01 18:33 | PTCARENOTE ---
Patient had run of Vtach; asymptomatic; VSS; Dr. Mariscal notified.
[2024-09-01 19:41] VITALS: BP 138/65
[2024-09-01 22:00] LABS: Glucose - Point of Care 177 mg/dl (70-99)
[2024-09-01] MEDS: LIPITOR 40 MG PO (22:01)
[2024-09-01] MEDS: MELATONIN 3 MG PO (22:01)
[2024-09-01] MEDS: LANTUS 0.12 UNITS SC (22:02)
[2024-09-01 23:11] VITALS: BP 129/63
[2024-09-02] MEDS: ZOSYN 50 IV ×4 (02:52→20:27)
[2024-09-02] MEDS: FLUSH (NSS) 2 FLUSH IV ×4 (02:53→22:22)
[2024-09-02 03:56] VITALS: BP 133/52
[2024-09-02] MEDS: VANCOCIN 200 IV ×2 (06:29→17:46)
[2024-09-02] MEDS: SYNTHROID 50 MCG PO (06:29)
[2024-09-02 07:00] VITALS: BP 150/60
[2024-09-02 08:15] LABS: % Basophils 0.7 % (0-2); % Eosinophils 1.9 % (0-6); % Immature Granulocytes 0.3 % (0-0.5); % Lymphocytes 22.5 % (20.5-51.1); % Monocytes 4.9 % (1.7-9.3); % Neutrophils 69.7 % (42.2-75.2); Absolute Eosinophils 0.1 10^3/uL (0-0.7); Absolute Lymphocytes 1.3 10^3/uL (1.2-3.4); Absolute Monocytes 0.3 10^3/uL (0.1-0.6); Hematocrit 30.9 % (37.0-47.0); Hemoglobin 9.9 g/dL (12.0-16.0); Mean Corpuscular Hgb 26.3 pg (27.0-31.0); Mean Corpuscular Volume 82.2 fL (81.0-99.0); Mean Platelet Volume 11.5 fL (7.4-10.4); Nucleated Red Blood Cells % 0 %; Platelet Count 247 10^3/uL (130-400); Red Blood Cell Count 3.76 10^6/uL (4.20-5.40); Red Cell Dist. Width 16.5 % (11.5-14.5); White Blood Cell Count 5.8 10^3/uL (4.8-10.8)
[2024-09-02 08:22] LABS: Glucose - Point of Care 147 mg/dl (70-99)
[2024-09-02 08:47] LABS: ALT (SGPT) 13 U/L (0-35); AST (SGOT) 20 U/L (14-36); Albumin 2.7 g/dl (3.5-5.0); Alkaline Phosphatase 80 U/L (38-126); Blood Urea Nitrogen 10 mg/dl (7-17); Calcium 7.6 mg/dl (8.4-10.2); Carbon Dioxide 23 mmol/L (22-30); Chloride 103 mmol/L (98-107); Estimated Creatinine Clearance 85 ml/min; Glucose 137 mg/dl (70-99); Magnesium 1.8 mg/dl (1.6-2.3); Potassium 3.8 mmol/L (3.5-5.1); Sodium 138 mmol/L (135-145); Total Bilirubin < 0.1 mg/dl (0.2-1.3); Total Protein 5.1 g/dl (6.3-8.2); eGFR > 60.00
[2024-09-02] MEDS: MAGNESIUM OXIDE 500 MG PO (08:57)
[2024-09-02] MEDS: TRILEPTAL 300 MG PO ×2 (08:57→20:28)
[2024-09-02] MEDS: ASPIR LOW (ENTERIC COATED) 81 MG PO (08:57)
[2024-09-02] MEDS: NEURONTIN 100 MG PO ×3 (08:57→21:52)
[2024-09-02] MEDS: PROTONIX 40 MG PO ×2 (08:57→20:28)
[2024-09-02] MEDS: NOVOLOG FLEXPEN-LOW RESISTANCE SC ×3 (08:57→17:46)
[2024-09-02] MEDS: DEPAKOTE (12 HR RELEASE) 125 MG PO ×2 (08:58→20:28)
[2024-09-02] MEDS: GLUCOPHAGE 1000 MG PO ×2 (08:58→16:20)
[2024-09-02] MEDS: HEPARIN 5000 UNITS SC ×2 (08:58→20:25)
[2024-09-02] MEDS: PLAVIX 75 MG PO (08:58)
[2024-09-02] MEDS: LOTRIMIN 1% CREAM 1 APPLIC TOPICAL (08:59)
[2024-09-02] MEDS: RISPERDAL 0.5 MG PO ×2 (08:59→20:28)
[2024-09-02] MEDS: DILAUDID 1 MG IV ×2 (11:48→22:20)
[2024-09-02 11:52] VITALS: BP 166/63
[2024-09-02 12:07] LABS: Glucose - Point of Care 141 mg/dl (70-99)
--- NOTE | 2024-09-02 14:05 | PHA.VAN.FU ---
Vancomycin Assessment / Plan
- Assessment
Renal Function: Stable
WBC's are: Stable
In the past 24 hrs, patient has been: Afebrile
Concomitant Antimicrobials: PIPERACILLIN/TAZOBACTAM
- Dosing Plan
Continue: VANCO 1000MG X12H
- Monitoring Plan
No level(s) ordered at this time: CONSIDER LEVEL IN NEXT FEW DAYS
- Follow Up
Pharmacy will continue to follow.
Vancomycin Follow UP
- -
Patient Age: 63
Patient Sex: Female
Vancomycin Day #: 4
Indication: Bone And Joint
Requesting Provider: Eric Jones/ Dr. King
Pertinent Antimicrobial Allergies:
Penicillins - Rash
per [facility] records
Sulfa (Sulfonamide Antibiotics) - Hives
cefaclor - Hives
Height / Weight:
Height 5 ft 4 in
Actual Weight 81.1 kg
Pertinent Past Medical History: L. AKA, DM, PAD
- Vital Signs / Lab Results
Temp Pulse Resp BP Pulse Ox
97.9 F 80 16 166/63 99
09/02/24 11:52 09/02/24 11:52 09/02/24 11:52 09/02/24 11:52 09/02/24 11:52
Lab Results - Hematology
08/31/24 09/01/24 09/02/24
07:43 05:34 07:03
WBC 5.7 8.3 5.8
Lab Results - Chemistry
08/30/24 08/30/24 08/30/24
14:04 14:37 15:10
BUN Cancelled Cancelled 30 H
Creatinine Cancelled Cancelled 0.7
Estimated Creat Clear Cancelled Cancelled 84
Albumin Cancelled Cancelled 3.0 L
08/31/24 09/01/24 09/02/24
07:43 05:34 07:02
BUN 25 H 19 H 10
Creatinine 0.7 0.7 0.7
Estimated Creat Clear 85 85 85
Albumin 3.2 L 2.8 L 2.7 L
08/31/24
08:26
Lactic Acid 1.1
Microbiology Results
08/30/24 13:09 Blood Culture - Preliminary
Blood/Venous No Growth in 72 hours- Final report to follow
08/30/24 13:07 Blood Culture - Preliminary
Blood/Venous No Growth in 72 hours- Final report to follow
08/30/24 13:07 Wound Culture - Final
Leg - Left Klebsiella pneumoniae
Staph aureus MRSA
Streptococcus agalactiae
Streptococcus pyogenes
Gram Stain - Final
08/30/24 22:09 MRSA Screen - Final
Nose No Methicillin Resistant Staphylococcus aureus isolated.
--- NOTE | 2024-09-02 14:17 | W.PN.HOSP.TC ---
Today's Communication/Plan
-
continue Abx
LUE venous doppler
Assessment / Plan
Assessment / Plan
Assessment:
Severe Sepsis - POA (tachycardia, tachypnea, lactic acidosis)
Left AKA stump infection/osteomyelitis with critical limb ischemia
History of left residual limb amputation site eschar with debridement 07/04/2024
- s/p sepsis protocol IVF with improving lactic acidosis
- CT: Status post left lower extremity above the knee amputation. At the approximate level of the adductor canal, there is lack of intraluminal contrast opacification of the LEFT popliteal artery, consistent with occlusion/thrombus.
- d/w Vascular service and no intervention planned for popliteal artery in setting of AKA
- s/p OR 08/31 for washout but reported healthy, viable, noninfected tissue. No operative cultures obtained. Wound VAC in place. Follow Vascular recs.
- continue Vanco/Zosyn, day 4 per ID - requires intensive monitoring of Vanco levels
- continue pain control
History of PAD with recent right SFA/pop/right anterior tibial/right peritoneal artery balloon angioplasty 07/04/24
Acute on chronic open right malleolar wound, likely arterial
- Arterial US: Right lower extremity ankle-brachial index not obtainable secondary noncompressibility of the vessels. Toe pressure is unobtainable. Monophasic waveforms throughout lower extremity artery suggestive of inflow aorto/iliac artery
disease. Heavily calcified vessels are noted, however there are no infrainguinal arterial velocity elevations to suggest any significant infrainguinal stenoses.
- continue ASA/Statin/Plavix
- wound care following
- Vascular following
Stage II sacral decub due to bedbound status
- continue wound care
- continue vitamin B6, B1, B12
DM-II
Diabetic retinopathy
- Accu-Cheks with exercise
- A1c 5.5%
- continue Lantus 12 units at bedtime + SSI
- Hold metformin 1000 mg twice daily
Schizoaffective Disorder/mood disorder
- continue Tegretol 300 mg p.o. twice daily, divalproex 125 mg p.o. twice daily
- continue risperidone 0.5 mg twice daily
CVA with Right hemiplegia 10/03/2022
Bedbound versus wheelchair patient denies getting out of bed even with [facility]
- continue ASA/Statin/Plavix
HLD
- continue statin 40 mg at bedtime
Hypothyroidism
- continue levothyroxine 50 mcg p.o. daily
GERD
- continue Protonix 40 mg twice daily
acute anemia on chronic Iron deficiency anemia
- suspect related to operative blood loss; repeat Hb 2pm today
Hypomagnesemia
- repleted; continue oral replacement
Class I obesity multifactorial bedbound, immobility
- Affects all aspects of care
- Continue 1800 ADA low-fat diet
Insomnia
- Continue melatonin 3 mg at bedtime
DVT prophylaxis: SC Heparin
Code: Full
Contact: younger sister Tessy Ramirez [phone]
Anticipated Discharge: > 48 hours
Subjective/Interval History
-
Date of Service: September 02, 2024
reports L arm pain near midline, mild redness, swelling
no other complaints
Objective Data
-
Labs:
Laboratory Results
09/02/24 09/02/24
07:02 07:03
WBC 5.8
Hgb 9.9 L
Hct 30.9 L
Plt Count 247
Sodium 138
Potassium 3.8
Chloride 103
Carbon Dioxide 23
BUN 10
Creatinine 0.7
Glucose 137 H
Calcium 7.6 L
Total Bilirubin < 0.1 L
AST 20
ALT 13
Alkaline Phosphatase 80
Vital Signs:
Vital Signs
Temp Pulse Resp BP Pulse Ox
97.9 F 80 16 166/63 99
09/02/24 11:52 09/02/24 11:52 09/02/24 11:52 09/02/24 11:52 09/02/24 11:52
I&O
09/01/24 09/02/24 09/03/24
06:59 06:59 06:59
Intake Total 530 / 530 2029 / 2029
Output Total 1750 / 1750 800 / 800
Balance -1220 / -1220 1230 / 1230
Physical Exam
-
General: No Apparent Distress
HEENT: Normocephalic and Atraumatic
Respiratory: Negative Wheezes
Cardiac: Regular Rhythm and S1/S2
GI: Soft
Musculoskeletal: Other (LUE redness, swelling distal to Midline)
Neuro: AO x 3
Hematologic / Lymphatic: No Lymphadenopathy
Psych: Calm
Data Reviewed
-
Total Time Spent with Patient (in minutes): 51
Labs: Labs Reviewed by me
[2024-09-02 16:05] VITALS: BP 127/49
[2024-09-02 17:36] LABS: Glucose - Point of Care 136 mg/dl (70-99)
[2024-09-02] MEDS: LIPITOR 40 MG PO (21:48)
[2024-09-02] MEDS: MELATONIN 3 MG PO (21:48)
[2024-09-02 21:49] LABS: Glucose - Point of Care 116 mg/dl (70-99)
[2024-09-02] MEDS: LANTUS 0.12 UNITS SC (21:50)
[2024-09-02 23:42] VITALS: BP 137/75
[2024-09-03] MEDS: ZOSYN 50 IV ×4 (01:01→20:32)
[2024-09-03] MEDS: FLUSH (NSS) 2 FLUSH IV ×2 (01:02→05:34)
[2024-09-03] MEDS: VANCOCIN 200 IV ×2 (05:33→17:58)
[2024-09-03] MEDS: SYNTHROID 50 MCG PO (05:33)
[2024-09-03 06:39] LABS: % Basophils 0.7 % (0-2); % Eosinophils 2.3 % (0-6); % Immature Granulocytes 0.3 % (0-0.5); % Lymphocytes 22.3 % (20.5-51.1); % Monocytes 5.3 % (1.7-9.3); % Neutrophils 69.1 % (42.2-75.2); Absolute Eosinophils 0.1 10^3/uL (0-0.7); Absolute Lymphocytes 1.4 10^3/uL (1.2-3.4); Absolute Monocytes 0.3 10^3/uL (0.1-0.6); Absolute Neutrophils 4.2 10^3/uL (1.4-6.5); Hematocrit 30.5 % (37.0-47.0); Hemoglobin 9.5 g/dL (12.0-16.0); Mean Corp Hgb Conc. 31.1 g/dL (33.0-37.0); Mean Corpuscular Volume 83.6 fL (81.0-99.0); Mean Platelet Volume 11.8 fL (7.4-10.4); Nucleated Red Blood Cells % 0 %; Platelet Count 247 10^3/uL (130-400); Red Blood Cell Count 3.65 10^6/uL (4.20-5.40); Red Cell Dist. Width 16.6 % (11.5-14.5); White Blood Cell Count 6.1 10^3/uL (4.8-10.8)
[2024-09-03 06:59] LABS: ALT (SGPT) 13 U/L (0-35); AST (SGOT) 19 U/L (14-36); Albumin 2.8 g/dl (3.5-5.0); Alkaline Phosphatase 73 U/L (38-126); Blood Urea Nitrogen 10 mg/dl (7-17); Calcium 7.7 mg/dl (8.4-10.2); Carbon Dioxide 22 mmol/L (22-30); Chloride 103 mmol/L (98-107); Estimated Creatinine Clearance 85 ml/min; Glucose 108 mg/dl (70-99); Potassium 3.9 mmol/L (3.5-5.1); Sodium 139 mmol/L (135-145); Total Bilirubin < 0.1 mg/dl (0.2-1.3); Total Protein 5.1 g/dl (6.3-8.2); eGFR > 60.00
[2024-09-03 07:00] VITALS: BP 142/54
--- NOTE | 2024-09-03 08:03 | PHA.VAN.FU ---
Vancomycin Assessment / Plan
- Assessment
Renal Function: Stable
WBC's are: Stable
In the past 24 hrs, patient has been: Afebrile
Concomitant Antimicrobials: PIPERACILLIN/TAZOBACTAM
- Dosing Plan
Continue: VANCO 1000MG Q12H
- Monitoring Plan
Peak Level: 09/03 @2100
Trough Level: 09/04 @0530
- Follow Up
Pharmacy will continue to follow.
Vancomycin Follow UP
- -
Patient Age: 63
Patient Sex: Female
Vancomycin Day #: 5
Indication: Bone And Joint
Requesting Provider: Eric Jones/ Dr. King
Pertinent Antimicrobial Allergies:
Penicillins - Rash
per [facility] records
Sulfa (Sulfonamide Antibiotics) - Hives
cefaclor - Hives
Height / Weight:
Height 5 ft 4 in
Actual Weight 81.1 kg
Pertinent Past Medical History: L. AKA, DM, PAD
- Vital Signs / Lab Results
Temp Pulse Resp BP Pulse Ox
97.8 F 73 20 137/75 97
09/02/24 23:42 09/02/24 23:42 09/02/24 23:42 09/02/24 23:42 09/02/24 23:42
Lab Results - Hematology
08/31/24 09/01/24 09/02/24
07:43 05:34 07:03
WBC 5.7 8.3 5.8
09/03/24
05:01
WBC 6.1
Lab Results - Chemistry
08/31/24 09/01/24 09/02/24
07:43 05:34 07:02
BUN 25 H 19 H 10
Creatinine 0.7 0.7 0.7
Estimated Creat Clear 85 85 85
Albumin 3.2 L 2.8 L 2.7 L
09/03/24
05:01
BUN 10
Creatinine 0.7
Estimated Creat Clear 85
Albumin 2.8 L
08/31/24
08:26
Lactic Acid 1.1
Microbiology Results
08/30/24 13:09 Blood Culture - Preliminary
Blood/Venous No Growth in 72 hours- Final report to follow
08/30/24 13:07 Blood Culture - Preliminary
Blood/Venous No Growth in 72 hours- Final report to follow
08/30/24 13:07 Wound Culture - Final
Leg - Left Klebsiella pneumoniae
Staph aureus MRSA
Streptococcus agalactiae
Streptococcus pyogenes
Gram Stain - Final
08/30/24 22:09 MRSA Screen - Final
Nose No Methicillin Resistant Staphylococcus aureus isolated.
[2024-09-03 08:12] LABS: Glucose - Point of Care 141 mg/dl (70-99)
[2024-09-03] MEDS: NOVOLOG FLEXPEN-LOW RESISTANCE SC ×3 (08:17→16:41)
[2024-09-03] MEDS: MAGNESIUM OXIDE 500 MG PO (08:18)
[2024-09-03] MEDS: TRILEPTAL 300 MG PO ×2 (08:18→20:32)
[2024-09-03] MEDS: PROTONIX 40 MG PO ×2 (08:18→20:32)
[2024-09-03] MEDS: ASPIR LOW (ENTERIC COATED) 81 MG PO (08:18)
[2024-09-03] MEDS: NEURONTIN 100 MG PO ×3 (08:18→20:32)
[2024-09-03] MEDS: GLUCOPHAGE 1000 MG PO ×2 (08:18→16:41)
[2024-09-03] MEDS: RISPERDAL 0.5 MG PO ×2 (08:18→20:32)
[2024-09-03] MEDS: DEPAKOTE (12 HR RELEASE) 125 MG PO ×2 (08:18→20:31)
[2024-09-03] MEDS: PLAVIX 75 MG PO (08:18)
[2024-09-03] MEDS: HEPARIN 5000 UNITS SC ×2 (08:19→20:32)
[2024-09-03] MEDS: LOTRIMIN 1% CREAM 1 APPLIC TOPICAL (08:20)
[2024-09-03] MEDS: DILAUDID 1 MG IV ×2 (11:24→20:32)
--- NOTE | 2024-09-03 12:12 | W.PN.HOSP.TC ---
Today's Communication/Plan
-
continue IV abx, follow ID recs
Assessment / Plan
Assessment / Plan
Assessment:
Severe Sepsis - POA (tachycardia, tachypnea, lactic acidosis)
Left AKA stump infection/osteomyelitis with critical limb ischemia
History of left residual limb amputation site eschar with debridement 07/04/2024
- s/p sepsis protocol IVF with improved lactic acidosis
- CT: Status post left lower extremity above the knee amputation. At the approximate level of the adductor canal, there is lack of intraluminal contrast opacification of the LEFT popliteal artery, consistent with occlusion/thrombus.
- d/w Vascular service and no intervention planned for popliteal artery in setting of AKA
- s/p OR 08/31 for washout but reported healthy, viable, noninfected tissue. No operative cultures obtained. Wound VAC in place. Follow Vascular recs.
- continue Vanco/Zosyn, day 5 per ID - requires intensive monitoring of Vanco levels
- continue pain control
History of PAD with recent right SFA/pop/right anterior tibial/right peritoneal artery balloon angioplasty 07/04/24
Acute on chronic open right malleolar wound, likely arterial
- Arterial US: Right lower extremity ankle-brachial index not obtainable secondary noncompressibility of the vessels. Toe pressure is unobtainable. Monophasic waveforms throughout lower extremity artery suggestive of inflow aorto/iliac artery
disease. Heavily calcified vessels are noted, however there are no infrainguinal arterial velocity elevations to suggest any significant infrainguinal stenoses.
- continue ASA/Statin/Plavix
- wound care following
- Vascular following
Stage II sacral decub due to bedbound status
- continue wound care
- continue vitamin B6, B1, B12
DM-II
Diabetic retinopathy
- Accu-Cheks with exercise
- A1c 5.5%
- continue Lantus 12 units at bedtime + SSI
- Hold metformin 1000 mg twice daily
Schizoaffective Disorder/mood disorder
- continue Tegretol 300 mg p.o. twice daily, divalproex 125 mg p.o. twice daily
- continue risperidone 0.5 mg twice daily
CVA with Right hemiplegia 10/03/2022
Bedbound versus wheelchair patient denies getting out of bed even with [facility]
- continue ASA/Statin/Plavix
HLD
- continue statin 40 mg at bedtime
Hypothyroidism
- continue levothyroxine 50 mcg p.o. daily
GERD
- continue Protonix 40 mg twice daily
acute anemia on chronic Iron deficiency anemia
- suspect related to operative blood loss; repeat Hb 2pm today
Hypomagnesemia
- repleted; continue oral replacement
Class I obesity multifactorial bedbound, immobility
- Affects all aspects of care
- Continue 1800 ADA low-fat diet
Insomnia
- Continue melatonin 3 mg at bedtime
DVT prophylaxis: SC Heparin
Code: Full
Contact: younger sister Tessy Ramirez [phone]
Anticipated Discharge: > 48 hours
Subjective/Interval History
-
Date of Service: September 03, 2024
no new complaints
Objective Data
-
Labs:
Laboratory Results
09/03/24
05:01
WBC 6.1
Hgb 9.5 L
Hct 30.5 L
Plt Count 247
Sodium 139
Potassium 3.9
Chloride 103
Carbon Dioxide 22
BUN 10
Creatinine 0.7
Glucose 108 H
Calcium 7.7 L
Total Bilirubin < 0.1 L
AST 19
ALT 13
Alkaline Phosphatase 73
Vital Signs:
Vital Signs
Temp Pulse Resp BP Pulse Ox
97.0 F 74 16 142/54 98
09/03/24 07:00 09/03/24 07:00 09/03/24 07:00 09/03/24 07:00 09/03/24 07:00
I&O
09/02/24 09/03/24 09/04/24
06:59 06:59 06:59
Intake Total 2029 / 2029 860 / 860
Output Total 800 / 800
Balance 1230 / 1230 860 / 860
Physical Exam
-
General: No Apparent Distress
HEENT: Normocephalic and Atraumatic
Respiratory: Negative Wheezes
Cardiac: Regular Rhythm and S1/S2
GI: Soft and Nontender
Musculoskeletal: No Edema
Neuro: AO x 3
Hematologic / Lymphatic: No Lymphadenopathy
Psych: Calm
Data Reviewed
-
Total Time Spent with Patient (in minutes): 51
Labs: Labs Reviewed by me
[2024-09-03 12:16] LABS: Glucose - Point of Care 99 mg/dl (70-99)
[2024-09-03 16:00] VITALS: BP 130/76
[2024-09-03 16:42] LABS: Glucose - Point of Care 92 mg/dl (70-99)
[2024-09-03] MEDS: MELATONIN 3 MG PO (20:31)
[2024-09-03] MEDS: LANTUS 0.12 UNITS SC (20:31)
[2024-09-03] MEDS: LIPITOR 40 MG PO (20:32)
[2024-09-03 21:38] LABS: Glucose - Point of Care 209 mg/dl (70-99)
[2024-09-03 22:36] LABS: Vancomycin Peak 41.6 ug/ml (18-26)
[2024-09-03 22:40] VITALS: BP 131/72
[2024-09-04] MEDS: ZOSYN 50 IV ×2 (01:13→08:22)
[2024-09-04] MEDS: SYNTHROID 50 MCG PO (05:36)
[2024-09-04 07:05] VITALS: BP 121/74
[2024-09-04 07:22] LABS: Glucose - Point of Care 152 mg/dl (70-99)
[2024-09-04 07:34] LABS: % Basophils 0.4 % (0-2); % Eosinophils 0.9 % (0-6); % Immature Granulocytes 0.5 % (0-0.5); % Lymphocytes 5.8 % (20.5-51.1); % Neutrophils 88.4 % (42.2-75.2); Absolute Basophils 0.1 10^3/uL (0-0.2); Absolute Eosinophils 0.1 10^3/uL (0-0.7); Absolute Immature Granulocytes 0.1 10^3/uL (0-0.05); Absolute Lymphocytes 0.8 10^3/uL (1.2-3.4); Absolute Monocytes 0.5 10^3/uL (0.1-0.6); Absolute Neutrophils 11.4 10^3/uL (1.4-6.5); Hematocrit 35.4 % (37.0-47.0); Mean Corp Hgb Conc. 31.1 g/dL (33.0-37.0); Mean Corpuscular Hgb 25.7 pg (27.0-31.0); Mean Corpuscular Volume 82.7 fL (81.0-99.0); Mean Platelet Volume 10.9 fL (7.4-10.4); Nucleated Red Blood Cells % 0 %; Platelet Count 279 10^3/uL (130-400); Red Blood Cell Count 4.28 10^6/uL (4.20-5.40); Red Cell Dist. Width 16.9 % (11.5-14.5); White Blood Cell Count 12.9 10^3/uL (4.8-10.8)
[2024-09-04 08:03] LABS: ALT (SGPT) 13 U/L (0-35); AST (SGOT) 22 U/L (14-36); Albumin 3.1 g/dl (3.5-5.0); Alkaline Phosphatase 76 U/L (38-126); Blood Urea Nitrogen 10 mg/dl (7-17); Calcium 7.9 mg/dl (8.4-10.2); Carbon Dioxide 25 mmol/L (22-30); Chloride 106 mmol/L (98-107); Estimated Creatinine Clearance 85 ml/min; Glucose 136 mg/dl (70-99); Potassium 3.9 mmol/L (3.5-5.1); Sodium 140 mmol/L (135-145); Total Bilirubin 0.2 mg/dl (0.2-1.3); Total Protein 5.5 g/dl (6.3-8.2); eGFR > 60.00
--- NOTE | 2024-09-04 08:10 | PHA.VAN.FU ---
Addendum entered and electronically signed by Bryanna Carrizales RPH 09/04/24 15:03:
Nursing reportedly infused dose prior to peak over 2 hours instead of one hour.
Peak drawn appropriately (~2.2H after end of 2H infusion). Levels would remain supratherapeutic with AUC 916, Cmax 44.7, Cmin 32.2.
Original Note:
Vancomycin Assessment / Plan
- Assessment
Renal Function: Stable
WBC's are: Trending Up
In the past 24 hrs, patient has been: Afebrile
Concomitant Antimicrobials: piperacillin/tazobactam
- Assessment - Therapeutic Drug Monitoring
Extrapolated Cmax (mcg/mL): 46.2
Peak level was drawn: More than 3 hours after previous dose (Peak drawn late so calculations are not as accurate. Peak underestimated from true value which may lead to underestimation of AUC and overestimation of half-life)
Extrapolated Cmin (mcg/mL): 32.2
Trough Drawn: Appropriately
Levels were drawn: At steady state (levels drawn after 7th maintenance dose)
Calculated AUC (mcg*h/mL): 931
Calculated ke: 0.0327
Calculated half life (H): 21.2
Calculated Vd (L): 65.7 (~0.8 L/kg)
Calculated Vanc CL (ml/min): 35.8
Based on calculated ke, patient expected to have a level of ~15 tomorrow AM if renal function remains stable
- Dosing Plan
Adjust Regimen to: dosing by level
Dosing by Level: Hold off on dosing today (given supratherapeutic trough)
- Monitoring Plan
Random Level: 09/05 0600
- Follow Up
Pharmacy will continue to follow.
Vancomycin Follow UP
- -
Patient Age: 63
Patient Sex: Female
Vancomycin Day #: 6
Indication: Bone And Joint
Requesting Provider: Eric Jones/ Dr. King
Pertinent Antimicrobial Allergies:
Penicillins - Rash
per [facility] records
Sulfa (Sulfonamide Antibiotics) - Hives
cefaclor - Hives
Height / Weight:
Height 5 ft 4 in
Actual Weight 81.1 kg
Pertinent Past Medical History: L. AKA, DM, PAD
- Vital Signs / Lab Results
Temp Pulse Resp BP Pulse Ox
98.4 F 95 18 80/52 98
09/04/24 07:05 09/04/24 07:05 09/04/24 07:05 09/04/24 07:05 09/04/24 07:05
Lab Results - Hematology
09/02/24 09/03/24 09/04/24
07:03 05:01 06:11
WBC 5.8 6.1 12.9 H
Lab Results - Chemistry
09/02/24 09/03/24 09/04/24
07:02 05:01 06:11
BUN 10 10 10
Creatinine 0.7 0.7 0.7
Estimated Creat Clear 85 85 85
Albumin 2.7 L 2.8 L 3.1 L
Microbiology Results
08/30/24 13:07 Blood Culture - Preliminary
Blood/Venous No Growth in 4 days- Final report to follow
08/30/24 13:09 Blood Culture - Preliminary
Blood/Venous No Growth in 4 days- Final report to follow
08/30/24 13:07 Wound Culture - Final
Leg - Left Klebsiella pneumoniae
Staph aureus MRSA
Streptococcus agalactiae
Streptococcus pyogenes
Gram Stain - Final
Therapeutic Drug Monitoring
Vancomycin Peak 41.6 ug/ml (18-26) H* 09/03/24 22:09
Vancomycin Trough 32.0 ug/ml (5-20) H* 09/04/24 06:11
[2024-09-04] MEDS: DEPAKOTE (12 HR RELEASE) 125 MG PO (08:20)
[2024-09-04] MEDS: RISPERDAL 0.5 MG PO (08:20)
[2024-09-04] MEDS: TRILEPTAL 300 MG PO (08:20)
[2024-09-04] MEDS: NEURONTIN 100 MG PO ×2 (08:20→15:27)
[2024-09-04] MEDS: GLUCOPHAGE 1000 MG PO ×2 (08:20→16:12)
[2024-09-04] MEDS: MAGNESIUM OXIDE 500 MG PO (08:20)
[2024-09-04] MEDS: HEPARIN SC ×2 (08:20→08:27)
[2024-09-04] MEDS: ASPIR LOW (ENTERIC COATED) 81 MG PO (08:20)
[2024-09-04] MEDS: PLAVIX 75 MG PO (08:20)
[2024-09-04] MEDS: PROTONIX 40 MG PO (08:20)
[2024-09-04] MEDS: NOVOLOG FLEXPEN-LOW RESISTANCE 1 UNITS SC (08:21)
[2024-09-04] MEDS: LOTRIMIN 1% CREAM 1 APPLIC TOPICAL (08:22)
--- NOTE | 2024-09-04 10:01 | CM ---
Addendum entered by Minda Penn 09/04/24 15:27:
transport via ambulance set at 1800
Addendum entered by Minda Penn 09/04/24 12:37:
Spoke with John from [facility] - he stated that he just ordered the wound vac & should be at the facility today
John states patient has Jabari Mays ID #[id number] - phone #: [phone] (care coord dept) - CLOSED
John fisher patient can be transported at 6:30pm as wound vac will be at facility between 2-4pm today - He stated he will start the authorization.
tt hospitalist
PLAN: [facility]
Report# [phone]

Original Note:
Call placed to John in admissions [facility]-Left message
Will await call back regarding if they accept today & if they have a wound vac/air mattress
[facility]
patient also in need of air mattress which facility is aware
PLAN: [facility]
Report# [phone]
--- NOTE | 2024-09-04 10:09 | W.PN.ID1 ---
Date of Service
Date of Service: September 04, 2024
Today's Communication
Transition Vanco/Zosyn (d5) to doxycycline 100 mg po bid and Augmentin 875 mg bid through 09/13/24.
Assessment / Plan
# Left AKA stump dehiscence, wound infection
# PAD
- 08/31 s/p OR I+D. Per vascular, deep tissue healthy, no bone exposed, no abscess.
- Wound vac in place
- Wound swab cx:MRSA, GBS, GAS, Klebsiella pneumoniae
- Transition Vanco/Zosyn (d5) to doxycycline 100 mg po bid and Augmentin 875 mg bid through 09/13/24.
#Conditions prior to admission
DM
HTN
CVA with right hemiparesis
Hypothyroidism
Schizoaffective disorder
PAD
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
Right ankle wound s/p RLE endovascular procedure 07/04/24.
Lap rashid
SNF resident
Chief Complaint
-: Other (stump infection)
Vital Signs / Physical Exam
Vital Signs
Vital Signs
Temp Pulse Resp BP Pulse Ox
98.4 F 95 18 121/74 98
09/04/24 07:05 09/04/24 07:05 09/04/24 07:05 09/04/24 07:05 09/04/24 07:05
Physical Exam
Constitutional: Non-toxic
Pulmonary: Clear
Gastrointestinal: Soft, Non Tender and Non Distended
Wound: Other (left stump wound vac in place)
Neurological: Awake and Alert
Objective Data
Lab Data
Lab Results
09/04/24 06:11
09/04/24 06:11
PT 13.9 Sec (11.4-14.6) 09/01/24 05:34
INR 1.02 09/01/24 05:34
APTT 31.7 Sec (23.4-35.0) 09/01/24 05:34
Estimated Creat Clear 85 ml/min 09/04/24 06:11
Lactic Acid 1.1 mmol/L (0.7-2.0) 08/31/24 08:26
Total Bilirubin 0.2 mg/dl (0.2-1.3) 09/04/24 06:11
AST 22 U/L (14-36) 09/04/24 06:11
ALT 13 U/L (0-35) 09/04/24 06:11
Alkaline Phosphatase 76 U/L (38-126) 09/04/24 06:11
Most recent labs reviewed.
Micro Results:
08/30/24 13:07 Blood Culture - Preliminary
Blood/Venous No Growth in 4 days- Final report to follow
08/30/24 13:09 Blood Culture - Preliminary
Blood/Venous No Growth in 4 days- Final report to follow
08/30/24 13:07 Wound Culture - Final
Leg - Left Klebsiella pneumoniae
Staph aureus MRSA
Streptococcus agalactiae
Streptococcus pyogenes
Gram Stain - Final
08/30/24 22:09 MRSA Screen - Final
Nose No Methicillin Resistant Staphylococcus aureus isolated.
08/30/24 CT a/p: At the approximate level of the adductor canal, there is lack of intraluminal contrast opacification of the LEFT popliteal artery, consistent with occlusion/thrombus.
[2024-09-04] MEDS: DILAUDID 1 MG IV (11:32)
[2024-09-04] MEDS: AUGMENTIN 875 MG/125 MG 1 TABLET PO (11:32)
[2024-09-04] MEDS: VIBRAMYCIN 100 MG PO (11:32)
[2024-09-04 11:51] LABS: Glucose - Point of Care 131 mg/dl (70-99)
[2024-09-04] MEDS: NOVOLOG FLEXPEN-LOW RESISTANCE SC ×2 (12:04→16:10)
--- NOTE | 2024-09-04 13:35 | W.DS.TRANS ---
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
-
Discharge Instructions:
Discharge Diagnosis/Procedures Sepsis secondary to left AKA stump wound
infection
Diet As tolerated,Diabetic, Carb Controlled
Activity No strenuous activity
Driving Restrictions No driving
Bathing Restrictions OK to Shower
Instructions:
Stand-Alone Forms:
Changes to Home Medications: Yes
Discharge Medications:
DC Medications w/original date entered in [facility]
acetaminophen 325 mg tablet (Tylenol) 650 mg PO Q6HPRN PRN mild/mod pain, temp>100.4 05/29/24
atorvastatin 40 mg tablet 40 mg PO HS High Cholesterol 05/29/24
bisacodyl 10 mg rectal suppository 10 mg NC DAILYPRN PRN constipation not rel by MOM 05/29/24
calcium carbonate 500 mg PO BID Supplement 05/29/24
cholecalciferol (vitamin D3) 125 mcg (5,000 unit) tablet 125 mcg PO DAILY Supplement 05/29/24
divalproex 125 mg tablet,delayed release 125 mg PO BID behavior management 05/29/24
insulin lispro 100 unit/mL subcutaneous solution 0 sliding scale dose SC ACHS Diabetes 05/29/24
levothyroxine 50 mcg tablet 50 mcg PO DAILY Thyroid 05/29/24
magnesium hydroxide 400 mg/5 mL oral suspension (Milk of Magnesia) 30 ml PO DAILYPRN PRN constipation 05/29/24
melatonin 3 mg tablet 3 mg PO HS sleeplessness 05/29/24
metformin 1,000 mg tablet 1,000 mg PO BID Diabetes 05/29/24
oxcarbazepine 300 mg tablet 300 mg PO BID mental health 05/29/24
pantoprazole 40 mg tablet,delayed release 40 mg PO Q12H reflux 05/29/24
polyethylene glycol 3350 17 gram oral powder packet (Miralax) 17 g PO DAILYPRN PRN if no BM 05/29/24
risperidone 0.5 mg tablet 0.5 mg PO BID Depression 05/29/24
sodium phosphates 19 gram-7 gram/118 mL enema 118 ml NC DAILYPRN PRN if no result after bisacodyl supp 05/29/24
aspirin 81 mg tablet,delayed release 81 mg PO DAILY Stroke #0 tabs 06/06/24
gabapentin 100 mg capsule 100 mg PO TID Pain #0 caps 06/06/24
cyanocobalamin (vitamin B-12) 1,000 mcg tablet,extended release 1,000 mcg PO DAILY Supplement 07/03/24
loperamide 2 mg tablet 2 mg PO Q4HPRN PRN loose stool 07/03/24
pyridoxine (vitamin B6) 25 mg tablet 25 mg PO DAILY Supplement ##0 07/03/24
therapeutic multivitamin 1 tab PO DAILY Supplement 07/03/24
thiamine HCl (vitamin B1) 100 mg tablet 100 mg PO DAILY Supplement 07/03/24
clopidogrel 75 mg tablet 75 mg PO DAILY #30 tabs 07/07/24
collagenase clostridium histo. 250 unit/gram topical ointment (Santyl) 1 applic topical DAILY 08/30/24
collagenase clostridium histo. 250 unit/gram topical ointment (Santyl) 1 applic topical DAILYPRN PRN soiled/dislodged R ankle 08/30/24
insulin glargine 100 unit/mL subcutaneous solution 12 unit SC HS 08/30/24
amoxicillin 875 mg-potassium clavulanate 125 mg tablet 1 tab PO Q12 #18 tabs 09/04/24
doxycycline hyclate 100 mg capsule 100 mg PO Q12 #18 caps 09/04/24
oxycodone 10 mg tablet 10 mg PO Q4HPRN PRN moderate pain #10 tabs 09/04/24
Home Medication Changes
Complete oral antibiotic course through 09/13/2024
Pending Results: No
--- NOTE | 2024-09-04 14:25 | WOUNDNOTE ---
[facility] RN note: CAROLINE Cohen reports plan is discharge to [facility] today. RN Corrine confirmed discharge order is in. Corrine is aware [facility] place [facility]N soiled utility room. Corrine stated earlier this afternoon she had
to remove vac dressing d/t patient pulled trac pad off and she had placed a saline gauze dressing to L AKA wound. 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
[2024-09-04 16:09] LABS: Glucose - Point of Care 106 mg/dl (70-99)
--- NOTE | 2024-09-04 17:03 | PTCARENOTE ---
report called to [facility]. Pt changed. wound vac removed. Saline and gauze dressing CDI. Wound vac placed in soiled utility. belongings packed including prosthesis.
--- NOTE | 2024-09-05 13:26 | PN.CDI ---
CDI
- -
CDI:
Physician Documentation Request
Admit Date: 08/30/24 16:16
Dear Doctor Kelton,
Please review the following and provide your response in the progress notes.
Clinical Indicators:
Pt admitted with severe sepsis and left AKA stump infection.
08/31 OR report: ''...the subcutaneous tissues had not closed (the skin was not stuck down). Therefore I then used a 15 blade to reincised the island of skin between the 2 opening/dehiscence sites, as well as extending incision laterally and medially
... I sharply debrided the skin edges where the island of skin tissue had been...'
Could you provide, in the progress notes further clarification regarding the debridement.
Please specify the type of debridement performed:
1. Excisional Debridement - defined as removal by excision of devitalized tissue, necrosis or slough
2. Non-excisional debridement - defined as removal of devitalized tissue, necrosis or slough by such methods as irrigation, brushing, scrubbing or washing.
If the debridement was excisional, please also include:
1. What was excised (necrotic tissue, gangrenous tissue, slough etc.)
For excisional or non-excisional, please also include:
1. Depth of debridement (skin, subcutaneous tissue, fascia, muscle, bone etc)
Use of terms such as suspected, likely, concern for, or probable (associated with a specific diagnosis that is being evaluated, monitored, or treated as if it exists) are acceptable and can be coded in the inpatient setting, when documented at the
time of discharge.
Thank you,
Kailey Paz RN, BSN
CDI Specialist
[place] [facility]
Please use your independent medical judgment in providing your response.
== END 2024-09-04 18:14 | DRG 564 ==
LOC: 2 NORTH 16:16
PROVIDERS: Clinical Nurse Specialist Family Health; Internal Medicine; Nurse Practitioner; ADMITTING PHYSICIAN Hospitalist; ATTENDING PHYSICIAN Internal Medicine; CONSULT PHYSICIAN Internal Medicine Infectious Disease; CONSULT PHYSICIAN Surgery Vascular Surgery; EMERGENCY PHYSICIAN Emergency Medicine; FAMILY PHYSICIAN Internal Medicine
PROC: 0HDLXZZ Extraction of Left Lower Leg Skin, External Approach (ICD-10-PCS; 2024-08-31)
PROC: 0J9M0ZZ Drainage of Left Upper Leg Subcutaneous Tissue and Fascia, Open Approach (ICD-10-PCS; 2024-08-31)
PROC: 2W1PX6Z Compression of Left Upper Leg using Pressure Dressing (ICD-10-PCS; 2024-08-31)
DX: T87.44 Infection of amputation stump, left lower extremity (principal); A41.02 Sepsis due to Methicillin resistant Staphylococcus aureus; R65.20 Severe sepsis without septic shock; F03.918 Unspecified dementia, unspecified severity, with other behavioral disturbance; F03.93 Unspecified dementia, unspecified severity, with mood disturbance; I69.351 Hemiplegia and hemiparesis following cerebral infarction affecting right dominant side; E87.20 Acidosis, unspecified; D62 Acute posthemorrhagic anemia; E03.9 Hypothyroidism, unspecified; E11.319 Type 2 diabetes mellitus with unspecified diabetic retinopathy without macular edema; F32.A Depression, unspecified; K21.9 Gastro-esophageal reflux disease without esophagitis; D50.9 Iron deficiency anemia, unspecified; E66.811 Obesity, class 1; E83.42 Hypomagnesemia; F25.9 Schizoaffective disorder, unspecified; I10 Essential (primary) hypertension; L89.152 Pressure ulcer of sacral region, stage 2; B95.0 Streptococcus, group A, as the cause of diseases classified elsewhere; B95.1 Streptococcus, group B, as the cause of diseases classified elsewhere; E11.51 Type 2 diabetes mellitus with diabetic peripheral angiopathy without gangrene; B96.1 Klebsiella pneumoniae [K. pneumoniae] as the cause of diseases classified elsewhere; E78.00 Pure hypercholesterolemia, unspecified; G47.00 Insomnia, unspecified; Y83.5 Amputation of limb(s) as the cause of abnormal reaction of the patient, or of later complication, without mention of misadventure at the time of the procedure; Y92.9 Unspecified place or not applicable; Z87.891 Personal history of nicotine dependence; Z74.01 Bed confinement status; Z88.0 Allergy status to penicillin; Z89.612 Acquired absence of left leg above knee; Z68.30 Body mass index [BMI] 30.0-30.9, adult; Z88.2 Allergy status to sulfonamides; Z88.8 Allergy status to other drugs, medicaments and biological substances; Z88.1 Allergy status to other antibiotic agents; Z91.010 Allergy to peanuts; Z79.890 Hormone replacement therapy; Z79.4 Long term (current) use of insulin; Z79.84 Long term (current) use of oral hypoglycemic drugs; Z79.02 Long term (current) use of antithrombotics/antiplatelets; Z90.49 Acquired absence of other specified parts of digestive tract; Z79.82 Long term (current) use of aspirin; Z99.3 Dependence on wheelchair
CPT/HCPCS: 10140; 75635; 80053; 80202; 82607; 82728; 82746; 82962; 83036; 83540; 83550; 83605; 83735; 85014; 85018; 85025; 85027; 85610; 85730; 86850; 86900; 86901; 87040; 87070; 87077; 87147; 87186; 87205; 93922; 93925; 93971; 96365; 96366; 96367; 99284; Q9967